=== PATIENT | male | born 1940 | race Caucasian/White ===

== ENCOUNTER 2016-10-31 07:15 | Inpatient (IN) | payer OTHER ==
[2016-10-29 17:36] VITALS: BMI 23.8
[~2016-10-31 07:15] MED LIST: GELATIN, ABSORBABLE 100 EACH SPONGE TP ONE; THROMBIN (BOVINE) 5,000 UNIT VIAL TP ONE
[2016-10-31] MEDS ORDERED: POVIDONE-IODINE OINTMENT 10% - 28.4 GM TUBE ONE ×2 (07:21→13:18)
[2016-10-31] MEDS ORDERED: HEPARIN NA (PORCINE) 5,000 UNITS/ML 1ML VIAL ONE (07:21)
--- NOTE | 2016-10-31 07:34 | HP ---
History & Physical Update - History History: No Change - Physical Physical: No Change - Assessment Assessment: No Change - Plan Plan: No Change (Initial H&P is in patient's paper chart. Completed by Dr. Jhon Higgisn on 10/16/16)
[2016-10-31] MEDS ORDERED: CEFAZOLIN 1 GM in DEXTROSE 5%-WATER - 100 ML IVPB ONE (07:35)
[2016-10-31] MEDS ORDERED: DESFLURANE GAS 240 ML BOTTLE IH ONE (07:50)
[2016-10-31] MEDS ORDERED: ceFAZolin SODIUM 1 GM VIAL ONE (08:29)
[2016-10-31] MEDS ORDERED: PROPOFOL 20 ML ONE ×2 (09:37)
[2016-10-31] MEDS ORDERED: LIDOCAINE HCL/PF 2% SDV 5ML VIAL ONE (09:37)
[2016-10-31] MEDS ORDERED: ROCURONIUM BROMIDE 50 MG/5 ML VIAL ONE (09:37)
[2016-10-31] MEDS ORDERED: ceFAZolin SODIUM 1 GM VIAL IVPB ONE (09:46)
[2016-10-31] MEDS ORDERED: HEPARIN NA (PORCINE) 5,000 UNITS/ML 1ML VIAL SQ ONE (10:10)
[2016-10-31] MEDS ORDERED: MIDAZOLAM HCL 2 MG/2 ML SINGLE DOSE VIAL ONE (10:40)
[2016-10-31] MEDS ORDERED: ePHEDrine SULFATE 50 MG/1 ML AMPULE ONE ×2 (10:51→12:16)
[2016-10-31] MEDS ORDERED: GELATIN, ABSORBABLE 100 EACH SPONGE TP ONE (11:46)
[2016-10-31] MEDS ORDERED: THROMBIN (BOVINE) 5,000 UNIT VIAL TP ONE (11:46)
[2016-10-31] MEDS ORDERED: ATROPINE SULFATE 1 MG/10 ML DISP.SYRIN ONE (12:16)
[2016-10-31] MEDS ORDERED: SUCCINYLCHOLINE CHLORIDE 200 MG/10 ML VIAL ONE (12:18)
[2016-10-31] MEDS ORDERED: NEOSTIGMINE METHYLSULFATE 0.5 MG/ML - 10 ML MDV ONE (13:13)
[2016-10-31] MEDS ORDERED: POVIDONE-IODINE OINTMENT 10% - 28.4 GM TUBE TP ONE (13:23)
--- NOTE | 2016-10-31 13:23 | OP ---
Operative Note - Note: Operative Date: 10/31/16 Pre-Operative Diagnosis: Ischemic right foot Operation: Right fmoropopliteal bypass with PTFE, endarterectomy popliteal, J2EE JAVA DEVELOPER and DFA Findings: Atherosclerotic plaque occluding distal SFA with patent popliteal. Calcified plaque of common, deep and superficial femoral arteries Implants: 8 mm ringed stretch PTFE Post-Operative Diagnosis: Same as Pre-op Surgeon: Christopher German Trainman: Libby Rodgers Anesthesiologist/DATA ENTRY ASSISTANT: Varun Malagon Anesthesia: General Specimens Removed: Plaque from arteries Estimated Blood Loss (mls): 200
--- NOTE | 2016-10-31 13:26 | HP ---
Admitting History and Physical - Admission History of Present Illness: 76 year old male with pain and rubor of right foot. Unable to walk more than 1/ 2 block. ANgiogram showed occlusion of SFA with popliteal runoff to 2 tibial vessels. History Source: Patient, Medical Record Limitations to Obtaining History: No Limitations - Past Medical History Cardiovascular: Yes: HTN, Hyperlipdemia Psych: Yes: Anxiety Musculoskeletal: Yes: Chronic low back pain, Other (Left shoulder pain) Rheumatology: Yes: Gout - Past Surgical History Past Surgical History: Yes: Bypass (Left Fem-Pop), Carotid Endarterectomy - Smoking History Smoking history: Former smoker Have you smoked in the past 12 months: No Aproximately how many cigarettes per day: 0 If you are a former smoker, when did you quit?: 21 YEARS AGO - Alcohol/Substance Use Hx Alcohol Use: No - Social History History of Recent Travel: No Home Medications - Allergies Allergies/Adverse Reactions: Allergies Allergy/AdvReac Type Severity Reaction Status Date / Time No Known Drug Allergies Allergy Verified 10/31/16 08:24 - Home Medications Home Medications: Ambulatory Orders RX: Aspirin Coated [Ecotrin -] 81 mg PO DAILY #0 tablet.ec 05/20/12 RX: Atorvastatin Calcium 40 mg PO HS 10/29/16 RX: Lisinopril 5 mg PO DAILY 10/29/16 RX: Metoprolol Succinate [Toprol XL -] 25 mg PO DAILY 10/29/16 Physical Examination Vital Signs: Vital Signs Temperature 98.2 F 10/31/16 08:23 Pulse Rate 61 10/31/16 08:23 Respiratory Rate 20 10/31/16 08:23 Blood Pressure 162/64 10/31/16 08:23 O2 Sat by Pulse Oximetry (%) 99 10/31/16 08:17 Constitutional: Yes: No Distress Eyes: Yes: WNL HENT: Yes: WNL Neck: Yes: Supple Cardiovascular: Yes: Regular Rate and Rhythm Respiratory: Yes: WNL Gastrointestinal: Yes: Normal Bowel Sounds, Soft Extremities: Yes: Other (Rubor of right forefoot, no open wounds.) Peripheral Pulses WNL: No (1+ right femoral pulse, no distal) Problem List - Problems (1) Ischemia of right lower extremity Code(s): I99.8 - OTHER DISORDER OF CIRCULATORY SYSTEM (2) Atherosclerosis of [place] artery of left leg with rest pain Assessment/Plan: Plan fem-pop bypass. Code(s): I70.222 - ATHSCL [place] ARTERIES OF EXTREMITIES W REST PAIN, LEFT LEG
[2016-10-31] MEDS ORDERED: PROMETHAZINE HCL 25 MG/1 ML VIAL IVPUSH PRN (13:44)
[2016-10-31] MEDS ORDERED: ONDANSETRON 4 MG/2 ML VIAL IVPUSH PRN (13:44)
[2016-10-31] MEDS ORDERED: oxyCODONE HCL 5 MG TABLET PO PRN ×3 (13:44→16:09)
[2016-10-31] MEDS: LABETALOL HCL 5 MG/1 ML (100MG/20 ML VIAL) IVPUSH ONE ×2 (14:10→17:58)
[2016-10-31] MEDS ORDERED: ZOLPIDEM TARTRATE 5 MG TABLET PO PRN (16:03)
[2016-10-31] MEDS ORDERED: ONDANSETRON 4 MG/2 ML VIAL IVPB PRN (16:03)
[2016-10-31] MEDS ORDERED: morphine CARPU-JECT 4 MG/1 ML DISP.SYRIN IVPUSH PRN (16:10)
--- NOTE | 2016-10-31 16:20 | SURG ---
Surgery Fire Safety Manager Note Fire Safety Manager: Libby Rodgers PA-C Date of Service: 10/31/16 Diagnosis: Ischemic right foot Procedure: Right fmoropopliteal bypass with PTFE, endarterectomy popliteal, DATA SCIENCE AND IOT MANAGER and DFA I was present for the entirety of the operative procedure. For further detail, please refer to operative report. Visit type - Case Type Case Type: Scheduled Admission - Emergency Emergency Visit: No - New patient This patient is new to me today: Yes Date on this admission: 10/31/16 - Critical Care Critical Care patient: No
[2016-10-31] MEDS: DEXTROSE 5%-0.45% SALINE 1,000 ML IV SCH (17:00)
--- NOTE | 2016-10-31 17:58 | CONSULT ---
Consultation: Specialty: Critical Care REQUESTING PROVIDER: Christopher German CONSULT REQUEST: We have been asked to medically evaluate this patient for Intensive Care HISTORY OF PRESENT ILLNESS: 76 yo M h/o HLD, HTN, b/l lower extremity PAD s/p bilateral fem-pop bypasses, CAD s/p quadruple CABG, b/l carotid artery stenosis s/p L endarterectomy admitted to the ICU after R fem-pop bypass surgery. Prior to the procedure, he c /o severe pain in R foot on ambulation in that he could not even walk more than 20 feet. As a result, he saw Dr. German and the bypass surgery was performed without any complication. He denies fever, chills, chest pain, shortness of breath, cough, n/v, pain at surgical site. Past Medical History Cardio/Vascular HTN,Hyperlipdemia,PAD Psych Anxiety Rheumatology Gout Past Surgical History Bypass (Left Fem-Pop),Carotid Endarterectomy 2011, Quadruple CABG in 2013 at [facility] Social History Smoking history Former smoker Have you smoked in the past 12 No months Hx Alcohol Use No Usual Living Arrangement With Spouse Allergies Allergy/AdvReac Type Severity Reaction Status Date / Time No Known Drug Allergies Allergy Verified 10/31/16 08:24 Home Medications Medication Instructions Recorded Aspirin Coated [Ecotrin -] 81 mg PO DAILY #0 tablet.ec 05/20/12 Atorvastatin Calcium 40 mg PO HS 10/29/16 Lisinopril 5 mg PO DAILY 10/29/16 Metoprolol Succinate [Toprol XL -] 25 mg PO DAILY 10/29/16 REVIEW OF SYSTEMS: CONSTITUTIONAL: Absent: fever, chills, diaphoresis, generalized weakness, malaise, loss of appetite, weight change HEENT: Absent: rhinorrhea, nasal congestion, throat pain, throat swelling, difficulty swallowing, mouth swelling, ear pain, eye pain, visual changes CARDIOVASCULAR: Absent: chest pain, syncope, palpitations, irregular heart rate, lightheadedness , peripheral edema RESPIRATORY: Absent: cough, shortness of breath, dyspnea with exertion, orthopnea, wheezing, stridor, hemoptysis GASTROINTESTINAL: Absent: abdominal pain, abdominal distension, nausea, vomiting, diarrhea, constipation, melena, hematochezia GENITOURINARY: Absent: dysuria, frequency, urgency, hesitancy, hematuria, flank pain, genital pain MUSCULOSKELETAL: Absent: myalgia, arthralgia, joint swelling, back pain, neck pain SKIN: Absent: rash, itching, pallor HEMATOLOGIC/IMMUNOLOGIC: Absent: easy bleeding, easy bruising, lymphadenopathy, frequent infections ENDOCRINE: Absent: unexplained weight gain, unexplained weight loss, heat intolerance, cold intolerance NEUROLOGIC: Absent: headache, focal weakness or paresthesias, dizziness, unsteady gait, seizure, mental status changes, bladder or bowel incontinence PSYCHIATRIC: anxiety Absent: depression, suicidal or homicidal ideation, hallucinations. PHYSICAL EXAMINATION Last Vital Signs Temp Pulse Resp BP Pulse Ox 97.6 F 62 16 162/37 99 10/31/16 17:28 10/31/16 17:28 10/31/16 17:28 10/31/16 17:28 10/31/16 17:00 GENERAL: AAO x 3, in no acute distress, speak in full sentences EARS, NOSE, THROAT: oropharynx clear without exudates. Moist mucous membranes. NECK: Bilateral bruits R > L LUNGS: CTAB HEART: RRR, normal S1 and S2 without murmur, rub or gallop. ABDOMEN: Soft, nontender, not distended, normoactive bowel sounds, no guarding, no rebound, no masses. Dressing in place in RLQ LOWER EXTREMITIES: 2+ peripheral pulses bilaterally using portable doppler device, No peripheral edema. Laboratory Results - last 24 hr 10/31/16 07:36 Blood Type O POSITIVE Antibody Screen Negative ASSESSMENT/PLAN: 76 yo M h/o HLD, HTN, b/l lower extremity PAD s/p bilateral fem-pop bypasses, CAD s/p quadruple CABG, b/l carotid artery stenosis s/p L endarterectomy admitted to the ICU s/p R fem-pop bypass surgery. PAD with ischemia of RLE , s/p R fem-pop bypass - Post-op day #0 - Post-op prophylatic abx: Cefazolin Q8H - Pain control: oxycodone 5mg PRN + morphine 2mg PRN + fentanyl 50mcg PRN - Post-op nausea control: zofran and prometazine PRN - Sleep aid: ambien 5mg PRN - Dispo: OOB and incentive spirometer - Cont. asa, lipitor, lisnopril, metoprolol - Pulse check Q1H with portable doppler FEN - D5+1/2NS @ 100ml/hr - Monitor lytes - Clears Prophylaxis - DVT: heparin 5000 unit SQ - GI: not indicated Koby Song, ICU Resident PGY-2 Pager: [phone] Visit type - Emergency Visit Emergency Visit: No - New Patient This patient is new to me today: Yes Date on this admission: 10/31/16 - Critical Care Critical Care patient: Yes Total Critical Care Time (in minutes): 30 Critical Care Statement: The care of this patient involved high complexity decision making to prevent further life threatening deterioration of the patient 's condition and/or to evalute & treat vital organ system(s) failure or risk of failure.
[2016-10-31] MEDS: CEFAZOLIN (PRE-DOCKED) 50 ML IVPB SCH (18:25)
[2016-10-31] MEDS: ACETAMINOPHEN 325 MG TABLET (FP) PO PRN (21:26)
[2016-10-31] MEDS: ATORVASTATIN CA 40 MG TABLET (FP) PO SCH (21:27)
[2016-10-31] MEDS ORDERED: HEPARIN NA (PORCINE) 5,000 UNITS/ML 1ML VIAL SQ SCH (22:00)
[2016-11-01] MEDS: CEFAZOLIN (PRE-DOCKED) 50 ML IVPB SCH (00:42)
--- NOTE | 2016-11-01 05:21 | CONSULT ---
Consult - text type - Consultation Consultation Note: PULM/CCM CC: claudication HPI: Briefly Mr Shirin is a 76 yo M h/o HLD, HTN, b/l lower extremity PAD s/ p bilateral fem-pop bypasses, CAD s/p quadruple CABG, b/l carotid artery stenosis s/p L endarterectomy who presented with claudication (R> L) , angiogram showed occlusion of SFA with popliteal runoff to 2 tibial vessels, on 10/31 underwent uneventful R fem-pop bypass surgery with Dr German, now in ICU for overnight monitoring of distal perfusion. He denies fever, chills, chest pain, shortness of breath, cough, n/v, pain at surgical site. Past Medical History Cardio/Vascular HTN,Hyperlipdemia Psych Anxiety Rheumatology Gout Past Surgical History Past Surgical History Bypass (Left Fem-Pop),Carotid Endarterectomy Social History Smoking history Former smoker Have you smoked in the past 12 No months Hx Alcohol Use No Usual Living Arrangement With Spouse Ambulatory Orders Aspirin Coated [Ecotrin -] 81 mg PO DAILY #0 tablet.ec 05/20/12 Atorvastatin Calcium 40 mg PO HS 10/29/16 Lisinopril 5 mg PO DAILY 10/29/16 Metoprolol Succinate [Toprol XL -] 25 mg PO DAILY 10/29/16 Current Medications Acetaminophen (Tylenol -) 650 mg PO Q4H PRN PRN Reason: FEVER Last Admin: 10/31/16 21:26 Dose: 650 mg Aspirin (Ecotrin -) 81 mg PO DAILY [facility] Atorvastatin Calcium (Lipitor -) 40 mg PO HS [facility] Last Admin: 10/31/16 21:27 Dose: 40 mg Dextrose/Sodium Chloride (D5-1/2ns -) 1,000 mls @ 100 mls/hr IV ASDIR [facility] Last Admin: 10/31/16 17:00 Dose: 100 mls/hr Lisinopril (Prinivil) 5 mg PO DAILY [facility] Metoprolol Succinate (Toprol Xl -) 25 mg PO DAILY [facility] Morphine Sulfate (Morphine Injection -) 2 mg IVPUSH Q3H PRN PRN Reason: PAIN LEVEL 6-10 Ondansetron HCl (Zofran Injection) 4 mg IVPB Q6H PRN PRN Reason: NAUSEA AND/OR VOMITING Oxycodone HCl (Roxicodone -) 5 mg PO Q4H PRN PRN Reason: MILD PAIN Stop: 11/01/16 13:43 Oxycodone HCl (Roxicodone -) 5 mg PO Q4H PRN PRN Reason: PAIN LEVEL 1-5 Oxycodone HCl (Roxicodone -) 10 mg PO Q4H PRN PRN Reason: PAIN LEVEL 6-10 Zolpidem Tartrate (Ambien -) 5 mg PO HS PRN PRN Reason: Insomnia Vital Signs Temp 99.0 F 11/01/16 02:00 Pulse 60 11/01/16 04:00 Resp 12 11/01/16 04:00 BP 155/52 11/01/16 04:00 Pulse Ox 99 10/31/16 20:40 Intake & Output 10/31/16 10/31/16 11/01/16 11:59 23:59 11:59 Intake Total 2200 450 Output Total 700 Balance 2200 -250 Intake: IV 2200 300 IVPB 100 Oral 50 Output: Urine 500 Wallace 300 Estimated Blood Loss 200 Other: Voiding Method Indwelling Catheter Bowel Movement No ROS: 9 pt review, unremarkable except as per HPI PE: GENERAL: AAO x 3, in no acute distress, speak in full sentences EARS, NOSE, THROAT: oropharynx clear without exudates. Moist mucous membranes. NECK: Bilateral carotid bruits R > L, no JVP LUNGS: clear anterior, no distress, no wheezes HEART: RRR, normal S1 and S2 without murmur, rub or gallop. ABDOMEN: Soft ND, NT LOWER EXTREMITIES: Dopplerable pulses bilaterally, chronic changes ASSESSMENT/PLAN: 76 yo M h/o HLD, HTN, b/l lower extremity PAD s/p bilateral fem-pop bypasses, CAD s/p quadruple CABG, b/l carotid artery stenosis s/p L endarterectomy admitted after re-op R fem-pop bypass with Dr German All Active Problems Atherosclerosis of [place] artery of left leg with rest pain (Acute) Ischemia of right lower extremity (Acute) Abnormal EKG (Acute) CAD (coronary artery disease) (Acute) Elevated troponin (Acute) History of coronary artery disease (Acute) -overnight q 1 Hr doppler of pulses in affected limb -pain control wtih Oxycodone , morphine prn -restart home meds, statin, aspirin, BB, lisinopril -DVT prophy SQH, no indication for GI -OOB to chair, Incentive spirometer -to floor in am, as per Dr Monserrat Negro ACNP [id number]
[2016-11-01 06:52] LABS: MCHC 32.9 g/dl (32.0-35.9); MEAN CELL VOLUME 88.3 fl (80-96); MEAN PLT VOLUME 8.5 fl (7.5-11.1); PLATELET COUNT 122 K/MM3 (134-434); RDW 13.4 % (11.9-15.9); WHITE BLOOD COUNT 6.1 K/mm3 (4.0-10.0)
--- NOTE | 2016-11-01 07:07 | PN ---
Progress Note (short form) - Note Progress Note: POD 1 C/o pain at knee incision VSS Bloody drainage from lower incision, slight swelling Foot warm, doppler DP and PT Stable course D/C Wallace ASA, SQ Heparin OOB tomorrow Problem List - Problems (1) Ischemia of right lower extremity Code(s): I99.8 - OTHER DISORDER OF CIRCULATORY SYSTEM (2) Atherosclerosis of [place] artery of left leg with rest pain Code(s): I70.222 - ATHSCL [place] ARTERIES OF EXTREMITIES W REST PAIN, LEFT LEG
[2016-11-01 07:16] LABS: ANION GAP 8 (8-16); CALCIUM 8.8 mg/dL (8.5-10.1); CO2 26 mmol/L (21-32); CREATININE 1.1 mg/dL (0.7-1.3); GLUCOSE,RANDOM 86 mg/dL (74-106)
--- NOTE | 2016-11-01 09:29 | PN ---
Progress Note (short form) - Note Progress Note: Anesthesia POD#1 S/P Right Fem-Pop Bypass under GA VSS,sitting in bed, oral food started. pain is well tolerated. No N/V Doing well. Priscilla Almazan MD.
--- NOTE | 2016-11-01 09:36 | PN ---
Physical Exam: SUBJECTIVE: Patient seen and examined at bedside in ICU. Pt feels much improved today and his leg feels much better. He states the color has returned to normal and is no longer painful. Tolerating diet, denies F/C/N/V, SOB. OBJECTIVE: Vital Signs Temperature 98.8 F 11/01/16 10:57 Pulse Rate 67 11/01/16 10:00 Respiratory Rate 15 11/01/16 10:00 Blood Pressure 153/53 11/01/16 10:00 O2 Sat by Pulse Oximetry (%) 99 11/01/16 08:00 GENERAL: The patient is awake, alert, and fully oriented, in no acute distress. HEAD: Normal with no signs of trauma. EYES: extraocular movements intact, sclera anicteric, conjunctiva clear. No ptosis. ENT: Ears normal, nares patent NECK: Trachea midline, full range of motion LUNGS: Breath sounds equal, clear to auscultation bilaterally, no wheezes, no crackles, no accessory muscle use. HEART: Regular rate and rhythm, S1, S2 ABDOMEN: Soft, nontender, nondistended, normoactive bowel sounds, no guarding, no rebound, no hepatosplenomegaly, no masses. EXTREMITIES: R leg medial knee with dressing with some blood in dressing. Pulses present on doppler in b/l LE. B/L LE warm to touch, non-tender, skin with normal coloration. NEUROLOGICAL: Normal speech, gait not observed. PSYCH: Normal mood, normal affect. SKIN: Warm, dry Laboratory Results - last 24 hr 11/01/16 11/01/16 05:15 05:15 WBC 6.1 RBC 2.79 L D Hgb 8.1 L D Hct 24.7 L D MCV 88.3 MCH 29.0 MCHC 32.9 RDW 13.4 Plt Count 122 L MPV 8.5 Sodium 139 Potassium 5.1 D Chloride 105 Carbon Dioxide 26 Anion Gap 8 BUN 31 H Creatinine 1.1 Random Glucose 86 Calcium 8.8 Active Medications Generic Name Dose Route Start Last Admin Trade Name Freq PRN Reason Stop Dose Admin Acetaminophen 650 mg 10/31/16 16:03 10/31/16 21:26 Tylenol - PO 650 mg Q4H PRN Administration FEVER Aspirin 81 mg 11/01/16 10:00 Ecotrin - PO DAILY TRI Atorvastatin Calcium 40 mg 10/31/16 22:00 10/31/16 21:27 Lipitor - PO 40 mg HS TRI Administration Dextrose/Sodium Chloride 1,000 mls @ 100 mls/hr 10/31/16 16:15 10/31/16 17:00 D5-1/2ns - IV 100 mls/hr ASDIR TRI Administration Lisinopril 5 mg 11/01/16 10:00 Prinivil PO DAILY TRI Metoprolol Succinate 25 mg 11/01/16 10:00 Toprol Xl - PO DAILY TRI Morphine Sulfate 2 mg 10/31/16 16:10 Morphine Injection - IVPUSH Q3H PRN PAIN LEVEL 6-10 Ondansetron HCl 4 mg 10/31/16 16:03 Zofran Injection IVPB Q6H PRN NAUSEA AND/OR VOMITING Oxycodone HCl 5 mg 10/31/16 13:44 Roxicodone - PO 11/01/16 13:43 Q4H PRN MILD PAIN Oxycodone HCl 5 mg 10/31/16 16:03 Roxicodone - PO Q4H PRN PAIN LEVEL 1-5 Oxycodone HCl 10 mg 10/31/16 16:09 Roxicodone - PO Q4H PRN PAIN LEVEL 6-10 Zolpidem Tartrate 5 mg 10/31/16 16:03 Ambien - PO HS PRN Insomnia ASSESSMENT/PLAN: 76 y/o M w/PMH of HTN, b/l LE PAD s/p b/l femoral-popliteal bypass, CAD s/p quadruple CABG, b/l carotid artery stenosis s/p L endarterectomy, admitted to ICU s/p R femoral-popliteal bypass surgery on 10/31/16. -Neuro -AAOx3 -Insomnia -Ambien 5 mg po qhs prn for insomnia -Cardiovascular: -R femoral-popliteal bypass -POD 1 -q1h Doppler checks of distal pulses and R LE -pain control with oxycodone 5mg po q4h prn for pain 1-5, morphine iv 2mg q3h prn for pain 6-10 -tylenol 650 mg po q4h prn for fevers -vascular surgery on case -CAD -c/w ASA 81 mg po qd, lipitor 40 mg po qhs -HTN -c/w toprol xl 25 mg po qd, lisinopril 5 mg po qd -DVT ppx -will hold heparin for now, SCD on left leg -restart heparin as indicated by vascular surgery -FEN -D5 1/2 NS @ 100ml/hr -monitor electrolytes -Regular diet beginning at lunch time today -Dispo: -will monitor in ICU Problem List - Problems (1) Atherosclerosis of [place] artery of left leg with rest pain Code(s): I70.222 - ATHSCL [place] ARTERIES OF EXTREMITIES W REST PAIN, LEFT LEG (2) Ischemia of right lower extremity Code(s): I99.8 - OTHER DISORDER OF CIRCULATORY SYSTEM (3) CAD (coronary artery disease) Code(s): I25.10 - ATHSCL HEART DISEASE OF [place] CORONARY ARTERY W/O ANG PCTRS (4) History of coronary artery disease Code(s): Z86.79 - PERSONAL HISTORY OF OTHER DISEASES OF THE CIRCULATORY SYSTEM (5) HTN (hypertension) Code(s): I10 - ESSENTIAL (PRIMARY) HYPERTENSION (6) S/P femoral-popliteal bypass surgery Code(s): Z95.828 - PRESENCE OF OTHER VASCULAR IMPLANTS AND GRAFTS Visit type - Emergency Visit Emergency Visit: Yes ED Registration Date: 10/31/16 Care time: The patient presented to the Emergency Department on the above date and was hospitalized for further evaluation of their emergent condition. - New Patient This patient is new to me today: Yes Date on this admission: 11/01/16 - Critical Care Critical Care patient: Yes Total Critical Care Time (in minutes): 35 Critical Care Statement: The care of this patient involved high complexity decision making to prevent further life threatening deterioration of the patient 's condition and/or to evalute & treat vital organ system(s) failure or risk of failure.
[2016-11-01] MEDS: ASPIRIN COATED 81 MG TABLET.EC PO SCH (09:52)
[2016-11-01] MEDS: LISINOPRIL 5 MG TABLET (FP) PO SCH (09:52)
[2016-11-01] MEDS: METOPROLOL SUCCINATE 25 MG TAB.SR.24H (FP) PO SCH (09:53)
[2016-11-01] MEDS ORDERED: CLOPIDOGREL BISULFATE 75 MG TABLET (FP) PO SCH (10:00)
--- NOTE | 2016-11-01 11:48 | OP ---
DATE OF OPERATION: 10/31/2016 SURGEON: Christopher German MD SHEET CUTTER: TYRONE Goff PROCEDURE: Right femoropopliteal bypass with polytetrafluoroethylene (PTFE) graft, endarterectomy of the common femoral, deep femoral, and popliteal arteries. PREOPERATIVE DIAGNOSIS: Ischemic right foot with rest pain. POSTOPERATIVE DIAGNOSIS: Ischemic right foot with rest pain. ANESTHESIA: General. ANESTHESIOLOGIST: Varun Malagon MD OPERATIVE FINDINGS: There was severe atherosclerotic plaque of the femoral and popliteal arteries. Plaque extending into the proximal superficial femoral and deep femoral arteries. OPERATIVE PROCEDURE: Following routine patient identification with site and side verification, general anesthesia was induced. A Wallace catheter was placed. The right leg and groin were prepped with ChloraPrep. Timeout was performed. Skin incision was made in the right groin over the femoral artery and carried down to subcutaneous tissues using cautery for hemostasis. Common femoral artery was mobilized at the inguinal ligament and secured with a vessel loop. There was dense scar tissue around the artery from previous angiogram procedures. The distal artery was dissected sharply. Deep and superficial femoral branches individually secured with vessel loops. Incision was then made in the medial aspect of the lower calf from the knee up. This was carried down to subcutaneous tissues and muscle fascia using cautery. The sartorius was reflected posteriorly, and the popliteal space was entered. The popliteal artery was mobilized and secured with vessel loop. It was dissected distally to just behind the knee. It was also secured with a vessel loop at this level. Small side branches were ligated and divided. The middle tunnel was passed deep to the sartorius between the 2 incisions, and an 8-mm ringed PTFE graft was passed through the tunnel with care not to twist it. The patient was systemically heparinized. The popliteal artery was occluded distally with vessel loops, and a longitudinal arteriotomy made measuring approximately 10 mm. There was thick plaque within the popliteal artery, and this was removed with endarterectomy. The distal intima was tacked down with sutures of 6-0 Prolene to prevent dissection. The end of the graft was then beveled and anastomosed to the side of the artery with running suture of 6-0 Prolene. Prior to completion of the suture line, the artery was allowed to back bleed and was flushed with heparin solution. The graft was occluded with a vascular clamp and the suture line was completed and the artery was released. Bleeding from the suture line was controlled with Gelfoam and thrombin. The knee was extended, and the graft pulled taut in its tunnel. The common femoral artery was occluded at the inguinal ligament, and the deep and superficial femoral branches were occluded with vessel loops. A longitudinal arteriotomy was made in the common femoral from the bifurcation proximally. Endarterectomy was performed to remove plaque from the common femoral artery. Plaque was also removed from the proximal deep femoral artery with return of some back bleeding. There was no back bleeding from the superficial femoral artery. The graft was then trimmed for length and beveled. It was anastomosed to the side of the artery with running suture of 6-0 Prolene. Prior to completion of the suture line, the arteries were allowed to flush, and the graft was allowed to back bleed. The wound was filled with heparin solution. Suture line was completed, and clamps were removed. Bleeding from the suture line was controlled with Gelfoam and thrombin. Evaluation with the hand-held Doppler revealed a good signal in the distal popliteal artery. No flow was heard in the deep femoral artery. Therefore, the artery was further dissected distally. Division of the overlying tissue. The distal deep femoral was occluded with a bulldog clamp and the proximal also with a bulldog clamp. A transverse arteriotomy was made in the deep femoral, and endarterectomy performed to restore inflow and return of back bleeding. The arteriotomy was closed with a running suture of 6-0 Prolene. Good Doppler signal was heard in the vessel after the clamps were removed. Hemostasis was achieved, and wounds were irrigated with saline and closed with interrupted sutures of 3-0 Vicryl in the subcutaneous tissues and skin [place]. Sterile dressings were applied. The patient was taken to the recovery room. Donya [id number]
[2016-11-01] MEDS: DEXTROSE 5%-0.45% SALINE 1,000 ML IV SCH (14:15)
[2016-11-01] MEDS: ACETAMINOPHEN 325 MG TABLET (FP) PO PRN (19:47)
[2016-11-01] MEDS: ATORVASTATIN CA 40 MG TABLET (FP) PO SCH (21:29)
[2016-11-01] MEDS: HEPARIN NA (PORCINE) 5,000 UNITS/ML 1ML VIAL SQ SCH (21:29)
[2016-11-02 06:22] LABS: MCH 29.3 pg (25.7-33.7); MEAN CELL VOLUME 88.8 fl (80-96); MEAN PLT VOLUME 8.5 fl (7.5-11.1); PLATELET COUNT 110 K/MM3 (134-434); RDW 13.8 % (11.9-15.9); WHITE BLOOD COUNT 6.5 K/mm3 (4.0-10.0)
[2016-11-02 07:11] LABS: ALBUMIN 3.2 g/dl (3.4-5.0); ANION GAP 6 (8-16); BILIRUBIN,TOTAL 0.3 mg/dL (0.2-1.0); CO2 28 mmol/L (21-32); CREATININE 1.1 mg/dL (0.7-1.3); GLUCOSE,RANDOM 99 mg/dL (74-106); SGOT/AST 24 U/L (15-37); SGPT/ALT 20 U/L (12-78)
[2016-11-02 07:12] LABS: ALK PHOS 54 U/L (45-117)
--- NOTE | 2016-11-02 08:25 | PN ---
Progress Note (short form) - Note Progress Note: POD 2 VSS Wounds dry Foot warm, pulses intact Hgb 8.2, no change Stable post-op course OOB, PT for ambulation. Transfer to floor. Dr. Souza covering. Problem List - Problems (1) Ischemia of right lower extremity Code(s): I99.8 - OTHER DISORDER OF CIRCULATORY SYSTEM (2) Atherosclerosis of [place] artery of left leg with rest pain Code(s): I70.222 - ATHSCL [place] ARTERIES OF EXTREMITIES W REST PAIN, LEFT LEG
--- NOTE | 2016-11-02 09:08 | PN ---
Progress Note, Physician Chief Complaint: The patient is known from the office. Seen in the ICU after right fem-po bypass on 10/31/16 History of Present Illness: PMH PAD GOUT RIGHT LE ENDARTEWRECTOMY. Left fem-pop bypass . Left cea. ASHD. PREVIOUS SD. RBBB. CABG X4 AT [facility] -VEIN TO PDA, OM, DIAGONAL, CORREA TO LAD HTN HLD LOW BACK PAIN-CHRONIC. - Current Medication List Current Medications: Active Medications Acetaminophen (Tylenol -) 650 mg PO Q4H PRN PRN Reason: FEVER Last Admin: 11/01/16 19:47 Dose: 650 mg Aspirin (Ecotrin -) 81 mg PO DAILY [facility] Last Admin: 11/01/16 09:52 Dose: 81 mg Atorvastatin Calcium (Lipitor -) 40 mg PO HS [facility] Last Admin: 11/01/16 21:29 Dose: 40 mg Heparin Sodium (Porcine) (Heparin -) 5,000 unit SQ BID [facility] Last Admin: 11/01/16 21:29 Dose: 5,000 unit Lisinopril (Prinivil) 5 mg PO DAILY [facility] Last Admin: 11/01/16 09:52 Dose: 5 mg Metoprolol Succinate (Toprol Xl -) 25 mg PO DAILY [facility] Last Admin: 11/01/16 09:53 Dose: 25 mg Ondansetron HCl (Zofran Injection) 4 mg IVPB Q6H PRN PRN Reason: NAUSEA AND/OR VOMITING Oxycodone HCl (Roxicodone -) 5 mg PO Q4H PRN PRN Reason: PAIN LEVEL 1-5 Oxycodone HCl (Roxicodone -) 10 mg PO Q4H PRN PRN Reason: PAIN LEVEL 6-10 Zolpidem Tartrate (Ambien -) 5 mg PO HS PRN PRN Reason: Insomnia - Objective Vital Signs: Vital Signs Temperature 99.0 F 11/02/16 06:00 Pulse Rate 64 11/02/16 06:00 Respiratory Rate 21 11/02/16 06:00 Blood Pressure 149/40 11/02/16 06:00 O2 Sat by Pulse Oximetry (%) 99 11/01/16 21:00 Constitutional: Yes: Anxious, Mild Distress Eyes: Yes: Conjunctiva Clear, EOM Intact, PERRL. No: Diplopia, Ptosis, Sclera Icterus, Tearing HENT: Yes: Atraumatic, Normocephalic. No: Drooling, Epistaxis, Hoarseness, Nasal Congestion Neck: Yes: Supple, Trachea Midline. No: Decreased ROM, Lymphadenopathy, Rigid Cardiovascular: Yes: Regular Rate and Rhythm, S1, S2. No: Bradycardia, Tachycardia, JVD, Rub Respiratory: Yes: Regular, CTA Bilaterally. No: Rales, Rhonchi Gastrointestinal: Yes: Normal Bowel Sounds, Soft. No: Abdomen, Obese, Ascites, Palpable Mass, Pulsatile Mass, Tenderness, Tenderness, Epigastrium ...Rectal Exam: Yes: Deferred Genitourinary: No: Anuria, Bladder Distention, CVA Tenderness - Left, CVA Tenderness - Right, Wallace Present Breast(s): Yes: WNL Musculoskeletal: No: Joint Stiffness, Joint Swelling Extremities: No: Cold, Cyanosis Edema: No Peripheral Pulses: Left Doralis Pedis: 3+, Right Dorsalis Pedis: 1+ Wound/Incision: Yes: Dressing Dry and Intact Neurological: Yes: Alert, Oriented. No: Aphasia, Ataxia, Confusion, Dysarthria , Lethargy, Unresponsive Psychiatric: Yes: Alert, Oriented. No: Agitated, Suicidal Ideation Labs: CBC, BMP 11/02/16 05:15 11/02/16 05:15 Problem List - Problems (1) HTN (hypertension) Assessment/Plan: FOLLOW bp,CONTINUE bp MEDS Code(s): I10 - ESSENTIAL (PRIMARY) HYPERTENSION Qualifiers: Hypertension type: essential hypertension Qualified Code(s): I10 - Essential (primary) hypertension (2) S/P femoral-popliteal bypass surgery Assessment/Plan: VASCULAR SURGERY F/U Code(s): Z95.828 - PRESENCE OF OTHER VASCULAR IMPLANTS AND GRAFTS (3) CAD (coronary artery disease) Assessment/Plan: CARDIOLOGY F/U. CONTINUE STATINS. Code(s): I25.10 - ATHSCL HEART DISEASE OF [place] CORONARY ARTERY W/O ANG PCTRS Qualifiers: Coronary Disease-Associated Artery/Lesion type: bypass graft [place] vs. transplanted heart: [place] heart Associated angina: without angina Qualified Code(s): I25.810 - Atherosclerosis of coronary artery bypass graft( s) without angina pectoris
[2016-11-02] MEDS ORDERED: PT OWN MED DRAWER 7, Y5N ONE (09:16)
[2016-11-02] MEDS: LISINOPRIL 5 MG TABLET (FP) PO SCH (09:17)
[2016-11-02] MEDS: METOPROLOL SUCCINATE 25 MG TAB.SR.24H (FP) PO SCH (09:17)
[2016-11-02] MEDS: ASPIRIN COATED 81 MG TABLET.EC PO SCH (09:17)
[2016-11-02] MEDS: HEPARIN NA (PORCINE) 5,000 UNITS/ML 1ML VIAL SQ SCH ×2 (09:18→21:17)
[2016-11-02] MEDS ORDERED: oxyCODONE HCL 5 MG TABLET PO PRN (11:24)
[2016-11-02] MEDS ORDERED: ONDANSETRON 4 MG/2 ML VIAL IVPB PRN (11:24)
[2016-11-02] MEDS ORDERED: ZOLPIDEM TARTRATE 5 MG TABLET PO PRN (11:24)
--- NOTE | 2016-11-02 11:51 | PN ---
Progress Note (short form) - Note Progress Note: Feels overall better. No CP or SOB. Seen by vascular surgery this AM. No acute events overnight. Intake & Output 10/30/16 10/31/16 11/01/16 11/02/16 23:59 23:59 23:59 23:59 Intake Total 2650 740 360 Output Total 700 3350 950 Balance 1950 -2610 -590 Last Vital Signs Temp Pulse Resp BP Pulse Ox 98.3 F 67 20 100/63 97 11/02/16 10:00 11/02/16 10:00 11/02/16 10:00 11/02/16 10:09 11/02/16 09:00 Active Medications Acetaminophen (Tylenol -) 650 mg PO Q4H PRN PRN Reason: FEVER Aspirin (Ecotrin -) 81 mg PO DAILY [facility] Atorvastatin Calcium (Lipitor -) 40 mg PO HS [facility] Heparin Sodium (Porcine) (Heparin -) 5,000 unit SQ BID [facility] Lisinopril (Prinivil) 5 mg PO DAILY [facility] Metoprolol Succinate (Toprol Xl -) 25 mg PO DAILY [facility] Ondansetron HCl (Zofran Injection) 4 mg IVPB Q6H PRN PRN Reason: NAUSEA AND/OR VOMITING Oxycodone HCl (Roxicodone -) 5 mg PO Q4H PRN PRN Reason: PAIN LEVEL 1-5 Oxycodone HCl (Roxicodone -) 10 mg PO Q4H PRN PRN Reason: PAIN LEVEL 6-10 Zolpidem Tartrate (Ambien -) 5 mg PO HS PRN PRN Reason: Insomnia GENERAL: The patient is awake, alert, and fully oriented, in no acute distress. HEAD: Normal with no signs of trauma. EYES: extraocular movements intact, sclera anicteric, conjunctiva clear. No ptosis. ENT: Ears normal, nares patent NECK: Trachea midline, full range of motion LUNGS: Breath sounds equal, clear to auscultation bilaterally, no wheezes, no crackles, no accessory muscle use. HEART: Regular rate and rhythm, S1, S2 ABDOMEN: Soft, nontender, nondistended, normoactive bowel sounds, no guarding, no rebound, no hepatosplenomegaly, no masses. EXTREMITIES: R leg medial knee with dressing. Pulses present on doppler in b/l LE. B/L LE warm to touch, non-tender, skin with normal coloration. NEUROLOGICAL: Non-focal PSYCH: Normal mood, normal affect. SKIN: Warm, dry Laboratory Results - last 24 hr 11/02/16 11/02/16 05:15 05:15 WBC 6.5 RBC 2.83 L Hgb 8.3 L Hct 25.1 L MCV 88.8 MCH 29.3 MCHC 33.0 RDW 13.8 Plt Count 110 L MPV 8.5 Sodium 139 Potassium 5.1 Chloride 105 Carbon Dioxide 28 Anion Gap 6 L BUN 34 H Creatinine 1.1 Creat Clearance w eGFR > 60 Random Glucose 99 Calcium 9.0 Total Bilirubin 0.3 D AST 24 D ALT 20 D Alkaline Phosphatase 54 Total Protein 6.0 L D Albumin 3.2 L D Problem List - Problems (1) Atherosclerosis of [place] artery of left leg with rest pain Code(s): I70.222 - ATHSCL [place] ARTERIES OF EXTREMITIES W REST PAIN, LEFT LEG (2) Ischemia of right lower extremity Code(s): I99.8 - OTHER DISORDER OF CIRCULATORY SYSTEM (3) CAD (coronary artery disease) Code(s): I25.10 - ATHSCL HEART DISEASE OF [place] CORONARY ARTERY W/O ANG PCTRS (4) History of coronary artery disease Code(s): Z86.79 - PERSONAL HISTORY OF OTHER DISEASES OF THE CIRCULATORY SYSTEM (5) HTN (hypertension) Code(s): I10 - ESSENTIAL (PRIMARY) HYPERTENSION (6) S/P femoral-popliteal bypass surgery Code(s): Z95.828 - PRESENCE OF OTHER VASCULAR IMPLANTS AND GRAFTS ASSESSMENT/PLAN: Wound care per surgery ASA Toprol XL O2 as needed Lipitor SQ Heparin OOB to chair Incentive Spirometry Floor Dr Oshea
[2016-11-02] MEDS: ATORVASTATIN CA 40 MG TABLET (FP) PO SCH (21:17)
[2016-11-03] MEDS: METOPROLOL SUCCINATE 25 MG TAB.SR.24H (FP) PO SCH (09:34)
[2016-11-03] MEDS: ASPIRIN COATED 81 MG TABLET.EC PO SCH (09:34)
[2016-11-03] MEDS: LISINOPRIL 5 MG TABLET (FP) PO SCH (09:34)
[2016-11-03] MEDS: HEPARIN NA (PORCINE) 5,000 UNITS/ML 1ML VIAL SQ SCH ×2 (09:34→21:14)
--- NOTE | 2016-11-03 10:19 | OP ---
DATE OF OPERATION: 10/31/2016 SURGEON: Christopher German MD FREIGHT CAR CLEANER: TYRONE Goff PROCEDURE: Right femoropopliteal bypass with PTFE (polytetrafluoroethylene) graft, endarterectomy of the common femoral, deep femoral, and popliteal arteries. PREOPERATIVE DIAGNOSIS: Ischemia of right foot. POSTOPERATIVE DIAGNOSIS: Ischemia of right foot. ANESTHESIA: General. ANESTHESIOLOGIST: Varun Malagon MD OPERATIVE FINDINGS: There was severe atherosclerotic plaque in the femoral and popliteal vessels with occlusion of the distal femoral artery above the knee and occlusion of the proximal deep femoral artery in the groin. OPERATIVE PROCEDURE: Following routine patient identification, side and site verification, general anesthesia was induced. Wallace catheter was placed. Right leg and groin were prepped with ChloraPrep. Timeout was performed. Skin incision was made over the right common femoral artery and deepened using cautery for hemostasis. The artery was mobilized at the inguinal ligament and secured with a vessel loop. It was dissected distally, and the deep and superficial femoral branches were individually secured. Small side branches were ligated and divided. Larger side branches were controlled with vessel loops. The artery was covered with moist gauze. A second incision was made on the lower medial thigh down to the level of the knee. The subcutaneous tissues and muscle fascia were incised with cautery. The sartorius was reflected posteriorly and the popliteal space entered. The popliteal artery was mobilized from the surrounding tissues. Crossing vessels were ligated and divided. The artery was encircled proximally and distally with vessel loops. It was dissected distally to a point which was soft and appeared acceptable for anastomosis. A metal tunneler was then passed deep to the sartorius between the 2 incisions, and an 8-mm PTFE ringed graft was passed through the tunnel with care not to twist it. The patient was systemically heparinized. The distal popliteal artery was occluded with a bulldog clamp, and an arteriotomy made measuring approximately 15 mm. Endarterectomy of the popliteal artery was performed to free the lumen and remove large plaque. The distal intima was tacked down with sutures of 6-0 Prolene to prevent dissection. The end of the graft was beveled and anastomosed to the side of the artery with running suture of 6-0 Prolene. Prior to completion of the suture line, the artery was allowed to back bleed and was flushed with heparin/saline solution. Suture line was completed and the graft was occluded with a vascular clamp and then the artery was released. Bleeding from the suture line was controlled with thrombin-soaked Gelfoam. The graft was pulled taut in the tunnel with the leg extended. The common femoral artery was occluded proximally with a vascular clamp. The deep and superficial femoral branches were occluded with vessel loops. An arteriotomy was made in the common femoral measuring approximately 2 cm. Endarterectomy of the common femoral was performed. Plaque was also removed from the proximal deep and superficial femoral arteries with back bleeding from the deep. The end of the graft was then trimmed for length and beveled and anastomosed to the side of the artery with running suture of 6-0 Prolene. Prior to completion of the suture line, the arteries were allowed to back bleed and flush, and the graft was allowed to back bleed and was filled with heparin solution. Suture line was completed, and all clamps were removed. Bleeding from the suture line was controlled with thrombin-soaked Gelfoam. Evaluation of the distal popliteal artery with the Doppler revealed a good Doppler signal. Evaluation of the femoral branches revealed no signal in the deep femoral. Accordingly, the deep femoral artery was exposed approximately 2 cm more distally from its origin and encircled with a vessel loop. The artery was then occluded proximally and distally with bulldog clamps, and a transverse arteriotomy made. Endarterectomy of the deep femoral artery was performed and allowed for good back bleeding and pulsatile inflow. The arteriotomy was then closed with running suture of 6-0 Prolene. Upon release of the clamps, there was a good Doppler signal within this vessel. The wounds were irrigated and then closed with interrupted suture of 3-0 Vicryl in subcutaneous tissues and skin marina. Sterile dressings were applied, and the patient was taken to the recovery room in stable condition. Donya [id number] cc: Heriberto Bland MD
[2016-11-03] MEDS: ACETAMINOPHEN 325 MG TABLET (FP) PO PRN ×2 (11:31→18:07)
[2016-11-03] MEDS: oxyCODONE HCL 5 MG TABLET PO PRN ×2 (11:32→18:06)
[2016-11-03] MEDS: ATORVASTATIN CA 40 MG TABLET (FP) PO SCH (21:14)
[2016-11-04] MEDS: LISINOPRIL 5 MG TABLET (FP) PO SCH (09:43)
[2016-11-04] MEDS: METOPROLOL SUCCINATE 25 MG TAB.SR.24H (FP) PO SCH (09:43)
[2016-11-04] MEDS: HEPARIN NA (PORCINE) 5,000 UNITS/ML 1ML VIAL SQ SCH ×2 (09:43→21:23)
[2016-11-04] MEDS: ASPIRIN COATED 81 MG TABLET.EC PO SCH (09:43)
--- NOTE | 2016-11-04 12:02 | PN ---
Progress Note (short form) - Note Progress Note: Vascular Surgery Pt seen and examined. Right fem pop bypass. dressing changed. Incisions clean , dry and intact. Foot is warm. Pt needs physical therapy. When he feels comfortable with ambulation we can DC him home. Will cont to follow Justyn Souza DO
[2016-11-04] MEDS: oxyCODONE HCL 5 MG TABLET PO PRN ×2 (15:02→21:24)
[2016-11-04] MEDS: ATORVASTATIN CA 40 MG TABLET (FP) PO SCH (21:25)
[2016-11-05] MEDS: ASPIRIN COATED 81 MG TABLET.EC PO SCH (09:44)
[2016-11-05] MEDS: METOPROLOL SUCCINATE 25 MG TAB.SR.24H (FP) PO SCH (09:44)
[2016-11-05] MEDS: LISINOPRIL 5 MG TABLET (FP) PO SCH (09:44)
[2016-11-05] MEDS: HEPARIN NA (PORCINE) 5,000 UNITS/ML 1ML VIAL SQ SCH ×2 (09:44→21:30)
--- NOTE | 2016-11-05 13:12 | PN ---
Progress Note (short form) - Note Progress Note: Vascular Surgery Pt seen and examined. Has been walking more with PT Wants to stay one more day. Will see again angelina. If pt feels comfortable, can be DC Justyn Souza DO
[2016-11-05] MEDS: POLYETHYLENE GLYCOL 3350 119 GM BTL PO SCH (13:33)
[2016-11-05] MEDS: ATORVASTATIN CA 40 MG TABLET (FP) PO SCH (21:30)
--- NOTE | 2016-11-06 09:50 | PN ---
Progress Note (short form) - Note Progress Note: Vascular Surgery Pt seen and examined. Doing well. Foot is warm. staple line is clean, dry and intact. Pt ambulating well. Will be DC home today Will follow up with Dr. German in a week for staple removal. Justyn Souza DO
[2016-11-06] MEDS: POLYETHYLENE GLYCOL 3350 119 GM BTL PO SCH (09:52)
[2016-11-06] MEDS: METOPROLOL SUCCINATE 25 MG TAB.SR.24H (FP) PO SCH (09:53)
[2016-11-06] MEDS: ASPIRIN COATED 81 MG TABLET.EC PO SCH (09:53)
[2016-11-06] MEDS: LISINOPRIL 5 MG TABLET (FP) PO SCH (09:53)
[2016-11-06] MEDS: HEPARIN NA (PORCINE) 5,000 UNITS/ML 1ML VIAL SQ SCH (09:55)
[2016-11-06 13:33] VITALS: BP 100/52; PULSE 70; TEMP 98.4
== END 2016-11-06 15:08 | disposition home or self-care (01) | DRG 254 ==
LOC: JSAMEDAYSX 07:15 → EDSTATUS 12:54 → JICU 17:37 → J6S 11-02 11:45
PROVIDERS: ADMIT Surgery; ATTEND Surgery
PROC: 04CK0ZZ Extirpation of Matter from Right Femoral Artery, Open Approach (ICD-10-PCS; 2016-10-31)
PROC: 04CM0ZZ Extirpation of Matter from Right Popliteal Artery, Open Approach (ICD-10-PCS; 2016-10-31)
PROC: 041K0JL Bypass Right Femoral Artery to Popliteal Artery with Synthetic Substitute, Open Approach (ICD-10-PCS; principal; 2016-10-31 09:00)
DX: I70.221 Atherosclerosis of native arteries of extremities with rest pain, right leg (principal); I10 Essential (primary) hypertension; E78.5 Hyperlipidemia, unspecified; M54.5 Low back pain; Z87.891 Personal history of nicotine dependence; I25.10 Atherosclerotic heart disease of native coronary artery without angina pectoris; Z95.1 Presence of aortocoronary bypass graft; F41.9 Anxiety disorder, unspecified; M10.9 Gout, unspecified; G47.00 Insomnia, unspecified; I45.10 Unspecified right bundle-branch block
CPT/HCPCS: 36415; 80048; 80053; 85027; 86850; 86900; 86901; 88304-TC; 88311-TC; 94010; 94760; 97116-GP; 97161-GP; J1644

== ENCOUNTER 2016-11-14 08:53 | Inpatient (IN) | payer OTHER ==
[2016-11-14 09:04] VITALS: BMI 23.8
[2016-11-14] MEDS ORDERED: HEPARIN NA (PORCINE) 5,000 UNITS/ML 1ML VIAL IVPUSH ONE (10:06)
--- NOTE | 2016-11-14 10:22 | PDOC ---
History of Present Illness - General Chief Complaint: Revisit,Radiology Variance Stated Complaint: PREUP SURGERY Time Seen by Provider: 11/14/16 09:22 History Source: Patient Exam Limitations: No Limitations - History of Present Illness Initial Comments: 11/14/16 10:24 76-year-old male sent in by Dr. German for admission of an occluded femoropopliteal bypass graft that was done 2 weeks ago. Patient was seen in his office yesterday and had an ultrasound that showed no arterial blood flow along with serous drainage noted from the inner aspect of right thigh incision with marina. Patient denies fever, chills but does states increased tenderness to the area along with edema to the right lower extremity. Timing/Duration: constant Severity: moderate Associated Symptoms: reports: denies symptoms Past History - Travel Traveled outside of the country in the last 30 days: No - Past Medical History Allergies/Adverse Reactions: Allergies Allergy/AdvReac Type Severity Reaction Status Date / Time No Known Drug Allergies Allergy Verified 11/14/16 08:57 Home Medications: Ambulatory Orders Aspirin Coated [Ecotrin -] 81 mg PO DAILY #0 tablet.ec 05/20/12 Atorvastatin Calcium 40 mg PO HS 10/29/16 Lisinopril 5 mg PO DAILY 10/29/16 Metoprolol Succinate [Toprol XL -] 25 mg PO DAILY 10/29/16 Acetaminophen [Tylenol .Regular Strength -] 650 mg PO Q4H PRN #0 tablet Oxycodone HCl [Roxicodone -] 5 mg PO Q6H PRN #60 tablet MDD 4 tabs 11/06/16 Anemia: No Asthma: No Cancer: No Cardiac Disorders: Yes (QUADRUPLE BYPOASS 2013) CVA: No COPD: No CHF: No Dementia: No Diabetes: No GI Disorders: No Disorders: No HTN: Yes Hypercholesterolemia: Yes Liver Disease: No Seizures: No Thyroid Disease: No - Surgical History Abdominal Surgery: No Appendectomy: No Cardiac Surgery: Yes (ENDARTERECTOMY, STENT) Cholecystectomy: No Lung Surgery: No Neurologic Surgery: No Orthopedic Surgery: No - Psycho/Social/Smoking Cessation Hx Anxiety: No Suicidal Ideation: No Smoking History: Former smoker Have you smoked in the past 12 months: No Number of Cigarettes Smoked Daily: 0 If you are a former smoker, when did you quit?: 21 YEARS AGO Cigars Per Day: 0 Information on smoking cessation initiated: No 'Breaking Loose' booklet given: 05/15/12 Hx Alcohol Use: No Drug/Substance Use Hx: No Substance Use Type: None Hx Substance Use Treatment: No Patient Lives Alone: No Lives with/in: spouse/SO Review of Systems - Review of Systems Able to Perform ROS?: Yes Constitutional: No: Symptoms Reported Respiratory: No: Symptoms reported ABD/GI: No: Symptoms Reported : No: Symptoms Reported Musculoskeletal: No: Muscle Pain Integumentary: Yes: Erythema, Other (swelling to right lower extremity) Neurological: No: Symptoms reported Endocrine: No: Symptoms Reported Hematologic/Lymphatic: No: Symptoms Reported *Physical Exam - Vital Signs Last Vital Signs Temp Pulse Resp BP Pulse Ox 97.5 F L 74 18 113/49 100 11/14/16 08:58 11/14/16 08:58 11/14/16 08:58 11/14/16 08:58 11/14/16 08:58 - Physical Exam General Appearance: Yes: Nourished, Appropriately Dressed. No: Apparent Distress HEENT: negative: Pale Conjunctivae Respiratory/Chest: positive: Lungs Clear, Normal Breath Sounds. negative: Respiratory Distress, Accessory Muscle Use Cardiovascular: positive: Regular Rhythm, Regular Rate. negative: Murmur Gastrointestinal/Abdominal: positive: Soft. negative: Tenderness Extremity: positive: Normal Capillary Refill, Pedal Edema (1+ pitting) Integumentary: positive: Erythema (to stapled incision to lower inner thigh with serousangious fluid draining onto DSD), Swelling (right lower extremity). negative: Ecchymosis Neurologic: positive: Normal Mood/Affect, Motor Strength 5/5 (ambulatory) ED Treatment Course - LABORATORY CBC & Chemistry Diagram: 11/14/16 10:03 11/14/16 10:03 Medical Decision Making - Medical Decision Making 11/14/16 10:34 Patient sent in by Dr. German for evaluation of an occluded femoropopliteal arterial graft. Patient is to be admitted to Dr. Bland along with a call placed to surgical PAs and to start patient on a heparin infusion. Ordered for labs included guaiac testing. Orders also placed for heparin infusion. Case discussed with Dr. Bland who accepted patient to [facility]. 11/14/16 11:22 Laboratory Tests 11/14/16 11/14/16 11/14/16 10:03 10:03 10:03 WBC 9.2 D RBC 2.99 L Hgb 8.7 L Hct 26.7 L Plt Count 221 D Neutrophils % 82.5 INR 1.12 PTT (Actin FS) 31.3 D Sodium 135 L Potassium 4.5 Chloride 99 BUN 34 H Creatinine 1.4 H D Random Glucose 104 Magnesium 2.5 H AST 22 ALT 41 D Stool Occult Blood 11/14/16 10:57 WBC RBC Hgb Hct Plt Count Neutrophils % INR PTT (Actin FS) Sodium Potassium Chloride BUN Creatinine Random Glucose Magnesium AST ALT Stool Occult Blood Negative *DC/Admit/Observation/Transfer Diagnosis at time of Disposition: S/P femoral-popliteal bypass surgery, Arterial insufficiency of lower extremity Femoral-popliteal bypass graft occlusion Qualifiers: Encounter type: initial encounter Qualified Code(s): T82.898A - Other specified complication of vascular prosthetic devices, implants and grafts, initial encounter - Discharge Dispostion Admit: Yes - Referrals Referrals: Heriberto Bland MD [Primary Care Provider] -
[2016-11-14 10:23] LABS: BASOPHIL 0.6 % (0-2.0); EOSINOPHIL 0.9 % (0-4.5); MCH 29.1 pg (25.7-33.7); MCHC 32.7 g/dl (32.0-35.9); MEAN CELL VOLUME 89.1 fl (80-96); MEAN PLT VOLUME 7.1 fl (7.5-11.1); NEUTROPHILS 82.5 % (42.8-82.8); PLATELET COUNT 221 K/MM3 (134-434); RDW 13.6 % (11.9-15.9); WHITE BLOOD COUNT 9.2 K/mm3 (4.0-10.0)
[2016-11-14 10:40] LABS: ALBUMIN 3.7 g/dl (3.4-5.0); ANION GAP 8 (8-16); BILIRUBIN,TOTAL 0.6 mg/dL (0.2-1.0); CALCIUM 9.3 mg/dL (8.5-10.1); CO2 28 mmol/L (21-32); CREATININE 1.4 mg/dL (0.7-1.3); GLUCOSE,RANDOM 104 mg/dL (74-106); MAGNESIUM 2.5 mg/dL (1.8-2.4); SGOT/AST 22 U/L (15-37); SGPT/ALT 41 U/L (12-78); TOT PROT 6.9 g/dl (6.4-8.2)
[2016-11-14 10:41] LABS: ALK PHOS 63 U/L (45-117)
[2016-11-14 10:48] LABS: INR 1.12 (0.82-1.09); PROTHROMBIN TIME (PATIENT) 12.3 SEC (9.98-11.88)
[2016-11-14 10:51] LABS: ACTIVATED PTT 31.3 SECONDS (26.9-34.4)
[2016-11-14] MEDS ORDERED: HEPARIN NA (PORCINE) 5,000 UNITS/ML 1ML VIAL ONE (11:24)
[2016-11-14] MEDS ORDERED: HEPARIN INFUSION - 500 ML IVPB ONE (11:25)
--- NOTE | 2016-11-14 11:30 | PDOC ---
*Physical Exam - Vital Signs Last Vital Signs Temp Pulse Resp BP Pulse Ox 97.5 F L 74 18 113/49 100 11/14/16 08:58 11/14/16 08:58 11/14/16 08:58 11/14/16 08:58 11/14/16 08:58 ED Treatment Course - LABORATORY CBC & Chemistry Diagram: 11/15/16 07:35 11/15/16 07:35 - ADDITIONAL ORDERS Additional order review: Laboratory Results 11/14/16 11/14/16 11/14/16 10:57 10:03 10:03 INR 1.12 PTT (Actin FS) 31.3 D Sodium 135 L Potassium 4.5 Chloride 99 Carbon Dioxide 28 Anion Gap 8 BUN 34 H Creatinine 1.4 H D Creat Clearance w eGFR 49.41 Random Glucose 104 Calcium 9.3 Magnesium 2.5 H Total Bilirubin 0.6 D AST 22 ALT 41 D Alkaline Phosphatase 63 Total Protein 6.9 Albumin 3.7 Stool Occult Blood Negative 11/14/16 10:03 RBC 2.99 L MCV 89.1 MCHC 32.7 RDW 13.6 MPV 7.1 L D Neutrophils % 82.5 Lymphocytes % 8.8 D Monocytes % 7.2 Eosinophils % 0.9 Basophils % 0.6 Medical Decision Making - Medical Decision Making 11/14/16 11:28 Patient seen and examined with an FOLEY ARTIST Yanira. Agree with history, assessment, and plan. Briefly patient with femoropopliteal graft [address] German presents with occlusion seen on ultrasound yesterday. Per Dr. German will start heparin and admit for further management. *DC/Admit/Observation/Transfer Diagnosis at time of Disposition: S/P femoral-popliteal bypass surgery, Arterial insufficiency of lower extremity Femoral-popliteal bypass graft occlusion Qualifiers: Encounter type: initial encounter Qualified Code(s): T82.898A - Other specified complication of vascular prosthetic devices, implants and grafts, initial encounter - Discharge Dispostion Condition at time of disposition: Stable Admit: Yes - Referrals - Patient Instructions - Post Discharge Activity - Attestations Physician Attestion: 11/15/16 19:55 I, Dr. Jackeline Rich MD, attest that this document has been prepared under my direction and personally reviewed by me in its entirety. I further attest, that it accurately reflects all work, treatment, procedures and medical decision -making performed by me.
[2016-11-14] MEDS: HEPARIN INFUSION - 500 ML IVPB SCH (11:35)
[2016-11-14] MEDS ORDERED: ACETAMINOPHEN 325 MG TABLET (FP) PO PRN (14:22)
--- NOTE | 2016-11-14 14:26 | HP ---
Admitting History and Physical - Admission Chief Complaint: 75 y.o M-s/p right fem-pop bypass on 10/31/16 was sent to the ER [facility] due to graft occlusion. The patient c/o tenderness, swelling, numbness right foot History of Present Illness: Left CEA. Left Fem-pop bypass. PVD. ASHD. S/P MD. S/P CABG HTN. CKD. Hyperlipidemia. Chronic back pain. Gout. Right fem-pop 10/31/16 History Source: Patient, Medical Record Limitations to Obtaining History: No Limitations - Past Medical History Cardiovascular: Yes: HTN, Hyperlipdemia Renal/: Yes: Renal Inusuff Heme/Onc: Yes: Anemia Psych: Yes: Anxiety Musculoskeletal: Yes: Chronic low back pain, Other (Left shoulder pain) Rheumatology: Yes: Gout - Past Surgical History Past Surgical History: Yes: Bypass (Left Fem-Pop), CABG, Carotid Endarterectomy - Smoking History Smoking history: Former smoker Have you smoked in the past 12 months: No Aproximately how many cigarettes per day: 0 If you are a former smoker, when did you quit?: 21 YEARS AGO - Alcohol/Substance Use Hx Alcohol Use: No - Social History History of Recent Travel: No Home Medications - Allergies Allergies/Adverse Reactions: Allergies Allergy/AdvReac Type Severity Reaction Status Date / Time No Known Drug Allergies Allergy Verified 11/14/16 08:57 - Home Medications Home Medications: Ambulatory Orders Aspirin Coated [Ecotrin -] 81 mg PO DAILY #0 tablet.ec 05/20/12 Atorvastatin Calcium 40 mg PO HS 10/29/16 Lisinopril 5 mg PO DAILY 10/29/16 Metoprolol Succinate [Toprol XL -] 25 mg PO DAILY 10/29/16 Acetaminophen [Tylenol .Regular Strength -] 650 mg PO Q4H PRN #0 tablet Oxycodone HCl [Roxicodone -] 5 mg PO Q6H PRN #60 tablet MDD 4 tabs 11/06/16 Family Disease History - Family Disease History Family History: Unremarkable Review of Systems - Review of Systems Constitutional: reports: No Symptoms Eyes: reports: No Symptoms HENT: reports: No Symptoms Neck: reports: No Symptoms Cardiovascular: reports: No Symptoms Respiratory: reports: No Symptoms Gastrointestinal: reports: No Symptoms Genitourinary: reports: No Symptoms Breasts: reports: No Symptoms Reported Musculoskeletal: reports: Extremity Pain (right foot) Neurological: reports: Other (right foot tingling) Endocrine: reports: Increased Thirst Hematology/Lymphatic: reports: No Symptoms Psychiatric: reports: Anxiety Physical Examination Vital Signs: Vital Signs Temperature 97.5 F L 11/14/16 08:58 Pulse Rate 74 11/14/16 08:58 Respiratory Rate 18 11/14/16 08:58 Blood Pressure 113/49 11/14/16 08:58 O2 Sat by Pulse Oximetry (%) 100 11/14/16 08:58 Constitutional: Yes: Anxious, Mild Distress Eyes: Yes: Conjunctiva Clear, EOM Intact HENT: Yes: Atraumatic, Normocephalic. No: Drooling Neck: Yes: Supple, Trachea Midline Cardiovascular: Yes: Regular Rate and Rhythm, S1, S2. No: Bradycardia, Tachycardia, JVD, Rub Respiratory: Yes: Regular, CTA Bilaterally. No: Accessory Muscle Use, Cough, Diminished, Dullness, Tachypnea Gastrointestinal: Yes: Normal Bowel Sounds, Soft. No: Abdomen, Obese, Ascites ...Rectal Exam: Yes: Deferred Renal/: No: Anuria, Bladder Distention, CVA Tenderness - Left, CVA Tenderness - Right Breast(s): Yes: WNL Extremities: Yes: Cyanosis (Redness right foot, swelling), Erythema. No: Cold Edema: Yes Edema: LLE: 1+ Peripheral Pulses WNL: No Peripheral Pulses: Right Dorsalis Pedis: 0 Integumentary: Yes: WNL Wound/Incision: Yes: Clean/Dry (marina in place-right groin) Neurological: Yes: Alert, Oriented. No: Aphasia ...Motor Strength: WNL Psychiatric: Yes: Alert, Oriented. No: Agitated, Suicidal Ideation Labs: Laboratory Results - last 24 hr 11/14/16 11/14/16 11/14/16 10:03 10:03 10:03 WBC 9.2 D RBC 2.99 L Hgb 8.7 L Hct 26.7 L MCV 89.1 MCH 29.1 MCHC 32.7 RDW 13.6 Plt Count 221 D MPV 7.1 L D Neutrophils % 82.5 Lymphocytes % 8.8 D Monocytes % 7.2 Eosinophils % 0.9 Basophils % 0.6 INR 1.12 PTT (Actin FS) 31.3 D Sodium 135 L Potassium 4.5 Chloride 99 Carbon Dioxide 28 Anion Gap 8 BUN 34 H Creatinine 1.4 H D Creat Clearance w eGFR 49.41 Random Glucose 104 Calcium 9.3 Magnesium 2.5 H Total Bilirubin 0.6 D AST 22 ALT 41 D Alkaline Phosphatase 63 Total Protein 6.9 Albumin 3.7 Stool Occult Blood Blood Type Antibody Screen 11/14/16 11/14/16 10:03 10:57 WBC RBC Hgb Hct MCV MCH MCHC RDW Plt Count MPV Neutrophils % Lymphocytes % Monocytes % Eosinophils % Basophils % INR PTT (Actin FS) Sodium Potassium Chloride Carbon Dioxide Anion Gap BUN Creatinine Creat Clearance w eGFR Random Glucose Calcium Magnesium Total Bilirubin AST ALT Alkaline Phosphatase Total Protein Albumin Stool Occult Blood Negative Blood Type O POSITIVE Antibody Screen Negative Problem List - Problems (1) Femoral-popliteal bypass graft occlusion Assessment/Plan: IV heparin started. Dr German f/u. If no improvement thrombectomy. Code(s): T82.898A - OTH COMPLICATION OF VASCULAR PROSTH DEV/GRFT, INIT Qualifiers: Encounter type: initial encounter Qualified Code(s): T82.898A - Other specified complication of vascular prosthetic devices, implants and grafts, initial encounter (2) CAD (coronary artery disease) Assessment/Plan: Continue potent statins, Metoprolol, CANDIDO Code(s): I25.10 - ATHSCL HEART DISEASE OF [place] CORONARY ARTERY W/O ANG PCTRS Qualifiers: Coronary Disease-Associated Artery/Lesion type: bypass graft [place] vs. transplanted heart: [place] heart Associated angina: without angina Qualified Code(s): I25.810 - Atherosclerosis of coronary artery bypass graft( s) without angina pectoris (3) HTN (hypertension) Assessment/Plan: Continue Lisinopril, follow vitals. Code(s): I10 - ESSENTIAL (PRIMARY) HYPERTENSION Qualifiers: Hypertension type: essential hypertension Qualified Code(s): I10 - Essential (primary) hypertension
--- NOTE | 2016-11-14 16:12 | SPA.PREOP ---
- PRE-OP NOTE Dx: right lower extremity ischemia Planned Procedure: right femoral open thrombectomy Surgeon: Dr. Milan The patient states that he was in Dr. Milan office yesterday for a routine follow up. His graft was noted to be clotted on duplex and he has no distal pulses in this foot. The patient hasn't noticed any increase in pain overall since his recent surgery and has no difficulty moving his foot. The redness in his foot increases when he lowers it. Last Vital Signs Temp Pulse Resp BP Pulse Ox 97.5 F L 74 18 113/49 100 11/14/16 08:58 11/14/16 08:58 11/14/16 08:58 11/14/16 08:58 11/14/16 08:58 Lab Results WBC 9.2 K/mm3 (4.0-10.0) D 11/14/16 10:03 RBC 2.99 M/mm3 (4.00-5.60) L 11/14/16 10:03 Hgb 8.7 GM/dL (11.7-16.9) L 11/14/16 10:03 Hct 26.7 % (35.4-49) L 11/14/16 10:03 MCV 89.1 fl (80-96) 11/14/16 10:03 MCHC 32.7 g/dl (32.0-35.9) 11/14/16 10:03 RDW 13.6 % (11.9-15.9) 11/14/16 10:03 Plt Count 221 K/MM3 (134-434) D 11/14/16 10:03 Sodium 135 mmol/L (136-145) L 11/14/16 10:03 Potassium 4.5 mmol/L (3.5-5.1) 11/14/16 10:03 Chloride 99 mmol/L (98-107) 11/14/16 10:03 Carbon Dioxide 28 mmol/L (21-32) 11/14/16 10:03 Anion Gap 8 (8-16) 11/14/16 10:03 BUN 34 mg/dL (7-18) H 11/14/16 10:03 Creatinine 1.4 mg/dL (0.7-1.3) H D 11/14/16 10:03 Random Glucose 104 mg/dL (74-106) 11/14/16 10:03 Calcium 9.3 mg/dL (8.5-10.1) 11/14/16 10:03 Blood Type O POSITIVE 11/14/16 10:03 Antibody Screen Negative 11/14/16 10:03 INR 1.12 (0.82-1.09) 11/14/16 10:03 Incision to groin/right knee c/d/i with marina. Dependent rubor to his forefoot. Toes cool to touch in RLE to mid foot. No distal pulses with doppler. +2 femroal pulse with doppler. 5/5 dorsi/pplantar flexion to RLE. Left foot with palpable DP - ASSESSMENT/PLAN 76 yo male s/p RLE femoral/popliteal bypass with graft, now with closure of graft for thrombectomy tomorrow 1. Make NPO after 7am on 11/15 except po meds 2. IV heparin as per protocol, Continue drip until time of surgery 3. Medical optimization / clearance Visit type - Case Type Case Type: ED Admission - Emergency Emergency Visit: Yes ED Registration Date: 11/14/16 Care time: The patient presented to the Emergency Department on the above date and was hospitalized for further evaluation of their emergent condition. - New patient This patient is new to me today: No - Critical Care Critical Care patient: No
[2016-11-14] MEDS ORDERED: ATORVASTATIN CA 40 MG TABLET (FP) PO SCH (22:00)
[2016-11-15] MEDS ORDERED: SODIUM CHLORIDE 1,000 ML IV SCH ×2 (07:00→20:08)
--- NOTE | 2016-11-15 08:04 | PN ---
Progress Note (short form) - Note Progress Note: C/o soreness right froot, remains on IV Heparion, NPO for right femoral thrombectomy today. No CP, no SOB, no palpitations. CMP Sodium 135 mmol/L (136-145) L 11/14/16 10:03 Potassium 4.5 mmol/L (3.5-5.1) 11/14/16 10:03 Chloride 99 mmol/L (98-107) 11/14/16 10:03 Carbon Dioxide 28 mmol/L (21-32) 11/14/16 10:03 Anion Gap 8 (8-16) 11/14/16 10:03 BUN 34 mg/dL (7-18) H 11/14/16 10:03 Creatinine 1.4 mg/dL (0.7-1.3) H D 11/14/16 10:03 Creat Clearance w eGFR 49.41 (>60) 11/14/16 10:03 Random Glucose 104 mg/dL (74-106) 11/14/16 10:03 Calcium 9.3 mg/dL (8.5-10.1) 11/14/16 10:03 Magnesium 2.5 mg/dL (1.8-2.4) H 11/14/16 10:03 Total Bilirubin 0.6 mg/dL (0.2-1.0) D 11/14/16 10:03 AST 22 U/L (15-37) 11/14/16 10:03 ALT 41 U/L (12-78) D 11/14/16 10:03 Alkaline Phosphatase 63 U/L (45-117) 11/14/16 10:03 Total Protein 6.9 g/dl (6.4-8.2) 11/14/16 10:03 Albumin 3.7 g/dl (3.4-5.0) 11/14/16 10:03 Vital Signs (72 hours) 11/14/16 11/14/16 11/14/16 08:58 14:25 20:00 Temperature 97.5 F L 98 F Pulse Rate 74 733 H 64 Respiratory 18 18 18 Rate Blood Pressure 113/49 115/55 170/60 O2 Sat by Pulse 100 98 Oximetry (%) 11/14/16 11/14/16 11/15/16 21:00 22:00 06:00 Temperature 98.5 F 62 F L Pulse Rate 63 62 Respiratory 18 18 Rate Blood Pressure 141/63 140/63 O2 Sat by Pulse 98 Oximetry (%) Awake, alert, anxious. Neck-no JVD, healed scar post CEA. Lungs clear Heart S1S2 regular. Healed scar post CABG Abdomen soft, NT, no HSM Ext-right foot cool to touch, dependent rubor, no DP or TP Left foot warm, no color change Imp Current Active Problems Problem Status Diagnosed Arterial insufficiency of lower extremity Acute Femoral-popliteal bypass graft occlusion Acute S/P femoral-popliteal bypass surgery Acute Plan No containdications for urgent thrombectomy today right LE. Continue PO meds with a sip of water. IV hydration start now since the patient is NPO. Follow CBC, CMP in AM Miralax PO Problem List - Problems (1) Femoral-popliteal bypass graft occlusion Code(s): T82.898A - OTH COMPLICATION OF VASCULAR PROSTH DEV/GRFT, INIT Qualifiers: Encounter type: initial encounter Qualified Code(s): T82.898A - Other specified complication of vascular prosthetic devices, implants and grafts, initial encounter (2) CAD (coronary artery disease) Code(s): I25.10 - ATHSCL HEART DISEASE OF [place] CORONARY ARTERY W/O ANG PCTRS Qualifiers: Coronary Disease-Associated Artery/Lesion type: bypass graft [place] vs. transplanted heart: [place] heart Associated angina: without angina Qualified Code(s): I25.810 - Atherosclerosis of coronary artery bypass graft( s) without angina pectoris (3) HTN (hypertension) Code(s): I10 - ESSENTIAL (PRIMARY) HYPERTENSION Qualifiers: Hypertension type: essential hypertension Qualified Code(s): I10 - Essential (primary) hypertension
[2016-11-15] MEDS ORDERED: DEXTROSE 5%-0.45% SALINE 1,000 ML IV SCH ×2 (08:15→20:08)
[2016-11-15 09:11] LABS: BASOPHIL 0.8 % (0-2.0); EOSINOPHIL 1.6 % (0-4.5); MCH 29.4 pg (25.7-33.7); MCHC 32.8 g/dl (32.0-35.9); MEAN CELL VOLUME 89.5 fl (80-96); MEAN PLT VOLUME 7.7 fl (7.5-11.1); NEUTROPHILS 69.6 % (42.8-82.8); PLATELET COUNT 177 K/MM3 (134-434); RDW 13.7 % (11.9-15.9); WHITE BLOOD COUNT 5.5 K/mm3 (4.0-10.0)
[2016-11-15 09:43] LABS: ALBUMIN 3.3 g/dl (3.4-5.0); ANION GAP 10 (8-16); BILIRUBIN,TOTAL 0.4 mg/dL (0.2-1.0); CALCIUM 8.8 mg/dL (8.5-10.1); CO2 26 mmol/L (21-32); CREATININE 1.1 mg/dL (0.7-1.3); GLUCOSE,RANDOM 95 mg/dL (74-106); SGOT/AST 20 U/L (15-37); SGPT/ALT 35 U/L (12-78); TOT PROT 6.1 g/dl (6.4-8.2)
[2016-11-15 09:44] LABS: ALK PHOS 56 U/L (45-117)
[2016-11-15] MEDS ORDERED: POLYETHYLENE GLYCOL 3350 119 GM BTL PO SCH (10:00)
[2016-11-15] MEDS ORDERED: LISINOPRIL 5 MG TABLET (FP) PO SCH (10:00)
[2016-11-15] MEDS ORDERED: METOPROLOL SUCCINATE 25 MG TAB.SR.24H (FP) PO SCH (10:00)
[2016-11-15] MEDS ORDERED: ASPIRIN COATED 81 MG TABLET.EC PO SCH (10:00)
[2016-11-15] MEDS: HEPARIN INFUSION - 500 ML IVPB SCH (11:49)
--- NOTE | 2016-11-15 15:34 | EKG ---
Test Reason : Blood Pressure : / mmHG Vent. Rate : 071 BPM Atrial Rate : 071 BPM P-R Int : 112 ms QRS Dur : 130 ms QT Int : 430 ms P-R-T Axes : 043 -09 032 degrees QTc Int : 467 ms NORMAL SINUS RHYTHM RIGHT BUNDLE BRANCH BLOCK MODERATE VOLTAGE CRITERIA FOR LVH, MAY BE NORMAL VARIANT ABNORMAL ECG WHEN COMPARED WITH ECG OF 10-MAR-2014 08:41, RIGHT BUNDLE BRANCH BLOCK IS NOW PRESENT MINIMAL CRITERIA FOR ANTEROSEPTAL INFARCT ARE NO LONGER PRESENT Confirmed by GILMA VENCES MD ([id number]) on 11/15/2016 3:33:58 PM Referred By: Confirmed By:GILMA VENCES MD
[2016-11-15] MEDS ORDERED: ONDANSETRON 4 MG/2 ML VIAL IVPUSH PRN ×2 (17:27→20:08)
[2016-11-15] MEDS ORDERED: MIDAZOLAM HCL 2 MG/2 ML SINGLE DOSE VIAL ONE ×2 (17:30→19:25)
[2016-11-15] MEDS ORDERED: ceFAZolin SODIUM 1 GM VIAL ONE (17:35)
[2016-11-15] MEDS ORDERED: ceFAZolin SODIUM 1 GM VIAL IVPB ONE (17:36)
[2016-11-15] MEDS ORDERED: BUPIVACAINE HCL/PF 0.5% (5MG/ML) 10 ML VIAL ONE (17:40)
[2016-11-15] MEDS ORDERED: LIDOCAINE HCL 1%, 10 MG/ML (50 mL VIAL) IJ ONE ×2 (17:54)
[2016-11-15] MEDS ORDERED: BUPIVACAINE HCL/PF 0.5% (5MG/ML) 10 ML VIAL IJ ONE ×2 (17:54)
[2016-11-15] MEDS ORDERED: HEPARIN NA (PORCINE) 5,000 UNITS/ML 1ML VIAL ONE ×2 (18:03→19:09)
--- NOTE | 2016-11-15 19:42 | OP ---
Operative Note - Note: Operative Date: 11/15/16 Pre-Operative Diagnosis: Thrombosed fem-pop bypass right leg Operation: Open thrombectomy fem-pop bypass. Revascularization right iliac artery with stent Findings: Thrombosed right fem-pop bypass Stenosis of right external iliac artery No evidence for stenosis of distal anastomosis or outflow vessels. Implants: 8 mm x 60 mm LifeStar stent in external iliac artery Post-Operative Diagnosis: Same as Pre-op Surgeon: Christopher German Anesthesiologist/ROLLING MILL OPERATOR: Pool Yan Anesthesia: Fractional Specimens Removed: Clot from graft Estimated Blood Loss (mls): 300 Blood Volume Replaced (mls): 250
[2016-11-15] MEDS ORDERED: HYDROmorphone HCL CARPU-JECT 1 MG/1 ML DISP.SYRIN IVPB PRN (19:47)
[2016-11-15] MEDS ORDERED: ACETAMINOPHEN 325 MG TABLET (FP) PO PRN ×3 (19:51→20:08)
[2016-11-15] MEDS ORDERED: oxyCODONE HCL 5 MG TABLET PO PRN ×2 (19:51→19:53)
[2016-11-15] MEDS ORDERED: HEPARIN NA (PORCINE) 5,000 UNITS/ML 1ML VIAL IVPUSH PRN ×2 (20:08)
[2016-11-15] MEDS ORDERED: HEPARIN INFUSION - 500 ML IVPB SCH (20:08)
[2016-11-15 20:32] LABS: MCH 29.8 pg (25.7-33.7); MCHC 33.2 g/dl (32.0-35.9); MEAN CELL VOLUME 89.7 fl (80-96); MEAN PLT VOLUME 7.3 fl (7.5-11.1); PLATELET COUNT 167 K/MM3 (134-434); RDW 13.7 % (11.9-15.9); WHITE BLOOD COUNT 6.5 K/mm3 (4.0-10.0)
[2016-11-15] MEDS ORDERED: HEPARIN INFUSION - 500 ML IVPB ONE (20:38)
[2016-11-15] MEDS ORDERED: ATORVASTATIN CA 40 MG TABLET (FP) PO SCH (22:00)
--- NOTE | 2016-11-15 22:03 | CONSULT ---
Consult Consult Specialty:: Critical Care Reason for Consultation:: s/p thrombectomy - History of Present Illness Chief Complaint: "I came in from the office to have the clot removed." History of Present Illness: This is a 76-year-old gentleman with a past medical history of HTN and CAD who was sent in from Dr. German's office for occlusion of fem-pop bypass graft now s/p open thrombectomy. Briefly, Mr. Carpio had a fem-pop bypass graft done two weeks ago. He was seen in Dr. German's office on 11/14 where ultrasound revealed absent arterial blood flow. He was also noted to have serous drainage from the R thigh incision site with marina. He denied fever or chills. He was admitted and started on a Heparin infusion. This evening he is s/ p open thrombectomy with revascularization of the right iliac artery with stent. The right external iliac artery was found to be stenosed. He is being admitted to ICU for frequent vascular checks. He arrived to the ICU, A/Ox3, denies any pain. R foot is warm with 1+ palpable pedal pulse, intact sensation, no discoloration. Plan for continuation of Heparin gtt and NPO after breakfast tomorrow AM pending further intervention. He is HD stable. - History Source History Provided By: Patient Limitations to Obtaining History: No Limitations - Past Medical History Cardio/Vascular: Yes: HTN, Hyperlipdemia Renal/: Yes: Renal Inusuff Psych: Yes: Anxiety Musculoskeletal: Yes: Chronic low back pain, Other (Left shoulder pain) Rheumatology: Yes: Gout - Past Surgical History Past Surgical History: Yes: Bypass (Left Fem-Pop), CABG, Carotid Endarterectomy - Alcohol/Substance Use Hx Alcohol Use: No - Smoking History Smoking history: Former smoker Have you smoked in the past 12 months: No Aproximately how many cigarettes per day: 0 If you are a former smoker, when did you quit?: 21 YEARS AGO - Social History History of Recent Travel: No Home Medications - Allergies Allergies/Adverse Reactions: Allergies Allergy/AdvReac Type Severity Reaction Status Date / Time No Known Drug Allergies Allergy Verified 11/14/16 08:57 - Home Medications Home Medications: Ambulatory Orders Aspirin Coated [Ecotrin -] 81 mg PO DAILY #0 tablet.ec 05/20/12 Atorvastatin Calcium 40 mg PO HS 10/29/16 Lisinopril 5 mg PO DAILY 10/29/16 Metoprolol Succinate [Toprol XL -] 25 mg PO DAILY 10/29/16 Oxycodone HCl [Roxicodone -] 5 mg PO Q6H PRN #60 tablet MDD 4 tabs 11/06/16 Review of Systems - Review of Systems Constitutional: reports: No Symptoms Eyes: reports: No Symptoms HENT: reports: No Symptoms Neck: reports: No Symptoms Cardiovascular: reports: No Symptoms Respiratory: reports: No Symptoms Gastrointestinal: reports: No Symptoms Genitourinary: reports: No Symptoms Integumentary: reports: No Symptoms Neurological: reports: No Symptoms Physical Exam Vital Signs: Vital Signs Temperature 97.9 F 11/15/16 14:18 Pulse Rate 58 L 11/15/16 14:18 Respiratory Rate 16 11/15/16 14:18 Blood Pressure 151/66 11/15/16 14:18 O2 Sat by Pulse Oximetry (%) 98 11/15/16 09:00 Constitutional: Yes: Well Nourished, No Distress, Calm Eyes: Yes: WNL HENT: Yes: WNL Neck: Yes: WNL Cardiovascular: Yes: Regular Rate and Rhythm, S1, S2 Respiratory: Yes: Regular, CTA Bilaterally Gastrointestinal: Yes: Normal Bowel Sounds, Soft Extremities: Yes: Other (R groin with marina, no drainage noted, mildly TTP. Right foot warm with 1+ pedal pulse. No discoloration.) Wound/Incision: Yes: Dressing Dry and Intact Neurological: Yes: Alert, Oriented ...Motor Strength: WNL Labs: Vital Signs Period Temp Pulse Resp BP Sys/Francisco Pulse Ox Last 24 Hr 62 F-98.2 F 57-64 11-18 139-168/50-93 98-100 CBC, BMP 11/15/16 20:15 11/15/16 07:35 Home Medication List Medication Instructions Recorded Confirmed Type Atorvastatin Calcium 40 mg PO HS 10/29/16 11/14/16 History Lisinopril 5 mg PO DAILY 10/29/16 11/14/16 History Metoprolol Succinate [Toprol XL -] 25 mg PO DAILY 10/29/16 11/14/16 History Active Medications Generic Name Dose Route Start Last Admin Trade Name Freq PRN Reason Stop Dose Admin Acetaminophen 325 mg 11/15/16 19:51 Tylenol - PO 11/18/16 19:50 Q4H PRN PAIN Acetaminophen 650 mg 11/15/16 19:53 Tylenol - PO 11/18/16 19:52 Q4H PRN PAIN Acetaminophen 650 mg 11/15/16 20:08 Tylenol - PO Q6H PRN FEVER Aspirin 81 mg 11/16/16 10:00 Ecotrin - PO DAILY [facility] Atorvastatin Calcium 40 mg 11/15/16 22:00 Lipitor - PO HS [facility] Fentanyl 50 mcg 11/15/16 20:08 Sublimaze Injection - IVPUSH 11/18/16 17:28 [id number] PRN PAIN Heparin Sodium (Porcine) 1,000 unit 11/15/16 20:08 Heparin - IVPUSH PRN PRN Heparin Heparin Sodium (Porcine) 5,000 unit 11/15/16 20:08 Heparin - IVPUSH PRN PRN Heparin Hydromorphone HCl 1 mg 11/15/16 19:47 Dilaudid Injection - IVPB Q3H PRN PAIN LEVEL 1-5 Dextrose/Sodium Chloride 1,000 mls @ 100 mls/hr 11/15/16 20:08 11/15/16 20:15 D5-1/2ns - IV 100 mls ASDIR TRI Administration Heparin Sodium/Dextrose 500 mls @ 20 mls/hr 11/15/16 20:08 11/15/16 20:40 Heparin Infusion - IVPB 10 mls TITR TRI Administration Protocol 1,000 UNITS/HR Lisinopril 5 mg 11/16/16 10:00 Prinivil PO DAILY [facility] Metoprolol Succinate 25 mg 11/16/16 10:00 Toprol Xl - PO DAILY [facility] Ondansetron HCl 4 mg 11/15/16 20:08 Zofran Injection IVPUSH 11/15/16 23:28 Q6H PRN NAUSEA AND/OR VOMITING Oxycodone HCl 5 mg 11/15/16 19:51 Roxicodone - PO Q4H PRN PAIN Oxycodone HCl 10 mg 11/15/16 19:53 Roxicodone - PO Q4H PRN PAIN Polyethylene Glycol 17 gm 11/16/16 10:00 Miralax (For Daily Use) - PO DAILY [facility] Imaging - Results Chest X-ray: Pending EKG: Pending Problem List - Problems (1) Arterial insufficiency of lower extremity Code(s): I73.9 - PERIPHERAL VASCULAR DISEASE, UNSPECIFIED (2) Femoral-popliteal bypass graft occlusion Code(s): T82.898A - OTH COMPLICATION OF VASCULAR PROSTH DEV/GRFT, INIT Qualifiers: Encounter type: initial encounter Qualified Code(s): T82.898A - Other specified complication of vascular prosthetic devices, implants and grafts, initial encounter (3) HTN (hypertension) Code(s): I10 - ESSENTIAL (PRIMARY) HYPERTENSION Qualifiers: Hypertension type: essential hypertension Qualified Code(s): I10 - Essential (primary) hypertension (4) CAD (coronary artery disease) Code(s): I25.10 - ATHSCL HEART DISEASE OF [place] CORONARY ARTERY W/O ANG PCTRS Qualifiers: Coronary Disease-Associated Artery/Lesion type: bypass graft [place] vs. transplanted heart: [place] heart Associated angina: without angina Qualified Code(s): I25.810 - Atherosclerosis of coronary artery bypass graft( s) without angina pectoris Assessment/Plan A/P: This is a 76-year-old gentleman with a past medical history of CAD and HTN with occlusion of fem-pop bypass graft now s/p open thrombectomy with revascularization of R iliac artery stent though stenosed right external iliac artery now on heparin gtt admitted to ICU for further monitoring. - Dr. German following, appreciate - Frequent neurovascular checks - Heparin per protocol - Maintain active T & S - Trend CBC while on AC - Continue home Lisinopril and Metoprolol for BP control - Continue Atorvastatin - Continue ASA - Can eat now but NPO after breakfast tomorrow AM pending further intervention - Continuous telemetry - Pain control PPX: Heparin gtt No indication for GI ppx Critical Care Time 35 minutes SADIQ Burns
[2016-11-16 06:01] LABS: BASOPHIL 0.5 % (0-2.0); EOSINOPHIL 1.7 % (0-4.5); MCH 30.3 pg (25.7-33.7); MCHC 34.2 g/dl (32.0-35.9); MEAN CELL VOLUME 88.7 fl (80-96); MEAN PLT VOLUME 7.5 fl (7.5-11.1); NEUTROPHILS 77.6 % (42.8-82.8); PLATELET COUNT 172 K/MM3 (134-434); RDW 13.9 % (11.9-15.9); WHITE BLOOD COUNT 7.6 K/mm3 (4.0-10.0)
[2016-11-16 06:21] LABS: ALK PHOS 51 U/L (45-117); ANION GAP 6 (8-16); BILIRUBIN,TOTAL 0.7 mg/dL (0.2-1.0); CALCIUM 8.4 mg/dL (8.5-10.1); CO2 28 mmol/L (21-32); CREATININE 0.9 mg/dL (0.7-1.3); GLUCOSE,RANDOM 107 mg/dL (74-106); SGOT/AST 17 U/L (15-37); SGPT/ALT 28 U/L (12-78); TOT PROT 5.6 g/dl (6.4-8.2)
--- NOTE | 2016-11-16 07:59 | OP ---
DATE OF OPERATION: 11/15/2016 SURGEON: Christopher Meng MD PROCEDURES: Open thrombectomy of right leg femoral-popliteal bypass. Angioplasty and stenting of the right external iliac artery. PREOPERATIVE DIAGNOSIS: Thrombosed femoral-popliteal bypass. POSTOPERATIVE DIAGNOSIS: Thrombosed femoral-popliteal bypass, with stenosis of the external iliac artery. ANESTHESIA: Fractional. ANESTHESIOLOGIST: Pool Yan MD OPERATIVE FINDINGS: The femoral-popliteal bypass was filled with thrombus. The right iliac artery was narrowed throughout its length. The external iliac appeared to be approximately 3 to 4 mm in diameter. The outflow anastomosis was patent after thrombectomy, with no evidence of technical defect. There was free flow into the popliteal artery and proximal tibial arteries. OPERATIVE PROCEDURE: Following routine patient identification, with site and side verification, intravenous sedation was established. The right leg was prepped with ChloraPrep. One percent Xylocaine was infiltrated in the skin over the femoral-popliteal bypass in the midportion of the thigh. A longitudinal incision was made and was carried down through subcutaneous tissues using cautery for hemostasis. The muscle fascia was incised, and the sartorius muscle was . The graft was mobilized from beneath the muscle and secured with vessel loops. A micropuncture needle was used to cannulate the graft in an retrograde fashion. The wire was passed proximally. The needle was exchanged for a 5-Turk[place] catheter, and then a J-tip Glidewire was advanced proximally. An 8-[place] sheath was then placed into the graft. An angle-tipped Glidewire and Berenstein catheter were then advanced proximally under fluoroscopic guidance and into the iliac artery. Angiography was then performed through the catheter, with the above noted findings. The patient was systemically heparinized. An Amplatz wire was then passed into the abdominal aorta and the catheter removed. The external iliac artery was dilated with a 7 and then an 8-mm balloon. This resulted in improved diameter of the vessel. The decision was made to place a stent due to the risk of restenosis. An 8 x 60-mm LifeStar stent was then passed over the wire and positioned from the origin of the external iliac artery and deployed. It was postdilated with an 8-mm balloon. Repeat imaging revealed good flow through the stent with improved diameter. The common femoral artery was patent, with good outflow via the deep femoral artery. The sheath and wire were then removed. Under fluoroscopic guidance, a number 4 [place] catheter was passed into the distal external iliac artery, inflated and withdrawn, with removal of clot from the graft. This was performed repeatedly until no further thrombus was retrieved. Arterial inflow was restored. Contrast was then injected retrograde through the graft to visualize the femoral anastomosis. This was patent, with some residual thrombus along the proximal aspect of the graft. Repeat thrombectomy allowed removal of additional amount of laminated thrombus from the graft wall. The graft was filled with heparin-saline solution and occluded with a vascular clamp. Thrombectomy of the distal portion of the graft was then performed with number 3 and number 4 Sarthak catheters, with return of arterial back-bleeding. Angiography through the graft revealed a patent distal anastomosis, with no evidence of technical defects. There was good flow into the distal popliteal and proximal tibial arteries. The graft was filled with heparin solution. The incision in the graft was then closed with a running suture of 6-0 Prolene. The clamps were removed. Bleeding from the suture line was controlled with Surgicel. Evaluation with a Doppler revealed a good pulsatile signal in the distal anterior tibial artery at the ankle. The wound was irrigated with saline and closed with interrupted sutures of 3-0 Vicryl and skin marina. Sterile dressings were applied, and the patient was taken to the recovery room in stable condition. CHRISTOPHER MENG M.D. [id number]
--- NOTE | 2016-11-16 08:09 | PN ---
Progress Note (short form) - Note Progress Note: POD 1 C/o thigh pain VSS Wounds clean and dry Right foot warm, toes pale Doppler DP and PT Imp: S/p thrombectomy fem-pop, improved distal flow. Plan: Continue therapeutic Heparin, transition to Coumadin and aspirin OOB transfer to floor
--- NOTE | 2016-11-16 08:53 | PN ---
Progress Note (short form) - Note Progress Note: Anesthesia Post op Pt seen and examined S:alert and awake O: Vital Signs Temperature 99.1 F 11/16/16 06:00 Pulse Rate 60 11/16/16 08:00 Respiratory Rate 11/16/16 08:00 Blood Pressure 170/58 11/16/16 08:00 O2 Sat by Pulse Oximetry (%) 100 11/15/16 21:00 CBC, BMP 11/16/16 05:10 11/16/16 05:10 A/P:Current Active Problems Arterial insufficiency of lower extremity (Acute) Femoral-popliteal bypass graft occlusion (Acute) S/P femoral-popliteal bypass surgery (Acute) Doing well post op Continue current care Varun Malagon MD
--- NOTE | 2016-11-16 09:55 | PN ---
Progress Note (short form) - Note Progress Note: Seen in the ICU. No complaints Day 1 POD. Right toes cool, no palpable DP/TP-positive Doppler. Awake, alert, NAD Lungs are clear Heart S1S2 regular Abdomen soft, NT Vital Signs (72 hours) 11/14/16 11/14/16 11/14/16 08:58 14:25 20:00 Temperature 97.5 F L 98 F Pulse Rate 74 733 H 64 Respiratory 18 18 18 Rate Blood Pressure 113/49 115/55 170/60 O2 Sat by Pulse 100 98 Oximetry (%) 11/14/16 11/14/16 11/15/16 21:00 22:00 06:00 Temperature 98.5 F 62 F L Pulse Rate 63 62 Respiratory 18 18 Rate Blood Pressure 141/63 140/63 O2 Sat by Pulse 98 Oximetry (%) 11/15/16 11/15/16 11/15/16 09:00 10:00 14:18 Temperature 97.2 F L 97.9 F Pulse Rate 64 58 L Respiratory 16 18 16 Rate Blood Pressure 145/68 151/66 O2 Sat by Pulse 98 Oximetry (%) 11/15/16 11/15/16 11/15/16 19:44 20:00 20:15 Temperature 98.1 F Pulse Rate 64 57 L 59 L Respiratory 18 18 12 Rate Blood Pressure 154/50 139/93 163/53 O2 Sat by Pulse 100 100 100 Oximetry (%) 11/15/16 11/15/16 11/15/16 20:30 20:45 21:00 Temperature 98.2 F 98.2 F Pulse Rate 57 L 59 L 60 Respiratory 16 11 L 12 Rate Blood Pressure 160/72 157/50 168/50 O2 Sat by Pulse 100 100 100 Oximetry (%) 11/15/16 11/16/16 11/16/16 22:00 00:00 02:00 Temperature 99.1 F Pulse Rate 67 66 62 Respiratory 16 22 15 Rate Blood Pressure 113/70 111/52 166/55 O2 Sat by Pulse Oximetry (%) 11/16/16 11/16/16 11/16/16 04:00 06:00 08:00 Temperature 99.1 F Pulse Rate 100 H 99 H 60 Respiratory 19 17 17 Rate Blood Pressure 176/75 169/58 170/58 O2 Sat by Pulse Oximetry (%) 11/16/16 09:25 Temperature Pulse Rate 72 Respiratory Rate Blood Pressure O2 Sat by Pulse 99 Oximetry (%) Laboratory Results - last 24 hr 11/14/16 11/14/16 11/14/16 10:03 10:03 10:03 WBC 9.2 D RBC 2.99 L Hgb 8.7 L Hct 26.7 L MCV 89.1 MCH 29.1 MCHC 32.7 RDW 13.6 Plt Count 221 D MPV 7.1 L D Neutrophils % 82.5 Lymphocytes % 8.8 D Monocytes % 7.2 Eosinophils % 0.9 Basophils % 0.6 INR 1.12 PTT (Actin FS) 31.3 D Sodium 135 L Potassium 4.5 Chloride 99 Carbon Dioxide 28 Anion Gap 8 BUN 34 H Creatinine 1.4 H D Creat Clearance w eGFR 49.41 Random Glucose 104 Calcium 9.3 Magnesium 2.5 H Total Bilirubin 0.6 D AST 22 ALT 41 D Alkaline Phosphatase 63 Total Protein 6.9 Albumin 3.7 Blood Type Antibody Screen Crossmatch IS Only 11/14/16 11/15/16 11/15/16 10:03 20:15 20:15 WBC 6.5 RBC 2.81 L Hgb 8.4 L Hct 25.2 L MCV 89.7 MCH 29.8 MCHC 33.2 RDW 13.7 Plt Count 167 MPV 7.3 L Neutrophils % Lymphocytes % Monocytes % Eosinophils % Basophils % INR PTT (Actin FS) 118.3 H D Sodium Potassium Chloride Carbon Dioxide Anion Gap BUN Creatinine Creat Clearance w eGFR Random Glucose Calcium Magnesium Total Bilirubin AST ALT Alkaline Phosphatase Total Protein Albumin Blood Type O POSITIVE Antibody Screen Negative Crossmatch IS Only See Detail 11/16/16 11/16/16 11/16/16 05:10 05:10 05:10 WBC 7.6 RBC 3.29 L Hgb 10.0 L D Hct 29.2 L D MCV 88.7 MCH 30.3 MCHC 34.2 RDW 13.9 Plt Count 172 MPV 7.5 Neutrophils % 77.6 Lymphocytes % 10.1 D Monocytes % 10.1 Eosinophils % 1.7 Basophils % 0.5 INR PTT (Actin FS) 44.5 H D Sodium 138 Potassium 4.0 Chloride 104 Carbon Dioxide 28 Anion Gap 6 L BUN 20 H D Creatinine 0.9 Creat Clearance w eGFR > 60 Random Glucose 107 H Calcium 8.4 L Magnesium Total Bilirubin 0.7 D AST 17 ALT 28 Alkaline Phosphatase 51 Total Protein 5.6 L Albumin 3.0 L Blood Type Antibody Screen Crossmatch IS Only Current Active Problems Problem Status Diagnosed Arterial insufficiency of lower extremity Acute Femoral-popliteal bypass graft occlusion Acute S/P femoral-popliteal bypass surgery Acute Plan Coumadin today Transfer to [facility] Follow PT/INR Continue Heparin Discussed with patient Problem List - Problems (1) Femoral-popliteal bypass graft occlusion Code(s): T82.898A - OTH COMPLICATION OF VASCULAR PROSTH DEV/GRFT, INIT Qualifiers: Encounter type: initial encounter Qualified Code(s): T82.898A - Other specified complication of vascular prosthetic devices, implants and grafts, initial encounter (2) CAD (coronary artery disease) Code(s): I25.10 - ATHSCL HEART DISEASE OF [place] CORONARY ARTERY W/O ANG PCTRS Qualifiers: Coronary Disease-Associated Artery/Lesion type: bypass graft [place] vs. transplanted heart: [place] heart Associated angina: without angina Qualified Code(s): I25.810 - Atherosclerosis of coronary artery bypass graft( s) without angina pectoris (3) HTN (hypertension) Code(s): I10 - ESSENTIAL (PRIMARY) HYPERTENSION Qualifiers: Hypertension type: essential hypertension Qualified Code(s): I10 - Essential (primary) hypertension
[2016-11-16] MEDS ORDERED: POLYETHYLENE GLYCOL 3350 119 GM BTL PO SCH (10:00)
[2016-11-16] MEDS ORDERED: LISINOPRIL 5 MG TABLET (FP) PO SCH (10:00)
[2016-11-16] MEDS ORDERED: METOPROLOL SUCCINATE 25 MG TAB.SR.24H (FP) PO SCH (10:00)
[2016-11-16] MEDS ORDERED: ASPIRIN COATED 81 MG TABLET.EC PO SCH (10:00)
[2016-11-16 10:21] LABS: INR 1.21 (0.82-1.09); PROTHROMBIN TIME (PATIENT) 13.4 SEC (9.98-11.88)
--- NOTE | 2016-11-16 11:40 | PN ---
Physical Exam: SUBJECTIVE: Patient seen and examined at bed side. Patient is relaxing in his bed with no acute distress. He denies any chest pain or SOB. No N/V/D/C. His lower Extremities are warm , no calf tenderness, or any discoloration was noted. OBJECTIVE: Vital Signs Period Temp Pulse Resp BP Sys/Francisco Pulse Ox Last 24 Hr 97.9 F-99.1 F 57-100 11-22 111-176/50-93 97-100 GENERAL: The patient is awake, alert, and fully oriented, in no acute distress. HEAD: Normal with no signs of trauma. EYES: PERRL, extraocular movements intact, sclera anicteric, conjunctiva clear. No ptosis. ENT: Ears normal, nares patent, oropharynx clear without exudates, moist mucous membranes. NECK: Trachea midline, full range of motion, supple. LUNGS: Breath sounds equal, clear to auscultation bilaterally, no wheezes, no crackles, no accessory muscle use. HEART: Regular rate and rhythm, S1, S2 without murmur, rub or gallop. ABDOMEN: Soft, nontender, nondistended, normoactive bowel sounds, no guarding, no rebound, no hepatosplenomegaly, no masses. EXTREMITIES: R groin with marina, no drainage noted. warm, well-perfused, no edema. wound dry moderate swelling in the thigh, foot warm, Doppler pulse present. No discoloration NEUROLOGICAL: Normal speech, gait not observed. PSYCH: Normal mood, normal affect. SKIN: Warm, dry, normal turgor, no rashes or lesions noted Laboratory Results - last 24 hr 11/15/16 11/15/16 11/16/16 20:15 20:15 05:10 WBC 6.5 RBC 2.81 L Hgb 8.4 L Hct 25.2 L MCV 89.7 MCH 29.8 MCHC 33.2 RDW 13.7 Plt Count 167 MPV 7.3 L Neutrophils % Lymphocytes % Monocytes % Eosinophils % Basophils % INR PTT (Actin FS) 118.3 H D 44.5 H D Sodium Potassium Chloride Carbon Dioxide Anion Gap BUN Creatinine Creat Clearance w eGFR Random Glucose Calcium Total Bilirubin AST ALT Alkaline Phosphatase Total Protein Albumin 11/16/16 11/16/16 11/16/16 05:10 05:10 05:10 WBC 7.6 RBC 3.29 L Hgb 10.0 L D Hct 29.2 L D MCV 88.7 MCH 30.3 MCHC 34.2 RDW 13.9 Plt Count 172 MPV 7.5 Neutrophils % 77.6 Lymphocytes % 10.1 D Monocytes % 10.1 Eosinophils % 1.7 Basophils % 0.5 INR 1.21 H PTT (Actin FS) Sodium 138 Potassium 4.0 Chloride 104 Carbon Dioxide 28 Anion Gap 6 L BUN 20 H D Creatinine 0.9 Creat Clearance w eGFR > 60 Random Glucose 107 H Calcium 8.4 L Total Bilirubin 0.7 D AST 17 ALT 28 Alkaline Phosphatase 51 Total Protein 5.6 L Albumin 3.0 L Active Medications Generic Name Dose Route Start Last Admin Trade Name Freq PRN Reason Stop Dose Admin Acetaminophen 325 mg 11/15/16 19:51 Tylenol - PO 11/18/16 19:50 Q4H PRN PAIN Acetaminophen 650 mg 11/15/16 19:53 Tylenol - PO 11/18/16 19:52 Q4H PRN PAIN Acetaminophen 650 mg 11/15/16 20:08 Tylenol - PO Q6H PRN FEVER Aspirin 81 mg 11/16/16 10:00 11/16/16 09:13 Ecotrin - PO 81 mg DAILY TRI Administration Atorvastatin Calcium 40 mg 11/15/16 22:00 11/15/16 22:59 Lipitor - PO 40 mg HS TRI Administration Fentanyl 50 mcg 11/15/16 20:08 Sublimaze Injection - IVPUSH 11/18/16 17:28 [id number] PRN PAIN Heparin Sodium (Porcine) 1,000 unit 11/15/16 20:08 11/16/16 08:00 Heparin - IVPUSH 1,000 unit PRN PRN Administration Heparin Heparin Sodium (Porcine) 5,000 unit 11/15/16 20:08 Heparin - IVPUSH PRN PRN Heparin Hydromorphone HCl 1 mg 11/15/16 19:47 Dilaudid Injection - IVPB Q3H PRN PAIN LEVEL 1-5 Heparin Sodium/Dextrose 500 mls @ 20 mls/hr 11/15/16 20:08 11/15/16 23:47 Heparin Infusion - IVPB 850 units/hr TITR TRI Titration Protocol 1,000 UNITS/HR Lisinopril 5 mg 11/16/16 10:00 11/16/16 09:13 Prinivil PO 5 mg DAILY [facility] Administration Metoprolol Succinate 25 mg 11/16/16 10:00 11/16/16 09:13 Toprol Xl - PO 25 mg DAILY [facility] Administration Oxycodone HCl 5 mg 11/15/16 19:51 Roxicodone - PO Q4H PRN PAIN Oxycodone HCl 10 mg 11/15/16 19:53 Roxicodone - PO Q4H PRN PAIN Polyethylene Glycol 17 gm 11/16/16 10:00 Miralax (For Daily Use) - PO DAILY [facility] Warfarin Sodium 10 mg 11/16/16 18:00 Coumadin - PO 11/16/16 18:01 ONCE@1800 ONE Warfarin Sodium 5 mg 11/17/16 18:00 Coumadin - PO DAILY@1800 [facility] ASSESSMENT/PLAN: This is a 76-year-old gentleman with a past medical history of CAD and HTN with occlusion of fem-pop bypass graft now s/p open thrombectomy with revascularization of R iliac artery stent though stenosed right external iliac artery now on heparin gtt. S/P femoral-popliteal bypass surgery day 1. GI: - denies any nausea and vomiting or abdominal discomfort -POD #1 s/p femoral-popliteal bypass surgery - NO NG tube -PO as tolerated - D/c IV fliuds - Miralax PO daily - Stool occult blood negative ID: - afebrile, Temp this morning 97.9 -WBC Stable 7.6 -Continue to monitor temps -F/U clinically Cardiovascular: -Hx HTN; - BP today 132/56 - F/U BP closely -Pt denies DHILLON, pain or discomfort - Continue home Lisinopril and Metoprolol for BP control - Continue Atorvastatin 40 mg po HS daily - Continue ASA aspirin 81 mg po daily - Start coumadin 10 mg po daily > heparin - F/U PT, aPTT, INR - pain control Tylenol 650 PO q 6h PRN, Dilauded 1 mg IVBP q 3h PRN. -doppler check LE - PT as tolerated Resp: -Stable -Denies respiratory complaints -On 2L NC as needed -Continue to monitor O2 sat -Insentive spirometry Renal: - BUN/Cr 20/0.9 -Pt denies urinary complaints; Neuro: -Pt alert, not altered; pleasant ready to transfer to the floor. FEN: -No fluid is needed -Monitor electrolytes -PO as tolerated Prophylaxis: -Heparin gtt -SCDs -No GI proph is needed Dispo: Stable for transfer to Med-Surg pending tolerance of liquid diet * case was discussed with ICU team and attending . * Malik Buchanan MD. PGY 1 Visit type - Emergency Visit Emergency Visit: Yes ED Registration Date: 11/14/16 Care time: The patient presented to the Emergency Department on the above date and was hospitalized for further evaluation of their emergent condition. - New Patient This patient is new to me today: Yes Date on this admission: 11/17/16 - Critical Care Critical Care patient: Yes Total Critical Care Time (in minutes): 35 Critical Care Statement: The care of this patient involved high complexity decision making to prevent further life threatening deterioration of the patient 's condition and/or to evaluate & treat vital organ system(s) failure or risk of failure.
--- NOTE | 2016-11-16 12:32 | PN ---
Teaching Attending Note Name of Resident: Malik Buchanan ATTENDING PHYSICIAN STATEMENT I saw and evaluated the patient. I reviewed the resident's note and discussed the case with the resident. I agree with the resident's findings and plan as documented. SUBJECTIVE: Feels ok today. No CP or SOB. Denies pain/discomfort in the LE or surgical site. Intake & Output 11/13/16 11/14/16 11/15/16 11/16/16 23:59 23:59 23:59 23:59 Intake Total 600 2980 1544 Output Total 400 900 900 Balance 200 2080 644 Weight 162 lb 6.4 oz 2.67 oz Last Vital Signs Temp Pulse Resp BP Pulse Ox 98.6 F 60 15 176/56 99 11/16/16 10:00 11/16/16 12:00 11/16/16 12:00 11/16/16 12:00 11/16/16 09:25 Active Medications Acetaminophen (Tylenol -) 325 mg PO Q4H PRN PRN Reason: PAIN Stop: 11/18/16 19:50 Acetaminophen (Tylenol -) 650 mg PO Q4H PRN PRN Reason: PAIN Stop: 11/18/16 19:52 Acetaminophen (Tylenol -) 650 mg PO Q6H PRN PRN Reason: FEVER Aspirin (Ecotrin -) 81 mg PO DAILY TRI Last Admin: 11/16/16 09:13 Dose: 81 mg Atorvastatin Calcium (Lipitor -) 40 mg PO HS TRI Last Admin: 11/15/16 22:59 Dose: 40 mg Fentanyl (Sublimaze Injection -) 50 mcg IVPUSH [id number] PRN PRN Reason: PAIN Stop: 11/18/16 17:28 Heparin Sodium (Porcine) (Heparin -) 1,000 unit IVPUSH PRN PRN PRN Reason: Heparin Last Admin: 11/16/16 08:00 Dose: 1,000 unit Heparin Sodium (Porcine) (Heparin -) 5,000 unit IVPUSH PRN PRN PRN Reason: Heparin Hydromorphone HCl (Dilaudid Injection -) 1 mg IVPB Q3H PRN PRN Reason: PAIN LEVEL 1-5 Heparin Sodium/Dextrose (Heparin Infusion -) 500 mls @ 20 mls/hr IVPB TITR TRI ; 1,000 UNITS/HR PRN Reason: Protocol Last Titration: 11/16/16 08:00 Dose: 950 units/hr Lisinopril (Prinivil) 5 mg PO DAILY [facility] Last Admin: 11/16/16 09:13 Dose: 5 mg Metoprolol Succinate (Toprol Xl -) 25 mg PO DAILY [facility] Last Admin: 11/16/16 09:13 Dose: 25 mg Oxycodone HCl (Roxicodone -) 5 mg PO Q4H PRN PRN Reason: PAIN Oxycodone HCl (Roxicodone -) 10 mg PO Q4H PRN PRN Reason: PAIN Polyethylene Glycol (Miralax (For Daily Use) -) 17 gm PO DAILY [facility] Warfarin Sodium (Coumadin -) 10 mg PO ONCE@1800 ONE Stop: 11/16/16 18:01 Warfarin Sodium (Coumadin -) 5 mg PO DAILY@1800 [facility] Constitutional: Yes: Well Nourished, No Distress, Calm Eyes: Yes: WNL HENT: Yes: WNL Neck: Yes: WNL Cardiovascular: Yes: Regular Rate and Rhythm, S1, S2 Respiratory: Yes: Regular, CTA Bilaterally Gastrointestinal: Yes: Normal Bowel Sounds, Soft Extremities: Yes: Other (R groin with marina, no drainage noted, mildly TTP. Right foot warm with 1+ pedal pulse. No discoloration.) Wound/Incision: Yes: Dressing Dry and Intact Neurological: Yes: Alert, Oriented ...Motor Strength: WNL Labs: Laboratory Results - last 24 hr 11/14/16 11/14/16 11/14/16 10:03 10:03 10:03 WBC 9.2 D RBC 2.99 L Hgb 8.7 L Hct 26.7 L MCV 89.1 MCH 29.1 MCHC 32.7 RDW 13.6 Plt Count 221 D MPV 7.1 L D Neutrophils % 82.5 Lymphocytes % 8.8 D Monocytes % 7.2 Eosinophils % 0.9 Basophils % 0.6 INR 1.12 PTT (Actin FS) 31.3 D Sodium 135 L Potassium 4.5 Chloride 99 Carbon Dioxide 28 Anion Gap 8 BUN 34 H Creatinine 1.4 H D Creat Clearance w eGFR 49.41 Random Glucose 104 Calcium 9.3 Magnesium 2.5 H Total Bilirubin 0.6 D AST 22 ALT 41 D Alkaline Phosphatase 63 Total Protein 6.9 Albumin 3.7 Blood Type Antibody Screen Crossmatch IS Only 08/12/2311/15/16 11/15/16 10:03 20:15 20:15 WBC 6.5 RBC 2.81 L Hgb 8.4 L Hct 25.2 L MCV 89.7 MCH 29.8 MCHC 33.2 RDW 13.7 Plt Count 167 MPV 7.3 L Neutrophils % Lymphocytes % Monocytes % Eosinophils % Basophils % INR PTT (Actin FS) 118.3 H D Sodium Potassium Chloride Carbon Dioxide Anion Gap BUN Creatinine Creat Clearance w eGFR Random Glucose Calcium Magnesium Total Bilirubin AST ALT Alkaline Phosphatase Total Protein Albumin Blood Type O POSITIVE Antibody Screen Negative Crossmatch IS Only See Detail 11/16/16 11/16/16 11/16/16 05:10 05:10 05:10 WBC 7.6 RBC 3.29 L Hgb 10.0 L D Hct 29.2 L D MCV 88.7 MCH 30.3 MCHC 34.2 RDW 13.9 Plt Count 172 MPV 7.5 Neutrophils % 77.6 Lymphocytes % 10.1 D Monocytes % 10.1 Eosinophils % 1.7 Basophils % 0.5 INR PTT (Actin FS) 44.5 H D Sodium 138 Potassium 4.0 Chloride 104 Carbon Dioxide 28 Anion Gap 6 L BUN 20 H D Creatinine 0.9 Creat Clearance w eGFR > 60 Random Glucose 107 H Calcium 8.4 L Magnesium Total Bilirubin 0.7 D AST 17 ALT 28 Alkaline Phosphatase 51 Total Protein 5.6 L Albumin 3.0 L Blood Type Antibody Screen Crossmatch IS Only 11/16/16 05:10 WBC RBC Hgb Hct MCV MCH MCHC RDW Plt Count MPV Neutrophils % Lymphocytes % Monocytes % Eosinophils % Basophils % INR 1.21 H PTT (Actin FS) Sodium Potassium Chloride Carbon Dioxide Anion Gap BUN Creatinine Creat Clearance w eGFR Random Glucose Calcium Magnesium Total Bilirubin AST ALT Alkaline Phosphatase Total Protein Albumin Blood Type Antibody Screen Crossmatch IS Only Problem List - Problems (1) Arterial insufficiency of lower extremity Code(s): I73.9 - PERIPHERAL VASCULAR DISEASE, UNSPECIFIED (2) Femoral-popliteal bypass graft occlusion Code(s): T82.898A - OTH COMPLICATION OF VASCULAR PROSTH DEV/GRFT, INIT Qualifiers: Encounter type: initial encounter Qualified Code(s): T82.898A - Other specified complication of vascular prosthetic devices, implants and grafts, initial encounter (3) HTN (hypertension) Code(s): I10 - ESSENTIAL (PRIMARY) HYPERTENSION Qualifiers: Hypertension type: essential hypertension Qualified Code(s): I10 - Essential (primary) hypertension (4) CAD (coronary artery disease) Code(s): I25.10 - ATHSCL HEART DISEASE OF [place] CORONARY ARTERY W/O ANG PCTRS Qualifiers: Coronary Disease-Associated Artery/Lesion type: bypass graft [place] vs. transplanted heart: [place] heart Associated angina: without angina Qualified Code(s): I25.810 - Atherosclerosis of coronary artery bypass graft( s) without angina pectoris Assessment/Plan Heparin -> coumadin O2 as needed Incentive Spirometry Doppler checks Atorvastatin ASA PO as tolerated Floor Dr Oshea
[2016-11-16] MEDS: HEPARIN INFUSION - 500 ML IVPB SCH ×3 (13:35→23:20)
[2016-11-16] MEDS ORDERED: HYDROmorphone HCL CARPU-JECT 1 MG/1 ML DISP.SYRIN IVPB PRN (13:38)
[2016-11-16] MEDS ORDERED: oxyCODONE HCL 5 MG TABLET PO PRN ×2 (13:38)
[2016-11-16] MEDS ORDERED: ACETAMINOPHEN 325 MG TABLET (FP) PO PRN ×3 (13:38)
[2016-11-16] MEDS ORDERED: HEPARIN NA (PORCINE) 5,000 UNITS/ML 1ML VIAL IVPUSH PRN ×4 (13:38)
[2016-11-16] MEDS: POLYETHYLENE GLYCOL 3350 119 GM BTL PO SCH (15:28)
[2016-11-16] MEDS ORDERED: WARFARIN NA 10 MG TABLET (FP) PO ONE ×2 (18:00)
[2016-11-16] MEDS ORDERED: WARFARIN NA 5 MG TABLET (UD) PO SCH (18:00)
[2016-11-16] MEDS ORDERED: amLODIPine BESYLATE 10 MG TABLET (FP) PO ONE (18:30)
[2016-11-16] MEDS: ATORVASTATIN CA 40 MG TABLET (FP) PO SCH (21:33)
[2016-11-17 08:07] LABS: MCH 29.4 pg (25.7-33.7); MCHC 33.4 g/dl (32.0-35.9); MEAN CELL VOLUME 88.2 fl (80-96); PLATELET COUNT 172 K/MM3 (134-434); RDW 13.7 % (11.9-15.9); WHITE BLOOD COUNT 6.6 K/mm3 (4.0-10.0)
--- NOTE | 2016-11-17 08:10 | PN ---
Progress Note (short form) - Note Progress Note: Awake, alert, anxious. Received Coumadin 10 mg HS Vital Signs - 24 hr 11/16/16 11/16/16 11/16/16 09:00 09:25 10:00 Temperature 98.6 F Pulse Rate 72 72 Respiratory 17 17 Rate Blood Pressure 174/53 O2 Sat by Pulse 97 99 Oximetry (%) 11/16/16 11/16/16 11/16/16 12:00 16:45 16:50 Temperature Pulse Rate 60 67 Respiratory 15 20 20 Rate Blood Pressure 176/56 196/73 O2 Sat by Pulse 96 Oximetry (%) 11/16/16 11/16/16 11/16/16 18:40 19:48 21:00 Temperature 97.7 F Pulse Rate 69 Respiratory 20 20 Rate Blood Pressure 154/65 O2 Sat by Pulse 98 Oximetry (%) 11/16/16 11/16/16 11/17/16 22:00 23:37 06:06 Temperature 98.7 F 98 F Pulse Rate 66 70 Respiratory 20 20 Rate Blood Pressure 132/56 151/66 O2 Sat by Pulse 98 Oximetry (%) Lungs are Clear. Heart S1S2 regular Abdomen soft, NR LE-no edema Right foot less rubor, warmer. toes -cool. Laboratory Results - last 24 hr 11/16/16 11/16/16 11/17/16 05:10 14:00 00:00 INR 1.21 H PTT (Actin FS) 45.0 H 54.7 H Current Active Problems Problem Status Diagnosed Arterial insufficiency of lower extremity Acute Femoral-popliteal bypass graft occlusion Acute S/P femoral-popliteal bypass surgery Acute Plan PO Coumadin IV Heparin Follow PT/INR Norvasc for BP. Problem List - Problems (1) Femoral-popliteal bypass graft occlusion Code(s): T82.898A - OTH COMPLICATION OF VASCULAR PROSTH DEV/GRFT, INIT Qualifiers: Encounter type: initial encounter Qualified Code(s): T82.898A - Other specified complication of vascular prosthetic devices, implants and grafts, initial encounter (2) CAD (coronary artery disease) Code(s): I25.10 - ATHSCL HEART DISEASE OF [place] CORONARY ARTERY W/O ANG PCTRS Qualifiers: Coronary Disease-Associated Artery/Lesion type: bypass graft [place] vs. transplanted heart: [place] heart Associated angina: without angina Qualified Code(s): I25.810 - Atherosclerosis of coronary artery bypass graft( s) without angina pectoris (3) HTN (hypertension) Code(s): I10 - ESSENTIAL (PRIMARY) HYPERTENSION Qualifiers: Hypertension type: essential hypertension Qualified Code(s): I10 - Essential (primary) hypertension
[2016-11-17 08:51] LABS: INR 1.45 (0.82-1.09); PROTHROMBIN TIME (PATIENT) 16.1 SEC (9.98-11.88)
[2016-11-17] MEDS: POLYETHYLENE GLYCOL 3350 119 GM BTL PO SCH (09:39)
[2016-11-17] MEDS: amLODIPine BESYLATE 10 MG TABLET (FP) PO SCH (09:39)
[2016-11-17] MEDS: METOPROLOL SUCCINATE 25 MG TAB.SR.24H (FP) PO SCH (09:39)
[2016-11-17] MEDS: LISINOPRIL 5 MG TABLET (FP) PO SCH (09:39)
[2016-11-17] MEDS: ASPIRIN COATED 81 MG TABLET.EC PO SCH (09:39)
[2016-11-17] MEDS ORDERED: amLODIPine BESYLATE 5 MG TABLET (FP) PO SCH (10:00)
--- NOTE | 2016-11-17 10:59 | PN ---
Progress Note (short form) - Note Progress Note: Feels fine today. No CP or SOB. Denies pain/discomfort in the LE or surgical site. Intake & Output 11/14/16 11/15/16 11/16/16 11/17/16 23:59 23:59 23:59 23:59 Intake Total 600 2980 1944 492 Output Total 234 597 6842 Balance 200 2080 444 492 Weight 162 lb 6.4 oz 2.67 oz Last Vital Signs Temp Pulse Resp BP Pulse Ox 98 F 70 20 151/66 98 11/17/16 06:06 11/17/16 06:06 11/16/16 23:37 11/17/16 06:06 11/16/16 23:37 Active Medications Acetaminophen (Tylenol -) 325 mg PO Q4H PRN PRN Reason: PAIN Stop: 11/18/16 19:50 Acetaminophen (Tylenol -) 650 mg PO Q4H PRN PRN Reason: PAIN Stop: 11/18/16 19:52 Acetaminophen (Tylenol -) 650 mg PO Q6H PRN PRN Reason: FEVER Amlodipine Besylate (Norvasc -) 10 mg PO DAILY [facility] Last Admin: 11/17/16 09:39 Dose: 10 mg Aspirin (Ecotrin -) 81 mg PO DAILY [facility] Last Admin: 11/17/16 09:39 Dose: 81 mg Atorvastatin Calcium (Lipitor -) 40 mg PO HS [facility] Last Admin: 11/16/16 21:33 Dose: 40 mg Heparin Sodium (Porcine) (Heparin -) 1,000 unit IVPUSH PRN PRN PRN Reason: Heparin Last Admin: 11/16/16 18:04 Dose: 1,000 unit Heparin Sodium (Porcine) (Heparin -) 5,000 unit IVPUSH PRN PRN PRN Reason: Heparin Hydromorphone HCl (Dilaudid Injection -) 1 mg IVPB Q3H PRN PRN Reason: PAIN LEVEL 1-5 Heparin Sodium/Dextrose (Heparin Infusion -) 500 mls @ 20 mls/hr IVPB TITR TRI ; 1,000 UNITS/HR PRN Reason: Protocol Last Titration: 11/17/16 08:48 Dose: 1,050 units/hr Lisinopril (Prinivil) 5 mg PO DAILY [facility] Last Admin: 11/17/16 09:39 Dose: 5 mg Metoprolol Succinate (Toprol Xl -) 25 mg PO DAILY [facility] Last Admin: 11/17/16 09:39 Dose: 25 mg Oxycodone HCl (Roxicodone -) 5 mg PO Q4H PRN PRN Reason: PAIN Oxycodone HCl (Roxicodone -) 10 mg PO Q4H PRN PRN Reason: PAIN Polyethylene Glycol (Miralax (For Daily Use) -) 17 gm PO DAILY [facility] Last Admin: 11/17/16 09:39 Dose: 17 grams Warfarin Sodium (Coumadin -) 5 mg PO DAILY@1800 [facility] Constitutional: Yes: Well Nourished, No Distress Eyes: Yes: WNL HENT: Yes: WNL Neck: Yes: WNL Cardiovascular: Yes: Regular Rate and Rhythm, S1, S2 Respiratory: Yes: Regular, CTA Bilaterally Gastrointestinal: Yes: Normal Bowel Sounds, Soft Extremities: Yes: Other (R groin with marina, no drainage noted, mildly TTP. Right foot warm with 1+ pedal pulse. No discoloration.) Wound/Incision: Yes: Dressing Dry and Intact Neurological: Yes: Alert, Oriented ...Motor Strength: WNL Labs: Laboratory Results - last 24 hr 11/16/16 11/17/16 11/17/16 14:00 00:00 06:00 WBC 6.6 RBC 3.33 L Hgb 9.8 L Hct 29.4 L MCV 88.2 MCH 29.4 MCHC 33.4 RDW 13.7 Plt Count 172 MPV 8.0 INR PTT (Actin FS) 45.0 H 54.7 H 11/17/16 11/17/16 06:00 06:00 WBC RBC Hgb Hct MCV MCH MCHC RDW Plt Count MPV INR 1.45 H PTT (Actin FS) 62.4 H Problem List - Problems (1) Arterial insufficiency of lower extremity Code(s): I73.9 - PERIPHERAL VASCULAR DISEASE, UNSPECIFIED (2) Femoral-popliteal bypass graft occlusion Code(s): T82.898A - OTH COMPLICATION OF VASCULAR PROSTH DEV/GRFT, INIT Qualifiers: Encounter type: initial encounter Qualified Code(s): T82.898A - Other specified complication of vascular prosthetic devices, implants and grafts, initial encounter (3) HTN (hypertension) Code(s): I10 - ESSENTIAL (PRIMARY) HYPERTENSION Qualifiers: Hypertension type: essential hypertension Qualified Code(s): I10 - Essential (primary) hypertension (4) CAD (coronary artery disease) Code(s): I25.10 - ATHSCL HEART DISEASE OF [place] CORONARY ARTERY W/O ANG PCTRS Qualifiers: Coronary Disease-Associated Artery/Lesion type: bypass graft [place] vs. transplanted heart: [place] heart Associated angina: without angina Qualified Code(s): I25.810 - Atherosclerosis of coronary artery bypass graft( s) without angina pectoris Assessment/Plan Heparin -> coumadin O2 as needed Incentive Spirometry Doppler checks Atorvastatin ASA PO as tolerated Dr Oshea
--- NOTE | 2016-11-17 11:03 | PN ---
Progress Note (short form) - Note Progress Note: POD 2 VSS No c/o - feels tingling in toes Wounds dry, moderate swelling in thigh. Foot warm, doppler pulses present INR 1.4 Continue IV Heparin, Coumadin OOB
[2016-11-17] MEDS ORDERED: WARFARIN NA 5 MG TABLET (UD) PO SCH (18:00)
[2016-11-17] MEDS ORDERED: WARFARIN NA 5 MG TABLET (UD) PO ONE (18:15)
[2016-11-17] MEDS: HEPARIN INFUSION - 500 ML IVPB SCH (18:22)
[2016-11-17] MEDS: ATORVASTATIN CA 40 MG TABLET (FP) PO SCH (21:30)
[2016-11-18 08:10] LABS: MEAN CELL VOLUME 88.1 fl (80-96); PLATELET COUNT 160 K/MM3 (134-434); RDW 13.6 % (11.9-15.9); WHITE BLOOD COUNT 6.3 K/mm3 (4.0-10.0)
[2016-11-18 08:52] LABS: INR 3.76 (0.82-1.09); PROTHROMBIN TIME (PATIENT) 42.5 SEC (9.98-11.88)
[2016-11-18] MEDS: amLODIPine BESYLATE 10 MG TABLET (FP) PO SCH (09:29)
[2016-11-18] MEDS: METOPROLOL SUCCINATE 25 MG TAB.SR.24H (FP) PO SCH (09:30)
[2016-11-18] MEDS: ASPIRIN COATED 81 MG TABLET.EC PO SCH (09:30)
[2016-11-18] MEDS: POLYETHYLENE GLYCOL 3350 119 GM BTL PO SCH (09:30)
[2016-11-18] MEDS: LISINOPRIL 5 MG TABLET (FP) PO SCH (09:30)
--- NOTE | 2016-11-18 11:47 | PN ---
Progress Note (short form) - Note Progress Note: Feels fine today. Some tingling in his toes with increased sensation. No CP or SOB. Intake & Output 11/15/16 11/16/16 11/17/16 11/18/16 23:59 23:59 23:59 23:59 Intake Total 2980 1944 1564 440 Output Total 900 1500 1900 1200 Balance 2080 444 336 -760 Weight 2.67 oz Last Vital Signs Temp Pulse Resp BP Pulse Ox 98.9 F 70 18 136/79 98 11/17/16 22:00 11/17/16 22:00 11/17/16 22:00 11/17/16 22:00 11/17/16 21:00 Active Medications Acetaminophen (Tylenol -) 325 mg PO Q4H PRN PRN Reason: PAIN Stop: 11/18/16 19:50 Acetaminophen (Tylenol -) 650 mg PO Q4H PRN PRN Reason: PAIN Stop: 11/18/16 19:52 Acetaminophen (Tylenol -) 650 mg PO Q6H PRN PRN Reason: FEVER Amlodipine Besylate (Norvasc -) 10 mg PO DAILY [facility] Last Admin: 11/18/16 09:29 Dose: 10 mg Aspirin (Ecotrin -) 81 mg PO DAILY [facility] Last Admin: 11/18/16 09:30 Dose: 81 mg Atorvastatin Calcium (Lipitor -) 40 mg PO HS [facility] Last Admin: 11/17/16 21:30 Dose: 40 mg Hydromorphone HCl (Dilaudid Injection -) 1 mg IVPB Q3H PRN PRN Reason: PAIN LEVEL 1-5 Lisinopril (Prinivil) 5 mg PO DAILY [facility] Last Admin: 11/18/16 09:30 Dose: 5 mg Metoprolol Succinate (Toprol Xl -) 25 mg PO DAILY [facility] Last Admin: 11/18/16 09:30 Dose: 25 mg Oxycodone HCl (Roxicodone -) 5 mg PO Q4H PRN PRN Reason: PAIN Oxycodone HCl (Roxicodone -) 10 mg PO Q4H PRN PRN Reason: PAIN Polyethylene Glycol (Miralax (For Daily Use) -) 17 gm PO DAILY [facility] Last Admin: 11/18/16 09:30 Dose: 17 grams Warfarin Sodium (Coumadin -) 5 mg PO DAILY@1800 [facility] Last Admin: 08/12/17 18:21 Dose: 5 mg Constitutional: Yes: Well Nourished, No Distress Eyes: Yes: WNL HENT: Yes: WNL Neck: Yes: WNL Cardiovascular: Yes: Regular Rate and Rhythm, S1, S2 Respiratory: Yes: Regular, CTA Bilaterally Gastrointestinal: Yes: Normal Bowel Sounds, Soft Extremities: Yes: Other (R groin with marina, no drainage noted, mildly TTP. Right foot warm with 1+ pedal pulse. No discoloration.) Wound/Incision: Yes: Dressing Dry and Intact Neurological: Yes: Alert, Oriented ...Motor Strength: WNL Labs: Laboratory Results - last 24 hr 11/18/16 11/18/16 11/18/16 06:00 06:00 06:30 WBC 6.3 RBC 3.22 L Hgb 9.7 L Hct 28.4 L MCV 88.1 MCH 30.0 MCHC 34.0 RDW 13.6 Plt Count 160 MPV 8.0 INR 3.76 H D PTT (Actin FS) 70.2 H Problem List - Problems (1) Arterial insufficiency of lower extremity Code(s): I73.9 - PERIPHERAL VASCULAR DISEASE, UNSPECIFIED (2) Femoral-popliteal bypass graft occlusion Code(s): T82.898A - OT COMPLICATION OF VASCULAR PROSTH DEV/GRFT, INIT Qualifiers: Encounter type: initial encounter Qualified Code(s): T82.898A - Other specified complication of vascular prosthetic devices, implants and grafts, initial encounter (3) HTN (hypertension) Code(s): I10 - ESSENTIAL (PRIMARY) HYPERTENSION Qualifiers: Hypertension type: essential hypertension Qualified Code(s): I10 - Essential (primary) hypertension (4) CAD (coronary artery disease) Code(s): I25.10 - ATHSCL HEART DISEASE OF [place] CORONARY ARTERY W/O ANG PCTRS Qualifiers: Coronary Disease-Associated Artery/Lesion type: bypass graft [place] vs. transplanted heart: [place] heart Associated angina: without angina Qualified Code(s): I25.810 - Atherosclerosis of coronary artery bypass graft( s) without angina pectoris Assessment/Plan D/C Heparin as INR therapeutic O2 as needed Incentive Spirometry Atorvastatin ASA PO as tolerated Dr Oshea
--- NOTE | 2016-11-18 12:09 | PN ---
Progress Note (short form) - Note Progress Note: INR 3.76. Heparin IV stopped. Coumadin PO held. Vital Signs - 24 hr 11/17/16 11/17/16 11/17/16 15:37 18:00 21:00 Temperature 99.2 F 98.8 F Pulse Rate 66 69 Respiratory 18 18 Rate Blood Pressure 114/54 142/64 O2 Sat by Pulse 98 Oximetry (%) 11/17/16 22:00 Temperature 98.9 F Pulse Rate 70 Respiratory 18 Rate Blood Pressure 136/79 O2 Sat by Pulse Oximetry (%) BP well controlled. C/o right big toe tingling. Laboratory Results - last 24 hr 11/18/16 11/18/16 11/18/16 06:00 06:00 06:30 WBC 6.3 RBC 3.22 L Hgb 9.7 L Hct 28.4 L MCV 88.1 MCH 30.0 MCHC 34.0 RDW 13.6 Plt Count 160 MPV 8.0 INR 3.76 H D PTT (Actin FS) 70.2 H Lungs clear. Heart S1S2 regular Abdomen soft, NT Left foot warm Right cool toes, pallor. Dressings clean Current Active Problems Problem Status Diagnosed Arterial insufficiency of lower extremity Acute Femoral-popliteal bypass graft occlusion Acute S/P femoral-popliteal bypass surgery Acute Plan INR in AM OOB Dr German f/u Problem List - Problems (1) Femoral-popliteal bypass graft occlusion Code(s): T82.898A - OTH COMPLICATION OF VASCULAR PROSTH DEV/GRFT, INIT Qualifiers: Encounter type: initial encounter Qualified Code(s): T82.898A - Other specified complication of vascular prosthetic devices, implants and grafts, initial encounter (2) CAD (coronary artery disease) Code(s): I25.10 - ATHSCL HEART DISEASE OF [place] CORONARY ARTERY W/O ANG PCTRS Qualifiers: Coronary Disease-Associated Artery/Lesion type: bypass graft [place] vs. transplanted heart: [place] heart Associated angina: without angina Qualified Code(s): I25.810 - Atherosclerosis of coronary artery bypass graft( s) without angina pectoris (3) HTN (hypertension) Code(s): I10 - ESSENTIAL (PRIMARY) HYPERTENSION Qualifiers: Hypertension type: essential hypertension Qualified Code(s): I10 - Essential (primary) hypertension
--- NOTE | 2016-11-18 13:55 | PN ---
Progress Note (short form) - Note Progress Note: POD 3 VSS No c/o Wounds dry, moderate swelling in thigh. Foot warm, doppler pulses present INR 13.7 Stop Heparin, Hold Coumadin today, recheck INR in AM OOB If able to walk without problem will be OK for discharge in AM.
[2016-11-18] MEDS ORDERED: PT OWN MED DRAWER 7, Y5N ONE (18:18)
[2016-11-18] MEDS: ATORVASTATIN CA 40 MG TABLET (FP) PO SCH (21:34)
[2016-11-19 08:08] LABS: MCH 29.8 pg (25.7-33.7); MCHC 33.9 g/dl (32.0-35.9); MEAN CELL VOLUME 87.9 fl (80-96); MEAN PLT VOLUME 8.1 fl (7.5-11.1); PLATELET COUNT 165 K/MM3 (134-434); RDW 13.5 % (11.9-15.9); WHITE BLOOD COUNT 8.2 K/mm3 (4.0-10.0)
[2016-11-19] MEDS ORDERED: methylPREDNISolone NA SUCC 40 MG/1 ML VIAL IVPB ONE (08:15)
--- NOTE | 2016-11-19 08:17 | PN ---
Progress Note (short form) - Note Progress Note: C/o severe pain left elbow, swelling, unable to move. Off Heparin, Coumadin on Hold Vital Signs Temp 99.7 F H 11/19/16 07:57 Pulse 77 11/19/16 07:57 Resp 20 11/19/16 07:57 BP 168/62 11/19/16 07:57 Pulse Ox 99 11/18/16 21:00 Intake & Output 11/18/16 11/18/16 11/19/16 11:59 23:59 11:59 Intake Total 440 480 100 Output Total 1200 700 Balance -760 -220 100 Intake: IV 140 Heparin Infusion - 500 ml 140 @ 1,000 UNITS/HR 20 mls/ hr IVPB TITR TRI Rx#: [id number] Oral 300 480 100 Output: Urine 1200 700 Void 1200 700 Other: Voiding Method Urinal Urinal Bowel Movement No No Awake, alert, left elboe swelling, pain. Lungs are Clear. Heart s1s2 regular. Abdomen soft, NT Right foot dressings clean, toes cool. Imp Acute gouty attack. Gouty arthritis left elbow-pt is on A/C. Laboratory Results - last 24 hr 11/14/16 11/18/16 11/18/16 10:03 06:00 06:00 WBC 6.3 RBC 3.22 L Hgb 9.7 L Hct 28.4 L MCV 88.1 MCH 30.0 MCHC 34.0 RDW 13.6 Plt Count 160 MPV 8.0 INR 3.76 H D PTT (Actin FS) Blood Type O POSITIVE Antibody Screen Negative Crossmatch IS Only See Detail 11/18/16 06:30 WBC RBC Hgb Hct MCV MCH MCHC RDW Plt Count MPV INR PTT (Actin FS) 70.2 H Blood Type Antibody Screen Crossmatch IS Only Current Active Problems Problem Status Diagnosed Arterial insufficiency of lower extremity Acute Femoral-popliteal bypass graft occlusion Acute S/P femoral-popliteal bypass surgery Acute Plan Rheum consult re-left elbow arthrocentesis, steroid injection. Avoid NSAIDS Colchicin 0.6 BID Solu-medrol IV Follow INR- and dose coumadin accordingly Ambulate Problem List - Problems (1) Femoral-popliteal bypass graft occlusion Code(s): T82.898A - OTH COMPLICATION OF VASCULAR PROSTH DEV/GRFT, INIT Qualifiers: Encounter type: initial encounter Qualified Code(s): T82.898A - Other specified complication of vascular prosthetic devices, implants and grafts, initial encounter (2) CAD (coronary artery disease) Code(s): I25.10 - ATHSCL HEART DISEASE OF [place] CORONARY ARTERY W/O ANG PCTRS Qualifiers: Coronary Disease-Associated Artery/Lesion type: bypass graft [place] vs. transplanted heart: [place] heart Associated angina: without angina Qualified Code(s): I25.810 - Atherosclerosis of coronary artery bypass graft( s) without angina pectoris (3) HTN (hypertension) Code(s): I10 - ESSENTIAL (PRIMARY) HYPERTENSION Qualifiers: Hypertension type: essential hypertension Qualified Code(s): I10 - Essential (primary) hypertension
[2016-11-19 08:29] LABS: PROTHROMBIN TIME (PATIENT) 56.9 SEC (9.98-11.88)
[2016-11-19 08:43] LABS: INR 5.01 (0.82-1.09)
--- NOTE | 2016-11-19 09:03 | PN ---
Progress Note (short form) - Note Progress Note: POD 4 VSS C/o left elbow pain and swelling Able to walk to elevator without pain. Wounds dry, moderate swelling in thigh. Foot warm, doppler pulses present Left elbow swelling and erythema, tender in joint area INR 5 Hold Coumadin today, recheck INR in AM OOB Rheumatology to evaluate for gout
[2016-11-19] MEDS: ASPIRIN COATED 81 MG TABLET.EC PO SCH (10:09)
[2016-11-19] MEDS: LISINOPRIL 5 MG TABLET (FP) PO SCH (10:09)
[2016-11-19] MEDS: POLYETHYLENE GLYCOL 3350 119 GM BTL PO SCH (10:10)
[2016-11-19] MEDS: METOPROLOL SUCCINATE 25 MG TAB.SR.24H (FP) PO SCH (10:10)
[2016-11-19] MEDS: amLODIPine BESYLATE 10 MG TABLET (FP) PO SCH (10:10)
[2016-11-19] MEDS: COLCHICINE 0.6 MG TABLET (FP) PO SCH ×2 (12:52→21:38)
--- NOTE | 2016-11-19 14:00 | CONSULT ---
Consult Consult Specialty:: Rheumatology - History of Present Illness History of Present Illness: 76-year-old male with a past medical history of HTN, CAD and gout admitted with occlusion of fem-pop bypass graft. the patient has a 2 day history of pain in the left elbow. HPI. Five years ago the patient had an episode of acute arthritis of the right 1st MTP apparently diagnosed as gout. Since then he has not have acute arthritis until 2 days ago when he developed severe pain in the left elbow and difficulty in moving the left arm. He denies other join involvement. Laboratory work-up revealed a uric acid of 5, creatinine on admission 1.4 and today 0.9 and PT INR 5.01 Today he was started on Solumedrol 40 mg IV resulting in partial improvement. On 11/15/16 the patient had an open thrombectomy of the right iliac artery and revascularization with a stent. - History Source History Provided By: Patient, Medical Record Limitations to Obtaining History: No Limitations - Past Medical History Cardio/Vascular: Yes: HTN, Hyperlipdemia Renal/: Yes: Renal Inusuff Psych: Yes: Anxiety Musculoskeletal: Yes: Chronic low back pain, Other (Left shoulder pain) Rheumatology: Yes: Gout - Past Surgical History Past Surgical History: Yes: Bypass (Left Fem-Pop), CABG, Carotid Endarterectomy - Alcohol/Substance Use Hx Alcohol Use: No - Smoking History Smoking history: Former smoker Have you smoked in the past 12 months: No Aproximately how many cigarettes per day: 0 If you are a former smoker, when did you quit?: 21 YEARS AGO - Social History History of Recent Travel: No Home Medications - Allergies Allergies/Adverse Reactions: Allergies Allergy/AdvReac Type Severity Reaction Status Date / Time No Known Drug Allergies Allergy Verified 11/14/16 08:57 - Home Medications Home Medications: Ambulatory Orders Aspirin Coated [Ecotrin -] 81 mg PO DAILY #0 tablet.ec 05/20/12 Atorvastatin Calcium 40 mg PO HS 10/29/16 Lisinopril 5 mg PO DAILY 10/29/16 Metoprolol Succinate [Toprol XL -] 25 mg PO DAILY 10/29/16 Oxycodone HCl [Roxicodone -] 5 mg PO Q6H PRN #60 tablet MDD 4 tabs 11/06/16 Review of Systems - Review of Systems Constitutional: reports: Malaise Eyes: reports: No Symptoms HENT: reports: No Symptoms Neck: reports: No Symptoms Cardiovascular: reports: No Symptoms Gastrointestinal: reports: No Symptoms Genitourinary: reports: No Symptoms Musculoskeletal: reports: Other (ee HPI) Integumentary: reports: No Symptoms Physical Exam Vital Signs: Vital Signs Temperature 98.8 F 11/19/16 10:00 Pulse Rate 81 11/19/16 10:00 Respiratory Rate 18 11/19/16 10:00 Blood Pressure 144/58 11/19/16 10:00 O2 Sat by Pulse Oximetry (%) 99 11/18/16 21:00 Eyes: Yes: WNL HENT: Yes: WNL Neck: Yes: WNL Cardiovascular: Yes: WNL Respiratory: Yes: WNL Gastrointestinal: Yes: WNL ...Rectal Exam: Yes: WNL Renal/: Yes: WNL Musculoskeletal: Yes: Other (Tenderness and swelling of the left elbow. No othetr active joints.) Labs: CBC, BMP 11/19/16 06:30 11/16/16 05:10 Laboratory Tests 11/19/16 11/19/16 06:30 06:30 INR 5.01 H* D Uric Acid 5.0 Problem List - Problems (1) Swelling of joint, elbow, left Assessment/Plan: Acute arthritis in the left elbow and history of gouty arthritis. Even though the uric acid was 5, it is possible that the patient has acute gouty arthritis. He was started on Solumedorl 40 mg IV resulting in aprtial improvement. As the PT INR was 5, I cannot aspirate and inject the joint, Plan Continue with Prednisone 40 mg/d for 2 more days with a slow taper and continue with Colchicine 0.6 mg/d for 2 months. Follow patient as outpatient. Code(s): M25.422 - EFFUSION, LEFT ELBOW
[2016-11-19] MEDS ORDERED: PHYTONADIONE 5 MG TABLET PO ONE (14:30)
[2016-11-19] MEDS: ATORVASTATIN CA 40 MG TABLET (FP) PO SCH (21:38)
[2016-11-20 07:58] LABS: MCH 29.6 pg (25.7-33.7); MCHC 33.5 g/dl (32.0-35.9); MEAN CELL VOLUME 88.4 fl (80-96); PLATELET COUNT 188 K/MM3 (134-434); RDW 13.4 % (11.9-15.9); WHITE BLOOD COUNT 9.5 K/mm3 (4.0-10.0)
[2016-11-20 07:59] LABS: INR 2.71 (0.82-1.09); PROTHROMBIN TIME (PATIENT) 30.4 SEC (9.98-11.88)
[2016-11-20] MEDS ORDERED: predniSONE 20 MG TABLET (UD) PO SCH (08:00)
[2016-11-20] MEDS ORDERED: PT OWN MED DRAWER 7, Y5N ONE (09:20)
[2016-11-20] MEDS: COLCHICINE 0.6 MG TABLET (FP) PO SCH (09:24)
[2016-11-20] MEDS: amLODIPine BESYLATE 10 MG TABLET (FP) PO SCH (09:25)
[2016-11-20] MEDS: POLYETHYLENE GLYCOL 3350 119 GM BTL PO SCH (09:25)
[2016-11-20] MEDS: LISINOPRIL 5 MG TABLET (FP) PO SCH (09:25)
[2016-11-20] MEDS: ASPIRIN COATED 81 MG TABLET.EC PO SCH (09:25)
[2016-11-20] MEDS: METOPROLOL SUCCINATE 25 MG TAB.SR.24H (FP) PO SCH (09:26)
--- NOTE | 2016-11-20 12:13 | PN ---
Progress Note (short form) - Note Progress Note: Left elbow pain and swelling improved. Right foot toes warm. Vital Signs Temp 98 F 11/20/16 06:15 Pulse 68 11/20/16 06:15 Resp 18 11/20/16 06:15 BP 137/61 11/20/16 06:15 Pulse Ox 96 11/19/16 21:00 Intake & Output 11/19/16 11/20/16 11/20/16 23:59 11:59 23:59 Intake Total 740 100 Output Total 1100 Balance 740 -1000 Weight 164 lb 4 oz 166 lb 4.8 oz Intake: Oral 740 100 Output: Urine 1100 Void 1100 Other: Voiding Method Urinal # Unmeasured Voids Void 2 Bowel Movement Yes Weight Measurement Method Built in Bedscale Built in Bedscale Lungs Clear Heart s1S2 regular Abdomen soft, NT Left elbow -arthritis. Laboratory Results - last 24 hr 11/20/16 11/20/16 11/20/16 06:30 06:30 06:30 WBC 9.5 RBC 3.43 L Hgb 10.2 L Hct 30.3 L MCV 88.4 MCH 29.6 MCHC 33.5 RDW 13.4 Plt Count 188 MPV 8.0 INR 2.71 H D PTT (Actin FS) 35.5 H Plan D/C home Will arrange INR at home. Taper Prednisone Continue Colchicine 0.6/day x2 mo Re-start Coumadin PO Current Active Problems Problem Status Diagnosed Arterial insufficiency of lower extremity Acute Femoral-popliteal bypass graft occlusion Acute S/P femoral-popliteal bypass surgery Acute Swelling of joint, elbow, left Acute Problem List - Problems (1) Femoral-popliteal bypass graft occlusion Code(s): T82.898A - OTH COMPLICATION OF VASCULAR PROSTH DEV/GRFT, INIT Qualifiers: Encounter type: initial encounter Qualified Code(s): T82.898A - Other specified complication of vascular prosthetic devices, implants and grafts, initial encounter (2) CAD (coronary artery disease) Code(s): I25.10 - ATHSCL HEART DISEASE OF [place] CORONARY ARTERY W/O ANG PCTRS Qualifiers: Coronary Disease-Associated Artery/Lesion type: bypass graft [place] vs. transplanted heart: [place] heart Associated angina: without angina Qualified Code(s): I25.810 - Atherosclerosis of coronary artery bypass graft( s) without angina pectoris (3) HTN (hypertension) Code(s): I10 - ESSENTIAL (PRIMARY) HYPERTENSION Qualifiers: Hypertension type: essential hypertension Qualified Code(s): I10 - Essential (primary) hypertension
--- NOTE | 2016-11-20 12:15 | DS ---
Physical Examination Vital Signs: Vital Signs Temperature 98 F 11/20/16 06:15 Pulse Rate 68 11/20/16 06:15 Respiratory Rate 18 11/20/16 06:15 Blood Pressure 137/61 11/20/16 06:15 O2 Sat by Pulse Oximetry (%) 96 11/19/16 21:00 Findings/Remarks: Left elbow improved. Right foot toes improved. Constitutional: Yes: No Distress, Anxious Eyes: Yes: Conjunctiva Clear, EOM Intact HENT: Yes: Atraumatic, Normocephalic. No: Drooling, Epistaxis Neck: Yes: Supple, Trachea Midline Cardiovascular: Yes: Regular Rate and Rhythm. No: Tachycardia, Pulse Irregular Respiratory: Yes: Regular, CTA Bilaterally Gastrointestinal: Yes: Normal Bowel Sounds, Soft. No: Abdomen, Obese ...Rectal Exam: Yes: Deferred Renal/: No: Anuria, Bladder Distention Breast(s): Yes: WNL Musculoskeletal: Yes: Joint Swelling (Left elbow) Peripheral Pulses WNL: No Neurological: Yes: Alert, Oriented. No: Aphasia, Asterixis, Ataxia, Seizure ...Motor Strength: WNL Psychiatric: Yes: Alert, Oriented. No: Suicidal Ideation Labs: CBC, BMP 11/20/16 06:30 11/16/16 05:10 Discharge Summary Reason For Visit: OCCLUSION FOR DEMOROPOPLITEAL BYPASS Current Active Problems Arterial insufficiency of lower extremity (Acute) Femoral-popliteal bypass graft occlusion (Acute) S/P femoral-popliteal bypass surgery (Acute) Swelling of joint, elbow, left (Acute) Condition: Improved - Instructions Referrals: Heriberto Bland MD [Primary Care Provider] - Disposition: HOME - Home Medications Comprehensive Discharge Medication List: Ambulatory Orders Aspirin Coated [Ecotrin -] 81 mg PO DAILY #0 tablet.ec 05/20/12 Atorvastatin Calcium 40 mg PO HS 10/29/16 Lisinopril 5 mg PO DAILY 10/29/16 Metoprolol Succinate [Toprol XL -] 25 mg PO DAILY 10/29/16 Oxycodone HCl [Roxicodone -] 5 mg PO Q6H PRN #60 tablet MDD 4 tabs 11/06/16
[2016-11-20 13:55] VITALS: BP 125/55; PULSE 71; TEMP 98.9
== END 2016-11-20 15:46 | disposition home or self-care (01) | DRG 253 ==
LOC: JER 08:53 → JERBED 10:22 → J5S 19:13 → JICU 11-15 22:55 → J8W 11-16 13:31
PROVIDERS: ADMIT Internal Medicine; ATTEND Internal Medicine
PROC: 04CM0ZZ Extirpation of Matter from Right Popliteal Artery, Open Approach (ICD-10-PCS; 2016-11-15)
PROC: 047H0DZ Dilation of Right External Iliac Artery with Intraluminal Device, Open Approach (ICD-10-PCS; 2016-11-15)
PROC: 3E05017 Introduction of Other Thrombolytic into Peripheral Artery, Open Approach (ICD-10-PCS; 2016-11-15)
PROC: 30233N1 Transfusion of Nonautologous Red Blood Cells into Peripheral Vein, Percutaneous Approach (ICD-10-PCS; 2016-11-15)
PROC: 04CK0ZZ Extirpation of Matter from Right Femoral Artery, Open Approach (ICD-10-PCS; principal; 2016-11-15 17:00)
DX: T82.898A Other specified complication of vascular prosthetic devices, implants and grafts, initial encounter (principal); I74.3 Embolism and thrombosis of arteries of the lower extremities; Y83.2 Surgical operation with anastomosis, bypass or graft as the cause of abnormal reaction of the patient, or of later complication, without mention of misadventure at the time of the procedure; I70.291 Other atherosclerosis of native arteries of extremities, right leg; Z95.1 Presence of aortocoronary bypass graft; E78.00 Pure hypercholesterolemia, unspecified; Z87.891 Personal history of nicotine dependence; I25.10 Atherosclerotic heart disease of native coronary artery without angina pectoris; I25.2 Old myocardial infarction; I12.9 Hypertensive chronic kidney disease with stage 1 through stage 4 chronic kidney disease, or unspecified chronic kidney disease; N18.9 Chronic kidney disease, unspecified; G89.29 Other chronic pain; M54.5 Low back pain; M10.42 Other secondary gout, elbow
CPT/HCPCS: 36415; 36430; 76000-TC; 80053; 82272; 83735; 84550; 85025; 85027; 85610; 85730; 86850; 86900; 86901; 86922; 93005; 93010; 94760; 97116-GP; 97162-GP; 99282-25; J1644; P9038; P9058

== ENCOUNTER 2017-08-07 07:13 | Inpatient (IN) | payer OTHER ==
[2017-08-07 07:45] VITALS: BMI 22.9
--- NOTE | 2017-08-07 08:36 | PDOC ---
History of Present Illness - General Chief Complaint: Wound Stated Complaint: SENT BY [facility] Time Seen by Provider: 08/07/17 07:52 History Source: Patient Exam Limitations: No Limitations - History of Present Illness Initial Comments: 08/07/17 08:35 Pt. is a 77 y/o M with PMH of PAD, HTN, HLD, CAD s/p quadruple bypass, PAD with multiple surgeries on the R leg, presents to the ED c/o R foot numbness. Pt states that he woke from from sleep around 3am this morning with leg pain and numbness. Pt. states he was supposed to have a procedure a procedure done on that leg by Dr. Arroyo in the next few days. However, d/t the numbness, he called Dr. German this morning who told him to come into the ED for evaluation. Pt. states that at this time he does not have any pain, just numbness to the R toes. Pt. denies trauma, LOC, headache, shortness of breath, chest pain, changes in gait, fevers, chills, n/v/d. Pt. took his plavix this morning. Past History - Travel Traveled outside of the country in the last 30 days: No Close contact w/someone who was outside of country & ill: No - Past Medical History Allergies/Adverse Reactions: Allergies Allergy/AdvReac Type Severity Reaction Status Date / Time No Known Drug Allergies Allergy Verified 08/07/17 07:33 Home Medications: Ambulatory Orders Aspirin Coated [Ecotrin -] 81 mg PO DAILY #0 tablet.ec 05/20/12 Atorvastatin Calcium 40 mg PO HS 10/29/16 Metoprolol Succinate [Toprol XL -] 25 mg PO DAILY 10/29/16 Amlodipine Besylate [Norvasc -] 10 mg PO DAILY #30 tablet 11/20/16 Clopidogrel Bisulfate [Plavix] 75 mg PO DAILY 08/07/17 Anemia: No Asthma: No Cancer: No Cardiac Disorders: Yes (QUADRUPLE BYPASS 2013) CVA: No COPD: No CHF: No Dementia: No Diabetes: No GI Disorders: No Disorders: No HTN: Yes Hypercholesterolemia: Yes Liver Disease: No Seizures: No Thyroid Disease: No - Surgical History Abdominal Surgery: No Appendectomy: No Cardiac Surgery: Yes (ENDARTERECTOMY, STENT) Cholecystectomy: No Lung Surgery: No Neurologic Surgery: No Orthopedic Surgery: No - Suicide/Smoking/Psychosocial Hx Smoking History: Former smoker Have you smoked in the past 12 months: No Number of Cigarettes Smoked Daily: 0 If you are a former smoker, when did you quit?: 22yrs Cigars Per Day: 0 Information on smoking cessation initiated: No 'Breaking Loose' booklet given: 05/15/12 Hx Alcohol Use: No (socially) Drug/Substance Use Hx: No Substance Use Type: None Hx Substance Use Treatment: No Review of Systems - Review of Systems Able to Perform ROS?: Yes Comments:: 08/07/17 10:37 CONSTITUTIONAL: Absent: fever, chills, diaphoresis, generalized weakness, malaise, loss of appetite HEENT: Absent: rhinorrhea, nasal congestion, throat pain, throat swelling, difficulty swallowing, mouth swelling, ear pain, eye pain, visual Changes CARDIOVASCULAR: Absent: chest pain, loss of consciousness, palpitations, irregular heart rate, peripheral edema RESPIRATORY: Absent: cough, shortness of breath, dyspnea with exertion, orthopnea, wheezing, stridor, hemoptysis GASTROINTESTINAL: Absent: abdominal pain, abdominal distension, nausea, vomiting, diarrhea, constipation, melena, hematochezia GENITOURINARY: Absent: dysuria, frequency, urgency, hesitancy, hematuria, flank pain, genital pain MUSCULOSKELETAL: Absent: myalgia, arthralgia, joint swelling SKIN: Absent: rash, itching, pallor HEMATOLOGIC/IMMUNOLOGIC: Absent: easy bleeding, easy bruising, lymphadenopathy, frequent infections ENDOCRINE: Absent: unexplained weight gain, unexplained weight loss, heat intolerance, cold intolerance NEUROLOGIC: Present: R foot numbness Absent: headache, focal weakness or paresthesias, dizziness, unsteady gait, seizure, mental status changes, bladder or bowel incontinence PSYCHIATRIC: Absent: anxiety, depression, suicidal or homicidal ideation, hallucinations. Is the patient limited [place]ian proficient: No *Physical Exam - Vital Signs Last Vital Signs Temp Pulse Resp BP Pulse Ox 98.5 F 63 14 136/59 100 08/07/17 07:34 08/07/17 07:34 08/07/17 07:34 08/07/17 07:34 08/07/17 07:34 - Physical Exam Comments: 08/07/17 10:37 GENERAL: Well developed, well nourished. Awake and alert. No acute distress. HEENT: Normocephalic, atraumatic. PERRLA, EOMI. No conjunctival pallor. Sclera are non- icteric. Moist mucous membranes. Oropharynx is clear. NECK: Supple. Full ROM. No JVD. Carotid pulses 2+ and symmetric, without bruits. No thyromegaly. No lymphadenopathy. CARDIOVASCULAR: Regular rate and rhythm. No murmurs, rubs, or gallops. Distal pulses are 2+ and symmetric. PULMONARY: No evidence of respiratory distress. Lungs clear to auscultation bilaterally. No wheezing, rales or rhonchi. ABDOMINAL: Soft. Non-tender. Non-distended. No rebound or guarding. No organomegaly. Normoactive bowel sounds. MUSCULOSKELETAL Normal range of motion at all joints. No bony deformities or tenderness. No CVA tenderness. EXTREMITIES: R foot warm to the touch, good cap refill. Wound to the R lateral foot healing stage one ulcer. Reports decreased sensation to light and deep touch of the R toes and distal foot. No palpable pulse in the R foot. No cyanosis. No clubbing. No edema. No calf tenderness. SKIN: Warm and dry. Normal capillary refill. No rashes. No jaundice. NEUROLOGICAL: Alert, awake, appropriate. Cranial nerves 2-12 intact. No deficits to light touch and temperature in face, upper extremities and lower extremities. No motor deficits in the in face, upper extremities and lower extremities. Normoreflexic in the upper and lower extremities. Normal speech. Toes are down- going bilaterally. Gait is normal without ataxia. PSYCHIATRIC: Cooperative. Good eye contact. Appropriate mood and affect. ED Treatment Course - LABORATORY CBC & Chemistry Diagram: 08/09/17 06:40 08/08/17 07:45 Medical Decision Making - Medical Decision Making 08/07/17 08:49 Pt. is a 77 y/o M with PMH of PAD, HTN, HLD, CAD s/p quadruple bypass, R femoral to popliteal bypass, presents to the ED with one morning of R foot numbness. On exam foot is well perfused and warm to the touch despite poor distal pulses in the R foot. Pt. with decreased sensation to the R toes and dorsal foot on exam. Pt. is hemodynamically stable. Will order basic labs and arterial US to evaluate the R foot. Call placed to Dr. German. 08/07/17 09:20 Dr. German to see pt in the ED per phone conversation. 08/07/17 10:42 Dr. German and TYRONE Morillo in ED. Evaluated bedside. Would like to admit the patient for angiogram to the R leg for his PAD and a heparin drip is started at this time to prevent further graft/stent occlusion. Lab work is unremarkable at this time. No leukocytosis. Urine without infection. Electrolytes grossly within normal limits. Requesting Dr. Bland for admission. 08/07/17 10:[address] Mcginnis, agrees to admission on Med/Surg. *DC/Admit/Observation/Transfer Diagnosis at time of Disposition: Arterial insufficiency of lower extremity - Discharge Dispostion Condition at time of disposition: Stable Admit: Yes - Referrals - Patient Instructions - Post Discharge Activity
[2017-08-07 09:20] LABS: EOS % 1.8 % (0-4.5); HEMATOCRIT 32.4 % (35.4-49); HEMOGLOBIN 10.8 GM/dL (11.7-16.9); MCHC 33.3 g/dl (32.0-35.9); MEAN PLT VOLUME 7.9 fl (7.5-11.1); NEUT % 67.2 % (42.8-82.8); PLATELET COUNT 140 K/MM3 (134-434); RDW 15.4 % (11.9-15.9); WHITE BLOOD COUNT 5.3 K/mm3 (4.0-10.0)
[2017-08-07 09:35] LABS: INR 1.06 (0.82-1.09)
[2017-08-07 09:46] LABS: ALBUMIN 4.5 g/dl (3.4-5.0); ANION GAP 5 (8-16); BILIRUBIN,TOTAL 0.4 mg/dL (0.2-1.0); BLOOD UREA NITROGEN 40 mg/dL (7-18); CALCIUM 9.3 mg/dL (8.5-10.1); CHLORIDE 107 mmol/L (98-107); CO2 27 mmol/L (21-32); GLUCOSE,RANDOM 101 mg/dL (74-106); POTASSIUM 4.3 mmol/L (3.5-5.1); SGOT/AST 21 U/L (15-37); SGPT/ALT 31 U/L (12-78); SODIUM 139 mmol/L (136-145)
[2017-08-07 09:47] LABS: ALK PHOS 76 U/L (45-117); TOT PROT 7.9 g/dl (6.4-8.2)
[2017-08-07] MEDS ORDERED: HEPARIN NA (PORCINE) 5,000 UNITS/ML 1ML VIAL IVPUSH PRN ×2 (10:58)
[2017-08-07] MEDS ORDERED: HEPARIN INFUSION - 25,000 UNITS/500 ML INFUS.BAG IVPB ONE (11:46)
[2017-08-07] MEDS: HEPARIN - 25,000 UNIT in SODIUM CHLORIDE 495 ML IV SCH (11:48)
--- NOTE | 2017-08-07 15:49 | HP ---
Admitting History and Physical - Admission Chief Complaint: 77 y.o M presented to ER today after he developed cold and tingling RLE from the thigh to toes. The foot was numb. After consult with Dr German arterial Dupplex and CTA was performed, the pt was place on IV Heparin and admitted for further management. History of Present Illness: Left CEA. Left Fem-pop bypass. PVD. ASHD. S/P LA. S/P CABG Left subclavian stenosis HTN. CKD. Hyperlipidemia. Chronic back pain. Gout. Right fem-pop 10/31/16-admission to [facility] 11/22 for graft occlusion. Recurrent episodes of saevere hyperkalemia and bradicardia. Lisinopril 10 mg was d/c recently. 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: No: Alzheimer's, CVA, Dementia, Migraine, Multiple Sclerosis, Parkinson's Cardiovascular: Yes: CAD, HTN, Hyperlipdemia Pulmonary: No: Asthma, Cancer, O2 Dependent, Pulmonary Embolus, Sleep Apnea Gastrointestinal: No: Ascites, Cancer Renal/: Yes: Renal Inusuff Heme/Onc: Yes: Anemia Psych: Yes: Anxiety Musculoskeletal: Yes: Chronic low back pain, Other (Left shoulder pain) Rheumatology: Yes: Gout - Past Surgical History Past Surgical History: Yes: Bypass (Left Fem-Pop), CABG, Carotid Endarterectomy - Smoking History Smoking history: Former smoker Have you smoked in the past 12 months: No Aproximately how many cigarettes per day: 0 If you are a former smoker, when did you quit?: 22yrs - Alcohol/Substance Use Hx Alcohol Use: No (socially) - Social History Usual Living Arrangement: Yes: With Spouse History of Recent Travel: No Home Medications - Allergies Allergies/Adverse Reactions: Allergies Allergy/AdvReac Type Severity Reaction Status Date / Time No Known Drug Allergies Allergy Verified 08/07/17 07:33 - Home Medications Home Medications: Ambulatory Orders Aspirin Coated [Ecotrin -] 81 mg PO DAILY #0 tablet.ec 05/20/12 Atorvastatin Calcium 40 mg PO HS 10/29/16 Metoprolol Succinate [Toprol XL -] 25 mg PO DAILY 10/29/16 Amlodipine Besylate [Norvasc -] 10 mg PO DAILY #30 tablet 11/20/16 Clopidogrel Bisulfate [Plavix] 75 mg PO DAILY 08/07/17 Family Disease History - Family Disease History Family History: Unremarkable Review of Systems - Review of Systems Constitutional: denies: Chills, Diaphoresis, Fever, Lethargy, Loss of Appetite Eyes: denies: Blind Spots, Blurred Vision, Double Vision, Eye Pain, Photophobia HENT: denies: Difficult Swallowing, Ear Discharge, Ear Pain, Epistaxis, Throat Pain, Toothache, Ringing in Ears Neck: denies: Decreased ROM, Lumps, Pain on Movement, Stiffness, Swollen Glands , Tenderness Cardiovascular: denies: Chest Pain, Edema, Palpitations, Shortness of Breath Respiratory: denies: Cough, Exercise Intolerance, Hemoptysis, Snoring, SOB Gastrointestinal: denies: Abdominal Pain, Bloating, Constipation, Indigestion, Melena, Nausea, Vomiting Genitourinary: denies: Burning, Discharge, Dysuria Breasts: reports: No Symptoms Reported Musculoskeletal: denies: Back Pain Integumentary: reports: Wound (1 cm dry ulcer on medial surface foot-big toe), Other Neurological: denies: Change in Speech, Confusion, Dizziness Endocrine: reports: No Symptoms Hematology/Lymphatic: denies: Excessive Bleeding, Swollen Glands Psychiatric: reports: Anxiety Physical Examination Vital Signs: Vital Signs Temperature 98.1 F 08/07/17 14:47 Pulse Rate 74 08/07/17 14:47 Respiratory Rate 18 08/07/17 14:47 Blood Pressure 165/75 08/07/17 14:47 O2 Sat by Pulse Oximetry (%) 97 08/07/17 13:30 Constitutional: Yes: Anxious, Mild Distress Eyes: Yes: Conjunctiva Clear, EOM Intact, PERRL. No: Ptosis HENT: Yes: Atraumatic, Normocephalic. No: Drooling, Epistaxis Neck: Yes: Supple, Trachea Midline. No: Decreased ROM, Lymphadenopathy Cardiovascular: Yes: Regular Rate and Rhythm (Occasional VPC), S1, S2, Other ( healed midline scar) Respiratory: Yes: CTA Bilaterally. No: Accessory Muscle Use, Orthopnea Gastrointestinal: Yes: Normal Bowel Sounds, Soft. No: Abdomen, Obese, Ascites, Tenderness ...Rectal Exam: Yes: Deferred Renal/: No: Anuria, Bladder Distention, CVA Tenderness - Left Breast(s): Yes: WNL. No: Nipple Inversion Musculoskeletal: No: Joint Stiffness, Joint Swelling Extremities: Yes: Cool (right dorsal foot cooler than left). No: Amputation Edema: LLE: Trace, RLE: Trace Peripheral Pulses WNL: No Neurological: Yes: WNL ...Motor Strength: WNL Psychiatric: Yes: WNL Labs: CBC, BMP 08/07/17 08:48 08/07/17 08:48 Imaging - Results Cat Scan: Pending Ultrasound: Report Reviewed EKG: Image Reviewed Problem List - Problems (1) Arterial insufficiency of lower extremity Assessment/Plan: Follow CTA, Dr German f/u , possible procedure tomorrow IV heparin Code(s): I73.9 - PERIPHERAL VASCULAR DISEASE, UNSPECIFIED (2) HTN (hypertension) Assessment/Plan: Resume meds Avoid meds that can elevate potassium Code(s): I10 - ESSENTIAL (PRIMARY) HYPERTENSION Qualifiers: Hypertension type: essential hypertension Qualified Code(s): I10 - Essential (primary) hypertension (3) History of coronary artery disease Assessment/Plan: Continue Toprol, Lipitor, Plavix, ASA Cardiology consult Code(s): Z86.79 - PERSONAL HISTORY OF OTHER DISEASES OF THE CIRCULATORY SYSTEM
--- NOTE | 2017-08-07 16:35 | CON.CARD ---
Cardiology Consult (text) - Consultation Consultation Note: CC: LE numbness 77 yo with pmhx of CAD s/p CABG 2013 with ischemic cardiopathy (EF now normalized), hl, pad s/p left CEA, s/p left fem-pop bypass, Right fem-pop , thrombosis of fem-pop bypass graft and stenosis of rt iliac artery s/p Open thrombectomy of fem-pop bypass and rt iliac artery stent 11/2016, Lt subclavian art stenosis, CKD, Recurrent hyperkalemia with bradycardia now off ACEI, Chronic back pain, anemia, anxiety, Gout who p/w cold and numb RLE. Today developed cold and tingling RLE from the thigh to toes. The foot was numb. Was referred for arterial u/s and peripheral CTA. Placed on IV Heparin and admitted. Patient with poor functional status, unable to walk any distance or ambulate up a flight of stairs 2/2 pad. Slowly healing chronic wound at rt foot and left upper back. no orthpnea, pnd, le edema, cp, sob, palps, dizziness, bleeding no f/c/s, cough, congestion, n/v/d, h/a, rashes, visual disturbances. pmhx/pshx: per hpi social hx: former smoker fam hx: no cardiac disease ros: per hpi Ambulatory Orders Aspirin Coated [Ecotrin -] 81 mg PO DAILY #0 tablet.ec 05/20/12 Atorvastatin Calcium 40 mg PO HS 10/29/16 Metoprolol Succinate [Toprol XL -] 25 mg PO DAILY 10/29/16 Amlodipine Besylate [Norvasc -] 10 mg PO DAILY #30 tablet 11/20/16 Clopidogrel Bisulfate [Plavix] 75 mg PO DAILY 08/07/17 Current Medications Amlodipine Besylate (Norvasc -) 10 mg PO DAILY TRI Aspirin (Ecotrin -) 81 mg PO DAILY TRI Atorvastatin Calcium (Lipitor -) 40 mg PO HS TRI Clopidogrel Bisulfate (Plavix -) 75 mg PO DAILY TRI Heparin Sodium (Porcine) (Heparin -) 1,000 unit IVPUSH PRN PRN PRN Reason: Heparin Heparin Sodium (Porcine) (Heparin -) 5,000 unit IVPUSH PRN PRN PRN Reason: Heparin Heparin Sodium (Porcine) 25, (000 unit/ Sodium Chloride) 500 mls @ 20 mls/hr IV TITR TRI; 1,000 UNIT/HR PRN Reason: Protocol Last Admin: 08/07/17 11:48 Dose: 1,000 unit/hr, 20 mls/hr Metoprolol Succinate (Toprol Xl -) 25 mg PO DAILY TRI Vital Signs - 24 hr 08/07/17 08/07/17 08/07/17 07:34 13:30 14:47 Temperature 98.5 F 98.1 F Pulse Rate 63 72 74 Respiratory 14 18 18 Rate Blood Pressure 136/59 155/61 165/75 O2 Sat by Pulse 100 97 Oximetry (%) Intake & Output 08/05/17 08/06/17 08/07/17 08/08/17 07:59 07:59 07:59 07:59 Weight 160 lb 158 lb 8 oz nad, calm jvd flat, neck supple ctab, nl effort rrr nl s1, s2 no mrg + bs soft nt nd, no hsm right LE cool, no cyanosis, clubbing diminished dp/pt [id number] no jaundice diaphoresis CBC, BMP 08/07/17 08:48 08/07/17 08:48 Laboratory Tests 08/07/17 08/07/17 08:48 08:48 INR 1.06 D Total Bilirubin 0.4 D AST 21 D ALT 31 Alkaline Phosphatase 76 D Albumin 4.5 D ekg: sr with pvc's. rbbb. lvh. Echo 01/2017: 1. This was a technically difficult study with suboptimal views. 2. Nl LV/rv size/fn. 3. No regional wall motion abnormalities were noted within visualized territories. [place] not well seen. 4. The rv cavity not well seen. 7. Left atrium is normal size by volume. 8. 1+ aortic regurgitation. 9. laminar aortic atherosclerotic plaque present. [facility] 03/21: 70-80% LMCA; 95% pLAD; 80% mLAD; NAPRAPATH of RCA fills via bridge and LCX collat.s); pLCX 50-60% ASSESSMENT/PLAN 77 yo with pmhx of CAD s/p CABG 2013 with ischemic cardiopathy (EF now normalized), hl, pad s/p left CEA, s/p left fem-pop bypass, Right fem-pop , thrombosis of fem-pop bypass graft and stenosis of rt iliac artery s/p Open thrombectomy of fem-pop bypass and rt iliac artery stent 11/2016, Lt subclavian art stenosis, CKD, Recurrent hyperkalemia with bradycardia now off ACEI, Chronic back pain, anemia, anxiety, gout who p/w cold and numb RLE. pad - extensive disease. cta pending. Dr. Pulido following. On heparin drip and dapt. plan for angiogram tomorrow. cad - free of anginal sx's. con't antiplatelets, statin, bb (monitor for bradycardia), ccb htn - controlled on current regimen, con't. - off vielka b/c of recurrent hyperkalemia with bradycardia
--- NOTE | 2017-08-07 18:33 | CONSULT ---
Consult - History of Present Illness History of Present Illness: 77 year old man with chronic PAD who has had multiple procedures for vascular occlusion of the right leg. He recently underwent a right deep femoral to popliteal bypass. Ultrasound yesterday showed decreased flow velocity in the graft. He developed toe numbness overnight and came to ER today. 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: No: Alzheimer's, CVA, Dementia, Migraine, Multiple Sclerosis, Parkinson's Cardio/Vascular: Yes: CAD, HTN, Hyperlipdemia Pulmonary: No: Asthma, Cancer, O2 Dependent, Pulmonary Embolus, Sleep Apnea Gastrointestinal: No: Ascites, Cancer Renal/: Yes: Renal Inusuff Psych: Yes: Anxiety Musculoskeletal: Yes: Chronic low back pain, Other (Left shoulder pain) Rheumatology: Yes: Gout - Past Surgical History Past Surgical History: Yes: Bypass (Left Fem-Pop), CABG, Carotid Endarterectomy - Alcohol/Substance Use Hx Alcohol Use: No (socially) - Smoking History Smoking history: Former smoker Have you smoked in the past 12 months: No Aproximately how many cigarettes per day: 0 If you are a former smoker, when did you quit?: 22yrs - Social History History of Recent Travel: No Home Medications - Allergies Allergies/Adverse Reactions: Allergies Allergy/AdvReac Type Severity Reaction Status Date / Time No Known Drug Allergies Allergy Verified 08/07/17 07:33 - Home Medications Home Medications: Ambulatory Orders Aspirin Coated [Ecotrin -] 81 mg PO DAILY #0 tablet.ec 05/20/12 Atorvastatin Calcium 40 mg PO HS 10/29/16 Metoprolol Succinate [Toprol XL -] 25 mg PO DAILY 10/29/16 Amlodipine Besylate [Norvasc -] 10 mg PO DAILY #30 tablet 11/20/16 Clopidogrel Bisulfate [Plavix] 75 mg PO DAILY 08/07/17 Physical Exam Vital Signs: Vital Signs Temperature 98.0 F 08/07/17 18:00 Pulse Rate 60 08/07/17 18:00 Respiratory Rate 20 08/07/17 18:00 Blood Pressure 155/67 08/07/17 18:00 O2 Sat by Pulse Oximetry (%) 100 08/07/17 17:18 Constitutional: Yes: Anxious Edema: No Peripheral Pulses WNL: No (doppler DP right ) Labs: CBC, BMP 08/07/17 08:48 08/07/17 08:48 Problem List - Problems (1) Failing vascular bypass graft Assessment/Plan: The bypass is patent but has inflow and outflow stenosis. IV Heparin started to prevent graft thrombosis. Will proceed with angiogram tomorrow. Code(s): T82.599A - [facility] COMPL OF UNSP CARDIAC AND VASC DEVICES AND IMPLNT, INIT Qualifiers: Encounter type: subsequent encounter Qualified Code(s): T82.599D - Other mechanical complication of unspecified cardiac and vascular devices and implants , subsequent encounter (2) Arterial insufficiency of lower extremity Code(s): I73.9 - PERIPHERAL VASCULAR DISEASE, UNSPECIFIED
--- NOTE | 2017-08-07 19:49 | EKG ---
Test Reason : Blood Pressure : / mmHG Vent. Rate : 066 BPM Atrial Rate : 066 BPM P-R Int : 134 ms QRS Dur : 122 ms QT Int : 448 ms P-R-T Axes : 054 -22 023 degrees QTc Int : 469 ms SINUS RHYTHM WITH OCCASIONAL PREMATURE VENTRICULAR COMPLEXES POSSIBLE LEFT ATRIAL ENLARGEMENT RIGHT BUNDLE BRANCH BLOCK LEFT VENTRICULAR HYPERTROPHY ABNORMAL ECG WHEN COMPARED WITH ECG OF 14-NOV-2016 14:41, PREMATURE VENTRICULAR COMPLEXES ARE NOW PRESENT T WAVE INVERSION NO LONGER EVIDENT IN ANTERIOR LEADS Confirmed by SHIV NORTON, CHRISTOPHER ([id number]) on 08/07/2017 7:48:58 PM Referred By: ASHLEY BETANCUR Confirmed By:CHRISTOPHER CHANEY MD
[2017-08-07] MEDS ORDERED: ATORVASTATIN CA 40 MG TABLET (FP) PO SCH (22:00)
--- NOTE | 2017-08-07 22:23 | HOSP ---
Physical Examination Vital Signs: Vital Signs Temperature 98.0 F 08/07/17 18:00 Pulse Rate 60 08/07/17 18:00 Respiratory Rate 20 08/07/17 18:00 Blood Pressure 155/67 08/07/17 18:00 O2 Sat by Pulse Oximetry (%) 100 08/07/17 17:18 Labs: CBC, BMP 08/07/17 08:48 08/07/17 08:48 Hospitalist Encounter Assessment: CTA with runoff results [id number]: received call from imaging ux interaction designer reporting complete occlusion from the right groin to the right knee, the two stents appear to be completed occluded as per radiologist Patient is currently on ASA 81mg, Plavix 75mg and heparin gtt Dr. German aware, patient for a scheduled angiogram tomorrow.
[2017-08-08] MEDS: HEPARIN - 25,000 UNIT in SODIUM CHLORIDE 495 ML IV SCH ×2 (02:12→13:30)
[2017-08-08 08:30] LABS: BASO % 0.9 % (0-2.0); EOS % 2.4 % (0-4.5); HEMATOCRIT 30.1 % (35.4-49); LYMPH % 22.4 % (8-40); MCH 29.8 pg (25.7-33.7); MCHC 33.2 g/dl (32.0-35.9); MEAN PLT VOLUME 8.5 fl (7.5-11.1); MONO % 12.8 % (3.8-10.2); NEUT % 61.5 % (42.8-82.8); PLATELET COUNT 125 K/MM3 (134-434); RBC 3.34 M/mm3 (4.00-5.60); RDW 15.7 % (11.9-15.9); WHITE BLOOD COUNT 5.1 K/mm3 (4.0-10.0)
--- NOTE | 2017-08-08 08:35 | PN ---
Progress Note, Physician Chief Complaint: C/o right foot cool, discomfort. History of Present Illness: Left CEA. Left Fem-pop bypass. PVD. ASHD. S/P IN. S/P CABG HTN. CKD. Hyperlipidemia. Chronic back pain. Gout. Right fem-pop 10/31/16-admission to [facility] 11/22 for graft occlusion. Recurrent episodes of saevere hyperkalemia and bradicardia. Lisinopril 10 mg was d/c recently. - Current Medication List Current Medications: Active Medications Amlodipine Besylate (Norvasc -) 10 mg PO DAILY [facility] Aspirin (Ecotrin -) 81 mg PO DAILY [facility] Atorvastatin Calcium (Lipitor -) 40 mg PO HS [facility] Last Admin: 08/07/17 21:11 Dose: 40 mg Clopidogrel Bisulfate (Plavix -) 75 mg PO DAILY [facility] Heparin Sodium (Porcine) (Heparin -) 1,000 unit IVPUSH PRN PRN PRN Reason: Heparin Last Admin: 08/07/17 19:03 Dose: 1,000 unit Heparin Sodium (Porcine) (Heparin -) 5,000 unit IVPUSH PRN PRN PRN Reason: Heparin Heparin Sodium (Porcine) 25, (000 unit/ Sodium Chloride) 500 mls @ 20 mls/hr IV TITR TRI; 1,000 UNIT/HR PRN Reason: Protocol Last Admin: 08/08/17 02:12 Dose: 1,100 unit/hr, 22 mls/hr Metoprolol Succinate (Toprol Xl -) 25 mg PO DAILY [facility] - Objective Vital Signs: Vital Signs Temperature 98.8 F 08/08/17 06:00 Pulse Rate 58 L 08/08/17 06:00 Respiratory Rate 20 08/08/17 06:00 Blood Pressure 146/63 08/08/17 06:00 O2 Sat by Pulse Oximetry (%) 98 08/07/17 21:00 Constitutional: Yes: Anxious, Mild Distress Eyes: Yes: Conjunctiva Clear, EOM Intact HENT: Yes: Atraumatic, Normocephalic. No: Drooling, Epistaxis Neck: Yes: Supple, Trachea Midline, Other (scar post CEA). No: Decreased ROM, Lymphadenopathy Cardiovascular: Yes: Regular Rate and Rhythm, Other (Scar post CABG). No: Tachycardia, Pulse Irregular Respiratory: Yes: Regular, CTA Bilaterally. No: Accessory Muscle Use, Bradypnea Gastrointestinal: Yes: Normal Bowel Sounds, Soft, Abdomen, Obese. No: Ascites, Distention ...Rectal Exam: Yes: Deferred Genitourinary: No: Anuria, Bladder Distention, CVA Tenderness - Left, CVA Tenderness - Right Breast(s): Yes: WNL Musculoskeletal: Yes: Back Pain. No: Joint Stiffness, Joint Swelling Extremities: Yes: Cool (Rfoot >L). No: Amputation Edema: No Peripheral Pulses WNL: No Integumentary: Yes: Other (Smal dry ulcer right foot) ...Motor Strength: WNL Psychiatric: Yes: Alert, Oriented. No: Agitated, Suicidal Ideation Labs: INR, PTT INR 1.06 (0.82-1.09) D 08/07/17 08:48 Problem List - Problems (1) Arterial insufficiency of lower extremity Assessment/Plan: Stenosis of deep femoral artery to popleteal graft. Angiography is scheduled for today. Code(s): I73.9 - PERIPHERAL VASCULAR DISEASE, UNSPECIFIED (2) HTN (hypertension) Assessment/Plan: Resume meds Avoid meds that can elevate potassium Code(s): I10 - ESSENTIAL (PRIMARY) HYPERTENSION Qualifiers: Hypertension type: essential hypertension Qualified Code(s): I10 - Essential (primary) hypertension (3) History of coronary artery disease Assessment/Plan: Continue Toprol, Lipitor, Plavix, ASA Cardiology consult appreciated Code(s): Z86.79 - PERSONAL HISTORY OF OTHER DISEASES OF THE CIRCULATORY SYSTEM
[2017-08-08 08:54] LABS: ALBUMIN 3.6 g/dl (3.4-5.0); ANION GAP 6 (8-16); BLOOD UREA NITROGEN 31 mg/dL (7-18); CALCIUM 8.8 mg/dL (8.5-10.1); CHLORIDE 110 mmol/L (98-107); CO2 25 mmol/L (21-32); GLUCOSE,RANDOM 92 mg/dL (74-106); POTASSIUM 4.2 mmol/L (3.5-5.1); SODIUM 141 mmol/L (136-145)
[2017-08-08 08:58] LABS: ALK PHOS 65 U/L (45-117); BILIRUBIN,TOTAL 0.3 mg/dL (0.2-1.0); CHOLESTEROL 105 mg/dL (50-200); HDL CHOLESTEROL 39 mg/dL (40-60); SGOT/AST 20 U/L (15-37); SGPT/ALT 26 U/L (12-78); TOT PROT 6.5 g/dl (6.4-8.2); TRIGLYCERIDES 88 mg/dL (35-160)
[2017-08-08] MEDS ORDERED: metoPROLOL SUCCINATE 25 MG TAB.SR.24H (FP) PO SCH (10:00)
[2017-08-08] MEDS ORDERED: ASPIRIN COATED 81 MG TABLET.EC PO SCH (10:00)
[2017-08-08] MEDS ORDERED: CLOPIDOGREL BISULFATE 75 MG TABLET (FP) PO SCH (10:00)
[2017-08-08] MEDS ORDERED: amLODIPine BESYLATE 10 MG TABLET (FP) PO SCH (10:00)
[2017-08-08] MEDS ORDERED: LIDOCAINE HCL 1%, 10 MG/ML (20ML VIAL) ONE (15:35)
[2017-08-08] MEDS ORDERED: HEPARIN NA (PORCINE) 5,000 UNITS/ML 1ML VIAL ONE ×3 (15:35→17:32)
[2017-08-08] MEDS ORDERED: MIDAZOLAM HCL 2 MG/2 ML SINGLE DOSE VIAL ONE ×3 (16:20→17:32)
[2017-08-08] MEDS ORDERED: ceFAZolin SODIUM 1 GM VIAL ONE (16:26)
[2017-08-08] MEDS ORDERED: ceFAZolin SODIUM 1 GM VIAL IVPB ONE (16:28)
[2017-08-08] MEDS ORDERED: LIDOCAINE HCL 1%, 10 MG/ML (20ML VIAL) NR ONE ×2 (16:34)
[2017-08-08] MEDS ORDERED: hydrALAZINE HCL 20 MG/ML VIAL ONE (17:35)
[2017-08-08] MEDS ORDERED: PROTAMINE SULFATE 50 MG/5 ML VIAL ONE (17:42)
[2017-08-08] MEDS ORDERED: PROMETHAZINE HCL 25 MG/1 ML VIAL IVPB PRN (17:58)
[2017-08-08] MEDS ORDERED: oxyCODONE HCL 5 MG TABLET PO PRN ×2 (17:58→18:24)
[2017-08-08] MEDS ORDERED: ONDANSETRON 4 MG/2 ML VIAL IVPUSH PRN ×2 (17:58→18:24)
[2017-08-08] MEDS ORDERED: LACTATED RINGERS SOLUTION 1,000 ML IV SCH (18:00)
--- NOTE | 2017-08-08 18:05 | OP ---
Operative Note - Note: Operative Date: 08/08/17 Pre-Operative Diagnosis: Failing bypass right leg Operation: Angiogram aorta, iliacs and right leg. Revascularization right femoral artery with stent and angioplasty. Drug coated balloon angioplasty right femoral-popliteal vein graft. Drug coated balloon angioplasty right tibioperoneal trunk Findings: Patent, calcified distal aorta. patent stents of right common and external iliac arteries without visible stenosis. Severe stenosis > 90% distal common femoral proximal deep femoral artery Stenosis of proximal vein graft in thigh 80% Stenosis of tibioperoneal trunk 70% Implants: 6 mm x 40 mm LifeStent Post-Operative Diagnosis: Same as Pre-op Surgeon: Christopher German Anesthesiologist/GROUP CAPTAIN: Varun Malagon Estimated Blood Loss (mls): 10
[2017-08-08] MEDS ORDERED: PROMETHAZINE HCL 25 MG/1 ML VIAL IVPUSH PRN (18:24)
[2017-08-08] MEDS: LACTATED RINGERS SOLUTION 1,000 ML IV SCH (19:00)
--- NOTE | 2017-08-08 19:29 | OP ---
DATE OF OPERATION: 08/08/2017 PROCEDURE: 1. Aortogram of aorta, bilateral iliac arteries, and right lower extremity. 2. Revascularization of the right femoral artery with stent and angioplasty. 3. Drug coated balloon angioplasty of the right femoral popliteal bypass graft. 4. Drug coated balloon angioplasty of the right tibial peroneal trunk. PREOPERATIVE DIAGNOSIS: Ischemic right leg with failing bypass graft. POSTOPERATIVE DIAGNOSIS: Ischemic right leg with failing bypass graft, with stenosis of common and deep femoral artery. ANESTHESIA: Fractional. ANESTHESIOLOGIST: Varun Malagon M.D. ANGIOGRAPHIC FINDINGS: There was diffuse arterial calcification throughout. The distal aorta and both iliac arteries were patent. There were multiple stents in the right common and external iliac artery, all of which appear patent without visible stenosis. Common femoral artery was patent. There was a large eccentric plaque at the origin of the deep femoral artery with approximately 80% to 90% stenosis. The deep femoral artery was patent with the origin of a femoral popliteal bypass graft. There was stenosis in the proximal third of the bypass graft to approximately 80 %. The distal bypass graft appeared patent. There was stenosis of the tibial peroneal trunk runoff from the bypass of approximately 70%. The posterior tibial and anterior tibial arteries were patent, although of small caliber. OPERATIVE PROCEDURE: Following routine patient identification, with side and site verification, intravenous sedation was established. Both groins were prepped with Chloraprep. Using real time duplex imaging, the left femoral artery was identified. There was the origin of a femoral popliteal Wiota-Koby graft which was used as access site. 1% lidocaine was infiltrated in the skin and subcutaneous tissues over the graft, and the proximal graft was cannulated under ultrasound guidance with a Micropuncture needle. A wire was advanced proximally under fluoroscopic guidance, and the needle was exchanged for a 5 [place]an catheter. An Amplatz wire was then advanced through the catheter into the iliac artery. A 5 [place]an sheath was exchanged over the wire. An Omniflush catheter was then advanced over the wire into the distal abdominal aorta, and angiography was performed with dilute contrast and digital technique. An angle-tipped glidewire was then advanced through the catheter into the right iliac artery distally to the level of the femoral artery. Catheter was advanced over the wire, the table was repositioned to obtain imaging of the lower extremity. The stiff wire was passed through the catheter, and the catheter was removed. The sheath was removed, and a long 6 [place]an sheath was advanced over the aortic bifurcation into the right common femoral artery . The patient was systemically heparinized. Under road mapping technique, an angled wire was advanced through the stenosis at the proximal deep femoral artery and into the vein bypass graft. The stenosis was serially dilated with 4, 5, and 6 mm balloons with improvement but continued greater than 50% stenosis. Therefore a 6 mm x 40 mm LifeStent was deployed across the area of stenosis, bridging it to the distal common femoral artery . This was post dilated with a 6-mm balloon. Completion imaging showed full expansion of the stent with resolution of the stenosis and good flow into the artery. Attention was then turned to bypass graft. Repeat imaging documented the area of severe stenosis in the proximal portion of the bypass graft. A 5 mm x 80 mm Lutonix drug-coated balloon was used to dilate from the arterial anastomosis to cover the area of stenosis. The balloon was left inflated for 2 minutes, and upon removal repeat imaging revealed resolution of the stenosis with brisk flow into the bypass graft. Evaluation of the distal vein graft showed no visible stenoses. There was narrowing of the outflow from the bypass into tibial peroneal trunk, which appeared to be severe. A 4 mm x 40 cm Lutonix balloon was used to treat the proximal tibial peroneal trunk up to the takeoff of the anterior tibial artery. Completion imaging revealed improved diameter of the vessel and improved runoff down the leg with 2 vessels seen in the the foot. The sheath was then pulled back over wire into the left iliac artery, and the wire advanced up into the aorta. The sheath was then removed, and a Starclose device used to seal the hole in the graft. There was some persistent bleeding, and protamine was administered intravenously and pressure held for 15 minutes. The bleeding stopped. A sterile dressing was applied. The patient was taken to the recovery room in stable condition. Donya [id number] [place]
[2017-08-08] MEDS: ATORVASTATIN CA 40 MG TABLET (FP) PO SCH (21:37)
[2017-08-09 07:58] LABS: HEMATOCRIT 31.8 % (35.4-49); HEMOGLOBIN 10.6 GM/dL (11.7-16.9); MCHC 33.3 g/dl (32.0-35.9); MEAN CELL VOLUME 90.1 fl (80-96); MEAN PLT VOLUME 7.9 fl (7.5-11.1); PLATELET COUNT 126 K/MM3 (134-434); RBC 3.52 M/mm3 (4.00-5.60); RDW 15.7 % (11.9-15.9)
--- NOTE | 2017-08-09 08:47 | PN ---
Progress Note, Physician Chief Complaint: RLE itching, but not cold, no pain. Yesterday underwent Operation: Angiogram aorta, iliacs and right leg. Revascularization right femoral artery with stent and angioplasty. Drug coated balloon angioplasty right femoral-popliteal vein graft. Drug coated balloon angioplasty right tibioperoneal trunk Findings: Patent, calcified distal aorta. patent stents of right common and external iliac arteries without visible stenosis. Severe stenosis > 90% distal common femoral proximal deep femoral artery Stenosis of proximal vein graft in thigh 80% Stenosis of tibioperoneal trunk 70% History of Present Illness: Left CEA. Left Fem-pop bypass. PVD. ASHD. S/P ME. S/P CABG HTN. CKD. Hyperlipidemia. Chronic back pain. Gout. Right fem-pop 10/31/16-admission to [facility] 11/22 for graft occlusion. Recurrent episodes of saevere hyperkalemia and bradicardia. Lisinopril 10 mg was d/c recently. - Current Medication List Current Medications: Active Medications Amlodipine Besylate (Norvasc -) 10 mg PO DAILY [facility] Aspirin (Ecotrin -) 81 mg PO DAILY [facility] Atorvastatin Calcium (Lipitor -) 40 mg PO HS [facility] Last Admin: 08/08/17 21:37 Dose: 40 mg Clopidogrel Bisulfate (Plavix -) 75 mg PO DAILY [facility] Fentanyl (Sublimaze Injection -) 25 mcg IVPUSH [id number] PRN PRN Reason: PAIN-PACU ORDER X 4 DOSES ONLY Lactated Ringer's (Lactated Ringers Solution) 1,000 mls @ 75 mls/hr IV ASDIR [facility] Last Admin: 08/08/17 19:00 Dose: 100 mls Metoprolol Succinate (Toprol Xl -) 25 mg PO DAILY [facility] Ondansetron HCl (Zofran Injection) 4 mg IVPUSH Q6H PRN PRN Reason: NAUSEA AND/OR VOMITING Oxycodone HCl (Roxicodone -) 5 mg PO Q4H PRN PRN Reason: PAIN LEVEL 1-5 Stop: 08/09/17 17:57 Promethazine HCl (Phenergan Injection -) 12.5 mg IVPUSH Q6H PRN PRN Reason: NAUSEA-FOR RESCUE AFTER 15 MIN - Objective Vital Signs: Vital Signs Temperature 97.3 F L 08/09/17 05:50 Pulse Rate 57 L 08/09/17 05:50 Respiratory Rate 18 08/09/17 05:50 Blood Pressure 180/70 08/09/17 05:50 O2 Sat by Pulse Oximetry (%) 100 08/08/17 21:00 Constitutional: Yes: No Distress, Anxious Eyes: Yes: Conjunctiva Clear, EOM Intact HENT: Yes: Atraumatic, Normocephalic Neck: Yes: Supple, Trachea Midline, Other (S/P CEA) Respiratory: Yes: CTA Bilaterally Gastrointestinal: Yes: Normal Bowel Sounds, Soft. No: Abdomen, Obese ...Rectal Exam: Yes: Deferred Genitourinary: No: Anuria Breast(s): Yes: WNL Extremities: Yes: Other (Right LE warm, pink.). No: Cold Edema: No Peripheral Pulses WNL: No Labs: CBC, BMP 08/09/17 06:40 08/08/17 07:45 INR, PTT INR 1.06 (0.82-1.09) D 08/07/17 08:48 Problem List - Problems (1) Arterial insufficiency of lower extremity Assessment/Plan: S/p Angio, stent, baloon angioplasty. F/u by Dr German D/C as per Dr German Code(s): I73.9 - PERIPHERAL VASCULAR DISEASE, UNSPECIFIED (2) HTN (hypertension) Assessment/Plan: Resume meds Avoid meds that can elevate potassium Code(s): I10 - ESSENTIAL (PRIMARY) HYPERTENSION Qualifiers: Hypertension type: essential hypertension Qualified Code(s): I10 - Essential (primary) hypertension (3) History of coronary artery disease Assessment/Plan: Continue Toprol, Lipitor, Plavix, ASA Cardiology consult Code(s): Z86.79 - PERSONAL HISTORY OF OTHER DISEASES OF THE CIRCULATORY SYSTEM
--- NOTE | 2017-08-09 08:49 | DS ---
Physical Examination Vital Signs: Vital Signs Temperature 97.3 F L 08/09/17 05:50 Pulse Rate 57 L 08/09/17 05:50 Respiratory Rate 18 08/09/17 05:50 Blood Pressure 180/70 08/09/17 05:50 O2 Sat by Pulse Oximetry (%) 100 08/08/17 21:00 Findings/Remarks: Operation: Angiogram aorta, iliacs and right leg. Revascularization right femoral artery with stent and angioplasty. Drug coated balloon angioplasty right femoral-popliteal vein graft. Drug coated balloon angioplasty right tibioperoneal trunk Findings: Patent, calcified distal aorta. patent stents of right common and external iliac arteries without visible stenosis. Severe stenosis > 90% distal common femoral proximal deep femoral artery Stenosis of proximal vein graft in thigh 80% Stenosis of tibioperoneal trunk 70% Constitutional: Yes: No Distress Eyes: Yes: Conjunctiva Clear, EOM Intact HENT: Yes: Atraumatic, Normocephalic Neck: Yes: Supple, Trachea Midline Cardiovascular: Yes: Regular Rate and Rhythm. No: Bradycardia, Tachycardia Respiratory: Yes: CTA Bilaterally. No: Accessory Muscle Use Gastrointestinal: Yes: Normal Bowel Sounds. No: Abdomen, Obese ...Rectal Exam: Yes: Deferred Renal/: No: Anuria Breast(s): Yes: WNL Extremities: No: Amputation, Cold Edema: No Neurological: Yes: Alert, Oriented. No: Aphasia ...Motor Strength: WNL Psychiatric: Yes: WNL Labs: CBC, BMP 08/09/17 06:40 08/08/17 07:45 Laboratory Results - last 24 hr 08/08/17 08/09/17 07:45 06:40 WBC 5.0 RBC 3.52 L Hgb 10.6 L Hct 31.8 L MCV 90.1 MCH 30.0 MCHC 33.3 RDW 15.7 Plt Count 126 L MPV 7.9 Sodium 141 Potassium 4.2 Chloride 110 H Carbon Dioxide 25 Anion Gap 6 L BUN 31 H D Creatinine 1.0 Creat Clearance w eGFR > 60 Random Glucose 92 Calcium 8.8 Total Bilirubin 0.3 D AST 20 ALT 26 Alkaline Phosphatase 65 Total Protein 6.5 Albumin 3.6 Triglycerides 88 Cholesterol 105 Total LDL Cholesterol 60 HDL Cholesterol 39 L Discharge Summary Reason For Visit: ARTERIAL INSUFFICIENCY OF LOWER EXTREMITY Current Active Problems Arterial insufficiency of lower extremity (Acute) Failing vascular bypass graft (Acute) Condition: Stable - Instructions Diet, Activity, Other Instructions: Dr. German's Post Operative Instructions Discharge Instructions Physical activity Resume your normal everyday activity as tolerated no heavy lifting or exercise until seen by your surgeon. You may walk unlimited amounts of and climb stairs. You may resume driving the car when you feel safe and comfortable behind the wheel. Wound care If you have a bandage, leave it on, and keep dry for 48 - 72 hours. After that time discard the outer bandage. You may shower. Diet There are no dietary restrictions. Eat healthy, high-fiber foods. Drink 6 to 8 glasses of liquid each day. This will assist in keeping your bowels are regular. Pain management You may take Tylenol or acetaminophen or Ibuprofen (for example, Motrin, Advil etc.) Any pain prescription medication ordered should be taken as prescribed for moderate to severe pain. Call Dr. German for any of the following: Severe pain not relieved by medication Fever of 101 or higher Excessive bleeding or drainage on dressing Inability to urinate Call the office for a post operative appointment in 7 - 10 days. Referrals: Christopher German MD [Primary Care Provider] - Disposition: HOME - Home Medications Comprehensive Discharge Medication List: Ambulatory Orders Aspirin Coated [Ecotrin -] 81 mg PO DAILY #0 tablet.ec 05/20/12 Atorvastatin Calcium 40 mg PO HS 10/29/16 Metoprolol Succinate [Toprol XL -] 25 mg PO DAILY 10/29/16 Amlodipine Besylate [Norvasc -] 10 mg PO DAILY #30 tablet 11/20/16 Clopidogrel Bisulfate [Plavix] 75 mg PO DAILY 08/07/17
[2017-08-09] MEDS: amLODIPine BESYLATE 10 MG TABLET (FP) PO SCH (09:37)
[2017-08-09] MEDS: CLOPIDOGREL BISULFATE 75 MG TABLET (FP) PO SCH (09:37)
[2017-08-09] MEDS: ASPIRIN COATED 81 MG TABLET.EC PO SCH (09:37)
[2017-08-09] MEDS: metoPROLOL SUCCINATE 25 MG TAB.SR.24H (FP) PO SCH (09:38)
[2017-08-09] MEDS: LACTATED RINGERS SOLUTION 1,000 ML IV SCH ×2 (11:54→17:53)
--- NOTE | 2017-08-09 11:55 | PN ---
Progress Note (short form) - Note Progress Note: s: no cp sob palps dizzy o: Vital Signs Period Temp Pulse Resp BP Sys/Francisco Pulse Ox Last 24 Hr 97.3 F-98.2 F 51-66 11-20 126-183/45-95 98-100 nad, calm jvd flat, neck supple ctab, nl effort rrr nl s1, s2 no mrg + bs soft nt nd, no hsm no le edema aa0x3 no jaundice diaphoresis CBC, BMP 08/09/17 06:40 08/08/17 07:45 Current Medications Generic Name Dose Route Start Last Admin Trade Name Freq PRN Reason Stop Dose Admin Amlodipine Besylate 10 mg 08/09/17 10:00 08/09/17 09:37 Norvasc - PO 10 mg DAILY TRI Administration Aspirin 81 mg 08/09/17 10:00 08/09/17 09:37 Ecotrin - PO 81 mg DAILY TRI Administration Atorvastatin Calcium 40 mg 08/08/17 22:00 08/08/17 21:37 Lipitor - PO 40 mg HS TRI Administration Clopidogrel Bisulfate 75 mg 08/09/17 10:00 08/09/17 09:37 Plavix - PO 75 mg DAILY TRI Administration Fentanyl 25 mcg 08/08/17 18:24 Sublimaze Injection - IVPUSH [id number] PRN PAIN-PACU ORDER X 4 DOSES ONLY Lactated Ringer's 1,000 mls @ 75 mls/hr 08/08/17 18:24 08/08/17 19:00 Lactated Ringers Solution IV 100 mls ASDIR TRI Administration Metoprolol Succinate 25 mg 08/09/17 10:00 08/09/17 09:38 Toprol Xl - PO 25 mg DAILY TRI Administration Ondansetron HCl 4 mg 08/08/17 18:24 Zofran Injection IVPUSH Q6H PRN NAUSEA AND/OR VOMITING Oxycodone HCl 5 mg 08/08/17 18:24 08/09/17 08:53 Roxicodone - PO 08/09/17 17:57 5 mg Q4H PRN Administration PAIN LEVEL 1-5 Promethazine HCl 12.5 mg 08/08/17 18:24 Phenergan Injection - IVPUSH Q6H PRN NAUSEA-FOR RESCUE AFTER 15 MIN ekg: sr with pvc's. rbbb. lvh. Echo 01/2017: 1. This was a technically difficult study with suboptimal views. 2. Nl LV/rv size/fn. 3. No regional wall motion abnormalities were noted within visualized territories. [place] not well seen. 4. The rv cavity not well seen. 7. Left atrium is normal size by volume. 8. 1+ aortic regurgitation. 9. laminar aortic atherosclerotic plaque present. 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 pad - s/p le angioplasty here. plans per vascular. cad - free of anginal sx's. con't antiplatelets, statin, bb, ccb htn - controlled on current regimen, con't. - off vielka b/c of recurrent hyperkalemia with bradycardia
--- NOTE | 2017-08-09 14:19 | PN ---
Progress Note (short form) - Note Progress Note: S/p Aortogram,right femoral artery angiogram,angioplasty and stent placement under MAC uneventful.Patient stable.No any anesthesia related problem.Patient DC from the anesthesia care.
[2017-08-09] MEDS: ATORVASTATIN CA 40 MG TABLET (FP) PO SCH (21:29)
[2017-08-10] MEDS: LACTATED RINGERS SOLUTION 1,000 ML IV SCH (01:08)
[2017-08-10 08:08] LABS: HEMATOCRIT 29.6 % (35.4-49); MCH 30.1 pg (25.7-33.7); MCHC 33.6 g/dl (32.0-35.9); MEAN CELL VOLUME 89.6 fl (80-96); MEAN PLT VOLUME 8.3 fl (7.5-11.1); PLATELET COUNT 125 K/MM3 (134-434); RBC 3.31 M/mm3 (4.00-5.60); RDW 15.6 % (11.9-15.9); WHITE BLOOD COUNT 4.9 K/mm3 (4.0-10.0)
[2017-08-10] MEDS: ASPIRIN COATED 81 MG TABLET.EC PO SCH (09:31)
[2017-08-10] MEDS: metoPROLOL SUCCINATE 25 MG TAB.SR.24H (FP) PO SCH (09:31)
[2017-08-10] MEDS: amLODIPine BESYLATE 10 MG TABLET (FP) PO SCH (09:31)
[2017-08-10] MEDS: CLOPIDOGREL BISULFATE 75 MG TABLET (FP) PO SCH (09:31)
--- NOTE | 2017-08-10 11:48 | PN ---
Progress Note (short form) - Note Progress Note: VSS Right foot warm. Left groin dry Stable OK for discharge on aspirin and Plavix. Problem List - Problems (1) Failing vascular bypass graft Code(s): T82.599A - [facility] COMPL OF UNSP CARDIAC AND VASC DEVICES AND IMPLNT, INIT Qualifiers: Encounter type: subsequent encounter Qualified Code(s): T82.599D - Other mechanical complication of unspecified cardiac and vascular devices and implants , subsequent encounter (2) Arterial insufficiency of lower extremity Code(s): I73.9 - PERIPHERAL VASCULAR DISEASE, UNSPECIFIED
--- NOTE | 2017-08-10 14:13 | PN ---
Physical Exam: SUBJECTIVE: Patient seen and examined at the bedside. OBJECTIVE: Discharge home today to be followed by VNS Vital Signs Period Temp Pulse Resp BP Sys/Francisco Pulse Ox Last 24 Hr 97.5 F-98.0 F 58-69 17-20 142-168/59-88 98 GENERAL: The patient is awake, alert, and fully oriented, in no acute distress. HEAD: Normal with no signs of trauma. EYES: PERRL, extraocular movements intact, sclera anicteric, conjunctiva clear. No ptosis. ENT: Ears normal, nares patent, oropharynx clear without exudates, moist mucous membranes. NECK: Trachea midline, full range of motion, supple. LUNGS: Breath sounds equal, clear to auscultation bilaterally HEART: Regular rate and rhythm, S1, S2 without murmur, rub or gallop. ABDOMEN: Soft, nontender, nondistended, normoactive bowel sounds, no guarding, no rebound, no hepatosplenomegaly, no masses. EXTREMITIES: right lower ext s/p angiogram NEUROLOGICAL: Normal speech Laboratory Results - last 24 hr 08/10/17 08/10/17 07:25 07:25 WBC 4.9 RBC 3.31 L Hgb 10.0 L Hct 29.6 L MCV 89.6 MCH 30.1 MCHC 33.6 RDW 15.6 Plt Count 125 L MPV 8.3 PTT (Actin FS) 29.2 Active Medications Generic Name Dose Route Start Last Admin Trade Name Freq PRN Reason Stop Dose Admin Amlodipine Besylate 10 mg 08/09/17 10:00 08/10/17 09:31 Norvasc - PO 10 mg DAILY TRI Administration Aspirin 81 mg 08/09/17 10:00 08/10/17 09:31 Ecotrin - PO 81 mg DAILY TRI Administration Atorvastatin Calcium 40 mg 08/08/17 22:00 08/09/17 21:29 Lipitor - PO 40 mg HS TRI Administration Clopidogrel Bisulfate 75 mg 08/09/17 10:00 08/10/17 09:31 Plavix - PO 75 mg DAILY TRI Administration Fentanyl 25 mcg 08/08/17 18:24 Sublimaze Injection - IVPUSH [id number] PRN PAIN-PACU ORDER X 4 DOSES ONLY Lactated Ringer's 1,000 mls @ 75 mls/hr 08/08/17 18:24 08/10/17 01:08 Lactated Ringers Solution IV 75 mls/hr ASDIR TRI Administration Metoprolol Succinate 25 mg 08/09/17 10:00 08/10/17 09:31 Toprol Xl - PO 25 mg DAILY TRI Administration Ondansetron HCl 4 mg 08/08/17 18:24 Zofran Injection IVPUSH Q6H PRN NAUSEA AND/OR VOMITING Promethazine HCl 12.5 mg 08/08/17 18:24 Phenergan Injection - IVPUSH Q6H PRN NAUSEA-FOR RESCUE AFTER 15 MIN ASSESSMENT/PLAN: Patient is a 77 year old male with a significant past medical history of arterial insufficient of lower ext, hypertension and CAD. He is s/p revascularization right femoral artery with stent and angioplasty. Drug coated balloon angioplasty right femoral-popliteal vein graft, drug coated balloon angioplasty right tibioperoneal trunk. He is to follow up with Vascular and his PCP as an outpatient. Arterial insufficiency of lower ext. s/p revascularization of right femoral artery with stent and angioplasty Outpt follow up with Vascular, post op discharge instructions noted Continue ASA 81mg daily, Plavix 75mg daily Cleared by vascular for discharge Hypertension, chronic Continue home medications Amlodopine 10mg, Metoprolol VNS follow up and monitor BP outpatient Discharge home today. Visit type - Emergency Visit Emergency Visit: Yes ED Registration Date: 08/07/17 Care time: The patient presented to the Emergency Department on the above date and was hospitalized for further evaluation of their emergent condition. - New Patient This patient is new to me today: Yes Date on this admission: 08/10/17 - Critical Care Critical Care patient: No - Discharge Referral Referred to [facility] Med P.C.: No
[2017-08-10 15:02] VITALS: BP 136/56; PULSE 62; TEMP 98.1
== END 2017-08-10 15:02 | disposition home or self-care (01) | DRG 254 ==
LOC: JER 07:13 → JERBED 10:55 → J5S 14:05
PROVIDERS: ADMIT Internal Medicine; ATTEND Nurse Practitioner Family
PROC: 047P3Z1 Dilation of Right Anterior Tibial Artery using Drug-Coated Balloon, Percutaneous Approach (ICD-10-PCS; 2017-08-08)
PROC: 047T3Z1 Dilation of Right Peroneal Artery using Drug-Coated Balloon, Percutaneous Approach (ICD-10-PCS; 2017-08-08)
PROC: B40DYZZ Plain Radiography of Aorta and Bilateral Lower Extremity Arteries using Other Contrast (ICD-10-PCS; 2017-08-08)
PROC: 047K341 Dilation of Right Femoral Artery with Drug-eluting Intraluminal Device, using Drug-Coated Balloon, Percutaneous Approach (ICD-10-PCS; principal; 2017-08-08 16:00)
DX: T82.858A Stenosis of other vascular prosthetic devices, implants and grafts, initial encounter (principal); I73.89 Other specified peripheral vascular diseases; I25.10 Atherosclerotic heart disease of native coronary artery without angina pectoris; E78.5 Hyperlipidemia, unspecified; I25.2 Old myocardial infarction; M54.5 Low back pain; D64.9 Anemia, unspecified; M10.9 Gout, unspecified; F41.8 Other specified anxiety disorders; M25.512 Pain in left shoulder; I25.5 Ischemic cardiomyopathy; R00.1 Bradycardia, unspecified; I70.201 Unspecified atherosclerosis of native arteries of extremities, right leg; I70.202 Unspecified atherosclerosis of native arteries of extremities, left leg; I12.9 Hypertensive chronic kidney disease with stage 1 through stage 4 chronic kidney disease, or unspecified chronic kidney disease; N18.9 Chronic kidney disease, unspecified; Z87.891 Personal history of nicotine dependence; Y83.8 Other surgical procedures as the cause of abnormal reaction of the patient, or of later complication, without mention of misadventure at the time of the procedure; Z95.1 Presence of aortocoronary bypass graft
CPT/HCPCS: 36415; 75635-TC; 76000-TC-FY; 80053; 80061; 83721; 85025; 85027; 85610; 85730; 86850; 86900; 86901; 93005; 93010; 93925-TC; 94760; 99283-25; J1644

== ENCOUNTER 2018-08-18 12:23 | Inpatient (IN) | payer OTHER | END 2018-08-20 15:08 | disposition home or self-care (01) | LOC: JSAMEDAYSX 12:23 → JICU 22:15 → J6S 08-19 13:42 ==

== ENCOUNTER 2018-09-03 16:15 | Inpatient (IN) | payer OTHER ==
--- NOTE | 2018-09-03 16:22 | PDOC ---
Rapid Medical Evaluation Time Seen by Provider: 09/03/18 16:19 Medical Evaluation: Allergies Allergy/AdvReac Type Severity Reaction Status Date / Time No Known Drug Allergies Allergy Verified 08/18/18 13:32 09/03/18 16:19 I have performed a brief in-person evaluation of this patient. The patient presents with a chief complaint of: anorexia and weakness s/p CEA Pertinent physical exam findings: No carotid bruit. No hematoma at site. Neuro exam grossly normal. I have ordered the following: labs, urine The patient will proceed to the ED for further evaluation. Discharge Disposition - Diagnosis Anorexia - Referrals - Patient Instructions - Post Discharge Activity
[2018-09-03] MEDS ORDERED: SODIUM CHLORIDE 1,000 ML IV STA (16:23)
[2018-09-03 16:53] LABS: BASO % 0.7 % (0-2.0); EOS % 0.8 % (0-4.5); LYMPH % 5.5 % (8-40); MCH 27.8 pg (25.7-33.7); MEAN CELL VOLUME 89.7 fl (80-96); MEAN PLT VOLUME 8.5 fl (7.5-11.1); MONO % 8.7 % (3.8-10.2); NEUT % 84.3 % (42.8-82.8); PLATELET COUNT 326 K/MM3 (134-434); RBC 3.24 M/mm3 (4.00-5.60); RDW 15.6 % (11.9-15.9); WHITE BLOOD COUNT 9.3 K/mm3 (4.0-10.0)
--- NOTE | 2018-09-03 17:08 | PDOC ---
History of Present Illness - General Stated Complaint: SENT BY PCP Time Seen by Provider: 09/03/18 16:19 History Source: Patient Exam Limitations: No Limitations - History of Present Illness Initial Comments: 09/03/18 17:03 78M with a PMH of PAD, HTN, HLD, CAD s/p quadruple bypass, PAD with multiple surgeries on the R leg who presents to the ED complaining of weakness and fatigue. The patient states that he had a carotid endarterectomy 2 weeks ago ( w/ Dr. Coughlin) and has been feeling "blah" since then. He states that he has an appetite but when food is presented to him, he does not want to eat it. He denies any acute complaints besides fatigue and weakness. Past History - Past Medical History Allergies/Adverse Reactions: Allergies Allergy/AdvReac Type Severity Reaction Status Date / Time No Known Drug Allergies Allergy Verified 08/18/18 13:32 Home Medications: Ambulatory Orders Aspirin Coated [Ecotrin -] 81 mg PO DAILY #0 tablet.ec 05/20/12 Atorvastatin Calcium 40 mg PO HS 10/29/16 Metoprolol Succinate [Toprol XL -] 25 mg PO DAILY 10/29/16 Clopidogrel Bisulfate [Plavix] 75 mg PO DAILY 08/07/17 Amlodipine Besylate [Norvasc -] 5 mg PO DAILY 08/15/18 Multivit-Min/FA/Lycopen/Lutein [Centrum Silver Tablet] 1 each PO DAILY 09/03/18 Anemia: No Asthma: No Cancer: No Cardiac Disorders: Yes (QUADRUPLE BYPASS 2013) CVA: No COPD: No CHF: No Dementia: No Diabetes: No GI Disorders: No Disorders: No HTN: Yes Hypercholesterolemia: Yes Liver Disease: No Seizures: No Thyroid Disease: No - Surgical History Abdominal Surgery: No Appendectomy: No Cardiac Surgery: Yes (ENDARTERECTOMY, STENT) Cholecystectomy: No Lung Surgery: No Neurologic Surgery: No Orthopedic Surgery: No - Immunization History Immunization Up to Date: No - Suicide/Smoking/Psychosocial Hx Smoking History: Former smoker Have you smoked in the past 12 months: No Number of Cigarettes Smoked Daily: 0 If you are a former smoker, when did you quit?: 22yrs Cigars Per Day: 0 Information on smoking cessation initiated: No 'Breaking Loose' booklet given: 05/15/12 Hx Alcohol Use: No Drug/Substance Use Hx: No Substance Use Type: None Hx Substance Use Treatment: No Review of Systems - Review of Systems Able to Perform ROS?: Yes Comments:: 09/03/18 17:29 GENERAL/CONSTITUTIONAL: + for fatigue and weakness. No fever or chills. HEAD, EYES, EARS, NOSE AND THROAT: No change in vision. No ear pain or discharge. No sore throat. CARDIOVASCULAR: No chest pain, palpitations, or lightheadedness. RESPIRATORY: No cough, wheezing, shortness of breath, or hemoptysis. GASTROINTESTINAL: No abdominal pain, nausea, vomiting, diarrhea, or constipation. GENITOURINARY: No dysuria, frequency, hematuria, or change in urination. MUSCULOSKELETAL: No joint or muscle swelling or pain. No neck or back pain. SKIN: No rash or lesions. NEUROLOGIC: No headache, numbness, tingling, focal weakness, loss of consciousness, or change in strength/sensation. Is the patient limited Kiswahili proficient: No *Physical Exam - Vital Signs Last Vital Signs Temp Pulse Resp BP Pulse Ox 97.8 F 72 16 139/50 L 96 09/03/18 16:22 09/03/18 16:22 09/03/18 16:22 09/03/18 16:22 09/03/18 16:22 - Physical Exam Comments: 09/03/18 17:29 GENERAL: Well developed, well nourished. Awake and alert. No acute distress. HEENT: Normocephalic, atraumatic. Hearing grossly normal. Moist mucous membranes. PERRLA, EOMI. No conjunctival pallor. Sclera are non-icteric. NECK: Supple. Full ROM. CARDIOVASCULAR: Regular rate and rhythm. No murmurs, rubs, or gallops. PULMONARY: No evidence of respiratory distress. Decreased lung sounds in bilateral bases with mild rales in upper lung kendall b/l. ABDOMINAL: Soft. Non-tender. Non-distended. No rebound or guarding. GENITOURINARY: No CVA tenderness bilaterally. MUSCULOSKELETAL: Normal range of motion at all joints. No bony deformities or tenderness. EXTREMITIES: No cyanosis. No clubbing. 2-3+ pitting edema in R LE, 1+ in L LE. Mild calf swelling, R >>> L. SKIN: Warm and dry. Normal capillary refill. No rashes. No jaundice. NEUROLOGICAL: Alert, awake, appropriate. Cranial nerves 2-12 grossly intact. Normal speech. Gait is normal without ataxia. PSYCHIATRIC: Cooperative. Good eye contact. Appropriate mood and affect. Heart Score/ECG Review #1 General ECG Interpretation: Sinus Rhythm, Normal Rate Compared to previous ECG there are: Changes noted 09/03/18 17:05 Sub 1mm elevations in aVR and V1 with STD in V4-V6 concerning for ischemia, changed from August 07, 2017. NSR vent rate 69 NC 108 (shortened from prior EG - 134) QRS [address] changes as noted above, concerning for ischemia ED Treatment Course - LABORATORY CBC & Chemistry Diagram: 09/03/18 15:29 09/03/18 15:29 - ADDITIONAL ORDERS Additional order review: 09/03/18 15:29 RBC 3.24 L MCV 89.7 MCHC 31.0 L RDW 15.6 MPV 8.5 Neutrophils % 84.3 H Lymphocytes % 5.5 L D Monocytes % 8.7 Eosinophils % 0.8 Basophils % 0.7 Medical Decision Making - Medical Decision Making 09/03/18 17:30 78M with MMP including severe cardiac problems who presents to the ED with 2 weeks of worsening weakness but denies any other symptoms. Pt has notable EKG changes and CXR significant for b/l CPA blunting and cephalization concerning for fluid overload on my preliminary read. Will order labs and duplex imaging of legs to r/o DVT. Pending labs and imaging. Concern for new onset CHF vs ACS vs DVT/PE. 09/03/18 17:55 Trop [place] 3.97 [place]/ [place] [id number] Dr[address] Higgins's group paged. Pt takes asa and plavix and took both of his medications today. Will give 162 of asa. 09/03/18 18:27 Dr. Higgins called and states he will reach the vision teacher physician. Pending call back. 09/03/18 18:47 Case d/w Dr. Barriga who would like to trend the trop at the 3 hour mary and if elevated, heparanize. Will give lasix d/t clinical picture of CHF. Pt aware. Will microblog for admission. 09/03/18 19:22 Pt endorsed to [facility] for admission. *DC/Admit/Observation/Transfer Diagnosis at time of Disposition: Anorexia Heart failure Qualifiers: Heart failure type: unspecified Heart failure chronicity: acute Qualified Code( s): I50.9 - Heart failure, unspecified - Discharge Dispostion Condition at time of disposition: Guarded Decision to Admit order: Yes - Referrals Referrals: Mary Bland MD [Primary Care Provider] - - Patient Instructions - Post Discharge Activity
[2018-09-03 17:13] LABS: INR 1.36 (0.83-1.09); PROTHROMBIN TIME (PATIENT) 16.1 SEC (9.7-13.0)
[2018-09-03 17:48] LABS: ALBUMIN 3.4 g/dl (3.4-5.0); BILIRUBIN,TOTAL 0.6 mg/dL (0.2-1); CALCIUM 8.9 mg/dL (8.5-10.1); CREATININE 1.4 mg/dL (0.55-1.3); N-TERMINAL BNP 15484.5 pg/ml (5-450); POTASSIUM 4.8 mmol/L (3.5-5.1); TOT PROT 6.6 g/dl (6.4-8.2)
[2018-09-03] MEDS ORDERED: ASPIRIN COATED 81 MG TABLET.EC PO ONE (18:18)
--- NOTE | 2018-09-03 18:18 | PDOC ---
Documentation entered by Gaye Park SCRIBE, acting as scribe for Hattie Griffin MD. Hattie Griffin MD: This documentation has been prepared by the abigailibe, Gaye Park SCRIBE, under my direction and personally reviewed by me in its entirety. I confirm that the documentation accurately reflects all work, treatment, procedures, and medical decision making performed by me. Attending Attestation - Resident Resident Name: LexyNikhil - ED Attending Attestation I have performed the following: I have examined & evaluated the patient, The case was reviewed & discussed with the resident, I agree w/resident's findings & plan, Exceptions are as noted - HPI HPI: 09/03/18 18:20 Mr. Carpio is a 78 yo M presenting to the ER with a complaint of weakness He has a h/o HTN, HLD, CAD s/p quadruple bypass, PAD with multiple surgeries on the R leg who presents to the ED complaining of weakness and fatigue. S/p carotid endarterectomy 2 weeks ago and has been feeling "blah" since then. Pt has reported increased tensions at home with his (pt states that was upset with him because she did not know he was going to have surgery) Decreased po intake Pt denies chest pain or palpitations Pt was seen by Ashleigh Higgins and Monserrat today in the office - Physicial Exam PE: 09/03/18 18:12 GENERAL: The patient is in no acute distress. ENT: Ears normal, nares patent, oropharynx clear without exudates. Moist mucous membranes. NECK: Normal range of motion, supple LUNGS: Breath sounds equal, clear to auscultation bilaterally. No wheezes, and no crackles. HEART: Regular rate and rhythm, normal S1 and S2 without murmur, rub or gallop. ABDOMEN: Soft, nontender, normoactive bowel sounds. EXTREMITIES: Normal range of motion, no edema. NEUROLOGICAL: Cranial nerves II through XII grossly intact. Normal speech. No focal neurological deficits. SKIN: Warm, Dry, normal turgor, no rashes or lesions noted. 09/03/18 18:17 - Critical Care Time Total Critical Care Time: 60 Critical Care Statement: The care of this patient involved high complexity decision making to prevent further life threatening deterioration of the patient 's condition and/or to evaluate & treat vital organ system(s) failure or risk of failure. - Medical Decision Making DD: ACS, CHF, Electrolyte abnormality, infection Will do: Labs EKG CXR Duplex Plan to Admit 09/03/18 17:40 Laboratory Tests 08/20/18 09/03/18 09/03/18 06:00 15:29 15:29 WBC 6.8 9.3 Hgb 9.6 L 9.0 L Hct 29.1 L 29.0 L Plt Count 128 L 326 D PT with INR 16.10 H INR 1.36 H EKG - 09/03/18 18:11 Laboratory Tests 08/20/18 09/03/18 06:00 15:29 BUN 24 H 57 H Creatinine 1.0 1.4 H Creatine Kinase 121 Troponin I 3.94 H* B-Natriuretic Peptide 04907.5 H CXR -bilateral pleural effusions, no infiltrates 09/03/18 18:12 09/03/18 18:20 Cardiology consulted EKG does appear different than prior Per cardiology - Heparin, Aspirin, Admit, Trend troponin Clinical Impression: NSTEMI, initial presentation
[2018-09-03] MEDS ORDERED: ASPIRIN 81 MG CHEWABLE TABLETS ONE (18:29)
[2018-09-03] MEDS ORDERED: FUROSEMIDE 40 MG/4 ML INJECTABLE VIAL IVPUSH ONE (18:47)
[2018-09-03] MEDS ORDERED: FUROSEMIDE 40 MG/4 ML INJECTABLE VIAL ONE (18:53)
[2018-09-03] MEDS ORDERED: ACETAMINOPHEN 325 MG TABLET (FP) PO PRN (20:21)
[2018-09-03] MEDS ORDERED: HEPARIN NA (PORCINE) 5,000 UNITS/ML 1ML VIAL IVPUSH PRN ×2 (20:27)
[2018-09-03] MEDS: HEPARIN INFUSION - 25,000 UNITS/500 ML INFUS.BAG IVPB SCH (21:00)
[2018-09-03] MEDS ORDERED: HEPARIN INFUSION - 25,000 UNITS/500 ML INFUS.BAG IVPB ONE (21:28)
--- NOTE | 2018-09-03 21:47 | HP ---
Admitting History and Physical - Primary Care Physician PCP: Heriberto Bland - Admission Chief Complaint: lethargy History of Present Illness: 78 /o M with PMH of PAD, HTN, HLD, CAD s/p quadruple bypass, PAD with multiple surgeries on the R leg, presents to the ED for evaluation of lethargy. Pt is s/p carotid endarectomy on August [address] Coughlin. Mr. Carpio reports increased stress from "arguing with his " due to not telling her that he needed surgical intervention for carotid stenosis. Additionally, he has also experienced decreased appetite since his intervention. He denies CP/SOB/ palpitations, dizziness, LOC, or any neuro deficits. Patient reportedly called his manager oracle to report symptoms and was told to seek medical care in the emergency department. In ED: Vitals were: BP 139/50, HR 72, T 97.8, RR 16, O2sat 96 Labs significant for: trop 3.94>>3.49, BNP 15,484.5, Cr 1.4, H/H 9.0/29.0 CXR with coarse lung changes with congestive findings and bibasilar atelectatic findings with fluid. EKG: STD V1-6. Pt was treated with lasix 40mg IVP in ED and cardiology consulted. Pt admitted for further management of NSTEMI and new onset CHF. History Source: Patient Limitations to Obtaining History: No Limitations - Past Medical History Cardiovascular: Yes: CAD, HTN, Hyperlipdemia Renal/: Yes: Renal Inusuff, BPH Heme/Onc: Yes: Anemia Psych: Yes: Anxiety Musculoskeletal: Yes: Chronic low back pain, Other (Left shoulder pain) Rheumatology: Yes: Gout - Past Surgical History Past Surgical History: Yes: Bypass (Left Fem-Pop Right fem-pop 10/31/16), CABG, Carotid Endarterectomy - Smoking History Smoking history: Former smoker Have you smoked in the past 12 months: No Aproximately how many cigarettes per day: 60 (4PPD x 10yrs) If you are a former smoker, when did you quit?: 1995 - Alcohol/Substance Use Hx Alcohol Use: No History of Substance Use: reports: None - Social History Usual Living Arrangement: Yes: With Spouse ADL: Independent Occupation: Retired History of Recent Travel: No Home Medications - Allergies Allergies/Adverse Reactions: Allergies Allergy/AdvReac Type Severity Reaction Status Date / Time No Known Drug Allergies Allergy Verified 08/18/18 13:32 - Home Medications Home Medications: Ambulatory Orders Aspirin Coated [Ecotrin -] 81 mg PO DAILY #0 tablet.ec 05/20/12 Atorvastatin Calcium 40 mg PO HS 10/29/16 Metoprolol Succinate [Toprol XL -] 25 mg PO DAILY 10/29/16 Clopidogrel Bisulfate [Plavix] 75 mg PO DAILY 08/07/17 Amlodipine Besylate [Norvasc -] 5 mg PO DAILY 08/15/18 Multivit-Min/FA/Lycopen/Lutein [Centrum Silver Tablet] 1 each PO DAILY 09/03/18 Family Disease History - Family Disease History Family Disease History: Other: Father ( (73) lung cancer), Mother ( (63) lung cancer), Sister ( (39) lung cancer), Daughter (alive (46) well) Review of Systems - Review of Systems Constitutional: reports: Lethargy, Loss of Appetite, Weakness Eyes: reports: No Symptoms HENT: reports: No Symptoms Neck: reports: No Symptoms Cardiovascular: reports: No Symptoms Respiratory: reports: No Symptoms Gastrointestinal: reports: No Symptoms Genitourinary: reports: No Symptoms Breasts: reports: No Symptoms Reported Musculoskeletal: reports: No Symptoms Integumentary: reports: No Symptoms Neurological: reports: No Symptoms Endocrine: reports: No Symptoms Hematology/Lymphatic: reports: No Symptoms Psychiatric: reports: No Symptoms Physical Examination Vital Signs: Vital Signs Temperature 97.8 F 09/03/18 16:22 Pulse Rate 72 09/03/18 16:22 Respiratory Rate 16 09/03/18 16:22 Blood Pressure 139/50 L 09/03/18 16:22 O2 Sat by Pulse Oximetry (%) 96 09/03/18 16:22 Constitutional: Yes: No Distress, Calm, Thin Eyes: Yes: Conjunctiva Clear, PERRL HENT: Yes: Atraumatic, Normocephalic, Other (right neck: well healed incision, mild tenderness noted.) Neck: Yes: Supple, Trachea Midline Cardiovascular: Yes: Regular Rate and Rhythm Respiratory: Yes: Regular, Other (crackles at the bases) Gastrointestinal: Yes: Soft, Hyperactive Bowel Sounds ...Rectal Exam: Yes: Deferred Musculoskeletal: Yes: WNL Extremities: Yes: WNL Edema: Yes Edema: RLE: 2+ (chronic after vessels were excised for CABG) Peripheral Pulses WNL: Yes Peripheral Pulses: Left Radial: 2+, Right Radial: 2+, Left Doralis Pedis: 1+, Right Dorsalis Pedis: 1+ Wound/Incision: Yes: Clean/Dry Neurological: Yes: Alert, Oriented ...Motor Strength: WNL Psychiatric: Yes: Alert, Oriented Labs: CBC, BMP 09/03/18 15:29 09/03/18 15:29 Imaging - Results Chest X-ray: Report Reviewed (CXR 09/02/2018: Coarse lung changes with congestive findings and bibasilar atelectatic findings with fluid. There is an azygous lobe and fissure. There are degenerative changes with wedging.) EKG: Image Reviewed (EKG (my read): SR 69bpm, JOHN 108ms, QRS 120ms, QT/QTc 454/ 486ms. TWI V1-2, STD V3-6) Problem List - Problems (1) Prophylactic measure Assessment/Plan: Bowel regimen with senna/colace pt started on heparin drip RLE negative for DVT OOB to chair as tolerated Code(s): Z29.9 - ENCOUNTER FOR PROPHYLACTIC MEASURES, UNSPECIFIED (2) CAD (coronary artery disease) of bypass graft Assessment/Plan: continue aspirin, plavix and toprol cardiac diet trend cardiac enzymes Code(s): I25.810 - ATHEROSCLEROSIS OF CABG W/O ANGINA PECTORIS (3) NSTEMI (non-ST elevated myocardial infarction) Assessment/Plan: start heparin drip increase lipitor from 40mg to 80mg echo ordered cards consulted consider transfer for [facility] Code(s): I21.4 - NON-ST ELEVATION (NSTEMI) MYOCARDIAL INFARCTION (4) Congestive heart failure (CHF) Assessment/Plan: start lasix 60mg BID Wallace for strict intake and outpt monitor Scr and electrolytes Code(s): I50.9 - HEART FAILURE, UNSPECIFIED (5) HTN (hypertension) Assessment/Plan: continue norvasc 10mg daily Code(s): I10 - ESSENTIAL (PRIMARY) HYPERTENSION Qualifiers: Hypertension type: essential hypertension Qualified Code(s): I10 - Essential (primary) hypertension Assessment/Plan Code status: Full Visit type - Emergency Visit Emergency Visit: Yes ED Registration Date: 09/03/18 Care time: The patient presented to the Emergency Department on the above date and was hospitalized for further evaluation of their emergent condition. - New Patient This patient is new to me today: Yes Date on this admission: 09/03/18 - Critical Care Critical Care patient: No
[2018-09-03] MEDS ORDERED: ATORVASTATIN CA 40 MG TABLET (FP) PO SCH (22:00)
[2018-09-04] MEDS ORDERED: ATORVASTATIN CA 40 MG TABLET (FP) ONE (00:21)
[2018-09-04] MEDS: SENNOSIDES 8.6MG TABLET (FP) PO SCH ×2 (01:18→21:45)
[2018-09-04] MEDS: DOCUSATE SODIUM 100 MG CAPSULE (FP) PO SCH ×3 (01:18→21:45)
[2018-09-04 03:56] LABS: INR 1.45 (0.83-1.09); PROTHROMBIN TIME (PATIENT) 17.2 SEC (9.7-13.0)
[2018-09-04 03:58] LABS: ACTIVATED PTT 43.3 SECONDS (25.2-36.5)
[2018-09-04 05:44] LABS: BASO % 0.4 % (0-2.0); EOS % 1.3 % (0-4.5); HEMATOCRIT 26.3 % (35.4-49); HEMOGLOBIN 8.6 GM/dL (11.7-16.9); LYMPH % 8.9 % (8-40); MCH 28.7 pg (25.7-33.7); MCHC 32.6 g/dl (32.0-35.9); MEAN PLT VOLUME 8.5 fl (7.5-11.1); MONO % 9.1 % (3.8-10.2); NEUT % 80.3 % (42.8-82.8); PLATELET COUNT 270 K/MM3 (134-434); RBC 2.98 M/mm3 (4.00-5.60); RDW 15.6 % (11.9-15.9); WHITE BLOOD COUNT 6.7 K/mm3 (4.0-10.0)
[2018-09-04 06:24] LABS: BILIRUBIN,TOTAL 0.5 mg/dL (0.2-1); CALCIUM 8.4 mg/dL (8.5-10.1); CREATININE 1.3 mg/dL (0.55-1.3); MAGNESIUM 2.3 mg/dL (1.8-2.4); PHOSPHOROUS 3.9 mg/dL (2.5-4.9); POTASSIUM 4.4 mmol/L (3.5-5.1); TOT PROT 5.9 g/dl (6.4-8.2)
[2018-09-04] MEDS ORDERED: FUROSEMIDE 40 MG/4 ML INJECTABLE VIAL ONE (06:38)
[2018-09-04] MEDS: FUROSEMIDE 40 MG/4 ML INJECTABLE VIAL IVPUSH SCH ×2 (06:48→14:25)
[2018-09-04] MEDS ORDERED: DOCUSATE SODIUM 100 MG CAPSULE (FP) PO ONE (10:33)
[2018-09-04] MEDS ORDERED: PT OWN MED DRAWER 7, Y5N ONE (10:35)
[2018-09-04] MEDS: ASPIRIN COATED 81 MG TABLET.EC PO SCH (10:52)
[2018-09-04] MEDS: CLOPIDOGREL BISULFATE 75 MG TABLET (FP) PO SCH (10:53)
[2018-09-04] MEDS: amLODIPine BESYLATE 5 MG TABLET (FP) PO SCH (10:53)
[2018-09-04] MEDS: metoPROLOL SUCCINATE 25 MG TAB.SR.24H (FP) PO SCH (11:31)
--- NOTE | 2018-09-04 11:50 | PN ---
Progress Note, Physician Chief Complaint: lethargy, weakness. denies chest pain. History of Present Illness: [facility] coverage for Dr. Bland Patient is a 78 year old male with a significant past medical history of PAD, HTN, HLD, CAD s/p quadruple bypass, PAD with multiple surgeries on the R leg, presents to the ED for evaluation of lethargy and weakness. Patient is also s/ p carotid endarectomy on August 18. Patient reports decreased appetite since his the carotid enderectomy but denies any chest pain, dizziness, neuro deficits. Patient called his exploration manager to report that he weaker and was told to seek medical attention which prompted an ED visit. In the ED he was noted to have elevated troponins 3.94>3.49, elevated BNP @15,484.5, elevated Cr 1.4 and low hmg/hct (9.0/29.0). He denies shortness of breath, but chest xray shows coarse lung changes with congestive findings and bibasilar atelectatic findings with fluid. His EKG shows ST depressions v1-v6 and patient admitted for further management of Nstemi. He is on a heparin drip pending further cardiology workup. - Current Medication List Current Medications: Active Medications Acetaminophen (Tylenol -) 650 mg PO Q6H PRN PRN Reason: PAIN LEVEL 4 - 6 Amlodipine Besylate (Norvasc -) 5 mg PO DAILY [facility] Last Admin: 09/04/18 10:53 Dose: 5 mg Aspirin (Ecotrin -) 81 mg PO DAILY [facility] Last Admin: 09/04/18 10:52 Dose: 81 mg Atorvastatin Calcium (Lipitor -) 80 mg PO HS [facility] Clopidogrel Bisulfate (Plavix -) 75 mg PO DAILY [facility] Last Admin: 09/04/18 10:53 Dose: 75 mg Docusate Sodium (Colace -) 100 mg PO BID [facility] Last Admin: 09/04/18 10:52 Dose: 100 mg Furosemide (Lasix Injection -) 60 mg IVPUSH BIDLASIX [facility] Last Admin: 09/04/18 06:48 Dose: 60 mg Heparin Sodium (Porcine) (Heparin -) 1,000 unit IVPUSH PRN PRN PRN Reason: Heparin Heparin Sodium (Porcine) (Heparin -) 5,000 unit IVPUSH PRN PRN PRN Reason: Heparin Heparin Sodium/Dextrose (Heparin Infusion -) 25,000 units in 500 mls @ 16 mls/ hr IVPB TITR TRI; Protocol Last Titration: 09/04/18 04:00 Dose: 900 units/hr, 18 mls/hr Metoprolol Succinate (Toprol Xl -) 25 mg PO DAILY@1200 TRI Last Admin: 09/04/18 11:31 Dose: 25 mg Senna (Senna -) 2 tab PO HS TRI Last Admin: 09/04/18 01:18 Dose: Not Given - Objective Vital Signs: Vital Signs Temperature 98.6 F 09/04/18 05:46 Pulse Rate 68 09/04/18 05:46 Respiratory Rate 16 09/03/18 16:22 Blood Pressure 135/57 L 09/04/18 05:46 O2 Sat by Pulse Oximetry (%) 92 L 09/04/18 05:46 Constitutional: Yes: Well Nourished, No Distress, Calm Eyes: Yes: WNL HENT: Yes: WNL Neck: Yes: Other Cardiovascular: Yes: Regular Rate and Rhythm Respiratory: Yes: Regular, Rales Gastrointestinal: Yes: WNL, Normal Bowel Sounds ...Rectal Exam: Yes: Deferred Genitourinary: Yes: WNL Edema: No Integumentary: Yes: WNL Wound/Incision: Yes: Clean/Dry Neurological: Yes: WNL, Alert, Oriented ...Motor Strength: WNL Psychiatric: Yes: WNL, Alert, Oriented Labs: CBC, BMP 09/04/18 05:30 09/04/18 05:30 INR, PTT INR 1.45 (0.83-1.09) H 09/04/18 03:17 - ....Imaging Chest X-ray: Image Reviewed EKG: Image Reviewed Problem List - Problems (1) NSTEMI (non-ST elevated myocardial infarction) Assessment/Plan: Therapeutic Aptt on a heparin drip. on Lipitor 80mg. Cardiology consulted, notes reviewed. Possible cardiac cath continue heparin drip. Code(s): I21.4 - NON-ST ELEVATION (NSTEMI) MYOCARDIAL INFARCTION (2) Abnormal EKG Assessment/Plan: Nstemi, STD on inferior leads. No chest pain on heparin drip, lipitor, asa, plavix Code(s): R94.31 - ABNORMAL ELECTROCARDIOGRAM [ECG] [EKG] (3) Elevated troponin Assessment/Plan: continue to trend to document peak Code(s): R79.89 - OTHER SPECIFIED ABNORMAL FINDINGS OF BLOOD CHEMISTRY (4) Congestive heart failure (CHF) Assessment/Plan: start lasix 60mg BID. monitor weights, intake and output and kidney function. Code(s): I50.9 - HEART FAILURE, UNSPECIFIED (5) CAD (coronary artery disease) of bypass graft Assessment/Plan: continue aspirin, plavix and toprol cardiac diet trend cardiac enzymes Code(s): I25.810 - ATHEROSCLEROSIS OF CABG W/O ANGINA PECTORIS (6) Hypertension Assessment/Plan: continue norvasc 10mg daily Code(s): I10 - ESSENTIAL (PRIMARY) HYPERTENSION (7) Prophylactic measure Assessment/Plan: fen toleraring po Bowel regimen with senna/colace monitor electrolytes on heparin drip Code(s): Z29.9 - ENCOUNTER FOR PROPHYLACTIC MEASURES, UNSPECIFIED Visit type - Emergency Visit Emergency Visit: Yes ED Registration Date: 09/03/18 Care time: The patient presented to the Emergency Department on the above date and was hospitalized for further evaluation of their emergent condition. - New Patient This patient is new to me today: Yes Date on this admission: 09/04/18 - Critical Care Critical Care patient: No - Discharge Referral Referred to [facility] Med [facility].C.: No
--- NOTE | 2018-09-04 12:25 | CON.CARD ---
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 Had been arguing with a lot. No particular complaints. No cp sob palps dizzy loc pnd orthopnea, le edema. In ER found with trop 3s and chf. Sees dr flores for cardio. pmhx/pshx: per hpi social hx: former smoker fam hx: no premature cad, scd ros: per hpi; all others normal Home Medications Medication Instructions Recorded Aspirin Coated [Ecotrin -] 81 mg PO DAILY #0 tablet.ec 05/20/12 Atorvastatin Calcium 40 mg PO HS 10/29/16 Metoprolol Succinate [Toprol XL -] 25 mg PO DAILY 10/29/16 Clopidogrel Bisulfate [Plavix] 75 mg PO DAILY 08/07/17 Amlodipine Besylate [Norvasc -] 5 mg PO DAILY 08/15/18 Multivit-Min/FA/Lycopen/Lutein 1 each PO DAILY 09/03/18 [Centrum Silver Tablet] Vital Signs Period Temp Pulse Resp BP Sys/Francisco Pulse Ox Last 24 Hr 97.8 F-98.6 F 68-72 16 135-139/50-57 92-96 nad, +jvd bl crackles and dec bs bases, nl eff rrr nl s1, s2 no mrg + bs soft nt nd, no hsm mild le edema bl, no c/c diminished dp/pt, no carotid bruits aa0x3 no jaundice diaphoresis Laboratory Last Values WBC 6.7 K/mm3 (4.0-10.0) 09/04/18 05:30 RBC 2.98 M/mm3 (4.00-5.60) L 09/04/18 05:30 Hgb 8.6 GM/dL (11.7-16.9) L 09/04/18 05:30 Hct 26.3 % (35.4-49) L 09/04/18 05:30 MCV 88.0 fl (80-96) 09/04/18 05:30 MCH 28.7 pg (25.7-33.7) 09/04/18 05:30 MCHC 32.6 g/dl (32.0-35.9) 09/04/18 05:30 RDW 15.6 % (11.9-15.9) 09/04/18 05:30 Plt Count 270 K/MM3 (134-434) 09/04/18 05:30 MPV 8.5 fl (7.5-11.1) 09/04/18 05:30 Absolute Neuts (auto) 5.4 K/mm3 (1.5-8.0) 09/04/18 05:30 Neutrophils % 80.3 % (42.8-82.8) 09/04/18 05:30 Lymphocytes % 8.9 % (8-40) D 09/04/18 05:30 Monocytes % 9.1 % (3.8-10.2) 09/04/18 05:30 Eosinophils % 1.3 % (0-4.5) 09/04/18 05:30 Basophils % 0.4 % (0-2.0) 09/04/18 05:30 Nucleated RBC % 0 % (0-0) 09/04/18 05:30 PT with INR 17.20 SEC (9.7-13.0) H 09/04/18 03:17 INR 1.45 (0.83-1.09) H 09/04/18 03:17 PTT (Actin FS) 51.7 SECONDS (25.2-36.5) H 09/04/18 11:18 Sodium 141 mmol/L (136-145) 09/04/18 05:30 Potassium 4.4 mmol/L (3.5-5.1) 09/04/18 05:30 Chloride 108 mmol/L (98-107) H 09/04/18 05:30 Carbon Dioxide 27 mmol/L (21-32) 09/04/18 05:30 Anion Gap 6 MMOL/L (8-16) L 09/04/18 05:30 BUN 55 mg/dL (7-18) H 09/04/18 05:30 Creatinine 1.3 mg/dL (0.55-1.3) 09/04/18 05:30 Est GFR (CKD-EPI)AfAm 61.00 09/04/18 05:30 Est GFR (CKD-EPI)NonAf 52.63 09/04/18 05:30 Random Glucose 106 mg/dL (74-106) 09/04/18 05:30 Hemoglobin A1c % 5.8 % (4.2-6.3) 09/04/18 05:30 Calcium 8.4 mg/dL (8.5-10.1) L 09/04/18 05:30 Phosphorus 3.9 mg/dL (2.5-4.9) 09/04/18 05:30 Magnesium 2.3 mg/dL (1.8-2.4) 09/04/18 05:30 Total Bilirubin 0.5 mg/dL (0.2-1) 09/04/18 05:30 AST 27 U/L (15-37) 09/04/18 05:30 ALT 65 U/L (13-61) H 09/04/18 05:30 Alkaline Phosphatase 87 U/L (45-117) 09/04/18 05:30 Creatine Kinase 103 U/L (26-308) 09/04/18 05:30 Troponin I 3.67 ng/ml (0.00-0.05) H* 09/04/18 05:30 B-Natriuretic Peptide 73704.5 pg/ml (5-450) H 09/03/18 15:29 Total Protein 5.9 g/dl (6.4-8.2) L 09/04/18 05:30 Albumin 3.0 g/dl (3.4-5.0) L 09/04/18 05:30 TSH 0.26 uIU/ml (0.358-3.74) L 09/04/18 05:30 Blood Type O POSITIVE 09/03/18 17:41 Antibody Screen Negative 09/03/18 17:41 ecg: sr nl intervals, old rbbb, new 0-[address] dep, no mauricio cxr: chf Echo 01/2017: 1. This was a technically difficult study with suboptimal views. 2. Nl LV/rv size/fn. 3. No regional wall motion abnormalities were noted within visualized territories. [place] not well seen. 4. The rv cavity not well seen. 7. Left atrium is normal size by volume. 8. 1+ aortic regurgitation. 9. laminar aortic atherosclerotic plaque present. 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 acute chf: -here with vol overload -check updated echo -cont iv lasix, daily wts, chem7 cad, nstemi: -pt has no cardiac sxs but has trop in 3's here, stable trend on repeat with nl ck. Also ecg with some mild lateral st depressions. Possibly demand ischemia 2 /2 chf but could represent nstemi as well given his cad hx. Will continue dapt and hep gtt for 72 hrs. After chf resolved would consider cardiac cath. -cont statin, bb -cont tele pad, cea's: -cont cardiac meds -s/p recent cea htn: -cont current meds hld: -cont statin
--- NOTE | 2018-09-04 13:35 | ECHO ---
Name: GLADIS HELMS Exam:Adult Echocardiogram Study Date: 09/04/2018 09:04 AM Age: 78 yrs Reason For Study: CHF Height: 70 in Weight: 168 lb BSA: 1.9 m2 MMode/2D Measurements & Calculations IVSd: 0.87 cm Ao root diam: 2.8 cm LVIDd: 6.2 cm LA dimension: 4.3 cm LVIDs: 5.2 cm LVPWd: 0.92 cm EDV(Teich): 190.8 ml LVOT diam: 1.9 cm ESV(Teich): 131.6 ml TAPSE: 1.3 cm RV S Atif: 9.2 cm/sec Doppler Measurements & Calculations MV E max atif: 114.0 cm/sec Ao V2 max: 184.6 cm/sec MV A max atif: 27.2 cm/sec Ao max P.6 mmHg MV E/A: 4.2 Ao V2 mean: 122.9 cm/sec Ao mean P.9 mmHg Ao V2 VTI: 42.4 cm CHASITY(I,D): 1.2 cm2 CHASITY(V,D): 1.2 cm2 LV V1 max P.3 mmHg MR max atif: 451.7 cm/sec LV V1 mean P.2 mmHg MR max P.6 mmHg LV V1 max: 75.7 cm/sec LV V1 mean: 50.9 cm/sec LV V1 VTI: 18.1 cm SV(LVOT): 53.0 ml Med Peak E' Atif: 4.8 cm/sec Med E/e': 23.8 Lat Peak E' Atif: 4.2 cm/sec Lat E/e': 26.9 Procedure A complete two-dimensional transthoracic echocardiogram was performed (2D, M-mode, Doppler and color flow Doppler). Left Ventricle The left ventricle is mildly dilated. Left ventricular systolic function is mildly reduced. Ejection Fraction = 40-45%. Anteroseptal hypokinesis. Right Ventricle The right ventricle is normal in size and function. Atria The left atrium is mildly dilated. Right atrial size is normal. Mitral Valve There is mild mitral regurgitation. Tricuspid Valve No tricuspid regurgitation. There was insufficient TR detected to calculate RV systolic pressure. Aortic Valve No hemodynamically significant valvular aortic stenosis. No aortic regurgitation is present. Pulmonic Valve There is no pulmonic valvular regurgitation. Great Vessels The aortic root is normal size. Pericardium/Pleura There is no pericardial effusion. Interpretation Summary The left ventricle is mildly dilated. Left ventricular systolic function is mildly reduced. Anteroseptal hypokinesis. The right ventricle is normal in size and function. The left atrium is mildly dilated. There is mild mitral regurgitation. MD David Barriga 09/04/2018 01:35 PM
--- NOTE | 2018-09-04 16:49 | EKG ---
Test Reason : Blood Pressure : / mmHG Vent. Rate : 069 BPM Atrial Rate : 069 BPM P-R Int : 108 ms QRS Dur : 120 ms QT Int : 454 ms P-R-T Axes : 066 -42 075 degrees QTc Int : 486 ms POOR DATA QUALITY, INTERPRETATION MAY BE ADVERSELY AFFECTED SINUS RHYTHM WITH SHORT RI POSSIBLE LEFT ATRIAL ENLARGEMENT LEFT AXIS DEVIATION RIGHT BUNDLE BRANCH BLOCK SEPTAL INFARCT , AGE UNDETERMINED ABNORMAL ECG WHEN COMPARED WITH ECG OF 07-AUG-2017 15:49, SIGNIFICANT CHANGES HAVE OCCURRED Confirmed by GILMA VENCES MD ([id number]) on 09/04/2018 4:49:15 PM Referred By: Confirmed By:GILMA VENCES MD
[2018-09-04] MEDS: HEPARIN INFUSION - 25,000 UNITS/500 ML INFUS.BAG IVPB SCH (21:44)
[2018-09-04] MEDS: ATORVASTATIN CA 40 MG TABLET (FP) PO SCH (21:45)
[2018-09-05] MEDS: FUROSEMIDE 40 MG/4 ML INJECTABLE VIAL IVPUSH SCH ×2 (06:43→15:48)
[2018-09-05 08:04] LABS: HEMATOCRIT 23.9 % (35.4-49); HEMOGLOBIN 7.8 GM/dL (11.7-16.9); MCH 28.3 pg (25.7-33.7); MCHC 32.5 g/dl (32.0-35.9); MEAN CELL VOLUME 87.2 fl (80-96); MEAN PLT VOLUME 8.7 fl (7.5-11.1); PLATELET COUNT 253 K/MM3 (134-434); RBC 2.74 M/mm3 (4.00-5.60); RDW 15.5 % (11.9-15.9); WHITE BLOOD COUNT 6.1 K/mm3 (4.0-10.0)
[2018-09-05 08:46] LABS: CREATININE 1.2 mg/dL (0.55-1.3)
[2018-09-05 08:47] LABS: ALBUMIN 2.8 g/dl (3.4-5.0); BILIRUBIN,TOTAL 0.6 mg/dL (0.2-1); CALCIUM 8.7 mg/dL (8.5-10.1); MAGNESIUM 2.3 mg/dL (1.8-2.4); POTASSIUM 4.2 mmol/L (3.5-5.1); TOT PROT 5.4 g/dl (6.4-8.2)
--- NOTE | 2018-09-05 10:35 | PN ---
Progress Note, Physician Chief Complaint: sitting in chair Denies CP TELE: NSR, NSVT - Current Medication List Current Medications: Active Medications Acetaminophen (Tylenol -) 650 mg PO Q6H PRN PRN Reason: PAIN LEVEL 4 - 6 Amlodipine Besylate (Norvasc -) 5 mg PO DAILY [facility] Last Admin: 09/04/18 10:53 Dose: 5 mg Aspirin (Ecotrin -) 81 mg PO DAILY [facility] Last Admin: 09/04/18 10:52 Dose: 81 mg Atorvastatin Calcium (Lipitor -) 80 mg PO HS [facility] Last Admin: 09/04/18 21:45 Dose: 80 mg Clopidogrel Bisulfate (Plavix -) 75 mg PO DAILY [facility] Last Admin: 09/04/18 10:53 Dose: 75 mg Docusate Sodium (Colace -) 100 mg PO BID [facility] Last Admin: 09/04/18 21:45 Dose: 100 mg Furosemide (Lasix Injection -) 60 mg IVPUSH BIDLASIX [facility] Last Admin: 09/05/18 06:43 Dose: 60 mg Heparin Sodium (Porcine) (Heparin -) 1,000 unit IVPUSH PRN PRN PRN Reason: Heparin Heparin Sodium (Porcine) (Heparin -) 5,000 unit IVPUSH PRN PRN PRN Reason: Heparin Heparin Sodium/Dextrose (Heparin Infusion -) 25,000 units in 500 mls @ 16 mls/ hr IVPB TITR [facility]; Protocol Last Admin: 09/04/18 21:44 Dose: 900 units/hr, 18 mls/hr Metoprolol Succinate (Toprol Xl -) 25 mg PO DAILY@1200 [facility] Last Admin: 09/04/18 11:31 Dose: 25 mg Senna (Senna -) 2 tab PO HS [facility] Last Admin: 09/04/18 21:45 Dose: 2 tab - Objective Vital Signs: Vital Signs Temperature 98.0 F 09/05/18 06:00 Pulse Rate 70 09/05/18 06:00 Respiratory Rate 20 09/05/18 06:00 Blood Pressure 132/66 09/05/18 06:00 O2 Sat by Pulse Oximetry (%) 92 L 09/04/18 21:00 Constitutional: Yes: Calm Cardiovascular: Yes: Regular Rate and Rhythm Respiratory: Yes: Other (rales at bases) Gastrointestinal: Yes: Soft Edema: No Neurological: Yes: Alert, Oriented Labs: CBC, BMP 09/05/18 06:26 09/05/18 06:26 INR, PTT INR 1.45 (0.83-1.09) H 09/04/18 03:17 Laboratory Tests 09/03/18 09/03/18 09/04/18 15:29 18:55 03:17 WBC Hgb Plt Count PTT (Actin FS) Sodium Potassium BUN Creatinine Creatine Kinase 121 116 Troponin I 3.94 H* 3.49 H* 3.73 H* 09/04/18 09/05/18 09/05/18 05:30 06:26 06:26 WBC 6.1 Hgb 7.8 L Plt Count 253 PTT (Actin FS) 52.3 H Sodium Potassium BUN Creatinine Creatine Kinase 103 Troponin I 3.67 H* 09/05/18 06:26 WBC Hgb Plt Count PTT (Actin FS) Sodium 142 Potassium 4.2 BUN 52 H Creatinine 1.2 Creatine Kinase Troponin I 3.17 H* - ....Imaging EKG: Image Reviewed Other: Other (ECHO: Mild EF, mild hypokinesis) Assessment/Plan [facility] 03/21: 70-80% LMCA; 95% pLAD; 80% mLAD; WEATHERIZATION SPECIALIST of RCA fills via bridge and LCX collat.s); pLCX 50-60% ASSESSMENT/PLAN 78 yo m with pmhx of CAD s/p CABG 2013 with ischemic cardiopathy (EF now normalized), hl, pad s/p left CEA and right cea (08/18/18), s/p left fem-pop bypass, Right fem-pop 10/31/16, 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 Also ecg with some mild lateral st depressions. Possibly demand ischemia 2 /2 chf but could represent nstemi as well given his cad hx. Will continue dapt and hep gtt for 72 hrs. After chf resolved would consider cardiac cath. -cont statin, bb -cont tele pad, cea's: -cont cardiac meds -s/p recent cea htn: -cont current meds hld: -cont statin
[2018-09-05] MEDS: CLOPIDOGREL BISULFATE 75 MG TABLET (FP) PO SCH (11:21)
[2018-09-05] MEDS: metoPROLOL SUCCINATE 25 MG TAB.SR.24H (FP) PO SCH (11:21)
[2018-09-05] MEDS: amLODIPine BESYLATE 5 MG TABLET (FP) PO SCH (11:21)
[2018-09-05] MEDS: DOCUSATE SODIUM 100 MG CAPSULE (FP) PO SCH ×2 (11:21→21:49)
[2018-09-05] MEDS: ASPIRIN COATED 81 MG TABLET.EC PO SCH (11:21)
[2018-09-05] MEDS: HEPARIN INFUSION - 25,000 UNITS/500 ML INFUS.BAG IVPB SCH (21:49)
[2018-09-05] MEDS: ATORVASTATIN CA 40 MG TABLET (FP) PO SCH (21:49)
[2018-09-05] MEDS: SENNOSIDES 8.6MG TABLET (FP) PO SCH (21:50)
--- NOTE | 2018-09-05 22:26 | PN ---
Progress Note, Physician Chief Complaint: lethargy, weakness. denies chest pain. History of Present Illness: [facility] coverage for Dr. Bland Patient is a 78 year old male with a significant past medical history of PAD, HTN, HLD, CAD s/p quadruple bypass, PAD with multiple surgeries on the R leg, presents to the ED for evaluation of lethargy and weakness. Patient is also s/ p carotid endarectomy on August 18. Patient reports decreased appetite since his the carotid enderectomy but denies any chest pain, dizziness, neuro deficits. Patient called his engineer automated equipment to report that he weaker and was told to seek medical attention which prompted an ED visit. In the ED he was noted to have elevated troponins 3.94>3.49, elevated BNP @15,484.5, elevated Cr 1.4 and low hmg/hct (9.0/29.0). He denies shortness of breath, but chest xray shows coarse lung changes with congestive findings and bibasilar atelectatic findings with fluid. His EKG shows ST depressions v1-v6 and patient admitted for further management of Nstemi. He is on a heparin drip pending further cardiology workup. - Current Medication List Current Medications: Active Medications Acetaminophen (Tylenol -) 650 mg PO Q6H PRN PRN Reason: PAIN LEVEL 4 - 6 Amlodipine Besylate (Norvasc -) 5 mg PO DAILY [facility] Last Admin: 09/05/18 11:21 Dose: 5 mg Aspirin (Ecotrin -) 81 mg PO DAILY [facility] Last Admin: 09/05/18 11:21 Dose: 81 mg Atorvastatin Calcium (Lipitor -) 80 mg PO HS [facility] Last Admin: 09/05/18 21:49 Dose: 80 mg Clopidogrel Bisulfate (Plavix -) 75 mg PO DAILY [facility] Last Admin: 09/05/18 11:21 Dose: 75 mg Docusate Sodium (Colace -) 100 mg PO BID [facility] Last Admin: 09/05/18 21:49 Dose: Not Given Furosemide (Lasix Injection -) 60 mg IVPUSH BIDLASIX [facility] Last Admin: 09/05/18 15:48 Dose: 60 mg Heparin Sodium (Porcine) (Heparin -) 1,000 unit IVPUSH PRN PRN PRN Reason: Heparin Heparin Sodium (Porcine) (Heparin -) 5,000 unit IVPUSH PRN PRN PRN Reason: Heparin Heparin Sodium/Dextrose (Heparin Infusion -) 25,000 units in 500 mls @ 16 mls/ hr IVPB TITR [facility]; Protocol Last Admin: 09/05/18 21:49 Dose: 900 units/hr, 18 mls/hr Metoprolol Succinate (Toprol Xl -) 25 mg PO DAILY@1200 [facility] Last Admin: 09/05/18 11:21 Dose: 25 mg Senna (Senna -) 2 tab PO HS [facility] Last Admin: 09/05/18 21:50 Dose: 2 tab - Objective Vital Signs: Vital Signs Temperature 98.3 F 09/05/18 17:00 Pulse Rate 71 09/05/18 17:00 Respiratory Rate 20 09/05/18 17:00 Blood Pressure 113/56 L 09/05/18 17:00 O2 Sat by Pulse Oximetry (%) 96 09/05/18 09:00 Constitutional: Yes: Well Nourished Eyes: Yes: Conjunctiva Clear HENT: Yes: Atraumatic Neck: Yes: Supple Cardiovascular: Yes: WNL, Regular Rate and Rhythm Respiratory: Yes: Regular, CTA Bilaterally Gastrointestinal: Yes: Normal Bowel Sounds Edema: Yes Edema: LLE: Trace, RLE: Trace Labs: CBC, BMP 09/05/18 06:26 09/05/18 06:26 INR, PTT INR 1.45 (0.83-1.09) H 09/04/18 03:17 Problem List - Problems (1) NSTEMI (non-ST elevated myocardial infarction) Assessment/Plan: Therapeutic Aptt on a heparin drip. on Lipitor 80mg. Cardiology consulted, notes reviewed. Possible cardiac cath after chf resolved per cardiology. continue heparin drip. Code(s): I21.4 - NON-ST ELEVATION (NSTEMI) MYOCARDIAL INFARCTION (2) Abnormal EKG Assessment/Plan: Nstemi, STD on inferior leads. No chest pain on heparin drip, lipitor, asa, plavix Code(s): R94.31 - ABNORMAL ELECTROCARDIOGRAM [ECG] [EKG] (3) Elevated troponin Assessment/Plan: continue to trend to document peak Code(s): R79.89 - OTHER SPECIFIED ABNORMAL FINDINGS OF BLOOD CHEMISTRY (4) Congestive heart failure (CHF) Assessment/Plan: start lasix 60mg BID. monitor weights, intake and output and kidney function. Code(s): I50.9 - HEART FAILURE, UNSPECIFIED (5) CAD (coronary artery disease) of bypass graft Assessment/Plan: continue aspirin, plavix and toprol cardiac diet trend cardiac enzymes Code(s): I25.810 - ATHEROSCLEROSIS OF CABG W/O ANGINA PECTORIS (6) Hypertension Assessment/Plan: continue norvasc 10mg daily Code(s): I10 - ESSENTIAL (PRIMARY) HYPERTENSION (7) Anemia Assessment/Plan: hmg/hct lower today. Repeat labs in a.m., if continues to downtrend, will transfuse to maintain hmg > 8 Code(s): D64.9 - ANEMIA, UNSPECIFIED (8) Prophylactic measure Assessment/Plan: fen toleraring po Bowel regimen with senna/colace monitor electrolytes on heparin drip Code(s): Z29.9 - ENCOUNTER FOR PROPHYLACTIC MEASURES, UNSPECIFIED Visit type - Emergency Visit Emergency Visit: Yes ED Registration Date: 09/03/18 Care time: The patient presented to the Emergency Department on the above date and was hospitalized for further evaluation of their emergent condition. - New Patient This patient is new to me today: No - Critical Care Critical Care patient: No - Discharge Referral Referred to [facility] Med P.C.: No
[2018-09-06] MEDS: FUROSEMIDE 40 MG/4 ML INJECTABLE VIAL IVPUSH SCH ×2 (05:40→15:00)
[2018-09-06 07:59] LABS: ALBUMIN 2.6 g/dl (3.4-5.0); BILIRUBIN,TOTAL 0.4 mg/dL (0.2-1); CALCIUM 8.3 mg/dL (8.5-10.1); CREATININE 1.2 mg/dL (0.55-1.3); POTASSIUM 4.1 mmol/L (3.5-5.1); TOT PROT 5.3 g/dl (6.4-8.2)
[2018-09-06 08:29] LABS: BASO % 0.3 % (0-2.0); HEMATOCRIT 22.1 % (35.4-49); LYMPH % 8.1 % (8-40); MCH 27.7 pg (25.7-33.7); MCHC 31.4 g/dl (32.0-35.9); MEAN CELL VOLUME 88.4 fl (80-96); MEAN PLT VOLUME 8.9 fl (7.5-11.1); MONO % 8.1 % (3.8-10.2); NEUT % 82.5 % (42.8-82.8); PLATELET COUNT 235 K/MM3 (134-434); RDW 15.5 % (11.9-15.9); WHITE BLOOD COUNT 7.2 K/mm3 (4.0-10.0)
[2018-09-06 08:39] LABS: HEMOGLOBIN 6.9 GM/dL (11.7-16.9)
[2018-09-06] MEDS: DOCUSATE SODIUM 100 MG CAPSULE (FP) PO SCH ×2 (10:00→21:33)
[2018-09-06] MEDS: amLODIPine BESYLATE 5 MG TABLET (FP) PO SCH (10:00)
[2018-09-06] MEDS: CLOPIDOGREL BISULFATE 75 MG TABLET (FP) PO SCH (10:00)
[2018-09-06] MEDS: ASPIRIN COATED 81 MG TABLET.EC PO SCH (10:00)
--- NOTE | 2018-09-06 10:36 | PN ---
Progress Note, Physician History of Present Illness: No CV complaints today Tele: None - Current Medication List Current Medications: Active Medications Acetaminophen (Tylenol -) 650 mg PO Q6H PRN PRN Reason: PAIN LEVEL 4 - 6 Amlodipine Besylate (Norvasc -) 5 mg PO DAILY [facility] Last Admin: 09/06/18 10:00 Dose: 5 mg Aspirin (Ecotrin -) 81 mg PO DAILY [facility] Last Admin: 09/06/18 10:00 Dose: 81 mg Atorvastatin Calcium (Lipitor -) 80 mg PO HS [facility] Last Admin: 09/05/18 21:49 Dose: 80 mg Clopidogrel Bisulfate (Plavix -) 75 mg PO DAILY [facility] Last Admin: 09/06/18 10:00 Dose: 75 mg Docusate Sodium (Colace -) 100 mg PO BID [facility] Last Admin: 09/06/18 10:00 Dose: 100 mg Furosemide (Lasix Injection -) 60 mg IVPUSH BIDLASIX [facility] Last Admin: 09/06/18 05:40 Dose: 60 mg Heparin Sodium (Porcine) (Heparin -) 1,000 unit IVPUSH PRN PRN PRN Reason: Heparin Heparin Sodium (Porcine) (Heparin -) 5,000 unit IVPUSH PRN PRN PRN Reason: Heparin Heparin Sodium/Dextrose (Heparin Infusion -) 25,000 units in 500 mls @ 16 mls/ hr IVPB TITR [facility]; Protocol Last Admin: 09/05/18 21:49 Dose: 900 units/hr, 18 mls/hr Metoprolol Succinate (Toprol Xl -) 25 mg PO DAILY@1200 [facility] Last Admin: 09/05/18 11:21 Dose: 25 mg Senna (Senna -) 2 tab PO HS [facility] Last Admin: 09/05/18 21:50 Dose: 2 tab - Objective Vital Signs: Vital Signs Temperature 99.3 F 09/06/18 08:41 Pulse Rate 74 09/06/18 08:41 Respiratory Rate 18 09/06/18 08:41 Blood Pressure 122/54 L 09/06/18 08:41 O2 Sat by Pulse Oximetry (%) 97 09/05/18 21:00 Constitutional: Yes: Other (Pale) Cardiovascular: Yes: Regular Rate and Rhythm Respiratory: Yes: CTA Bilaterally Extremities: Yes: WNL Edema: No Labs: CBC, BMP 09/06/18 05:55 09/06/18 05:55 INR, PTT INR 1.45 (0.83-1.09) H 09/04/18 03:17 Assessment/Plan 78 yo m with pmhx of CAD s/p CABG 2013 with ischemic cardiopathy (EF now normalized), hl, pad s/p left CEA and right cea (08/18/18), s/p left fem-pop bypass, Right fem-pop 10/31/16, 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 Also ecg with some mild lateral st depressions. Possibly demand ischemia 2 /2 chf but could represent nstemi as well given his cad hx. Will continue dapt and hep gtt for 72 hrs. -cont statin, bb -cont tele -HGb down to 6.9 and will receive transfusion. Would manage (+) troponin conservatively and avoid IV Heparin and cath in this setting pad, cea's: -cont cardiac meds -s/p recent cea htn: -cont current meds hld: -cont statin
[2018-09-06] MEDS: metoPROLOL SUCCINATE 25 MG TAB.SR.24H (FP) PO SCH (13:25)
--- NOTE | 2018-09-06 15:33 | PN ---
Progress Note, Physician Chief Complaint: lethargy, weakness. denies chest pain. History of Present Illness: [facility] coverage for Dr. Bland Patient is a 78 year old male with a significant past medical history of PAD, HTN, HLD, CAD s/p quadruple bypass, PAD with multiple surgeries on the R leg, presents to the ED for evaluation of lethargy and weakness. Patient is also s/ p carotid endarectomy on August 18. Patient reports decreased appetite since his the carotid enderectomy but denies any chest pain, dizziness, neuro deficits. Patient called his vessel traffic officer to report that he weaker and was told to seek medical attention which prompted an ED visit. In the ED he was noted to have elevated troponins 3.94>3.49, elevated BNP @15,484.5, elevated Cr 1.4 and low hmg/hct (9.0/29.0). He denies shortness of breath, but chest xray shows coarse lung changes with congestive findings and bibasilar atelectatic findings with fluid. His EKG shows ST depressions v1-v6 and patient admitted for further management of Nstemi. He is on a heparin drip pending further cardiology workup. He is for 2 units of prbc for low hmg/hct. - Current Medication List Current Medications: Active Medications Acetaminophen (Tylenol -) 650 mg PO Q6H PRN PRN Reason: PAIN LEVEL 4 - 6 Amlodipine Besylate (Norvasc -) 5 mg PO DAILY [facility] Last Admin: 09/06/18 10:00 Dose: 5 mg Aspirin (Ecotrin -) 81 mg PO DAILY [facility] Last Admin: 09/06/18 10:00 Dose: 81 mg Atorvastatin Calcium (Lipitor -) 80 mg PO HS [facility] Last Admin: 09/05/18 21:49 Dose: 80 mg Clopidogrel Bisulfate (Plavix -) 75 mg PO DAILY [facility] Last Admin: 09/06/18 10:00 Dose: 75 mg Docusate Sodium (Colace -) 100 mg PO BID [facility] Last Admin: 09/06/18 10:00 Dose: 100 mg Furosemide (Lasix Injection -) 60 mg IVPUSH BIDLASIX [facility] Last Admin: 09/06/18 15:00 Dose: 60 mg Heparin Sodium (Porcine) (Heparin -) 1,000 unit IVPUSH PRN PRN PRN Reason: Heparin Last Admin: 09/06/18 15:22 Dose: 1,000 unit Heparin Sodium (Porcine) (Heparin -) 5,000 unit IVPUSH PRN PRN PRN Reason: Heparin Heparin Sodium/Dextrose (Heparin Infusion -) 25,000 units in 500 mls @ 16 mls/ hr IVPB TITR [facility]; Protocol Last Titration: 09/06/18 15:21 Dose: 1,000 units/hr, 20 mls/hr Metoprolol Succinate (Toprol Xl -) 25 mg PO DAILY@1200 [facility] Last Admin: 09/06/18 13:25 Dose: 25 mg Senna (Senna -) 2 tab PO HS [facility] Last Admin: 09/05/18 21:50 Dose: 2 tab - Objective Vital Signs: Vital Signs Temperature 99.3 F 09/06/18 08:41 Pulse Rate 74 09/06/18 08:41 Respiratory Rate 18 09/06/18 08:41 Blood Pressure 122/54 L 09/06/18 08:41 O2 Sat by Pulse Oximetry (%) 97 09/05/18 21:00 Constitutional: Yes: No Distress, Calm, Pallor Eyes: Yes: WNL HENT: Yes: WNL Neck: Yes: WNL Cardiovascular: Yes: Regular Rate and Rhythm Respiratory: Yes: Regular Gastrointestinal: Yes: Normal Bowel Sounds, Soft ...Rectal Exam: Yes: Deferred Genitourinary: Yes: WNL Musculoskeletal: Yes: WNL Extremities: Yes: WNL Edema: No Peripheral Pulses WNL: No Integumentary: Yes: WNL Neurological: Yes: WNL Psychiatric: Yes: WNL Labs: CBC, BMP 09/06/18 05:55 09/06/18 05:55 INR, PTT INR 1.45 (0.83-1.09) H 09/04/18 03:17 Problem List - Problems (1) NSTEMI (non-ST elevated myocardial infarction) Assessment/Plan: subtherapeutic Aptt on a heparin drip. aptt to be drawn now with goal aptt between 50-75. On Lipitor 80mg. Cardiology following, notes reviewed. Possible cardiac cath after chf resolved per cardiology. continue heparin drip. Code(s): I21.4 - NON-ST ELEVATION (NSTEMI) MYOCARDIAL INFARCTION (2) Abnormal EKG Assessment/Plan: Nstemi, STD on inferior leads. No chest pain on heparin drip, lipitor, asa, plavix Code(s): R94.31 - ABNORMAL ELECTROCARDIOGRAM [ECG] [EKG] (3) Elevated troponin Assessment/Plan: continue to trend to document peak Code(s): R79.89 - OTHER SPECIFIED ABNORMAL FINDINGS OF BLOOD CHEMISTRY (4) Congestive heart failure (CHF) Assessment/Plan: start lasix 60mg BID. weights show decrease from 76kg >71kg. monitor weights daily, intake and output and kidney function. Code(s): I50.9 - HEART FAILURE, UNSPECIFIED (5) CAD (coronary artery disease) of bypass graft Assessment/Plan: continue aspirin, plavix and toprol cardiac diet trend cardiac enzymes Code(s): I25.810 - ATHEROSCLEROSIS OF CABG W/O ANGINA PECTORIS (6) Hypertension Assessment/Plan: continue norvasc 10mg daily Code(s): I10 - ESSENTIAL (PRIMARY) HYPERTENSION (7) Anemia Assessment/Plan: hmg/hct lower today. will requires prbc transfusion x 2. Repeat labs in a.m., if continues to downtrend, will transfuse to maintain hmg > 8 Code(s): D64.9 - ANEMIA, UNSPECIFIED (8) Prophylactic measure Assessment/Plan: fen toleraring po Bowel regimen with senna/colace monitor electrolytes on heparin drip Code(s): Z29.9 - ENCOUNTER FOR PROPHYLACTIC MEASURES, UNSPECIFIED Visit type - Emergency Visit Emergency Visit: Yes ED Registration Date: 09/03/18 Care time: The patient presented to the Emergency Department on the above date and was hospitalized for further evaluation of their emergent condition. - New Patient This patient is new to me today: No - Critical Care Critical Care patient: No - Discharge Referral Referred to [facility] Med P.C.: No
[2018-09-06] MEDS: SENNOSIDES 8.6MG TABLET (FP) PO SCH (21:33)
[2018-09-06] MEDS: ATORVASTATIN CA 40 MG TABLET (FP) PO SCH (21:33)
[2018-09-07] MEDS: FUROSEMIDE 40 MG/4 ML INJECTABLE VIAL IVPUSH SCH ×2 (05:56→14:01)
[2018-09-07 06:14] LABS: HEMATOCRIT 24.6 % (35.4-49); HEMOGLOBIN 8.3 GM/dL (11.7-16.9); MCH 29.2 pg (25.7-33.7); MCHC 33.8 g/dl (32.0-35.9); MEAN CELL VOLUME 86.3 fl (80-96); MEAN PLT VOLUME 8.5 fl (7.5-11.1); PLATELET COUNT 208 K/MM3 (134-434); RBC 2.85 M/mm3 (4.00-5.60); RDW 15.1 % (11.9-15.9); WHITE BLOOD COUNT 6.2 K/mm3 (4.0-10.0)
[2018-09-07 09:18] LABS: BASO % 0.8 % (0-2.0); EOS % 1.2 % (0-4.5); LYMPH % 11.5 % (8-40); MONO % 8.5 % (3.8-10.2)
[2018-09-07] MEDS ORDERED: PT OWN MED DRAWER 7, Y5N ONE (09:22)
--- NOTE | 2018-09-07 09:27 | PN ---
Progress Note, Physician Chief Complaint: lethargy, weakness. denies chest pain. History of Present Illness: [facility] coverage for Dr. Bland Patient is a 78 year old male with a significant past medical history of PAD, HTN, HLD, CAD s/p quadruple bypass, PAD with multiple surgeries on the R leg, presents to the ED for evaluation of lethargy and weakness. Patient is also s/ p carotid endarectomy on August 18. Patient reports decreased appetite since his the carotid enderectomy but denies any chest pain, dizziness, neuro deficits. Patient called his animal keeper to report that he weaker and was told to seek medical attention which prompted an ED visit. In the ED he was noted to have elevated troponins 3.94>3.49, elevated BNP @15,484.5, elevated Cr 1.4 and low hmg/hct (9.0/29.0). He denies shortness of breath, but chest xray shows coarse lung changes with congestive findings and bibasilar atelectatic findings with fluid. His EKG shows ST depressions v1-v6 and patient admitted for further management of Nstemi. Heparin drip discontinued on 09/06/18 by cardiology. Tele: NSR 67 - Current Medication List Current Medications: Active Medications Acetaminophen (Tylenol -) 650 mg PO Q6H PRN PRN Reason: PAIN LEVEL 4 - 6 Amlodipine Besylate (Norvasc -) 5 mg PO DAILY [facility] Last Admin: 09/06/18 10:00 Dose: 5 mg Aspirin (Ecotrin -) 81 mg PO DAILY [facility] Last Admin: 09/06/18 10:00 Dose: 81 mg Atorvastatin Calcium (Lipitor -) 80 mg PO HS [facility] Last Admin: 09/06/18 21:33 Dose: 80 mg Clopidogrel Bisulfate (Plavix -) 75 mg PO DAILY [facility] Last Admin: 09/06/18 10:00 Dose: 75 mg Docusate Sodium (Colace -) 100 mg PO BID [facility] Last Admin: 09/06/18 21:33 Dose: 100 mg Furosemide (Lasix Injection -) 60 mg IVPUSH BIDLASIX [facility] Last Admin: 09/07/18 05:56 Dose: 60 mg Metoprolol Succinate (Toprol Xl -) 25 mg PO DAILY@1200 [facility] Last Admin: 09/06/18 13:25 Dose: 25 mg Senna (Senna -) 2 tab PO HS [facility] Last Admin: 09/06/18 21:33 Dose: 2 tab - Objective Vital Signs: Vital Signs Temperature 98.2 F 09/07/18 05:51 Pulse Rate 63 09/07/18 05:51 Respiratory Rate 18 09/07/18 05:51 Blood Pressure 110/46 L 09/07/18 05:51 O2 Sat by Pulse Oximetry (%) 98 09/06/18 20:49 Constitutional: Yes: Well Nourished, No Distress, Calm Eyes: Yes: WNL HENT: Yes: WNL Neck: Yes: WNL Cardiovascular: Yes: Regular Rate and Rhythm Respiratory: Yes: Regular Gastrointestinal: Yes: WNL, Normal Bowel Sounds Genitourinary: Yes: WNL Breast(s): Yes: WNL Musculoskeletal: Yes: WNL Extremities: Yes: WNL Edema: No Peripheral Pulses WNL: No Integumentary: Yes: WNL Neurological: Yes: WNL, Alert, Oriented Labs: CBC, BMP 09/07/18 05:30 09/06/18 05:55 INR, PTT INR 1.45 (0.83-1.09) H 09/04/18 03:17 Problem List - Problems (1) NSTEMI (non-ST elevated myocardial infarction) Assessment/Plan: heparin drip discontinued On Lipitor 80mg. Cardiology following, notes reviewed. Possible cardiac cath after chf resolved per cardiology, further workup per cardiology Patient is without chest pain, denies shortness of breath. comfortable at rest. Code(s): I21.4 - NON-ST ELEVATION (NSTEMI) MYOCARDIAL INFARCTION (2) Abnormal EKG Assessment/Plan: Nstemi, STD on inferior leads. No chest pain on heparin drip, lipitor, asa, plavix Code(s): R94.31 - ABNORMAL ELECTROCARDIOGRAM [ECG] [EKG] (3) Elevated troponin Assessment/Plan: continue to trend to document peak Code(s): R79.89 - OTHER SPECIFIED ABNORMAL FINDINGS OF BLOOD CHEMISTRY (4) Congestive heart failure (CHF) Assessment/Plan: start lasix 60mg BID. weights show decrease from 76kg >69kg. monitor weights daily, intake and output and kidney function. Code(s): I50.9 - HEART FAILURE, UNSPECIFIED (5) CAD (coronary artery disease) of bypass graft Assessment/Plan: continue aspirin, plavix and toprol cardiac diet trend cardiac enzymes Code(s): I25.810 - ATHEROSCLEROSIS OF CABG W/O ANGINA PECTORIS (6) Hypertension Assessment/Plan: continue norvasc 10mg daily. BP stable. Code(s): I10 - ESSENTIAL (PRIMARY) HYPERTENSION (7) Anemia Assessment/Plan: s/p two units of PRBC. hmg/hct now stable. goal is to maintain hmg >8 Code(s): D64.9 - ANEMIA, UNSPECIFIED (8) Prophylactic measure Assessment/Plan: fen toleraring po Bowel regimen with senna/colace monitor electrolytes SCDs prophy: heparin drip discontinued, dvt prophy with heparin bid Code(s): Z29.9 - ENCOUNTER FOR PROPHYLACTIC MEASURES, UNSPECIFIED Visit type - Emergency Visit Emergency Visit: Yes ED Registration Date: 09/03/18 Care time: The patient presented to the Emergency Department on the above date and was hospitalized for further evaluation of their emergent condition. - New Patient This patient is new to me today: No - Critical Care Critical Care patient: No - Discharge Referral Referred to [facility] Med P.C.: No
[2018-09-07] MEDS: ASPIRIN COATED 81 MG TABLET.EC PO SCH (09:31)
[2018-09-07] MEDS: CLOPIDOGREL BISULFATE 75 MG TABLET (FP) PO SCH (09:31)
[2018-09-07] MEDS: DOCUSATE SODIUM 100 MG CAPSULE (FP) PO SCH ×2 (09:31→22:03)
[2018-09-07] MEDS: amLODIPine BESYLATE 5 MG TABLET (FP) PO SCH (09:32)
[2018-09-07 10:11] LABS: BILIRUBIN,TOTAL 0.8 mg/dL (0.2-1); CALCIUM 8.8 mg/dL (8.5-10.1); CREATININE 1.4 mg/dL (0.55-1.3); MAGNESIUM 2.1 mg/dL (1.8-2.4); POTASSIUM 3.8 mmol/L (3.5-5.1)
--- NOTE | 2018-09-07 10:37 | PN ---
Progress Note, Physician History of Present Illness: No CV complaints No chest paisn or dyspnea Received PRBC with appropriate increase - Current Medication List Current Medications: Active Medications Acetaminophen (Tylenol -) 650 mg PO Q6H PRN PRN Reason: PAIN LEVEL 4 - 6 Amlodipine Besylate (Norvasc -) 5 mg PO DAILY [facility] Last Admin: 09/07/18 09:32 Dose: 5 mg Aspirin (Ecotrin -) 81 mg PO DAILY [facility] Last Admin: 09/07/18 09:31 Dose: 81 mg Atorvastatin Calcium (Lipitor -) 80 mg PO HS [facility] Last Admin: 09/06/18 21:33 Dose: 80 mg Clopidogrel Bisulfate (Plavix -) 75 mg PO DAILY [facility] Last Admin: 09/07/18 09:31 Dose: 75 mg Docusate Sodium (Colace -) 100 mg PO BID [facility] Last Admin: 09/07/18 09:31 Dose: 100 mg Furosemide (Lasix Injection -) 60 mg IVPUSH BIDLASIX [facility] Last Admin: 09/07/18 05:56 Dose: 60 mg Heparin Sodium (Porcine) (Heparin -) 5,000 unit SQ BID [facility] Metoprolol Succinate (Toprol Xl -) 25 mg PO DAILY@1200 [facility] Last Admin: 09/06/18 13:25 Dose: 25 mg Senna (Senna -) [address] [facility] Last Admin: 09/06/18 21:33 Dose: 2 tab - Objective Vital Signs: Vital Signs Temperature 98.1 F 09/07/18 09:00 Pulse Rate 69 09/07/18 09:00 Respiratory Rate 18 09/07/18 09:00 Blood Pressure 117/56 L 09/07/18 09:00 O2 Sat by Pulse Oximetry (%) 98 09/07/18 09:00 Constitutional: Yes: Well Nourished, No Distress Eyes: Yes: WNL HENT: Yes: WNL Neck: Yes: Trachea Midline Cardiovascular: Yes: Regular Rate and Rhythm Respiratory: Yes: CTA Bilaterally Musculoskeletal: Yes: WNL Edema: No Labs: CBC, BMP 09/07/18 05:30 09/07/18 09:05 INR, PTT INR 1.45 (0.83-1.09) H 09/04/18 03:17 Assessment/Plan 78 yo m with pmhx of CAD s/p CABG 2013 with ischemic cardiopathy (EF now normalized), hl, pad s/p left CEA and right cea (08/18/18), s/p left fem-pop bypass, Right fem-pop 10/31/16, thrombosis of fem-pop bypass graft and stenosis of rt iliac artery s/p Open thrombectomy of fem-pop bypass and rt iliac artery stent 11/2016, Lt subclavian art stenosis, CKD, Chronic back pain, anemia, anxiety, Gout with acute on chronic systolic CHF acute chf: -here with vol overload -updated echo with mild LV systolic dysfx and mild HK -cont iv lasix, daily wts, chem7 -09/06 continue lasix 60mg IV daily, Creat stable -09/07: Euvolemic today, lying flat. (after PRVC), continue lasix regimen, creat 1.4. cad, nstemi: -pt has no cardiac sxs but has trop in 3's here, stable trend on repeat with nl ck. Also ecg with some mild lateral st depressions. Possibly demand ischemia 2 /2 chf but could represent nstemi as well given his cad hx. Will continue dapt and hep gtt for 72 hrs. -cont statin, bb -cont tele -HGb down to 6.9 and will receive transfusion. Would manage (+) troponin conservatively and avoid IV Heparin and cath in this setting -09/07: Hgb improved to 8.3. Off IV UFH. OK to continue aspirin pad, cea's: -cont cardiac meds -s/p recent cea htn: -cont current meds hld: -cont statin
[2018-09-07] MEDS: HEPARIN NA (PORCINE) 5,000 UNITS/ML 1ML VIAL SQ SCH ×2 (10:45→22:03)
[2018-09-07] MEDS: metoPROLOL SUCCINATE 25 MG TAB.SR.24H (FP) PO SCH (11:46)
[2018-09-07] MEDS: SENNOSIDES 8.6MG TABLET (FP) PO SCH (22:02)
[2018-09-07] MEDS: ATORVASTATIN CA 40 MG TABLET (FP) PO SCH (22:02)
[2018-09-08] MEDS: FUROSEMIDE 40 MG/4 ML INJECTABLE VIAL IVPUSH SCH ×2 (06:35→13:35)
[2018-09-08 07:15] LABS: BASO % 0.8 % (0-2.0); EOS % 2.4 % (0-4.5); HEMATOCRIT 25.8 % (35.4-49); HEMOGLOBIN 8.5 GM/dL (11.7-16.9); MCH 28.6 pg (25.7-33.7); MCHC 32.9 g/dl (32.0-35.9); MEAN PLT VOLUME 8.4 fl (7.5-11.1); MONO % 10.7 % (3.8-10.2); NEUT % 72.1 % (42.8-82.8); PLATELET COUNT 206 K/MM3 (134-434); RBC 2.97 M/mm3 (4.00-5.60); RDW 15.5 % (11.9-15.9); WHITE BLOOD COUNT 4.6 K/mm3 (4.0-10.0)
--- NOTE | 2018-09-08 07:39 | PN ---
Progress Note, Physician Chief Complaint: Hospitalist service coverage appreciated. 78 y.o M was admitted to [facility] due to worsening SOB. Hewas found to have worsened CXR with pleural effusions and infiltrates. Seen by cardiology Dr Barriga, ECHO noted. Started on Lasix IV BID. History of Present Illness: Recent right CEA 08/18/[address] German. Previous Left CEA. Left Fem-pop bypass. PVD. Left subclavian stenosis. ASHD. S/P [place]. S/P CABG HTN. CKD. Hyperlipidemia. Chronic back pain. Gout. Right fem-pop 10/31/16-admission to [facility] 11/22 for graft occlusion / thrombosis of fem-pop bypass graft and stenosis of rt iliac artery s/p Open thrombectomy of fem-pop bypass and rt iliac artery stent 11/2016 Episodes of saevere hyperkalemia and bradicardia. Intolerant of CANDIDO/ARB. Anxiety. Cognitive impairment. - Current Medication List Current Medications: Active Medications Acetaminophen (Tylenol -) 650 mg PO Q6H PRN PRN Reason: PAIN LEVEL 4 - 6 Amlodipine Besylate (Norvasc -) 5 mg PO DAILY [facility] Last Admin: 09/07/18 09:32 Dose: 5 mg Aspirin (Ecotrin -) 81 mg PO DAILY [facility] Last Admin: 09/07/18 09:31 Dose: 81 mg Atorvastatin Calcium (Lipitor -) 80 mg PO HS [facility] Last Admin: 09/07/18 22:02 Dose: 80 mg Clopidogrel Bisulfate (Plavix -) 75 mg PO DAILY [facility] Last Admin: 09/07/18 09:31 Dose: 75 mg Docusate Sodium (Colace -) 100 mg PO BID [facility] Last Admin: 09/07/18 22:03 Dose: 100 mg Furosemide (Lasix Injection -) 60 mg IVPUSH BIDLASIX [facility] Last Admin: 09/08/18 06:35 Dose: 60 mg Heparin Sodium (Porcine) (Heparin -) 5,000 unit SQ BID [facility] Last Admin: 09/07/18 22:03 Dose: 5,000 unit Metoprolol Succinate (Toprol Xl -) 25 mg PO DAILY@1200 [facility] Last Admin: 09/07/18 11:46 Dose: 25 mg Senna (Senna -) 2 tab PO HS [facility] Last Admin: 09/07/18 22:02 Dose: 2 tab - Objective Vital Signs: Vital Signs Temperature 98.8 F 09/08/18 05:00 Pulse Rate 60 09/08/18 05:00 Respiratory Rate 20 09/08/18 05:00 Blood Pressure 127/56 L 09/08/18 05:00 O2 Sat by Pulse Oximetry (%) 97 09/07/18 20:19 Constitutional: Yes: Anxious, Pallor Eyes: Yes: Conjunctiva Clear, EOM Intact HENT: Yes: Atraumatic, Normocephalic. No: Drooling, Epistaxis, Hoarseness Neck: Yes: Supple, Trachea Midline Cardiovascular: Yes: Regular Rate and Rhythm. No: Bradycardia, Tachycardia, Bruit, JVD Respiratory: Yes: Diminished (RLL), Dullness (LLL), On Nasal O2, Rales (RLL.LLL) Gastrointestinal: Yes: Normal Bowel Sounds, Soft. No: Ascites, Palpable Mass, Pulsatile Mass, Tenderness ...Rectal Exam: Yes: Deferred Genitourinary: Yes: Wallace Present Breast(s): Yes: WNL Extremities: Yes: WNL. No: Amputation, Calf Tenderness, Cold, Cyanosis Edema: No Peripheral Pulses WNL: No Integumentary: Yes: WNL Neurological: Yes: Alert, Oriented, Cran Nerves II-XII Intact. No: Aphasia, Dysarthria, Facial Droop, Lethargy, Seizure ...Motor Strength: WNL Psychiatric: Yes: Alert, Oriented. No: Agitated, Suicidal Ideation Labs: INR, PTT INR 1.45 (0.83-1.09) H 09/04/18 03:17 Laboratory Results - last 24 hr 09/07/18 09/07/18 09/07/18 05:30 05:30 09:05 WBC 6.2 Cancelled Corrected WBC (auto) Cancelled RBC 2.85 L Cancelled Hgb 8.3 L Cancelled Hct 24.6 L Cancelled MCV 86.3 Cancelled MCH 29.2 Cancelled MCHC 33.8 Cancelled RDW 15.1 Cancelled Plt Count 208 Cancelled MPV 8.5 Cancelled Absolute Neuts (auto) 4.7 Cancelled Neutrophils % 78.0 Cancelled Lymphocytes % 11.5 D Cancelled Monocytes % 8.5 Cancelled Eosinophils % 1.2 Cancelled Basophils % 0.8 Cancelled Nucleated RBC % 0 Cancelled Platelet Estimate Cancelled Platelet Comment Cancelled Sodium 141 Potassium 3.8 Chloride 101 Carbon Dioxide 33 H Anion Gap 8 BUN 46 H Creatinine 1.4 H Est GFR (CKD-EPI)AfAm 55.77 Est GFR (CKD-EPI)NonAf 48.12 Random Glucose 150 H Calcium 8.8 Magnesium 2.1 Total Bilirubin 0.8 AST 43 H ALT 50 Alkaline Phosphatase 84 Total Protein 6.0 L Albumin 3.0 L - ....Imaging X-ray: Report Reviewed Other: Report Reviewed (ECHO) Problem List - Problems (1) Anemia Assessment/Plan: Chronic anemia Anemia of chronic disease? Iron studies IV Iron supplement as per guidelines B12, folate Code(s): D64.9 - ANEMIA, UNSPECIFIED Qualifiers: Anemia type: unspecified type Qualified Code(s): D64.9 - Anemia, unspecified (2) CAD (coronary artery disease) of bypass graft Assessment/Plan: Continue statins cardiology Noted elevated troponin I Will follow Code(s): I25.810 - ATHEROSCLEROSIS OF CABG W/O ANGINA PECTORIS Qualifiers: [place] vs. transplanted heart: [place] heart Associated angina: without angina Qualified Code(s): I25.810 - Atherosclerosis of coronary artery bypass graft(s) without angina pectoris (3) Heart failure Assessment/Plan: Continue IV Lasix CT chest to better evaluate pleural effusions, infiltrates. Avoid CANDIDO/ARB/Spironolactone due to episodes of severe symptomatic hyperkalemia Code(s): I50.9 - HEART FAILURE, UNSPECIFIED Qualifiers: Heart failure type: unspecified Heart failure chronicity: acute Qualified Code(s): I50.9 - Heart failure, unspecified
[2018-09-08 07:47] LABS: ALBUMIN 2.7 g/dl (3.4-5.0); BILIRUBIN,TOTAL 0.7 mg/dL (0.2-1); CALCIUM 8.6 mg/dL (8.5-10.1); CREATININE 1.2 mg/dL (0.55-1.3); MAGNESIUM 2.5 mg/dL (1.8-2.4); POTASSIUM 3.6 mmol/L (3.5-5.1); TOT PROT 5.2 g/dl (6.4-8.2)
[2018-09-08] MEDS: amLODIPine BESYLATE 5 MG TABLET (FP) PO SCH (09:20)
[2018-09-08] MEDS: ASPIRIN COATED 81 MG TABLET.EC PO SCH (09:20)
[2018-09-08] MEDS: DOCUSATE SODIUM 100 MG CAPSULE (FP) PO SCH ×2 (09:20→22:10)
[2018-09-08] MEDS: CLOPIDOGREL BISULFATE 75 MG TABLET (FP) PO SCH (09:20)
[2018-09-08] MEDS: HEPARIN NA (PORCINE) 5,000 UNITS/ML 1ML VIAL SQ SCH ×2 (09:21→22:10)
[2018-09-08] MEDS: metoPROLOL SUCCINATE 25 MG TAB.SR.24H (FP) PO SCH (12:23)
--- NOTE | 2018-09-08 15:47 | PN ---
Progress Note (short form) - Note Progress Note: s: sob improving, no chest pain, palps, dizziness Current Medications Acetaminophen (Tylenol -) 650 mg PO Q6H PRN PRN Reason: PAIN LEVEL 4 - 6 Amlodipine Besylate (Norvasc -) 5 mg PO DAILY [facility] Last Admin: 09/08/18 09:20 Dose: 5 mg Aspirin (Ecotrin -) 81 mg PO DAILY [facility] Last Admin: 09/08/18 09:20 Dose: 81 mg Atorvastatin Calcium (Lipitor -) 80 mg PO HS [facility] Last Admin: 09/07/18 22:02 Dose: 80 mg Clopidogrel Bisulfate (Plavix -) 75 mg PO DAILY [facility] Last Admin: 09/08/18 09:20 Dose: 75 mg Docusate Sodium (Colace -) 100 mg PO BID [facility] Last Admin: 09/08/18 09:20 Dose: 100 mg Furosemide (Lasix Injection -) 60 mg IVPUSH BIDLASIX [facility] Last Admin: 09/08/18 13:35 Dose: 60 mg Heparin Sodium (Porcine) (Heparin -) 5,000 unit SQ BID [facility] Last Admin: 09/08/18 09:21 Dose: 5,000 unit Metoprolol Succinate (Toprol Xl -) 25 mg PO DAILY@1200 [facility] Last Admin: 09/08/18 12:23 Dose: 25 mg Senna (Senna -) 2 tab PO [facility] Last Admin: 09/07/18 22:02 Dose: 2 tab Vital Signs Period Temp Pulse Resp BP Sys/Francisco Pulse Ox Last 24 Hr 98.7 F-99.5 F 58-66 20-20 113-127/52-58 97 Constitutional: Yes: Well Nourished, No Distress Eyes: Yes: WNL HENT: Yes: WNL Neck: Yes: Trachea Midline Cardiovascular: Yes: Regular Rate and Rhythm Respiratory: Yes: CTA Bilaterally Musculoskeletal: Yes: WNL Edema: No no jaundice, diaphoresis not agitated tele: sinus Assessment/Plan 78 yo m with pmhx of CAD s/p CABG 2013 with ischemic cardiopathy (EF now normalized), hl, pad s/p left CEA and right cea (08/18/18), s/p left fem-pop bypass, Right fem-pop 10/31/16, thrombosis of fem-pop bypass graft and stenosis of rt iliac artery s/p Open thrombectomy of fem-pop bypass and rt iliac artery stent 11/2016, Lt subclavian art stenosis, CKD, Chronic back pain, anemia, anxiety, Gout with acute on chronic systolic CHF acute chf: -here with vol overload -updated echo with mild LV systolic dysfx and mild HK -cont iv lasix, daily wts, chem7 -09/06 continue lasix 60mg IV daily, Creat stable -09/07: Euvolemic today, lying flat. (after PRVC), continue lasix regimen, creat 1.4 -09/08 stable Cr, symptoms improving. cont IV lasix, likely transition to PO tomorrow cad, nstemi: -pt has no cardiac sxs but had trop in 3's here, now downtrending Also ecg with some mild lateral st depressions. Possibly demand ischemia 2/2 chf but could represent nstemi as well given his cad hx -cont statin, bb -cont tele -HGb down to 6.9, s/p PRBC. manage (+) troponin conservatively and avoid IV Heparin and cath in this setting -09/07: Hgb improved to 8.3. Off IV UFH -09/08 stable H/H, cont aspirin, plavix pad, cea's: -cont cardiac meds -s/p recent cea htn: -cont current meds hld: -cont statin
[2018-09-08] MEDS: SENNOSIDES 8.6MG TABLET (FP) PO SCH (22:10)
[2018-09-08] MEDS: ATORVASTATIN CA 40 MG TABLET (FP) PO SCH (22:10)
[2018-09-09] MEDS: FUROSEMIDE 40 MG/4 ML INJECTABLE VIAL IVPUSH SCH (06:29)
[2018-09-09 06:59] LABS: HEMATOCRIT 26.9 % (35.4-49); HEMOGLOBIN 8.8 GM/dL (11.7-16.9); MCH 28.5 pg (25.7-33.7); MCHC 32.6 g/dl (32.0-35.9); MEAN CELL VOLUME 87.4 fl (80-96); MEAN PLT VOLUME 8.3 fl (7.5-11.1); PLATELET COUNT 212 K/MM3 (134-434); RBC 3.07 M/mm3 (4.00-5.60); RDW 15.8 % (11.9-15.9); WHITE BLOOD COUNT 4.2 K/mm3 (4.0-10.0)
[2018-09-09] MEDS: amLODIPine BESYLATE 5 MG TABLET (FP) PO SCH (10:48)
[2018-09-09] MEDS: HEPARIN NA (PORCINE) 5,000 UNITS/ML 1ML VIAL SQ SCH ×2 (10:48→22:03)
[2018-09-09] MEDS: CLOPIDOGREL BISULFATE 75 MG TABLET (FP) PO SCH (10:48)
[2018-09-09] MEDS: ASPIRIN COATED 81 MG TABLET.EC PO SCH (10:48)
[2018-09-09] MEDS: DOCUSATE SODIUM 100 MG CAPSULE (FP) PO SCH ×2 (10:54→22:03)
--- NOTE | 2018-09-09 11:55 | PN ---
Progress Note (short form) - Note Progress Note: s: sob resolved, no edema. no chest pain, palps, dizziness Current Medications Acetaminophen (Tylenol -) 650 mg PO Q6H PRN PRN Reason: PAIN LEVEL 4 - 6 Amlodipine Besylate (Norvasc -) 5 mg PO DAILY [facility] Last Admin: 09/09/18 10:48 Dose: 5 mg Aspirin (Ecotrin -) 81 mg PO DAILY [facility] Last Admin: 09/09/18 10:48 Dose: 81 mg Atorvastatin Calcium (Lipitor -) 80 mg PO HS [facility] Last Admin: 09/08/18 22:10 Dose: 80 mg Clopidogrel Bisulfate (Plavix -) 75 mg PO DAILY [facility] Last Admin: 09/09/18 10:48 Dose: 75 mg Docusate Sodium (Colace -) 100 mg PO BID [facility] Last Admin: 09/09/18 10:54 Dose: 100 mg Furosemide (Lasix -) 80 mg PO DAILY [facility] Heparin Sodium (Porcine) (Heparin -) 5,000 unit SQ BID [facility] Last Admin: 09/09/18 10:48 Dose: 5,000 unit Metoprolol Succinate (Toprol Xl -) 25 mg PO DAILY@1200 [facility] Last Admin: 09/08/18 12:23 Dose: 25 mg Senna (Senna -) 2 tab PO HS [facility] Last Admin: 09/08/18 22:10 Dose: 2 tab Vital Signs Period Temp Pulse Resp BP Sys/Francisco Pulse Ox Last 24 Hr 98.1 F-98.6 F 57-64 18-20 102-122/44-53 92-98 Constitutional: Yes: Well Nourished, No Distress Eyes: Yes: WNL HENT: Yes: WNL Neck: Yes: Trachea Midline Cardiovascular: Yes: Regular Rate and Rhythm Respiratory: Yes: CTA Bilaterally Musculoskeletal: Yes: WNL Edema: No no jaundice, diaphoresis not agitated tele: sinus Assessment/Plan 78 yo m with pmhx of CAD s/p CABG 2013 with ischemic cardiopathy (EF now normalized), hl, pad s/p left CEA and right cea (08/18/18), s/p left fem-pop bypass, Right fem-pop 10/31/16, thrombosis of fem-pop bypass graft and stenosis of rt iliac artery s/p Open thrombectomy of fem-pop bypass and rt iliac artery stent 11/2016, Lt subclavian art stenosis, CKD, Chronic back pain, anemia, anxiety, Gout with acute on chronic systolic CHF acute chf: -here with vol overload -updated echo with mild LV systolic dysfx and mild HK -cont iv lasix, daily wts, chem7 -09/06 continue lasix 60mg IV daily, Creat stable -09/07: Euvolemic today, lying flat. (after PRVC), continue lasix regimen, creat 1.4 -09/08 stable Cr, symptoms improving. cont IV lasix, likely transition to PO tomorrow -09/09: change to lasix 80 mg PO daily, sob resolved, edema improved as well cad, nstemi: -pt has no cardiac sxs but had trop in 3's here, now downtrending Also ecg with some mild lateral st depressions. Possibly demand ischemia 2/2 chf but could represent nstemi as well given his cad hx -cont statin, bb -cont tele -HGb down to 6.9, s/p PRBC. manage (+) troponin conservatively and avoid IV Heparin and cath in this setting -09/07: Hgb improved to 8.3. Off IV UFH -09/08-4 stable H/H, cont aspirin, plavix pad, cea's: -cont cardiac meds -s/p recent cea htn: -cont current meds hld: -cont statin
--- NOTE | 2018-09-09 12:30 | PN ---
Progress Note, Physician Chief Complaint: SOB improved. CT chest noted. Remains very anxious. History of Present Illness: Recent right CEA 08/18/[address] German. Previous Left CEA. Left Fem-pop bypass. PVD. Left subclavian stenosis. ASHD. S/P [place]. S/P CABG HTN. CKD. Hyperlipidemia. Chronic back pain. Gout. Right fem-pop 10/31/16-admission to [facility] 11/22 for graft occlusion / thrombosis of fem-pop bypass graft and stenosis of rt iliac artery s/p Open thrombectomy of fem-pop bypass and rt iliac artery stent 11/2016 Episodes of saevere hyperkalemia and bradicardia. Intolerant of CANDIDO/ARB. Anxiety. Cognitive impairment. - Current Medication List Current Medications: Active Medications Acetaminophen (Tylenol -) 650 mg PO Q6H PRN PRN Reason: PAIN LEVEL 4 - 6 Amlodipine Besylate (Norvasc -) 5 mg PO DAILY [facility] Last Admin: 09/09/18 10:48 Dose: 5 mg Aspirin (Ecotrin -) 81 mg PO DAILY [facility] Last Admin: 09/09/18 10:48 Dose: 81 mg Atorvastatin Calcium (Lipitor -) 80 mg PO [facility] Last Admin: 09/08/18 22:10 Dose: 80 mg Clopidogrel Bisulfate (Plavix -) 75 mg PO DAILY [facility] Last Admin: 09/09/18 10:48 Dose: 75 mg Docusate Sodium (Colace -) 100 mg PO BID [facility] Last Admin: 09/09/18 10:54 Dose: 100 mg Furosemide (Lasix -) 80 mg PO DAILY [facility] Heparin Sodium (Porcine) (Heparin -) 5,000 unit SQ BID [facility] Last Admin: 09/09/18 10:48 Dose: 5,000 unit Metoprolol Succinate (Toprol Xl -) 25 mg PO DAILY@1200 [facility] Last Admin: 09/08/18 12:23 Dose: 25 mg Senna (Senna -) 2 tab PO [facility] Last Admin: 09/08/18 22:10 Dose: 2 tab - Objective Vital Signs: Vital Signs Temperature 98.2 F 09/09/18 09:00 Pulse Rate 60 09/09/18 09:00 Respiratory Rate 18 09/09/18 09:00 Blood Pressure 102/50 L 09/09/18 09:00 O2 Sat by Pulse Oximetry (%) 92 L 09/09/18 07:51 Constitutional: Yes: Anxious Eyes: Yes: Conjunctiva Clear, EOM Intact, PERRL. No: Diplopia, Sclera Icterus, Tearing HENT: Yes: Atraumatic, Normocephalic. No: Drooling, Nasal Congestion Neck: Yes: Supple, Trachea Midline, Other (B/L CEA healed). No: Decreased ROM, Lymphadenopathy, Tenderness, Thyromegaly Cardiovascular: Yes: Regular Rate and Rhythm, S1, S2 Respiratory: Yes: Regular, Diminished (B/B), Dullness (B/B), On Nasal O2 Gastrointestinal: Yes: Normal Bowel Sounds, Soft. No: Abdomen, Obese ...Rectal Exam: Yes: Deferred, Other (Wallace removed) Breast(s): Yes: WNL Musculoskeletal: Yes: WNL Extremities: No: Amputation, Calf Tenderness Edema: No Peripheral Pulses WNL: No Neurological: Yes: Alert, Oriented. No: Aphasia, Dysarthria, Unresponsive ...Motor Strength: WNL Psychiatric: Yes: WNL Labs: CBC, BMP 09/09/18 05:40 09/08/18 06:00 INR, PTT INR 1.45 (0.83-1.09) H 09/04/18 03:17 - ....Imaging Cat Scan: Report Reviewed, Image Reviewed Problem List - Problems (1) Anemia Assessment/Plan: Chronic anemia Anemia of chronic disease? Iron studies-Ferritin 488 Code(s): D64.9 - ANEMIA, UNSPECIFIED Qualifiers: Anemia type: unspecified type Qualified Code(s): D64.9 - Anemia, unspecified (2) CAD (coronary artery disease) of bypass graft Assessment/Plan: Continue statins cardiology Improved elevated troponin I Code(s): I25.810 - ATHEROSCLEROSIS OF CABG W/O ANGINA PECTORIS Qualifiers: [place] vs. transplanted heart: [place] heart Associated angina: without angina Qualified Code(s): I25.810 - Atherosclerosis of coronary artery bypass graft(s) without angina pectoris (3) Heart failure Assessment/Plan: Mild decreased LV systolic function. Continue IV Lasix CT chest noted. Avoid CANDIDO/ARB/Spironolactone due to episodes of severe symptomatic hyperkalemia Code(s): I50.9 - HEART FAILURE, UNSPECIFIED Qualifiers: Heart failure type: unspecified Heart failure chronicity: acute Qualified Code(s): I50.9 - Heart failure, unspecified
[2018-09-09] MEDS: metoPROLOL SUCCINATE 25 MG TAB.SR.24H (FP) PO SCH (15:08)
[2018-09-09] MEDS: ATORVASTATIN CA 40 MG TABLET (FP) PO SCH (22:03)
[2018-09-09] MEDS: SENNOSIDES 8.6MG TABLET (FP) PO SCH (22:03)
[2018-09-09 23:11] LABS: SERUM IRON SATURATION 11 % (15-55); TOTAL IRON BINDING CAPACITY 250 ug/dL (250-450); UIBC 222 ug/dL (111-343)
--- NOTE | 2018-09-10 07:53 | PN ---
Progress Note, Physician Chief Complaint: Confused but comfortable in bed on NC O2. Very forgetful, anxious. Complaints of not being able to ambulate History of Present Illness: Recent right CEA 08/18/[address] German. Previous Left CEA. Left Fem-pop bypass. PVD. Left subclavian stenosis. ASHD. S/P CT. S/P CABG HTN. CKD. Hyperlipidemia. Chronic back pain. Gout. Right fem-pop 10/31/16-admission to [facility] 11/22 for graft occlusion / thrombosis of fem-pop bypass graft and stenosis of rt iliac artery s/p Open thrombectomy of fem-pop bypass and rt iliac artery stent 11/2016 Episodes of saevere hyperkalemia and bradicardia. Intolerant of CANDIDO/ARB. Anxiety. Cognitive impairment. - Current Medication List Current Medications: Active Medications Acetaminophen (Tylenol -) 650 mg PO Q6H PRN PRN Reason: PAIN LEVEL 4 - 6 Amlodipine Besylate (Norvasc -) 5 mg PO DAILY [facility] Last Admin: 09/09/18 10:48 Dose: 5 mg Aspirin (Ecotrin -) 81 mg PO DAILY [facility] Last Admin: 09/09/18 10:48 Dose: 81 mg Atorvastatin Calcium (Lipitor -) 80 mg PO HS [facility] Last Admin: 09/09/18 22:03 Dose: 80 mg Clopidogrel Bisulfate (Plavix -) 75 mg PO DAILY [facility] Last Admin: 09/09/18 10:48 Dose: 75 mg Docusate Sodium (Colace -) 100 mg PO BID [facility] Last Admin: 09/09/18 22:03 Dose: 100 mg Furosemide (Lasix -) 80 mg PO DAILY [facility] Heparin Sodium (Porcine) (Heparin -) 5,000 unit SQ BID [facility] Last Admin: 09/09/18 22:03 Dose: 5,000 unit Metoprolol Succinate (Toprol Xl -) 25 mg PO DAILY@1200 [facility] Last Admin: 09/09/18 15:08 Dose: 25 mg Senna (Senna -) 2 tab PO [facility] Last Admin: 09/09/18 22:03 Dose: 2 tab - Objective Vital Signs: Vital Signs Temperature 98.6 F 09/10/18 06:00 Pulse Rate 59 L 09/10/18 06:00 Respiratory Rate 18 09/10/18 06:00 Blood Pressure 116/59 L 09/10/18 06:00 O2 Sat by Pulse Oximetry (%) 97 09/09/18 21:00 Constitutional: Yes: No Distress, Anxious, Pallor, Thin Eyes: Yes: Conjunctiva Clear, EOM Intact HENT: Yes: Atraumatic, Normocephalic Neck: Yes: Supple, Trachea Midline. No: Decreased ROM, Lymphadenopathy Cardiovascular: Yes: Regular Rate and Rhythm, S1. No: Bradycardia, Tachycardia Respiratory: Yes: Regular, Diminished (B/B, left>right), On Nasal O2. No: Accessory Muscle Use, Bradypnea, Rales, Rhonchi, SOB Gastrointestinal: Yes: Normal Bowel Sounds, Soft. No: Abdomen, Obese, Ascites, Palpable Mass, Tenderness ...Rectal Exam: Yes: Deferred Genitourinary: No: Anuria, Bladder Distention, CVA Tenderness - Left, CVA Tenderness - Right Breast(s): Yes: WNL Musculoskeletal: Yes: WNL Extremities: No: Amputation, Calf Tenderness, Cold, Cool, Cyanosis Edema: No Peripheral Pulses WNL: No Integumentary: Yes: WNL Neurological: Yes: Alert, Oriented. No: Aphasia, Confusion, Dysarthria, Lethargy ...Motor Strength: WNL Psychiatric: Yes: Alert, Oriented Labs: CBC, BMP 09/09/18 05:40 09/08/18 06:00 INR, PTT INR 1.45 (0.83-1.09) H 09/04/18 03:17 Problem List - Problems (1) Anemia Assessment/Plan: Chronic anemia Anemia of chronic disease? Iron studies-Ferritin 488 Code(s): D64.9 - ANEMIA, UNSPECIFIED Qualifiers: Anemia type: unspecified type Qualified Code(s): D64.9 - Anemia, unspecified (2) CAD (coronary artery disease) of bypass graft Assessment/Plan: Continue statins cardiology Improved elevated troponin I Code(s): I25.810 - ATHEROSCLEROSIS OF CABG W/O ANGINA PECTORIS Qualifiers: [place] vs. transplanted heart: [place] heart Associated angina: without angina Qualified Code(s): I25.810 - Atherosclerosis of coronary artery bypass graft(s) without angina pectoris (3) Heart failure Assessment/Plan: Mild decreased LV systolic function. Continue IV Lasix CT chest noted. Avoid CANDIDO/ARB/Spironolactone due to episodes of severe symptomatic hyperkalemia Code(s): I50.9 - HEART FAILURE, UNSPECIFIED Qualifiers: Heart failure type: unspecified Heart failure chronicity: acute Qualified Code(s): I50.9 - Heart failure, unspecified (4) NSTEMI (non-ST elevated myocardial infarction) Code(s): I21.4 - NON-ST ELEVATION (NSTEMI) MYOCARDIAL INFARCTION (5) Malnutrition of moderate degree Assessment/Plan: Food supplements Code(s): E44.0 - MODERATE PROTEIN-CALORIE MALNUTRITION (6) Weakness generalized Assessment/Plan: Physical therapy discussed and needs to be continued. Code(s): R53.1 - WEAKNESS (7) Pleural effusion due to CHF (congestive heart failure) Assessment/Plan: Continue PO Lasix Follow labs Code(s): I50.9 - HEART FAILURE, UNSPECIFIED (8) Hypoxemia Assessment/Plan: ABG RA O2 Sat pre and post exercise Code(s): R09.02 - HYPOXEMIA
[2018-09-10] MEDS: CLOPIDOGREL BISULFATE 75 MG TABLET (FP) PO SCH (09:23)
[2018-09-10] MEDS: FUROSEMIDE 40 MG TABLET (FP) PO SCH (09:24)
[2018-09-10] MEDS: amLODIPine BESYLATE 5 MG TABLET (FP) PO SCH (09:25)
[2018-09-10] MEDS: HEPARIN NA (PORCINE) 5,000 UNITS/ML 1ML VIAL SQ SCH ×2 (09:25→21:42)
[2018-09-10] MEDS: ASPIRIN COATED 81 MG TABLET.EC PO SCH (09:25)
[2018-09-10] MEDS: DOCUSATE SODIUM 100 MG CAPSULE (FP) PO SCH ×2 (09:25→21:42)
--- NOTE | 2018-09-10 10:35 | PN ---
Progress Note (short form) - Note Progress Note: s:,no edema. no chest pain, palps, dizziness, dyspnea Current Medications Acetaminophen (Tylenol -) 650 mg PO Q6H PRN PRN Reason: PAIN LEVEL 4 - 6 Amlodipine Besylate (Norvasc -) 5 mg PO DAILY [facility] Last Admin: 09/10/18 09:25 Dose: 5 mg Aspirin (Ecotrin -) 81 mg PO DAILY [facility] Last Admin: 09/10/18 09:25 Dose: 81 mg Atorvastatin Calcium (Lipitor -) 80 mg PO HS [facility] Last Admin: 09/09/18 22:03 Dose: 80 mg Clopidogrel Bisulfate (Plavix -) 75 mg PO DAILY [facility] Last Admin: 09/10/18 09:23 Dose: 75 mg Docusate Sodium (Colace -) 100 mg PO BID [facility] Last Admin: 09/10/18 09:25 Dose: 100 mg Furosemide (Lasix -) 80 mg PO DAILY [facility] Last Admin: 09/10/18 09:24 Dose: 80 mg Heparin Sodium (Porcine) (Heparin -) 5,000 unit SQ BID [facility] Last Admin: 09/10/18 09:25 Dose: 5,000 unit Metoprolol Succinate (Toprol Xl -) 25 mg PO DAILY@1200 [facility] Last Admin: 09/09/18 15:08 Dose: 25 mg Senna (Senna -) 2 tab PO [facility] Last Admin: 09/09/18 22:03 Dose: 2 tab Vital Signs Period Temp Pulse Resp BP Sys/Francisco Pulse Ox Last 24 Hr 98.2 F-98.8 F 57-74 18-20 114-130/46-66 97-98 Constitutional: Yes: Well Nourished, No Distress Eyes: Yes: WNL HENT: Yes: WNL Neck: Yes: Trachea Midline Cardiovascular: Yes: Regular Rate and Rhythm Respiratory: Yes: CTA Bilaterally Musculoskeletal: Yes: WNL Edema: No no jaundice, diaphoresis not agitated tele: sinus Assessment/Plan 78 yo m with pmhx of CAD s/p CABG 2013 with ischemic cardiopathy (EF now normalized), hl, pad s/p left CEA and right cea (08/18/18), s/p left fem-pop bypass, Right fem-pop 10/31/16, thrombosis of fem-pop bypass graft and stenosis of rt iliac artery s/p Open thrombectomy of fem-pop bypass and rt iliac artery stent 11/2016, Lt subclavian art stenosis, CKD, Chronic back pain, anemia, anxiety, Gout with acute on chronic systolic CHF acute chf: -here with vol overload -updated echo with mild LV systolic dysfx and mild HK -cont iv lasix, daily wts, chem7 - diuresed with IV lasix, now appears euvolemic - continue lasix 80 mg PO daily cad, nstemi: -pt has no cardiac sxs but had trop in 3's here, now downtrending Also ecg with some mild lateral st depressions. Possibly demand ischemia 2/2 chf but could represent nstemi as well given his cad hx -cont statin, bb -cont tele -HGb down to 6.9, s/p PRBC. manage (+) troponin conservatively and avoid IV Heparin and cath in this setting - stable H/H, cont aspirin, plavix pad, cea's: -cont cardiac meds -s/p recent cea htn: -cont current meds hld: -cont statin
[2018-09-10] MEDS: metoPROLOL SUCCINATE 25 MG TAB.SR.24H (FP) PO SCH (14:08)
[2018-09-10] MEDS: ATORVASTATIN CA 40 MG TABLET (FP) PO SCH (21:42)
[2018-09-10] MEDS: SENNOSIDES 8.6MG TABLET (FP) PO SCH (21:43)
[2018-09-11 07:13] LABS: BASO % 1.3 % (0-2.0); HEMATOCRIT 26.8 % (35.4-49); HEMOGLOBIN 8.7 GM/dL (11.7-16.9); LYMPH % 17.4 % (8-40); MCH 28.3 pg (25.7-33.7); MCHC 32.2 g/dl (32.0-35.9); MEAN CELL VOLUME 87.7 fl (80-96); MEAN PLT VOLUME 8.3 fl (7.5-11.1); MONO % 10.6 % (3.8-10.2); NEUT % 68.7 % (42.8-82.8); PLATELET COUNT 190 K/MM3 (134-434); RBC 3.06 M/mm3 (4.00-5.60); RDW 15.6 % (11.9-15.9)
[2018-09-11 07:40] LABS: ALBUMIN 2.8 g/dl (3.4-5.0); BILIRUBIN,TOTAL 0.4 mg/dL (0.2-1); CALCIUM 8.8 mg/dL (8.5-10.1); MAGNESIUM 2.6 mg/dL (1.8-2.4); POTASSIUM 3.8 mmol/L (3.5-5.1); TOT PROT 5.6 g/dl (6.4-8.2)
--- NOTE | 2018-09-11 07:50 | PN ---
Progress Note, Physician Chief Complaint: Patient is being treated with PO Furosemide now, able to lie flat in bed. Noted decrease in BNP from 15K to 5K O2 SAT today AM on RA by MD 94-95% Able to walk with a walker during PT yesterday 65 ft. Left IV discussed with the nurse re mild infiltration. Warm soaks suggested. Discussed the patient with Dr Barriga on the phone, cardiology at this point do not think that re-cath due to recent event is advisable but would follow the patient. Spoke to Renetta yesterday and updated on patient's condition History of Present Illness: Recent right CEA 08/18/[address] German. Previous Left CEA. Left Fem-pop bypass. PVD. Left subclavian stenosis. ASHD. S/P DE. S/P CABG HTN. CKD. Hyperlipidemia. Chronic back pain. Gout. Right fem-pop 10/31/16-admission to [facility] 11/22 for graft occlusion / thrombosis of fem-pop bypass graft and stenosis of rt iliac artery s/p Open thrombectomy of fem-pop bypass and rt iliac artery stent 11/2016 Episodes of saevere hyperkalemia and bradicardia. Intolerant of CANDIDO/ARB. Anxiety. Cognitive impairment. - Current Medication List Current Medications: Active Medications Acetaminophen (Tylenol -) 650 mg PO Q6H PRN PRN Reason: PAIN LEVEL 4 - 6 Amlodipine Besylate (Norvasc -) 5 mg PO DAILY [facility] Last Admin: 09/10/18 09:25 Dose: 5 mg Aspirin (Ecotrin -) 81 mg PO DAILY [facility] Last Admin: 09/10/18 09:25 Dose: 81 mg Atorvastatin Calcium (Lipitor -) 80 mg PO HS [facility] Last Admin: 09/10/18 21:42 Dose: 80 mg Clopidogrel Bisulfate (Plavix -) 75 mg PO DAILY [facility] Last Admin: 09/10/18 09:23 Dose: 75 mg Docusate Sodium (Colace -) 100 mg PO BID [facility] Last Admin: 09/10/18 21:42 Dose: 100 mg Furosemide (Lasix -) 80 mg PO DAILY [facility] Last Admin: 09/10/18 09:24 Dose: 80 mg Heparin Sodium (Porcine) (Heparin -) 5,000 unit SQ BID [facility] Last Admin: 09/10/18 21:42 Dose: 5,000 unit Metoprolol Succinate (Toprol Xl -) 25 mg PO DAILY@1200 [facility] Last Admin: 09/10/18 14:08 Dose: 25 mg Senna (Senna -) 2 tab PO HS [facility] Last Admin: 09/10/18 21:43 Dose: 2 tab - Objective Vital Signs: Vital Signs Temperature 97.9 F 09/11/18 06:00 Pulse Rate 57 L 09/11/18 06:00 Respiratory Rate 18 09/11/18 06:00 Blood Pressure 134/55 L 09/11/18 06:00 O2 Sat by Pulse Oximetry (%) 98 09/10/18 21:00 Constitutional: Yes: Anxious, Pallor Eyes: Yes: Conjunctiva Clear, EOM Intact HENT: Yes: Atraumatic, Normocephalic. No: Drooling Neck: Yes: Supple, Trachea Midline. No: Decreased ROM, Lymphadenopathy, Rigid, Tenderness Cardiovascular: Yes: Regular Rate and Rhythm, Bradycardia Respiratory: Yes: Diminished (B/B), Dullness (B/b) Gastrointestinal: Yes: Normal Bowel Sounds, Soft. No: Abdomen, Obese, Ascites ...Rectal Exam: Yes: Deferred Genitourinary: No: Anuria, Bladder Distention Breast(s): Yes: WNL Musculoskeletal: Yes: Muscle Weakness. No: Joint Stiffness, Joint Swelling Extremities: No: Amputation, Calf Tenderness, Cold, Cyanosis Edema: No Peripheral Pulses WNL: No Integumentary: Yes: WNL Neurological: Yes: Alert, Oriented. No: Aphasia, Dysarthria ...Motor Strength: WNL Psychiatric: Yes: WNL Labs: CBC, BMP 09/11/18 06:00 09/11/18 06:00 INR, PTT INR 1.45 (0.83-1.09) H 09/04/18 03:17 Problem List - Problems (1) Anemia Assessment/Plan: Chronic anemia Anemia of chronic disease? Iron studies-Ferritin 488 Code(s): D64.9 - ANEMIA, UNSPECIFIED Qualifiers: Anemia type: unspecified type Qualified Code(s): D64.9 - Anemia, unspecified (2) CAD (coronary artery disease) of bypass graft Assessment/Plan: Continue statins cardiology Improved elevated troponin I Code(s): I25.810 - ATHEROSCLEROSIS OF CABG W/O ANGINA PECTORIS Qualifiers: [place] vs. transplanted heart: [place] heart Associated angina: without angina Qualified Code(s): I25.810 - Atherosclerosis of coronary artery bypass graft(s) without angina pectoris (3) Heart failure Assessment/Plan: Mild decreased LV systolic function. Continue IV Lasix CT chest noted. Avoid CANDIDO/ARB/Spironolactone due to episodes of severe symptomatic hyperkalemia Code(s): I50.9 - HEART FAILURE, UNSPECIFIED Qualifiers: Heart failure type: combined systolic and diastolic Heart failure chronicity: acute on chronic Qualified Code(s): I50.43 - Acute on chronic combined systolic (congestive) and diastolic (congestive) heart failure (4) NSTEMI (non-ST elevated myocardial infarction) Code(s): I21.4 - NON-ST ELEVATION (NSTEMI) MYOCARDIAL INFARCTION (5) Malnutrition of moderate degree Assessment/Plan: Food supplements Code(s): E44.0 - MODERATE PROTEIN-CALORIE MALNUTRITION (6) Weakness generalized Assessment/Plan: Physical therapy discussed and needs to be continued. Code(s): R53.1 - WEAKNESS (7) Pleural effusion due to CHF (congestive heart failure) Assessment/Plan: Continue PO Lasix Follow labs Code(s): I50.9 - HEART FAILURE, UNSPECIFIED (8) Hypoxemia Assessment/Plan: Follow Pulse Ox Code(s): R09.02 - HYPOXEMIA
[2018-09-11] MEDS ORDERED: PNEUMOC 13-VAL CONJ-DIP CRM/PF 0.5 ML DISP.SYRIN IM ONE (10:00)
[2018-09-11] MEDS: ASPIRIN COATED 81 MG TABLET.EC PO SCH (10:11)
[2018-09-11] MEDS: DOCUSATE SODIUM 100 MG CAPSULE (FP) PO SCH ×2 (10:11→21:21)
[2018-09-11] MEDS: CLOPIDOGREL BISULFATE 75 MG TABLET (FP) PO SCH (10:11)
[2018-09-11] MEDS: FUROSEMIDE 40 MG TABLET (FP) PO SCH (10:11)
[2018-09-11] MEDS: amLODIPine BESYLATE 5 MG TABLET (FP) PO SCH (10:12)
[2018-09-11] MEDS: HEPARIN NA (PORCINE) 5,000 UNITS/ML 1ML VIAL SQ SCH ×2 (10:12→21:21)
--- NOTE | 2018-09-11 12:35 | PN ---
Progress Note (short form) - Note Progress Note: s:,no edema. no chest pain, palps, dizziness, dyspnea Current Medications Generic Name Dose Route Start Last Admin Trade Name Freoliver PRN Reason Stop Dose Admin Acetaminophen 650 mg 09/03/18 20:21 Tylenol - PO Q6H PRN PAIN LEVEL 4 - 6 Amlodipine Besylate 5 mg 09/04/18 10:00 09/11/18 10:12 Norvasc - PO 5 mg DAILY [facility] Administration Aspirin 81 mg 09/04/18 10:00 09/11/18 10:11 Ecotrin - PO 81 mg DAILY [facility] Administration Atorvastatin Calcium 80 mg 09/03/18 22:03 09/10/18 21:42 Lipitor - PO 80 mg HS [facility] Administration Clopidogrel Bisulfate 75 mg 09/04/18 10:00 09/11/18 10:11 Plavix - PO 75 mg DAILY [facility] Administration Docusate Sodium 100 mg 09/03/18 22:00 09/11/18 10:11 Colace - PO 100 mg BID [facility] Administration Furosemide 80 mg 09/10/18 10:00 09/11/18 10:11 Lasix - PO 80 mg DAILY [facility] Administration Heparin Sodium (Porcine) 5,000 unit 09/07/18 10:00 09/11/18 10:12 Heparin - SQ 5,000 unit BID [facility] Administration Metoprolol Succinate 25 mg 09/04/18 12:00 09/10/18 14:08 Toprol Xl - PO 25 mg DAILY@1200 [facility] Administration Senna 2 tab 09/03/18 22:00 09/10/18 21:43 Senna - PO 2 tab HS [facility] Administration Vital Signs Period Temp Pulse Resp BP Sys/Francisco Pulse Ox Last 24 Hr 97.9 F-98.6 F 54-61 18-18 116-134/45-55 98 Constitutional: Yes: Well Nourished, No Distress Cardiovascular: Yes: Regular Rate and Rhythm Respiratory: Yes: CTA Bilaterally Edema: No no jaundice, diaphoresis not agitated aa03 abd nt nd pos bs Laboratory Last Values WBC 4.0 K/mm3 (4.0-10.0) 09/11/18 06:00 Corrected WBC (auto) Cancelled 09/07/18 05:30 RBC 3.06 M/mm3 (4.00-5.60) L 09/11/18 06:00 Hgb 8.7 GM/dL (11.7-16.9) L 09/11/18 06:00 Hct 26.8 % (35.4-49) L 09/11/18 06:00 MCV 87.7 fl (80-96) 09/11/18 06:00 MCH 28.3 pg (25.7-33.7) 09/11/18 06:00 MCHC 32.2 g/dl (32.0-35.9) 09/11/18 06:00 RDW 15.6 % (11.9-15.9) 09/11/18 06:00 Plt Count 190 K/MM3 (134-434) 09/11/18 06:00 MPV 8.3 fl (7.5-11.1) 09/11/18 06:00 Absolute Neuts (auto) 2.7 K/mm3 (1.5-8.0) 09/11/18 06:00 Neutrophils % 68.7 % (42.8-82.8) 09/11/18 06:00 Lymphocytes % 17.4 % (8-40) D 09/11/18 06:00 Monocytes % 10.6 % (3.8-10.2) H 09/11/18 06:00 Eosinophils % 2.0 % (0-4.5) 09/11/18 06:00 Basophils % 1.3 % (0-2.0) 09/11/18 06:00 Nucleated RBC % 0 % (0-0) 09/11/18 06:00 Platelet Estimate Cancelled 09/07/18 05:30 Platelet Comment Cancelled 09/07/18 05:30 PT with INR 17.20 SEC (9.7-13.0) H 09/04/18 03:17 INR 1.45 (0.83-1.09) H 09/04/18 03:17 PTT (Actin FS) 32.6 SECONDS (25.2-36.5) 09/09/18 05:40 Sodium 139 mmol/L (136-145) 09/11/18 06:00 Potassium 3.8 mmol/L (3.5-5.1) 09/11/18 06:00 Chloride 100 mmol/L (98-107) 09/11/18 06:00 Carbon Dioxide 33 mmol/L (21-32) H 09/11/18 06:00 Anion Gap 6 MMOL/L (8-16) L 09/11/18 06:00 BUN 26 mg/dL (7-18) H 09/11/18 06:00 Creatinine 1.0 mg/dL (0.55-1.3) 09/11/18 06:00 Est GFR (CKD-EPI)AfAm 83.77 09/11/18 06:00 Est GFR (CKD-EPI)NonAf 72.28 09/11/18 06:00 Random Glucose 87 mg/dL (74-106) 09/11/18 06:00 Hemoglobin A1c % 5.8 % (4.2-6.3) 09/04/18 05:30 Calcium 8.8 mg/dL (8.5-10.1) 09/11/18 06:00 Phosphorus 3.9 mg/dL (2.5-4.9) 09/04/18 05:30 Magnesium 2.6 mg/dL (1.8-2.4) H 09/11/18 06:00 Iron 28 ug/dL (38-169) L 09/08/18 08:18 TIBC 250 ug/dL (250-450) 09/08/18 08:18 Iron Saturation 11 % (15-55) L 09/08/18 08:18 Ferritin 488.1 ng/ml (8-388) H 09/08/18 08:18 Total Bilirubin 0.4 mg/dL (0.2-1) 09/11/18 06:00 AST 48 U/L (15-37) H 09/11/18 06:00 ALT 53 U/L (13-61) 09/11/18 06:00 Alkaline Phosphatase 72 U/L (45-117) 09/11/18 06:00 Creatine Kinase 103 U/L (26-308) 09/04/18 05:30 Troponin I 1.48 ng/ml (0.00-0.05) H* 09/08/18 08:18 B-Natriuretic Peptide 5773.9 pg/ml (5-450) H 09/10/18 09:55 Total Protein 5.6 g/dl (6.4-8.2) L 09/11/18 06:00 Albumin 2.8 g/dl (3.4-5.0) L 09/11/18 06:00 Prealbumin 9.7 mg/dl (20-40) L 09/09/18 05:40 Vitamin B12 937 pg/ml (193-986) 09/08/18 08:18 Serum Folate 43 ng/mL (3.1-17.5) H 09/08/18 08:18 TSH 0.26 uIU/ml (0.358-3.74) L 09/04/18 05:30 Blood Type O POSITIVE 09/03/18 17:41 Antibody Screen Negative 09/03/18 17:41 Crossmatch See Detail 09/03/18 17:41 tele: sinus Assessment/Plan 78 yo m with pmhx of CAD s/p CABG 2013 with ischemic cardiopathy (EF now normalized), hl, pad s/p left CEA and right cea (08/18/18), s/p left fem-pop bypass, Right fem-pop 10/31/16, thrombosis of fem-pop bypass graft and stenosis of rt iliac artery s/p Open thrombectomy of fem-pop bypass and rt iliac artery stent 11/2016, Lt subclavian art stenosis, CKD, Chronic back pain, anemia, anxiety, Gout with acute on chronic systolic CHF acute syst chf: -here with vol overload -updated echo with mild LV systolic dysfx and mild HK -diuresed with IV lasix, now appears euvolemic -continue lasix 80 mg PO daily cad, nstemi: -pt has no cardiac sxs but had trop in 3's here, now downtrending. Also ecg with some mild lateral st depressions. Possibly demand ischemia 2/2 chf but could represent nstemi as well given his cad hx -cont statin, bb -HGb down to 6.9, s/p PRBC. -stable H/H, cont aspirin, plavix -case discussed with interventionalist and pts primary electrician second as well. Plan is for medical management of cad for now due to increased risk of cath/pci/ uninterrupted dapt. pad, cea's: -cont cardiac meds -s/p recent cea htn: -cont current meds hld: -cont statin cardiac reyes stable
[2018-09-11] MEDS: metoPROLOL SUCCINATE 25 MG TAB.SR.24H (FP) PO SCH (14:50)
[2018-09-11] MEDS: SENNOSIDES 8.6MG TABLET (FP) PO SCH (21:21)
[2018-09-11] MEDS: ATORVASTATIN CA 40 MG TABLET (FP) PO SCH (21:21)
[2018-09-12 06:45] LABS: ARTERIAL BLD GAS O2 SATURATION 93.1 % (95-98); ARTERIAL BLOOD GAS BASE EXCESS 7.2 meq/l (-2-2); ARTERIAL BLOOD GAS PCO2 43.5 mmHg (35-45); ARTERIAL BLOOD GAS pH 7.47 (7.35-7.45)
[2018-09-12 06:46] LABS: ALLENS TEST POSITIVE
--- NOTE | 2018-09-12 08:45 | PN ---
Progress Note (short form) - Note Progress Note: No Chest pain, generalized weakness, HARRISON. Cardiology follow up greatly appreciated, it is recommended conservative management at this point. Intake & Output 09/09/18 09/10/18 09/11/18 09/12/18 11:59 11:59 11:59 11:59 Intake Total 20 375 300 400 Output Total 1200 730 800 700 Balance -1180 -355 -500 -300 Weight 151 lb 6.4 oz 152 lb 9.6 oz 153 lb 9.6 oz Vital Signs - 24 hr 09/11/18 09/11/18 09/11/18 09:00 14:00 17:00 Temperature 98 F 98.4 F 98.1 F Pulse Rate 66 69 66 Respiratory 18 20 20 Rate Blood Pressure 108/60 103/57 L 126/75 O2 Sat by Pulse 96 Oximetry (%) 09/11/18 09/11/18 09/12/18 20:53 20:59 02:00 Temperature 97.9 F 97.6 F Pulse Rate 62 58 L Respiratory 20 20 18 Rate Blood Pressure 119/45 L 131/70 O2 Sat by Pulse 98 Oximetry (%) 09/12/18 05:53 Temperature 97.8 F Pulse Rate 58 L Respiratory 18 Rate Blood Pressure 131/54 L O2 Sat by Pulse Oximetry (%) On exam anxious, pale, NAD Lungs are clear Heart S1S2 regular Abdomen soft, NT, no HSM Ext warm, poor DP, no edema Laboratory Results - last 24 hr 09/12/18 06:42 Anticoagulation Therapy No Result Required. Puncture Site No Result Required. ABG pH 7.47 H ABG pCO2 at Pt Temp 43.5 ABG pO2 at Pt Temp 65.0 L ABG HCO3 31.2 H ABG O2 Sat (Measured) 93.1 L ABG O2 Content 10.8 L ABG Base Excess 7.2 H Mau Test Positive O2 Delivery Device No Result Required. Oxygen Flow Rate No Result Required. Vent Mode No Result Required. Vent Rate No Result Required. Mechanical Rate No Result Required. Pressure Support Vent No Result Required. Current Medications Generic Name Dose Route Start Last Admin Trade Name Freq PRN Reason Stop Dose Admin Acetaminophen 650 mg 09/03/18 20:21 Tylenol - PO Q6H PRN PAIN LEVEL 4 - 6 Amlodipine Besylate 5 mg 09/04/18 10:00 09/11/18 10:12 Norvasc - PO 5 mg DAILY [facility] Administration Aspirin 81 mg 09/04/18 10:00 09/11/18 10:11 Ecotrin - PO 81 mg DAILY [facility] Administration Atorvastatin Calcium 80 mg 09/03/18 22:03 09/11/18 21:21 Lipitor - PO 80 mg HS [facility] Administration Clopidogrel Bisulfate 75 mg 09/04/18 10:00 09/11/18 10:11 Plavix - PO 75 mg DAILY [facility] Administration Docusate Sodium 100 mg 09/03/18 22:00 09/11/18 21:21 Colace - PO 100 mg BID [facility] Administration Furosemide 80 mg 09/10/18 10:00 09/11/18 10:11 Lasix - PO 80 mg DAILY [facility] Administration Heparin Sodium (Porcine) 5,000 unit 09/07/18 10:00 09/11/18 21:21 Heparin - SQ 5,000 unit BID [facility] Administration Metoprolol Succinate 25 mg 09/04/18 12:00 09/11/18 14:50 Toprol Xl - PO 25 mg DAILY@1200 [facility] Administration Senna 2 tab 09/03/18 22:00 09/11/18 21:21 Senna - PO 2 tab HS [facility] Administration Current Active Problems Problem Status Onset Anemia Acute Anorexia Acute CAD (coronary artery disease) of bypass graft Acute Congestive heart failure (CHF) Acute Heart failure Acute Hypertension Acute Hypoxemia Acute Malnutrition of moderate degree Acute NSTEMI (non-ST elevated myocardial infarction) Acute Pleural effusion due to CHF (congestive heart failure) Acute Prophylactic measure Acute Weakness generalized Acute Plan D/C Home on PO Furosemide F/U in the office and cardiology f/u VNS arrenged. Risk of readmition is increased due to advanced cororary and vascular disease. Problem List - Problems (1) Anemia Code(s): D64.9 - ANEMIA, UNSPECIFIED Qualifiers: Anemia type: unspecified type Qualified Code(s): D64.9 - Anemia, unspecified (2) CAD (coronary artery disease) of bypass graft Code(s): I25.810 - ATHEROSCLEROSIS OF CABG W/O ANGINA PECTORIS Qualifiers: [place] vs. transplanted heart: [place] heart Associated angina: without angina Qualified Code(s): I25.810 - Atherosclerosis of coronary artery bypass graft(s) without angina pectoris (3) Heart failure Code(s): I50.9 - HEART FAILURE, UNSPECIFIED Qualifiers: Heart failure type: combined systolic and diastolic Heart failure chronicity: acute on chronic Qualified Code(s): I50.43 - Acute on chronic combined systolic (congestive) and diastolic (congestive) heart failure (4) NSTEMI (non-ST elevated myocardial infarction) Code(s): I21.4 - NON-ST ELEVATION (NSTEMI) MYOCARDIAL INFARCTION (5) Malnutrition of moderate degree Code(s): E44.0 - MODERATE PROTEIN-CALORIE MALNUTRITION (6) Weakness generalized Code(s): R53.1 - WEAKNESS (7) Pleural effusion due to CHF (congestive heart failure) Code(s): I50.9 - HEART FAILURE, UNSPECIFIED (8) Hypoxemia Code(s): R09.02 - HYPOXEMIA
--- NOTE | 2018-09-12 08:46 | DS ---
Physical Examination Vital Signs: Vital Signs Temperature 97.8 F 09/12/18 05:53 Pulse Rate 58 L 09/12/18 05:53 Respiratory Rate 18 09/12/18 05:53 Blood Pressure 131/54 L 09/12/18 05:53 O2 Sat by Pulse Oximetry (%) 98 09/11/18 20:53 Constitutional: Yes: No Distress, Anxious Eyes: Yes: Conjunctiva Clear, EOM Intact HENT: Yes: Atraumatic, Normocephalic Neck: Yes: Supple, Trachea Midline Cardiovascular: Yes: Regular Rate and Rhythm, S1, S2. No: Bradycardia, Tachycardia Respiratory: Yes: Regular, CTA Bilaterally Gastrointestinal: Yes: Normal Bowel Sounds, Soft. No: Abdomen, Obese ...Rectal Exam: Yes: Deferred Renal/: No: Anuria Musculoskeletal: No: Joint Stiffness, Joint Swelling Extremities: No: Amputation, Calf Tenderness, Cold, Cyanosis Edema: No Peripheral Pulses WNL: No Integumentary: Yes: WNL Neurological: Yes: WNL ...Motor Strength: WNL Labs: CBC, BMP 09/11/18 06:00 09/11/18 06:00 Discharge Summary Reason For Visit: HEART FAILURE,CORONARY AETERY DISEASE Current Active Problems Anemia (Acute) Anorexia (Acute) CAD (coronary artery disease) of bypass graft (Acute) Congestive heart failure (CHF) (Acute) Heart failure (Acute) Hypertension (Acute) Hypoxemia (Acute) Malnutrition of moderate degree (Acute) NSTEMI (non-ST elevated myocardial infarction) (Acute) Pleural effusion due to CHF (congestive heart failure) (Acute) Prophylactic measure (Acute) Weakness generalized (Acute) Condition: Improved - Instructions Disposition: VNS/HOME HEALTH CARE - Home Medications Comprehensive Discharge Medication List: Ambulatory Orders Aspirin Coated [Ecotrin -] 81 mg PO DAILY #0 tablet.ec 05/20/12 Atorvastatin Calcium 40 mg PO HS 10/29/16 Metoprolol Succinate [Toprol XL -] 25 mg PO DAILY 10/29/16 Clopidogrel Bisulfate [Plavix] 75 mg PO DAILY 08/07/17 Amlodipine Besylate [Norvasc -] 5 mg PO DAILY 08/15/18 Multivit-Min/FA/Lycopen/Lutein [Centrum Silver Tablet] 1 each PO DAILY 09/03/18
[2018-09-12] MEDS: DOCUSATE SODIUM 100 MG CAPSULE (FP) PO SCH (10:04)
[2018-09-12] MEDS: amLODIPine BESYLATE 5 MG TABLET (FP) PO SCH (10:04)
[2018-09-12] MEDS: CLOPIDOGREL BISULFATE 75 MG TABLET (FP) PO SCH (10:04)
[2018-09-12] MEDS: FUROSEMIDE 40 MG TABLET (FP) PO SCH (10:04)
[2018-09-12] MEDS: ASPIRIN COATED 81 MG TABLET.EC PO SCH (10:05)
[2018-09-12] MEDS: HEPARIN NA (PORCINE) 5,000 UNITS/ML 1ML VIAL SQ SCH (10:05)
--- NOTE | 2018-09-12 10:11 | PN ---
Progress Note, Physician Chief Complaint: no CP or SOB - Current Medication List Current Medications: Active Medications Acetaminophen (Tylenol -) 650 mg PO Q6H PRN PRN Reason: PAIN LEVEL 4 - 6 Amlodipine Besylate (Norvasc -) 5 mg PO DAILY [facility] Last Admin: 09/12/18 10:04 Dose: 5 mg Aspirin (Ecotrin -) 81 mg PO DAILY [facility] Last Admin: 09/12/18 10:05 Dose: 81 mg Atorvastatin Calcium (Lipitor -) 80 mg PO HS [facility] Last Admin: 09/11/18 21:21 Dose: 80 mg Clopidogrel Bisulfate (Plavix -) 75 mg PO DAILY [facility] Last Admin: 09/12/18 10:04 Dose: 75 mg Docusate Sodium (Colace -) 100 mg PO BID [facility] Last Admin: 09/12/18 10:04 Dose: 100 mg Furosemide (Lasix -) 80 mg PO DAILY [facility] Last Admin: 09/12/18 10:04 Dose: 80 mg Heparin Sodium (Porcine) (Heparin -) 5,000 unit SQ BID [facility] Last Admin: 09/12/18 10:05 Dose: 5,000 unit Metoprolol Succinate (Toprol Xl -) 25 mg PO DAILY@1200 [facility] Last Admin: 09/11/18 14:50 Dose: 25 mg Senna (Senna -) 2 tab PO [facility] Last Admin: 09/11/18 21:21 Dose: 2 tab - Objective Vital Signs: Vital Signs Temperature 97.8 F 09/12/18 05:53 Pulse Rate 58 L 09/12/18 05:53 Respiratory Rate 18 09/12/18 05:53 Blood Pressure 131/54 L 09/12/18 05:53 O2 Sat by Pulse Oximetry (%) 98 09/11/18 20:53 Constitutional: Yes: No Distress Cardiovascular: Yes: Regular Rate and Rhythm Respiratory: Yes: CTA Bilaterally (no rales or wheezing) Gastrointestinal: Yes: Soft Edema: No Neurological: Yes: Alert, Oriented Labs: CBC, BMP 09/11/18 06:00 09/11/18 06:00 INR, PTT INR 1.45 (0.83-1.09) H 09/04/18 03:17 Assessment/Plan Assessment/Plan 78 yo m with pmhx of CAD s/p CABG 2013 with ischemic cardiopathy (EF now normalized), hl, pad s/p left CEA and right cea (5/13/19), s/p left fem-pop bypass, Right fem-pop 10/31/16, thrombosis of fem-pop bypass graft and stenosis of rt iliac artery s/p Open thrombectomy of fem-pop bypass and rt iliac artery stent 11/2016, Lt subclavian art stenosis, CKD, Chronic back pain, anemia, anxiety, Gout with acute on chronic systolic CHF Acute syst chf: -here with vol overload -updated echo with mild LV systolic dysfx and mild HK -diuresed with IV lasix, now appears euvolemic -continue lasix 80 mg PO daily Cad, nstemi: -pt has no cardiac sxs but had trop in 3's here, now downtrending. Also ecg with some mild lateral st depressions. Possibly demand ischemia 2/2 chf but could represent nstemi as well given his cad hx -cont statin, bb -HGb down to 6.9, s/p PRBC. -stable H/H, cont aspirin, plavix -case discussed with interventionalist and pts primary executive director of nursing as well. Plan is for medical management of cad for now due to increased risk of cath/pci/ uninterrupted dapt. Pad, cea's: -cont cardiac meds -s/p recent cea Htn: -cont current meds hld: -cont statin cardiac reyes stable, will need close outpatient f/u w/ Dr. Higgins- d/w patient
[2018-09-12] MEDS: metoPROLOL SUCCINATE 25 MG TAB.SR.24H (FP) PO SCH (11:18)
[2018-09-12 15:02] VITALS: BP 121/68; PULSE 62; TEMP 98
[2018-09-13 01:41] VITALS: BMI 21.7
== END 2018-09-12 13:10 | disposition home health service (06) | DRG 280 ==
LOC: JER 16:15 → JERBED 19:22 → J4W 09-04 14:49
PROVIDERS: ADMIT Internal Medicine; ATTEND Internal Medicine
PROC: 30233N1 Transfusion of Nonautologous Red Blood Cells into Peripheral Vein, Percutaneous Approach (ICD-10-PCS; principal; 2018-09-06)
DX: I13.0 Hypertensive heart and chronic kidney disease with heart failure and stage 1 through stage 4 chronic kidney disease, or unspecified chronic kidney disease (principal); I21.4 Non-ST elevation (NSTEMI) myocardial infarction; I50.23 Acute on chronic systolic (congestive) heart failure; E44.0 Moderate protein-calorie malnutrition; N18.9 Chronic kidney disease, unspecified; R09.02 Hypoxemia; I25.10 Atherosclerotic heart disease of native coronary artery without angina pectoris; D64.9 Anemia, unspecified; E78.5 Hyperlipidemia, unspecified; I73.9 Peripheral vascular disease, unspecified; Z95.1 Presence of aortocoronary bypass graft; Z87.891 Personal history of nicotine dependence; N40.0 Benign prostatic hyperplasia without lower urinary tract symptoms; G89.29 Other chronic pain; M54.5 Low back pain; M25.512 Pain in left shoulder; I25.9 Chronic ischemic heart disease, unspecified; F41.9 Anxiety disorder, unspecified; M10.9 Gout, unspecified
CPT/HCPCS: 36415; 36430; 36511; 36600; 71045-TC-FY; 71046-TC-FY; 71250-TC; 80053; 82550; 82607; 82728; 82746; 82803; 83036; 83540; 83550; 83735; 83880; 84100; 84134; 84443; 84484; 85025; 85027; 85610; 85730; 86850; 86900; 86901; 86922; 93005; 93010; 93306-TC; 93970-TC; 94761; 97116-GP; 97162-GP; 99284-25; J1644; P9038; P9054; P9058

== ENCOUNTER 2022-02-14 15:00 | Inpatient (IN) | payer OTHER ==
[2022-02-14] MEDS ORDERED: ACETAMINOPHEN 325 MG TABLET (FP) PO ONE (16:07)
[2022-02-14] MEDS ORDERED: ACETAMINOPHEN 325 MG TABLET (FP) ONE (16:43)
[2022-02-14] MEDS ORDERED: SODIUM CHLORIDE 0.9% 500 ML INFUS.BAG IV ONE (18:28)
[2022-02-14] MEDS ORDERED: DEXTROSE 5%-NORMAL SALINE 1,000 ML IV SCH (18:30)
[2022-02-14] MEDS ORDERED: ACETAMINOPHEN 325 MG TABLET (FP) PO PRN (18:52)
[2022-02-14] MEDS ORDERED: oxyCODONE HCL 5 MG TABLET PO PRN (19:08)
[2022-02-14 20:26] LABS: BASO % 0.3 % (0-2.0); EOS % 0.6 % (0-4.5); HEMATOCRIT 30.8 % (35.4-49); HEMOGLOBIN 10.2 GM/dL (11.7-16.9); LYMPH % 6.4 % (8-40); MCH 28.9 pg (25.7-33.7); MCHC 33.1 g/dl (32.0-35.9); MEAN CELL VOLUME 87.3 fl (80-96); MEAN PLT VOLUME 8.4 fl (7.5-11.1); MONO % 8.2 % (3.8-10.2); NEUT % 84.5 % (42.8-82.8); PLATELET COUNT 103 10^3/uL (134-434); RBC 3.52 M/mm3 (4.00-5.60); RDW 15.2 % (11.9-15.9)
[2022-02-14 20:33] LABS: INR 1.12 (0.83-1.09); PROTHROMBIN TIME (PATIENT) 12.9 SEC (9.7-13.0)
[2022-02-14 20:36] LABS: ACTIVATED PTT 31.6 SECONDS (25.2-36.5)
[2022-02-14 20:47] LABS: CALCIUM 9.4 mg/dL (8.5-10.1)
[2022-02-14 20:52] LABS: BILIRUBIN,TOTAL 0.6 mg/dL (0.2-1); TOT PROT 6.9 g/dl (6.4-8.2)
[2022-02-14] MEDS ORDERED: oxyCODONE HCL 5 MG TABLET ONE (23:32)
[2022-02-14] MEDS ORDERED: CARBIDOPA/LEVODOPA 25/100 TABLET (FP) ONE (23:32)
[2022-02-14] MEDS: CARBIDOPA/LEVODOPA 25/100 TABLET (FP) PO SCH (23:36)
[2022-02-15] MEDS: CARBIDOPA/LEVODOPA 25/100 TABLET (FP) PO SCH ×3 (05:38→21:49)
[2022-02-15] MEDS ORDERED: metoPROLOL SUCCINATE 25 MG TAB.SR.24H (FP) PO SCH (10:00)
[2022-02-15] MEDS ORDERED: FUROSEMIDE 40 MG TABLET (FP) PO SCH (10:00)
[2022-02-15] MEDS ORDERED: EZETIMIBE 10 MG TABLET (FP) PO SCH (10:00)
[2022-02-15] MEDS ORDERED: ASPIRIN COATED 81 MG TABLET.EC PO SCH (10:00)
[2022-02-15 10:55] LABS: BASO % 0.5 % (0-2.0); HEMATOCRIT 29.1 % (35.4-49); HEMOGLOBIN 9.7 GM/dL (11.7-16.9); LYMPH % 7.6 % (8-40); MCH 28.9 pg (25.7-33.7); MCHC 33.2 g/dl (32.0-35.9); MEAN CELL VOLUME 86.8 fl (80-96); MEAN PLT VOLUME 8.7 fl (7.5-11.1); MONO % 6.8 % (3.8-10.2); NEUT % 83.1 % (42.8-82.8); PLATELET COUNT 104 10^3/uL (134-434); RBC 3.36 M/mm3 (4.00-5.60); RDW 15.3 % (11.9-15.9); WHITE BLOOD COUNT 5.6 K/mm3 (4.0-10.0)
[2022-02-15 11:18] LABS: CALCIUM 9.1 mg/dL (8.5-10.1)
[2022-02-15 11:19] LABS: BLOOD UREA NITROGEN 36.6 mg/dL (7-18); MAGNESIUM 2.4 mg/dL (1.8-2.4)
[2022-02-15 11:21] LABS: CREATININE 1.6 mg/dL (0.55-1.3); PHOSPHOROUS 3.1 mg/dL (2.5-4.9)
[2022-02-15 12:08] LABS: PH,URINE 6.5 (5.0-8.0); URINE APPEARANCE CLEAR; URINE BILIRUBIN NEGATIVE (NEGATIVE); URINE COLOR YELLOW; URINE GLUCOSE (UA) NEGATIVE (NEGATIVE); URINE KETONE NEGATIVE (NEGATIVE); URINE LEUK ESTERASE NEGATIVE (NEGATIVE); URINE NITRITE NEGATIVE (NEGATIVE); URINE PROTEIN TRACE (NEGATIVE); URINE UROBILINOGEN 0.2 mg/dL (0.2-1.0)
[2022-02-15] MEDS ORDERED: ceFAZolin SODIUM 1 GM VIAL IVPB ONE (13:10)
[2022-02-15] MEDS ORDERED: PROPOFOL 20 ML ONE ×2 (14:27→16:25)
[2022-02-15] MEDS ORDERED: ONDANSETRON 4 MG/2 ML VIAL ONE (14:27)
[2022-02-15] MEDS ORDERED: ETOMIDATE 20 MG/10 ML VIAL IVPUSH ONE (14:27)
[2022-02-15] MEDS ORDERED: DEXAMETHASONE SOD PHOSPHATE 4 MG/1 ML VIAL ONE (14:27)
[2022-02-15] MEDS ORDERED: SUCCINYLCHOLINE CHLORIDE 200 MG/10 ML SYRINGE ONE (14:28)
[2022-02-15] MEDS ORDERED: ceFAZolin SODIUM 1 GM VIAL ONE (14:29)
[2022-02-15] MEDS ORDERED: LIDOCAINE HCL/PF 2% SDV 5ML VIAL ONE (14:29)
[2022-02-15] MEDS ORDERED: ONDANSETRON 4 MG/2 ML VIAL IVPUSH PRN (16:07)
[2022-02-15] MEDS ORDERED: amLODIPine BESYLATE 5 MG TABLET (FP) PO ONE (17:35)
[2022-02-15] MEDS ORDERED: ASPIRIN 81 MG CHEWABLE TABLETS PO ONE (17:36)
[2022-02-15] MEDS: DEXTROSE 5%-NORMAL SALINE 1,000 ML IV SCH (17:50)
[2022-02-15] MEDS: oxyCODONE HCL 5 MG TABLET PO PRN (18:23)
[2022-02-15] MEDS: ROSUVASTATIN CA 20 MG TABLET PO SCH (21:49)
[2022-02-15] MEDS ORDERED: ROSUVASTATIN CA 20 MG TABLET PO SCH (22:00)
[2022-02-16] MEDS: CEFAZOLIN 1 GM in DEXTROSE 5%-WATER - 50 ML IVPB SCH ×4 (00:40→17:57)
[2022-02-16] MEDS: CARBIDOPA/LEVODOPA 25/100 TABLET (FP) PO SCH ×3 (06:02→21:30)
[2022-02-16] MEDS ORDERED: CLOPIDOGREL BISULFATE 75 MG TABLET (FP) PO SCH (10:00)
[2022-02-16] MEDS ORDERED: amLODIPine BESYLATE 5 MG TABLET (FP) PO SCH (10:00)
[2022-02-16] MEDS ORDERED: DONEPEZIL HCL 10 MG TABLET (FP) PO SCH (10:00)
[2022-02-16] MEDS: DEXTROSE 5%-NORMAL SALINE 1,000 ML IV SCH (10:29)
[2022-02-16] MEDS: CLOPIDOGREL BISULFATE 75 MG TABLET (FP) PO SCH (10:30)
[2022-02-16] MEDS: EZETIMIBE 10 MG TABLET (FP) PO SCH (10:30)
[2022-02-16] MEDS: metoPROLOL SUCCINATE 25 MG TAB.SR.24H (FP) PO SCH (10:30)
[2022-02-16] MEDS: ASPIRIN COATED 81 MG TABLET.EC PO SCH (10:30)
[2022-02-16] MEDS: FUROSEMIDE 40 MG TABLET (FP) PO SCH (10:30)
[2022-02-16 13:20] LABS: BASO % 0.5 % (0-2.0); EOS % 1.9 % (0-4.5); HEMATOCRIT 26.1 % (35.4-49); HEMOGLOBIN 8.7 GM/dL (11.7-16.9); LYMPH % 7.9 % (8-40); MCH 29.1 pg (25.7-33.7); MCHC 33.4 g/dl (32.0-35.9); MEAN CELL VOLUME 87.2 fl (80-96); MEAN PLT VOLUME 8.8 fl (7.5-11.1); MONO % 6.7 % (3.8-10.2); PLATELET COUNT 93 10^3/uL (134-434); RBC 2.99 M/mm3 (4.00-5.60); RDW 15.1 % (11.9-15.9)
[2022-02-16 13:32] VITALS: BMI 21.9
[2022-02-16 13:32] LABS: CALCIUM 8.9 mg/dL (8.5-10.1)
[2022-02-16 13:33] LABS: ALBUMIN 3.2 g/dl (3.4-5.0); BLOOD UREA NITROGEN 34.8 mg/dL (7-18); MAGNESIUM 2.4 mg/dL (1.8-2.4)
[2022-02-16 13:37] LABS: CREATININE 1.8 mg/dL (0.55-1.3)
[2022-02-16 13:38] LABS: BILIRUBIN,TOTAL 0.3 mg/dL (0.2-1)
[2022-02-16 14:50] VITALS: RESP 18
[2022-02-16] MEDS ORDERED: ENOXAPARIN NA (PORCINE) 40 MG/0.4 ML DISP.SYRIN SQ ONE (15:47)
[2022-02-16] MEDS: DONEPEZIL HCL 10 MG TABLET (FP) PO SCH (21:30)
[2022-02-16] MEDS: ROSUVASTATIN CA 20 MG TABLET PO SCH (21:30)
[2022-02-16] MEDS: DOCUSATE SODIUM 100 MG CAPSULE (FP) PO SCH (21:30)
[2022-02-16] MEDS: POLYETHYLENE GLYCOL (HEALTHYLAX) 3350 17 GM PACKET PO SCH (21:30)
[2022-02-17] MEDS: CARBIDOPA/LEVODOPA 25/100 TABLET (FP) PO SCH ×3 (06:17→21:26)
[2022-02-17] MEDS: DOCUSATE SODIUM 100 MG CAPSULE (FP) PO SCH ×3 (06:17→21:25)
[2022-02-17] MEDS: AMINO ACIDS/PROTEIN HYDROLYS 30 ML LIQUID.PKT PO SCH (08:22)
[2022-02-17 08:54] LABS: BASO % 0.8 % (0-2.0); EOS % 4.3 % (0-4.5); HEMATOCRIT 26.2 % (35.4-49); HEMOGLOBIN 8.6 GM/dL (11.7-16.9); LYMPH % 9.7 % (8-40); MCH 28.7 pg (25.7-33.7); MCHC 32.8 g/dl (32.0-35.9); MEAN CELL VOLUME 87.5 fl (80-96); MEAN PLT VOLUME 8.4 fl (7.5-11.1); MONO % 9.1 % (3.8-10.2); NEUT % 76.1 % (42.8-82.8); PLATELET COUNT 92 10^3/uL (134-434); RBC 2.99 M/mm3 (4.00-5.60); RDW 15.3 % (11.9-15.9); WHITE BLOOD COUNT 5.2 K/mm3 (4.0-10.0)
[2022-02-17] MEDS: metoPROLOL SUCCINATE 25 MG TAB.SR.24H (FP) PO SCH (09:22)
[2022-02-17] MEDS: amLODIPine BESYLATE 10 MG TABLET (FP) PO SCH (09:22)
[2022-02-17] MEDS: CLOPIDOGREL BISULFATE 75 MG TABLET (FP) PO SCH (09:22)
[2022-02-17] MEDS: ASPIRIN COATED 81 MG TABLET.EC PO SCH (09:22)
[2022-02-17] MEDS: ENOXAPARIN NA (PORCINE) 40 MG/0.4 ML DISP.SYRIN SQ SCH (09:22)
[2022-02-17] MEDS: ACETAMINOPHEN 325 MG TABLET (FP) PO PRN (09:22)
[2022-02-17] MEDS: EZETIMIBE 10 MG TABLET (FP) PO SCH (09:22)
[2022-02-17] MEDS: POLYETHYLENE GLYCOL (HEALTHYLAX) 3350 17 GM PACKET PO SCH ×2 (09:22→21:26)
[2022-02-17] MEDS: FUROSEMIDE 40 MG TABLET (FP) PO SCH (09:22)
[2022-02-17 10:11] LABS: ALBUMIN 3.2 g/dl (3.4-5.0); CREATININE 1.5 mg/dL (0.55-1.3)
[2022-02-17 10:12] LABS: BLOOD UREA NITROGEN 38.2 mg/dL (7-18); CALCIUM 9.2 mg/dL (8.5-10.1); MAGNESIUM 2.2 mg/dL (1.8-2.4)
[2022-02-17 10:13] LABS: BILIRUBIN,TOTAL 0.5 mg/dL (0.2-1); TOT PROT 6.1 g/dl (6.4-8.2)
[2022-02-17] MEDS ORDERED: METOPROLOL TARTRATE 25 MG TABLET (FP) PO ONE (12:31)
[2022-02-17] MEDS: ROSUVASTATIN CA 20 MG TABLET PO SCH (21:26)
[2022-02-17] MEDS: DONEPEZIL HCL 10 MG TABLET (FP) PO SCH (21:26)
[2022-02-18] MEDS: CARBIDOPA/LEVODOPA 25/100 TABLET (FP) PO SCH ×3 (06:05→21:42)
[2022-02-18] MEDS: DOCUSATE SODIUM 100 MG CAPSULE (FP) PO SCH ×3 (06:05→21:42)
[2022-02-18] MEDS ORDERED: METOPROLOL TARTRATE 25 MG TABLET (FP) PO SCH ×2 (06:50→10:00)
[2022-02-18] MEDS: ACETAMINOPHEN 325 MG TABLET (FP) PO PRN (09:44)
[2022-02-18] MEDS: ASPIRIN COATED 81 MG TABLET.EC PO SCH (09:44)
[2022-02-18] MEDS: CLOPIDOGREL BISULFATE 75 MG TABLET (FP) PO SCH (09:46)
[2022-02-18 09:47] LABS: BASO % 0.4 % (0-2.0); EOS % 2.6 % (0-4.5); HEMATOCRIT 26.4 % (35.4-49); LYMPH % 7.4 % (8-40); MCH 29.6 pg (25.7-33.7); MCHC 34.2 g/dl (32.0-35.9); MEAN CELL VOLUME 86.5 fl (80-96); MEAN PLT VOLUME 8.2 fl (7.5-11.1); MONO % 8.6 % (3.8-10.2); PLATELET COUNT 105 10^3/uL (134-434); RBC 3.05 M/mm3 (4.00-5.60); RDW 14.7 % (11.9-15.9); WHITE BLOOD COUNT 4.9 K/mm3 (4.0-10.0)
[2022-02-18] MEDS: EZETIMIBE 10 MG TABLET (FP) PO SCH (09:47)
[2022-02-18] MEDS: METOPROLOL TARTRATE 25 MG TABLET (FP) PO SCH ×2 (09:47→21:42)
[2022-02-18] MEDS: FUROSEMIDE 40 MG TABLET (FP) PO SCH (09:47)
[2022-02-18] MEDS: amLODIPine BESYLATE 10 MG TABLET (FP) PO SCH (09:48)
[2022-02-18] MEDS: ENOXAPARIN NA (PORCINE) 40 MG/0.4 ML DISP.SYRIN SQ SCH (09:48)
[2022-02-18] MEDS: AMINO ACIDS/PROTEIN HYDROLYS 30 ML LIQUID.PKT PO SCH (09:48)
[2022-02-18] MEDS: POLYETHYLENE GLYCOL (HEALTHYLAX) 3350 17 GM PACKET PO SCH ×2 (09:48→21:42)
[2022-02-18 09:57] LABS: ALBUMIN 3.1 g/dl (3.4-5.0); BLOOD UREA NITROGEN 38.4 mg/dL (7-18); CALCIUM 8.8 mg/dL (8.5-10.1); MAGNESIUM 2.4 mg/dL (1.8-2.4)
[2022-02-18 10:00] LABS: CREATININE 1.5 mg/dL (0.55-1.3)
[2022-02-18] MEDS ORDERED: hydrALAZINE HCL 10 MG TABLET PO SCH (10:00)
[2022-02-18 10:02] LABS: BILIRUBIN,TOTAL 0.6 mg/dL (0.2-1); TOT PROT 6.2 g/dl (6.4-8.2)
[2022-02-18] MEDS: DONEPEZIL HCL 10 MG TABLET (FP) PO SCH (21:42)
[2022-02-18] MEDS: ROSUVASTATIN CA 20 MG TABLET PO SCH (21:42)
[2022-02-19] MEDS: DOCUSATE SODIUM 100 MG CAPSULE (FP) PO SCH ×2 (05:54→14:34)
[2022-02-19] MEDS: CARBIDOPA/LEVODOPA 25/100 TABLET (FP) PO SCH ×2 (05:54→14:34)
[2022-02-19] MEDS: oxyCODONE HCL 5 MG TABLET PO PRN (05:59)
[2022-02-19] MEDS: AMINO ACIDS/PROTEIN HYDROLYS 30 ML LIQUID.PKT PO SCH (09:15)
[2022-02-19] MEDS: POLYETHYLENE GLYCOL (HEALTHYLAX) 3350 17 GM PACKET PO SCH (09:16)
[2022-02-19] MEDS: ENOXAPARIN NA (PORCINE) 40 MG/0.4 ML DISP.SYRIN SQ SCH (09:17)
[2022-02-19] MEDS: EZETIMIBE 10 MG TABLET (FP) PO SCH (09:18)
[2022-02-19] MEDS: ASPIRIN COATED 81 MG TABLET.EC PO SCH (09:18)
[2022-02-19] MEDS: FUROSEMIDE 40 MG TABLET (FP) PO SCH (09:18)
[2022-02-19] MEDS: METOPROLOL TARTRATE 25 MG TABLET (FP) PO SCH (09:19)
[2022-02-19] MEDS: CLOPIDOGREL BISULFATE 75 MG TABLET (FP) PO SCH (09:19)
[2022-02-19] MEDS: amLODIPine BESYLATE 10 MG TABLET (FP) PO SCH (09:31)
[2022-02-19] MEDS ORDERED: hydrALAZINE HCL 10 MG TABLET PO SCH (10:00)
[2022-02-19 10:33] LABS: BASO % 0.8 % (0-2.0); EOS % 2.7 % (0-4.5); HEMATOCRIT 25.6 % (35.4-49); HEMOGLOBIN 8.6 GM/dL (11.7-16.9); LYMPH % 11.7 % (8-40); MCH 28.9 pg (25.7-33.7); MCHC 33.7 g/dl (32.0-35.9); MEAN CELL VOLUME 85.8 fl (80-96); MEAN PLT VOLUME 8.5 fl (7.5-11.1); MONO % 10.2 % (3.8-10.2); NEUT % 74.6 % (42.8-82.8); PLATELET COUNT 108 10^3/uL (134-434); RBC 2.99 M/mm3 (4.00-5.60); RDW 14.7 % (11.9-15.9); WHITE BLOOD COUNT 4.4 K/mm3 (4.0-10.0)
[2022-02-19 10:50] LABS: BLOOD UREA NITROGEN 43.7 mg/dL (7-18); MAGNESIUM 2.5 mg/dL (1.8-2.4)
[2022-02-19 10:52] LABS: CALCIUM 8.8 mg/dL (8.5-10.1)
[2022-02-19 10:53] LABS: CREATININE 1.6 mg/dL (0.55-1.3)
[2022-02-19 10:54] LABS: TOT PROT 6.2 g/dl (6.4-8.2)
[2022-02-19 10:55] LABS: BILIRUBIN,TOTAL 0.6 mg/dL (0.2-1)
[2022-02-19 14:16] VITALS: BP 145/58; PULSE 55; TEMP 100
== END 2022-02-19 17:42 | DRG 481 ==
LOC: JER 15:00 → JERBED 17:23 → J6S 02-15 00:27
PROVIDERS: ADMIT Internal Medicine; ATTEND Nurse Practitioner Family
PROC: 0SS904Z Reposition Right Hip Joint with Internal Fixation Device, Open Approach (ICD-10-PCS; principal; 2022-02-15 13:00)
DX: S72.091A Other fracture of head and neck of right femur, initial encounter for closed fracture (principal); I13.0 Hypertensive heart and chronic kidney disease with heart failure and stage 1 through stage 4 chronic kidney disease, or unspecified chronic kidney disease; I50.22 Chronic systolic (congestive) heart failure; G20 Parkinson's disease; N18.9 Chronic kidney disease, unspecified; E78.5 Hyperlipidemia, unspecified; I25.10 Atherosclerotic heart disease of native coronary artery without angina pectoris; Z79.82 Long term (current) use of aspirin; N40.0 Benign prostatic hyperplasia without lower urinary tract symptoms; W19.XXXA Unspecified fall, initial encounter; Y93.9 Activity, unspecified; Y92.89 Other specified places as the place of occurrence of the external cause; Y99.9 Unspecified external cause status; Z79.01 Long term (current) use of anticoagulants
CPT/HCPCS: 36415; 70450-TC; 71046-TC-FY; 72170-TC-FY; 72192-TC; 73030-TC-RT-FY; 73502-TC-RT-FY; 73552-TC-RT-FY; 73700-TC-RT; 76000-TC-FY; 76775-TC; 80048; 80053; 81003; 83036; 83735; 84100; 84443; 85025; 85610; 85730; 86850; 86900; 86901; 86922; 93005; 93010; 94760; 97116-GP; 97161-GP; 99285-25; C9803-CS; U0003; U0005

== ENCOUNTER 2022-05-01 20:56 | Inpatient (IN) | payer OTHER ==
[2022-05-01 22:14] LABS: BASO % 0.7 % (0-2.0); EOS % 0.9 % (0-4.5); HEMATOCRIT 19.3 % (35.4-49); LYMPH % 9.6 % (8-40); MCH 29.1 pg (25.7-33.7); MCHC 32.7 g/dl (32.0-35.9); MONO % 9.2 % (3.8-10.2); NEUT % 79.6 % (42.8-82.8); PLATELET COUNT 164 10^3/uL (134-434); RBC 2.17 M/mm3 (4.00-5.60); RDW 18.4 % (11.9-15.9); WHITE BLOOD COUNT 5.1 K/mm3 (4.0-10.0)
[2022-05-01 22:32] LABS: HEMOGLOBIN 6.3 GM/dL (11.7-16.9)
[2022-05-01 22:35] LABS: CALCIUM 9.5 mg/dL (8.5-10.1)
[2022-05-01 22:36] LABS: ALBUMIN 3.8 g/dl (3.4-5.0); BLOOD UREA NITROGEN 68.1 mg/dL (7-18)
[2022-05-01 22:39] LABS: CREATININE 1.7 mg/dL (0.55-1.3)
[2022-05-01 22:50] LABS: BILIRUBIN,TOTAL 0.4 mg/dL (0.2-1)
[2022-05-02] MEDS ORDERED: FUROSEMIDE 40 MG/4 ML INJECTABLE VIAL IVPUSH ONE ×2 (02:00)
[2022-05-02] MEDS ORDERED: ACETAMINOPHEN 1000 MG/100 ML BAG IVPB ONE (04:06)
[2022-05-02 04:07] LABS: INR 1.09 (0.83-1.09); PROTHROMBIN TIME (PATIENT) 12.6 SEC (9.7-13.0)
[2022-05-02] MEDS ORDERED: ACETAMINOPHEN INJECTION 100 ML IVPB ONE (04:07)
[2022-05-02 04:10] LABS: ACTIVATED PTT 28.1 SECONDS (25.2-36.5)
[2022-05-02] MEDS ORDERED: metoPROLOL SUCCINATE 25 MG TAB.SR.24H (FP) PO ONE (07:18)
[2022-05-02] MEDS ORDERED: FUROSEMIDE 40 MG/4 ML INJECTABLE VIAL ONE (07:22)
[2022-05-02] MEDS ORDERED: amLODIPine BESYLATE 10 MG TABLET (FP) PO SCH (10:00)
[2022-05-02] MEDS ORDERED: REMDESIVIR 200 MG in SODIUM CHLORIDE 250 ML IVPB ONE (10:30)
[2022-05-02] MEDS: POLYETHYLENE GLYCOL (HEALTHYLAX) 3350 17 GM PACKET PO SCH ×2 (11:01→21:25)
[2022-05-02 13:45] VITALS: BMI 18.9
[2022-05-02 17:10] LABS: BASO % 0.6 % (0-2.0); EOS % 0.3 % (0-4.5); HEMATOCRIT 24.4 % (35.4-49); LYMPH % 7.6 % (8-40); MCH 28.6 pg (25.7-33.7); MCHC 32.9 g/dl (32.0-35.9); MEAN CELL VOLUME 86.9 fl (80-96); MONO % 12.7 % (3.8-10.2); NEUT % 78.8 % (42.8-82.8); PLATELET COUNT 154 10^3/uL (134-434); RBC 2.81 M/mm3 (4.00-5.60); RDW 17.3 % (11.9-15.9); WHITE BLOOD COUNT 5.2 K/mm3 (4.0-10.0)
[2022-05-02 17:27] LABS: CALCIUM 8.6 mg/dL (8.5-10.1)
[2022-05-02 17:28] LABS: ALBUMIN 3.4 g/dl (3.4-5.0); BLOOD UREA NITROGEN 57.2 mg/dL (7-18)
[2022-05-02 17:31] LABS: CREATININE 1.7 mg/dL (0.55-1.3)
[2022-05-02 17:32] LABS: BILIRUBIN,TOTAL 0.4 mg/dL (0.2-1)
[2022-05-02 17:33] LABS: TOT PROT 6.4 g/dl (6.4-8.2)
[2022-05-02] MEDS: MELATONIN 5 MG TABLETS PO SCH (21:26)
[2022-05-02] MEDS ORDERED: metoPROLOL SUCCINATE 25 MG TAB.SR.24H (FP) PO SCH (22:00)
[2022-05-03] MEDS ORDERED: ACETAMINOPHEN 325 MG TABLET (FP) PO ONE (06:53)
[2022-05-03] MEDS ORDERED: AMINO ACIDS/PROTEIN HYDROLYS 30 ML LIQUID.PKT PO SCH (08:00)
[2022-05-03] MEDS: CEFTRIAXONE 1 GM in DEXTROSE 5%-WATER - 50 ML IVPB SCH (09:21)
[2022-05-03] MEDS: REMDESIVIR 100 MG in SODIUM CHLORIDE 250 ML IVPB SCH (09:21)
[2022-05-03] MEDS: amLODIPine BESYLATE 10 MG TABLET (FP) PO SCH (09:24)
[2022-05-03] MEDS: POLYETHYLENE GLYCOL (HEALTHYLAX) 3350 17 GM PACKET PO SCH (09:24)
[2022-05-03] MEDS: CLOPIDOGREL BISULFATE 75 MG TABLET (FP) PO SCH (09:24)
[2022-05-03] MEDS: DEXAMETHASONE SOD PHOSPHATE 10 MG/1 ML VIAL IVPUSH SCH (09:24)
[2022-05-03] MEDS: AZITHROMYCIN IVPB 500 MG/250 ML BAG IVPB SCH (09:25)
[2022-05-03 09:57] LABS: BASO % 1.1 % (0-2.0); EOS % 0.1 % (0-4.5); HEMATOCRIT 24.4 % (35.4-49); HEMOGLOBIN 8.1 GM/dL (11.7-16.9); LYMPH % 9.1 % (8-40); MCHC 33.1 g/dl (32.0-35.9); MEAN CELL VOLUME 87.8 fl (80-96); MEAN PLT VOLUME 9.7 fl (7.5-11.1); MONO % 10.2 % (3.8-10.2); NEUT % 79.5 % (42.8-82.8); PLATELET COUNT 149 10^3/uL (134-434); RBC 2.78 M/mm3 (4.00-5.60); RDW 17.9 % (11.9-15.9); WHITE BLOOD COUNT 4.7 K/mm3 (4.0-10.0)
[2022-05-03] MEDS ORDERED: metoPROLOL SUCCINATE 25 MG TAB.SR.24H (FP) PO SCH (10:00)
[2022-05-03] MEDS ORDERED: DONEPEZIL HCL 10 MG TABLET (FP) PO SCH (10:00)
[2022-05-03 10:39] LABS: ALBUMIN 3.2 g/dl (3.4-5.0); BLOOD UREA NITROGEN 53.6 mg/dL (7-18); CALCIUM 8.6 mg/dL (8.5-10.1); MAGNESIUM 2.5 mg/dL (1.8-2.4)
[2022-05-03 10:41] LABS: CREATININE 1.5 mg/dL (0.55-1.3); PHOSPHOROUS 3.6 mg/dL (2.5-4.9)
[2022-05-03 10:43] LABS: TOT PROT 6.3 g/dl (6.4-8.2)
[2022-05-03 10:45] LABS: BILIRUBIN,TOTAL 0.4 mg/dL (0.2-1)
[2022-05-03 18:45] LABS: EPI CELLS 6 /uL (0-25.1); HYALINE CASTS 2 /uL (0-3.1); URINE APPEARANCE CLOUDY; URINE BACTERIA 2 /uL (0-1359); URINE BILIRUBIN NEGATIVE (NEGATIVE); URINE COLOR YELLOW; URINE GLUCOSE (UA) NEGATIVE (NEGATIVE); URINE KETONE NEGATIVE (NEGATIVE); URINE LEUK ESTERASE NEGATIVE (NEGATIVE); URINE NITRITE NEGATIVE (NEGATIVE); URINE PROTEIN 2+ (NEGATIVE); URINE RBC 8 /uL (0-23.9); URINE UROBILINOGEN 0.2 mg/dL (0.2-1.0); URINE WBC 11 /uL (0-25.8)
[2022-05-03] MEDS: AMINO ACIDS/PROTEIN HYDROLYS 30 ML LIQUID.PKT PO SCH (21:27)
[2022-05-03] MEDS: ROSUVASTATIN CA 10 MG TABLET PO SCH (21:27)
[2022-05-03] MEDS: MELATONIN 5 MG TABLETS PO SCH (21:27)
[2022-05-03] MEDS ORDERED: ROSUVASTATIN CA 10 MG TABLET PO SCH (22:00)
[2022-05-04 08:44] LABS: BASO % 0.3 % (0-2.0); EOS % 0.5 % (0-4.5); HEMOGLOBIN 8.3 GM/dL (11.7-16.9); LYMPH % 9.4 % (8-40); MCH 29.3 pg (25.7-33.7); MCHC 33.1 g/dl (32.0-35.9); MEAN CELL VOLUME 88.6 fl (80-96); MEAN PLT VOLUME 9.4 fl (7.5-11.1); MONO % 8.4 % (3.8-10.2); NEUT % 81.4 % (42.8-82.8); PLATELET COUNT 149 10^3/uL (134-434); RBC 2.83 M/mm3 (4.00-5.60); RDW 17.9 % (11.9-15.9); WHITE BLOOD COUNT 5.5 K/mm3 (4.0-10.0)
[2022-05-04 09:11] LABS: ALBUMIN 2.9 g/dl (3.4-5.0); BLOOD UREA NITROGEN 52.4 mg/dL (7-18); CALCIUM 8.3 mg/dL (8.5-10.1)
[2022-05-04 09:15] LABS: CREATININE 1.5 mg/dL (0.55-1.3)
[2022-05-04 09:16] LABS: BILIRUBIN,TOTAL 0.4 mg/dL (0.2-1); TOT PROT 5.6 g/dl (6.4-8.2)
[2022-05-04] MEDS: amLODIPine BESYLATE 10 MG TABLET (FP) PO SCH (10:09)
[2022-05-04] MEDS: CLOPIDOGREL BISULFATE 75 MG TABLET (FP) PO SCH (10:09)
[2022-05-04] MEDS: AMINO ACIDS/PROTEIN HYDROLYS 30 ML LIQUID.PKT PO SCH ×2 (10:09→21:37)
[2022-05-04] MEDS: CEFTRIAXONE 1 GM in DEXTROSE 5%-WATER - 50 ML IVPB SCH (10:09)
[2022-05-04] MEDS: POLYETHYLENE GLYCOL (HEALTHYLAX) 3350 17 GM PACKET PO SCH (10:09)
[2022-05-04] MEDS: MULTIVITAMINS (DAILY MVI) TABLET (FP) PO SCH (10:09)
[2022-05-04] MEDS: AZITHROMYCIN IVPB 500 MG/250 ML BAG IVPB SCH (10:09)
[2022-05-04] MEDS: REMDESIVIR 100 MG in SODIUM CHLORIDE 250 ML IVPB SCH ×2 (10:11→10:12)
[2022-05-04] MEDS: DEXAMETHASONE SOD PHOSPHATE 10 MG/1 ML VIAL IVPUSH SCH (10:12)
[2022-05-04] MEDS: metoPROLOL SUCCINATE 25 MG TAB.SR.24H (FP) PO SCH (10:12)
[2022-05-04] MEDS: ASCORBIC ACID 250 MG TABLET (FP) PO SCH (14:57)
[2022-05-04] MEDS: MELATONIN 5 MG TABLETS PO SCH (21:36)
[2022-05-04] MEDS: ROSUVASTATIN CA 10 MG TABLET PO SCH (21:38)
[2022-05-04] MEDS: DONEPEZIL HCL 10 MG TABLET (FP) PO SCH (21:38)
[2022-05-05 07:35] LABS: BASO % 0.3 % (0-2.0); HEMATOCRIT 25.4 % (35.4-49); HEMOGLOBIN 8.5 GM/dL (11.7-16.9); LYMPH % 6.1 % (8-40); MCH 29.2 pg (25.7-33.7); MCHC 33.4 g/dl (32.0-35.9); MEAN CELL VOLUME 87.6 fl (80-96); MEAN PLT VOLUME 9.2 fl (7.5-11.1); MONO % 5.8 % (3.8-10.2); NEUT % 87.8 % (42.8-82.8); PLATELET COUNT 167 10^3/uL (134-434); RDW 17.9 % (11.9-15.9); WHITE BLOOD COUNT 4.2 K/mm3 (4.0-10.0)
[2022-05-05 07:55] LABS: CALCIUM 8.4 mg/dL (8.5-10.1)
[2022-05-05 07:57] LABS: BLOOD UREA NITROGEN 55.5 mg/dL (7-18)
[2022-05-05 07:58] LABS: CREATININE 1.4 mg/dL (0.55-1.3)
[2022-05-05 07:59] LABS: BILIRUBIN,TOTAL 0.4 mg/dL (0.2-1)
[2022-05-05] MEDS: AMINO ACIDS/PROTEIN HYDROLYS 30 ML LIQUID.PKT PO SCH ×2 (10:32→21:35)
[2022-05-05] MEDS: POLYETHYLENE GLYCOL (HEALTHYLAX) 3350 17 GM PACKET PO SCH (10:32)
[2022-05-05] MEDS: CLOPIDOGREL BISULFATE 75 MG TABLET (FP) PO SCH (10:32)
[2022-05-05] MEDS: amLODIPine BESYLATE 10 MG TABLET (FP) PO SCH (10:32)
[2022-05-05] MEDS: DEXAMETHASONE SOD PHOSPHATE 10 MG/1 ML VIAL IVPUSH SCH (10:32)
[2022-05-05] MEDS: metoPROLOL SUCCINATE 25 MG TAB.SR.24H (FP) PO SCH (10:33)
[2022-05-05] MEDS: ASCORBIC ACID 250 MG TABLET (FP) PO SCH (10:33)
[2022-05-05] MEDS: MULTIVITAMINS (DAILY MVI) TABLET (FP) PO SCH (10:33)
[2022-05-05] MEDS: REMDESIVIR 100 MG in SODIUM CHLORIDE 250 ML IVPB SCH (10:34)
[2022-05-05] MEDS: CEFTRIAXONE 1 GM in DEXTROSE 5%-WATER - 50 ML IVPB SCH (10:34)
[2022-05-05] MEDS: AZITHROMYCIN IVPB 500 MG/250 ML BAG IVPB SCH (10:34)
[2022-05-05] MEDS ORDERED: QUEtiapine FUMARATE 25 MG TABLET PO ONE (12:59)
[2022-05-05] MEDS: ROSUVASTATIN CA 10 MG TABLET PO SCH (21:33)
[2022-05-05] MEDS: DONEPEZIL HCL 10 MG TABLET (FP) PO SCH (21:33)
[2022-05-05] MEDS: MELATONIN 5 MG TABLETS PO SCH (21:35)
[2022-05-05] MEDS ORDERED: QUEtiapine FUMARATE 25 MG TABLET PO SCH (22:00)
[2022-05-06 08:00] LABS: BASO % 0.1 % (0-2.0); EOS % 0.5 % (0-4.5); HEMATOCRIT 24.4 % (35.4-49); HEMOGLOBIN 8.2 GM/dL (11.7-16.9); LYMPH % 9.9 % (8-40); MCH 29.1 pg (25.7-33.7); MCHC 33.5 g/dl (32.0-35.9); MEAN CELL VOLUME 87.1 fl (80-96); MEAN PLT VOLUME 9.2 fl (7.5-11.1); MONO % 8.1 % (3.8-10.2); NEUT % 81.4 % (42.8-82.8); PLATELET COUNT 181 10^3/uL (134-434); RDW 17.9 % (11.9-15.9); WHITE BLOOD COUNT 5.3 K/mm3 (4.0-10.0)
[2022-05-06 08:18] LABS: ALBUMIN 2.8 g/dl (3.4-5.0); BLOOD UREA NITROGEN 53.7 mg/dL (7-18); CALCIUM 8.3 mg/dL (8.5-10.1); MAGNESIUM 2.3 mg/dL (1.8-2.4)
[2022-05-06 08:21] LABS: CREATININE 1.2 mg/dL (0.55-1.3)
[2022-05-06 08:22] LABS: BILIRUBIN,TOTAL 0.4 mg/dL (0.2-1); TOT PROT 5.5 g/dl (6.4-8.2)
[2022-05-06] MEDS ORDERED: QUEtiapine FUMARATE 25 MG TABLET PO SCH ×2 (10:00→22:00)
[2022-05-06] MEDS: POLYETHYLENE GLYCOL (HEALTHYLAX) 3350 17 GM PACKET PO SCH (11:01)
[2022-05-06] MEDS: CLOPIDOGREL BISULFATE 75 MG TABLET (FP) PO SCH (11:01)
[2022-05-06] MEDS: ASCORBIC ACID 250 MG TABLET (FP) PO SCH (11:01)
[2022-05-06] MEDS: MULTIVITAMINS (DAILY MVI) TABLET (FP) PO SCH (11:01)
[2022-05-06] MEDS: amLODIPine BESYLATE 10 MG TABLET (FP) PO SCH (11:01)
[2022-05-06] MEDS: REMDESIVIR 100 MG in SODIUM CHLORIDE 250 ML IVPB SCH (11:02)
[2022-05-06] MEDS: CEFTRIAXONE 1 GM in DEXTROSE 5%-WATER - 50 ML IVPB SCH (11:02)
[2022-05-06] MEDS: AZITHROMYCIN IVPB 500 MG/250 ML BAG IVPB SCH (11:02)
[2022-05-06] MEDS: AMINO ACIDS/PROTEIN HYDROLYS 30 ML LIQUID.PKT PO SCH ×2 (11:02→22:08)
[2022-05-06] MEDS: metoPROLOL SUCCINATE 25 MG TAB.SR.24H (FP) PO SCH ×2 (11:03→21:38)
[2022-05-06] MEDS: DONEPEZIL HCL 10 MG TABLET (FP) PO SCH (21:39)
[2022-05-06] MEDS: ROSUVASTATIN CA 10 MG TABLET PO SCH (22:07)
[2022-05-06] MEDS: MELATONIN 5 MG TABLETS PO SCH (22:08)
[2022-05-07 07:49] LABS: BASO % 0.3 % (0-2.0); EOS % 1.7 % (0-4.5); HEMOGLOBIN 9.1 GM/dL (11.7-16.9); LYMPH % 12.3 % (8-40); MCH 28.7 pg (25.7-33.7); MCHC 32.6 g/dl (32.0-35.9); MEAN CELL VOLUME 88.1 fl (80-96); MEAN PLT VOLUME 9.1 fl (7.5-11.1); MONO % 7.3 % (3.8-10.2); NEUT % 78.4 % (42.8-82.8); PLATELET COUNT 201 10^3/uL (134-434); RBC 3.18 M/mm3 (4.00-5.60); RDW 18.1 % (11.9-15.9); WHITE BLOOD COUNT 5.6 K/mm3 (4.0-10.0)
[2022-05-07 08:33] LABS: ALBUMIN 2.8 g/dl (3.4-5.0); BLOOD UREA NITROGEN 51.3 mg/dL (7-18); CALCIUM 8.3 mg/dL (8.5-10.1); MAGNESIUM 2.3 mg/dL (1.8-2.4)
[2022-05-07 08:37] LABS: CREATININE 1.1 mg/dL (0.55-1.3)
[2022-05-07 08:38] LABS: BILIRUBIN,TOTAL 0.4 mg/dL (0.2-1); TOT PROT 5.5 g/dl (6.4-8.2)
[2022-05-07] MEDS: MULTIVITAMINS (DAILY MVI) TABLET (FP) PO SCH (11:12)
[2022-05-07] MEDS: amLODIPine BESYLATE 10 MG TABLET (FP) PO SCH (11:12)
[2022-05-07] MEDS: metoPROLOL SUCCINATE 25 MG TAB.SR.24H (FP) PO SCH (11:13)
[2022-05-07] MEDS: AMINO ACIDS/PROTEIN HYDROLYS 30 ML LIQUID.PKT PO SCH ×2 (11:13→22:58)
[2022-05-07] MEDS: CEFTRIAXONE 1 GM in DEXTROSE 5%-WATER - 50 ML IVPB SCH (11:13)
[2022-05-07] MEDS: ASCORBIC ACID 250 MG TABLET (FP) PO SCH (11:13)
[2022-05-07] MEDS: CLOPIDOGREL BISULFATE 75 MG TABLET (FP) PO SCH (11:13)
[2022-05-07] MEDS: POLYETHYLENE GLYCOL (HEALTHYLAX) 3350 17 GM PACKET PO SCH (11:13)
[2022-05-07] MEDS: AZITHROMYCIN IVPB 500 MG/250 ML BAG IVPB SCH (11:14)
[2022-05-07] MEDS: REMDESIVIR 100 MG in SODIUM CHLORIDE 250 ML IVPB SCH (13:00)
[2022-05-07] MEDS: AMOX TR/POT CLAV 875MG/125MG TABLETS (FP) PO SCH (18:06)
[2022-05-07] MEDS ORDERED: QUEtiapine FUMARATE 25 MG TABLET PO SCH (22:00)
[2022-05-07] MEDS: HEPARIN NA (PORCINE) 5,000 UNITS/ML 1ML VIAL SQ SCH (22:56)
[2022-05-07] MEDS: ROSUVASTATIN CA 10 MG TABLET PO SCH (22:57)
[2022-05-07] MEDS: MELATONIN 5 MG TABLETS PO SCH (22:58)
[2022-05-07] MEDS: DONEPEZIL HCL 10 MG TABLET (FP) PO SCH (22:58)
[2022-05-08 08:38] LABS: BASO % 0.5 % (0-2.0); HEMATOCRIT 25.4 % (35.4-49); HEMOGLOBIN 8.4 GM/dL (11.7-16.9); LYMPH % 15.6 % (8-40); MCHC 32.9 g/dl (32.0-35.9); MEAN CELL VOLUME 88.1 fl (80-96); MEAN PLT VOLUME 9.2 fl (7.5-11.1); MONO % 6.3 % (3.8-10.2); NEUT % 75.6 % (42.8-82.8); PLATELET COUNT 168 10^3/uL (134-434); RBC 2.88 M/mm3 (4.00-5.60); RDW 17.8 % (11.9-15.9); WHITE BLOOD COUNT 4.9 K/mm3 (4.0-10.0)
[2022-05-08 09:14] LABS: CALCIUM 8.5 mg/dL (8.5-10.1)
[2022-05-08 09:15] LABS: ALBUMIN 2.8 g/dl (3.4-5.0); BLOOD UREA NITROGEN 47.1 mg/dL (7-18); MAGNESIUM 2.3 mg/dL (1.8-2.4)
[2022-05-08 09:20] LABS: BILIRUBIN,TOTAL 0.3 mg/dL (0.2-1); TOT PROT 5.5 g/dl (6.4-8.2)
[2022-05-08] MEDS ORDERED: ASPIRIN COATED 81 MG TABLET.EC PO SCH (10:00)
[2022-05-08] MEDS ORDERED: metoPROLOL SUCCINATE 25 MG TAB.SR.24H (FP) PO SCH (10:00)
[2022-05-08 10:45] VITALS: RESP 18; TEMP 98.3
[2022-05-08 11:07] VITALS: BP 148/59; PULSE 52
[2022-05-08] MEDS: POLYETHYLENE GLYCOL (HEALTHYLAX) 3350 17 GM PACKET PO SCH (11:10)
[2022-05-08] MEDS: MULTIVITAMINS (DAILY MVI) TABLET (FP) PO SCH (11:12)
[2022-05-08] MEDS: AMOX TR/POT CLAV 875MG/125MG TABLETS (FP) PO SCH (11:12)
[2022-05-08] MEDS: HEPARIN NA (PORCINE) 5,000 UNITS/ML 1ML VIAL SQ SCH (11:12)
[2022-05-08] MEDS: amLODIPine BESYLATE 10 MG TABLET (FP) PO SCH (11:12)
[2022-05-08] MEDS: AMINO ACIDS/PROTEIN HYDROLYS 30 ML LIQUID.PKT PO SCH (11:12)
[2022-05-08] MEDS: CLOPIDOGREL BISULFATE 75 MG TABLET (FP) PO SCH (11:12)
[2022-05-08] MEDS: ASCORBIC ACID 250 MG TABLET (FP) PO SCH (11:12)
== END 2022-05-08 15:50 | DRG 177 ==
LOC: JER 20:56 → JERBED 23:58 → J4W 05-02 08:18
PROVIDERS: ADMIT Internal Medicine; ATTEND Nurse Practitioner Family
PROC: XW033E5 Introduction of Remdesivir Anti-infective into Peripheral Vein, Percutaneous Approach, New Technology Group 5 (ICD-10-PCS; principal; 2022-05-01)
PROC: 30233N1 Transfusion of Nonautologous Red Blood Cells into Peripheral Vein, Percutaneous Approach (ICD-10-PCS; 2022-05-01)
DX: U07.1 COVID-19 (principal); E43 Unspecified severe protein-calorie malnutrition; G93.41 Metabolic encephalopathy; J12.82 Pneumonia due to coronavirus disease 2019; I13.0 Hypertensive heart and chronic kidney disease with heart failure and stage 1 through stage 4 chronic kidney disease, or unspecified chronic kidney disease; I50.32 Chronic diastolic (congestive) heart failure; D64.9 Anemia, unspecified; N18.9 Chronic kidney disease, unspecified; G20 Parkinson's disease; E86.0 Dehydration; I25.10 Atherosclerotic heart disease of native coronary artery without angina pectoris; Z95.1 Presence of aortocoronary bypass graft; E78.5 Hyperlipidemia, unspecified; N40.0 Benign prostatic hyperplasia without lower urinary tract symptoms
CPT/HCPCS: 0241U-QW; 36415; 36430; 70450-TC; 71045-TC-FY; 72125-TC; 80048; 80053; 81003; 82272; 82306; 82728; 82962; 83010; 83540; 83550; 83735; 84100; 84484; 85025; 85045; 85379; 85610; 85730; 86140; 86850; 86900; 86901; 86922; 87040; 87086; 87186; 93005; 93010; 93306-TC; 97116-GP; 97162-GP; 99291; 99292; C9399; C9803-CS; J1100; J1644; P9058; U0003; U0005

== ENCOUNTER 2022-07-13 13:40 | Inpatient (IN) | payer OTHER ==
[2022-07-13 15:11] LABS: BASO % 0.6 % (0-2.0); EOS % 0.1 % (0-4.5); HEMATOCRIT 24.3 % (35.4-49); HEMOGLOBIN 7.8 GM/dL (11.7-16.9); LYMPH % 6.6 % (8-40); MCH 26.8 pg (25.7-33.7); MCHC 32.4 g/dl (32.0-35.9); MEAN CELL VOLUME 82.7 fl (80-96); MEAN PLT VOLUME 7.9 fl (7.5-11.1); MONO % 10.2 % (3.8-10.2); NEUT % 82.5 % (42.8-82.8); PLATELET COUNT 238 10^3/uL (134-434); RBC 2.93 M/mm3 (4.00-5.60); RDW 17.2 % (11.9-15.9); WHITE BLOOD COUNT 6.7 K/mm3 (4.0-10.0)
[2022-07-13 15:12] LABS: VENOUS BASE EXCESS -2.3 mmol/L (-2-2); VENOUS O2 SATURATION 32.4 % (70-80); VENOUS PCO2 50.9 mmHg (38-52); VENOUS PH 7.297 (7.310-7.410)
[2022-07-13 15:23] LABS: INR 1.67 (0.83-1.09); PROTHROMBIN TIME (PATIENT) 19.3 SEC (9.7-13.0)
[2022-07-13 15:26] LABS: ACTIVATED PTT 32.8 SECONDS (25.2-36.5)
[2022-07-13 15:36] LABS: CHLORIDE 106 mmol/L (98-107); SODIUM 139 mmol/L (136-145)
[2022-07-13 15:38] LABS: ALBUMIN 3.3 g/dl (3.4-5.0); ANION GAP 9 MMOL/L (8-16); CALCIUM 8.8 mg/dL (8.5-10.1); CO2 25 mmol/L (21-32); GLUCOSE,RANDOM 123 mg/dL (74-106)
[2022-07-13 15:39] LABS: BLOOD UREA NITROGEN 50.6 mg/dL (7-18); MAGNESIUM 2.7 mg/dL (1.8-2.4)
[2022-07-13 15:41] LABS: PHOSPHOROUS 5.1 mg/dL (2.5-4.9); SGPT/ALT 18 U/L (13-61)
[2022-07-13 15:42] LABS: CREATININE 1.8 mg/dL (0.55-1.3); SGOT/AST 144 U/L (15-37)
[2022-07-13 15:43] LABS: BILIRUBIN,TOTAL 0.8 mg/dL (0.2-1); TOT PROT 6.9 g/dl (6.4-8.2)
[2022-07-13 15:44] LABS: ALK PHOS 67 U/L (45-117)
[2022-07-13 15:58] LABS: LACTIC ACID 2.9 mmol/L (0.4-2.0); N-TERMINAL BNP 56815.1 pg/ml (5-450)
[2022-07-13] MEDS ORDERED: FUROSEMIDE 40 MG/4 ML INJECTABLE VIAL IVPUSH ONE (16:26)
[2022-07-13] MEDS ORDERED: FUROSEMIDE 40 MG/4 ML INJECTABLE VIAL ONE (16:51)
[2022-07-13] MEDS ORDERED: ASPIRIN 81 MG CHEWABLE TABLETS PO ONE (18:44)
[2022-07-13] MEDS ORDERED: CLOPIDOGREL BISULFATE 300 MG TABLET PO ONE (18:56)
[2022-07-13] MEDS ORDERED: ASPIRIN 81 MG CHEWABLE TABLETS ONE (19:51)
[2022-07-13] MEDS ORDERED: ENOXAPARIN NA (PORCINE) 40 MG/0.4 ML DISP.SYRIN SQ ONE (22:38)
[2022-07-13] MEDS: ENOXAPARIN NA (PORCINE) 40 MG/0.4 ML DISP.SYRIN SQ SCH (22:45)
[2022-07-14 00:32] LABS: EPI CELLS 8 /uL (0-25.1); HYALINE CASTS 2 /uL (0-3.1); URINE APPEARANCE CLEAR; URINE BACTERIA 26 /uL (0-1359); URINE BILIRUBIN NEGATIVE (NEGATIVE); URINE COLOR YELLOW; URINE GLUCOSE (UA) NEGATIVE (NEGATIVE); URINE KETONE NEGATIVE (NEGATIVE); URINE LEUK ESTERASE NEGATIVE (NEGATIVE); URINE NITRITE NEGATIVE (NEGATIVE); URINE PROTEIN 1+ (NEGATIVE); URINE RBC 7 /uL (0-23.9); URINE UROBILINOGEN 0.2 mg/dL (0.2-1.0); URINE WBC 4 /uL (0-25.8)
[2022-07-14 06:52] LABS: HEMATOCRIT 23.1 % (35.4-49); HEMOGLOBIN 7.6 GM/dL (11.7-16.9); MCH 27.4 pg (25.7-33.7); MCHC 32.9 g/dl (32.0-35.9); MEAN CELL VOLUME 83.2 fl (80-96); MEAN PLT VOLUME 7.8 fl (7.5-11.1); PLATELET COUNT 218 10^3/uL (134-434); RBC 2.78 M/mm3 (4.00-5.60); RDW 17.7 % (11.9-15.9)
[2022-07-14 07:11] LABS: CHLORIDE 107 mmol/L (98-107); SODIUM 141 mmol/L (136-145)
[2022-07-14 07:14] LABS: CALCIUM 8.7 mg/dL (8.5-10.1)
[2022-07-14 07:15] LABS: ANION GAP 7 MMOL/L (8-16); BLOOD UREA NITROGEN 54.9 mg/dL (7-18); CO2 27 mmol/L (21-32); GLUCOSE,RANDOM 90 mg/dL (74-106); MAGNESIUM 2.6 mg/dL (1.8-2.4)
[2022-07-14 07:18] LABS: CREATININE 1.6 mg/dL (0.55-1.3)
[2022-07-14] MEDS: CARBIDOPA/LEVODOPA 25/100 TABLET (FP) PO SCH ×3 (08:15→16:17)
[2022-07-14] MEDS ORDERED: CARBIDOPA/LEVODOPA 25/100 TABLET (FP) ONE (08:19)
[2022-07-14] MEDS ORDERED: ASPIRIN COATED 81 MG TABLET.EC ONE (09:13)
[2022-07-14] MEDS ORDERED: amLODIPine BESYLATE 10 MG TABLET (FP) ONE (09:13)
[2022-07-14] MEDS ORDERED: ENOXAPARIN NA (PORCINE) 40 MG/0.4 ML DISP.SYRIN SQ ONE (09:14)
[2022-07-14] MEDS ORDERED: metoPROLOL SUCCINATE 25 MG TAB.SR.24H (FP) PO ONE (09:14)
[2022-07-14] MEDS ORDERED: FUROSEMIDE 40 MG/4 ML INJECTABLE VIAL ONE (09:14)
[2022-07-14] MEDS ORDERED: DONEPEZIL HCL 5 MG TABLET (FP) ONE (09:14)
[2022-07-14] MEDS ORDERED: CLOPIDOGREL BISULFATE 75 MG TABLET (FP) ONE (09:14)
[2022-07-14] MEDS: CLOPIDOGREL BISULFATE 75 MG TABLET (FP) PO SCH (09:22)
[2022-07-14] MEDS: metoPROLOL SUCCINATE 25 MG TAB.SR.24H (FP) PO SCH (09:22)
[2022-07-14] MEDS: ASPIRIN COATED 81 MG TABLET.EC PO SCH (09:22)
[2022-07-14] MEDS: amLODIPine BESYLATE 10 MG TABLET (FP) PO SCH (09:22)
[2022-07-14] MEDS: ENOXAPARIN NA (PORCINE) 40 MG/0.4 ML DISP.SYRIN SQ SCH (09:22)
[2022-07-14] MEDS: DONEPEZIL HCL 10 MG TABLET (FP) PO SCH (09:22)
[2022-07-14] MEDS: FUROSEMIDE 40 MG/4 ML INJECTABLE VIAL IVPUSH SCH (09:22)
[2022-07-14] MEDS ORDERED: ALBUTEROL SO4 2.5/IPRATROPIUM 0.5 INH SOL 3 ML VIAL.NEB. NEB ONE ×2 (11:33→11:34)
[2022-07-14] MEDS ORDERED: IRON SUCROSE INJECTION 200 MG in SODIUM CHLORIDE 90 ML IVPB ONE (14:30)
[2022-07-14 16:16] VITALS: BMI 21.7
[2022-07-14] MEDS: ROSUVASTATIN CA 20 MG TABLET PO SCH (22:32)
[2022-07-15] MEDS: CARBIDOPA/LEVODOPA 25/100 TABLET (FP) PO SCH ×3 (06:26→17:20)
[2022-07-15 08:26] LABS: CALCIUM 8.8 mg/dL (8.5-10.1)
[2022-07-15 08:27] LABS: BLOOD UREA NITROGEN 44.7 mg/dL (7-18)
[2022-07-15 08:28] LABS: CREATININE 1.4 mg/dL (0.55-1.3)
[2022-07-15 08:30] LABS: BILIRUBIN,TOTAL 0.5 mg/dL (0.2-1); TOT PROT 6.4 g/dl (6.4-8.2)
[2022-07-15 08:46] LABS: BASO % 0.9 % (0-2.0); EOS % 1.7 % (0-4.5); HEMATOCRIT 21.9 % (35.4-49); HEMOGLOBIN 7.3 GM/dL (11.7-16.9); LYMPH % 6.3 % (8-40); MCH 27.3 pg (25.7-33.7); MCHC 33.1 g/dl (32.0-35.9); MEAN CELL VOLUME 82.4 fl (80-96); MEAN PLT VOLUME 8.3 fl (7.5-11.1); MONO % 8.9 % (3.8-10.2); NEUT % 82.2 % (42.8-82.8); PLATELET COUNT 205 10^3/uL (134-434); RBC 2.66 M/mm3 (4.00-5.60); RDW 17.8 % (11.9-15.9)
[2022-07-15] MEDS: metoPROLOL SUCCINATE 25 MG TAB.SR.24H (FP) PO SCH (09:48)
[2022-07-15] MEDS: CLOPIDOGREL BISULFATE 75 MG TABLET (FP) PO SCH (09:48)
[2022-07-15] MEDS: DONEPEZIL HCL 10 MG TABLET (FP) PO SCH (09:49)
[2022-07-15] MEDS: amLODIPine BESYLATE 10 MG TABLET (FP) PO SCH (09:49)
[2022-07-15] MEDS: ENOXAPARIN NA (PORCINE) 40 MG/0.4 ML DISP.SYRIN SQ SCH (09:49)
[2022-07-15] MEDS: FUROSEMIDE 40 MG/4 ML INJECTABLE VIAL IVPUSH SCH (09:49)
[2022-07-15] MEDS: ASPIRIN COATED 81 MG TABLET.EC PO SCH (09:50)
[2022-07-15] MEDS: ROSUVASTATIN CA 20 MG TABLET PO SCH (22:12)
[2022-07-16] MEDS: CARBIDOPA/LEVODOPA 25/100 TABLET (FP) PO SCH ×3 (06:47→17:07)
[2022-07-16] MEDS ORDERED: FUROSEMIDE 40 MG/4 ML INJECTABLE VIAL IVPUSH ONE (09:06)
[2022-07-16] MEDS ORDERED: PANTOPRAZOLE SODIUM 40 MG VIAL IVPUSH SCH (10:00)
[2022-07-16] MEDS: ENOXAPARIN NA (PORCINE) 40 MG/0.4 ML DISP.SYRIN SQ SCH (10:14)
[2022-07-16] MEDS: DONEPEZIL HCL 10 MG TABLET (FP) PO SCH (10:15)
[2022-07-16] MEDS: FUROSEMIDE 40 MG/4 ML INJECTABLE VIAL IVPUSH SCH (10:15)
[2022-07-16] MEDS: amLODIPine BESYLATE 10 MG TABLET (FP) PO SCH (10:15)
[2022-07-16] MEDS: CLOPIDOGREL BISULFATE 75 MG TABLET (FP) PO SCH (10:15)
[2022-07-16] MEDS: metoPROLOL SUCCINATE 25 MG TAB.SR.24H (FP) PO SCH (10:15)
[2022-07-16] MEDS: ASPIRIN COATED 81 MG TABLET.EC PO SCH (10:15)
[2022-07-16] MEDS: ROSUVASTATIN CA 20 MG TABLET PO SCH (21:22)
[2022-07-17] MEDS: CARBIDOPA/LEVODOPA 25/100 TABLET (FP) PO SCH ×3 (06:20→17:52)
[2022-07-17 07:44] LABS: CALCIUM 8.7 mg/dL (8.5-10.1)
[2022-07-17 07:45] LABS: BLOOD UREA NITROGEN 40.3 mg/dL (7-18)
[2022-07-17 07:48] LABS: CREATININE 1.4 mg/dL (0.55-1.3)
[2022-07-17 07:49] LABS: BILIRUBIN,TOTAL 0.8 mg/dL (0.2-1)
[2022-07-17 07:50] LABS: TOT PROT 6.4 g/dl (6.4-8.2)
[2022-07-17 08:25] LABS: BASO % 0.7 % (0-2.0); EOS % 1.3 % (0-4.5); HEMATOCRIT 26.1 % (35.4-49); HEMOGLOBIN 8.8 GM/dL (11.7-16.9); LYMPH % 6.9 % (8-40); MCH 28.1 pg (25.7-33.7); MCHC 33.6 g/dl (32.0-35.9); MEAN CELL VOLUME 83.6 fl (80-96); MEAN PLT VOLUME 8.6 fl (7.5-11.1); MONO % 9.5 % (3.8-10.2); NEUT % 81.6 % (42.8-82.8); PLATELET COUNT 200 10^3/uL (134-434); RBC 3.12 M/mm3 (4.00-5.60); WHITE BLOOD COUNT 5.1 K/mm3 (4.0-10.0)
[2022-07-17] MEDS: metoPROLOL SUCCINATE 25 MG TAB.SR.24H (FP) PO SCH (11:45)
[2022-07-17] MEDS: CLOPIDOGREL BISULFATE 75 MG TABLET (FP) PO SCH (11:45)
[2022-07-17] MEDS: DONEPEZIL HCL 10 MG TABLET (FP) PO SCH (11:46)
[2022-07-17] MEDS: amLODIPine BESYLATE 10 MG TABLET (FP) PO SCH (11:46)
[2022-07-17] MEDS: ASPIRIN COATED 81 MG TABLET.EC PO SCH (11:46)
[2022-07-17] MEDS: MULTIVITAMINS (DAILY MVI) TABLET (FP) PO SCH (11:47)
[2022-07-17] MEDS: FUROSEMIDE 40 MG/4 ML INJECTABLE VIAL IVPUSH SCH ×2 (11:47→13:24)
[2022-07-17] MEDS: PANTOPRAZOLE 40 MG TABLET PO SCH (11:47)
[2022-07-17] MEDS: ENOXAPARIN NA (PORCINE) 40 MG/0.4 ML DISP.SYRIN SQ SCH (13:23)
[2022-07-17] MEDS: ROSUVASTATIN CA 20 MG TABLET PO SCH (22:01)
[2022-07-18] MEDS: MELATONIN 5 MG TABLETS PO PRN ×2 (02:31→22:40)
[2022-07-18] MEDS: CARBIDOPA/LEVODOPA 25/100 TABLET (FP) PO SCH ×3 (06:45→16:50)
[2022-07-18] MEDS: FUROSEMIDE 40 MG/4 ML INJECTABLE VIAL IVPUSH SCH ×2 (06:45→14:29)
[2022-07-18 08:00] LABS: BASO % 0.7 % (0-2.0); EOS % 1.1 % (0-4.5); HEMATOCRIT 27.2 % (35.4-49); HEMOGLOBIN 9.1 GM/dL (11.7-16.9); LYMPH % 6.4 % (8-40); MCH 27.9 pg (25.7-33.7); MCHC 33.4 g/dl (32.0-35.9); MEAN CELL VOLUME 83.4 fl (80-96); MEAN PLT VOLUME 7.7 fl (7.5-11.1); MONO % 7.7 % (3.8-10.2); NEUT % 84.1 % (42.8-82.8); PLATELET COUNT 211 10^3/uL (134-434); RBC 3.26 M/mm3 (4.00-5.60); RDW 16.9 % (11.9-15.9)
[2022-07-18] MEDS: ASPIRIN COATED 81 MG TABLET.EC PO SCH (10:10)
[2022-07-18] MEDS: CLOPIDOGREL BISULFATE 75 MG TABLET (FP) PO SCH (10:10)
[2022-07-18] MEDS: metoPROLOL SUCCINATE 25 MG TAB.SR.24H (FP) PO SCH (10:10)
[2022-07-18] MEDS: MULTIVITAMINS (DAILY MVI) TABLET (FP) PO SCH (10:11)
[2022-07-18] MEDS: amLODIPine BESYLATE 10 MG TABLET (FP) PO SCH (10:11)
[2022-07-18] MEDS: DONEPEZIL HCL 10 MG TABLET (FP) PO SCH (10:11)
[2022-07-18] MEDS: PANTOPRAZOLE 40 MG TABLET PO SCH (10:11)
[2022-07-18] MEDS: ENOXAPARIN NA (PORCINE) 40 MG/0.4 ML DISP.SYRIN SQ SCH (11:52)
[2022-07-18] MEDS ORDERED: LIDOCAINE 5% TOPICAL PATCH TP ONE (18:52)
[2022-07-18] MEDS ORDERED: ACETAMINOPHEN 325 MG TABLET (FP) PO PRN (18:52)
[2022-07-18] MEDS: ROSUVASTATIN CA 20 MG TABLET PO SCH (22:40)
[2022-07-18] MEDS: LIDOCAINE PATCH REMOVAL MC SCH (23:09)
[2022-07-19] MEDS: FUROSEMIDE 40 MG/4 ML INJECTABLE VIAL IVPUSH SCH ×2 (06:58→13:23)
[2022-07-19] MEDS: CARBIDOPA/LEVODOPA 25/100 TABLET (FP) PO SCH ×3 (06:59→17:58)
[2022-07-19 08:45] LABS: CALCIUM 8.7 mg/dL (8.5-10.1)
[2022-07-19 08:46] LABS: ALBUMIN 2.9 g/dl (3.4-5.0); BLOOD UREA NITROGEN 32.6 mg/dL (7-18)
[2022-07-19 08:49] LABS: CREATININE 1.3 mg/dL (0.55-1.3)
[2022-07-19 08:50] LABS: BILIRUBIN,TOTAL 0.7 mg/dL (0.2-1)
[2022-07-19 08:51] LABS: TOT PROT 6.3 g/dl (6.4-8.2)
[2022-07-19] MEDS ORDERED: IRON SUCROSE INJECTION 200 MG in SODIUM CHLORIDE 90 ML IVPB ONE (09:00)
[2022-07-19] MEDS: ASPIRIN COATED 81 MG TABLET.EC PO SCH (10:32)
[2022-07-19] MEDS: PANTOPRAZOLE 40 MG TABLET PO SCH (10:33)
[2022-07-19] MEDS: metoPROLOL SUCCINATE 25 MG TAB.SR.24H (FP) PO SCH (10:33)
[2022-07-19] MEDS: DONEPEZIL HCL 10 MG TABLET (FP) PO SCH (10:33)
[2022-07-19] MEDS: MULTIVITAMINS (DAILY MVI) TABLET (FP) PO SCH (10:33)
[2022-07-19] MEDS: amLODIPine BESYLATE 10 MG TABLET (FP) PO SCH (10:33)
[2022-07-19] MEDS: CLOPIDOGREL BISULFATE 75 MG TABLET (FP) PO SCH (10:33)
[2022-07-19] MEDS: ENOXAPARIN NA (PORCINE) 40 MG/0.4 ML DISP.SYRIN SQ SCH (10:33)
[2022-07-19] MEDS: POTASSIUM CHLORIDE ORAL LIQUID 20 MEQ/15 ML PO SCH ×2 (13:23→21:16)
[2022-07-19] MEDS: LIDOCAINE PATCH REMOVAL MC SCH (21:16)
[2022-07-19] MEDS: MELATONIN 5 MG TABLETS PO PRN (21:16)
[2022-07-19] MEDS: ROSUVASTATIN CA 20 MG TABLET PO SCH (21:16)
[2022-07-20] MEDS: CARBIDOPA/LEVODOPA 25/100 TABLET (FP) PO SCH ×3 (06:30→17:06)
[2022-07-20 08:04] LABS: BLOOD UREA NITROGEN 26.4 mg/dL (7-18); CALCIUM 8.7 mg/dL (8.5-10.1); MAGNESIUM 2.1 mg/dL (1.8-2.4)
[2022-07-20 08:06] LABS: CREATININE 1.2 mg/dL (0.55-1.3)
[2022-07-20 09:19] VITALS: RESP 18
[2022-07-20] MEDS ORDERED: TORSEMIDE 20 MG TABLET (FP) PO SCH (10:00)
[2022-07-20] MEDS ORDERED: POTASSIUM CHLORIDE ORAL LIQUID 20 MEQ/15 ML PO ONE (10:30)
[2022-07-20] MEDS: metoPROLOL SUCCINATE 25 MG TAB.SR.24H (FP) PO SCH (10:46)
[2022-07-20] MEDS: ASPIRIN COATED 81 MG TABLET.EC PO SCH (10:46)
[2022-07-20] MEDS: DONEPEZIL HCL 10 MG TABLET (FP) PO SCH (10:46)
[2022-07-20] MEDS: PANTOPRAZOLE 40 MG TABLET PO SCH (10:47)
[2022-07-20] MEDS: amLODIPine BESYLATE 10 MG TABLET (FP) PO SCH (10:47)
[2022-07-20] MEDS: CLOPIDOGREL BISULFATE 75 MG TABLET (FP) PO SCH (10:47)
[2022-07-20] MEDS: ENOXAPARIN NA (PORCINE) 40 MG/0.4 ML DISP.SYRIN SQ SCH (10:48)
[2022-07-20] MEDS: KCL 10 MEQ IVPB 10 MEQ/100 ML INFUS.BAG IVPB SCH ×2 (10:48→12:01)
[2022-07-20] MEDS: MULTIVITAMINS (DAILY MVI) TABLET (FP) PO SCH (10:48)
[2022-07-20] MEDS ORDERED: CARBAMIDE PEROXIDE 6.5% OTIC 15 ML BOTTLE AU ONE (11:08)
[2022-07-20 13:52] VITALS: BP 135/45; PULSE 60; TEMP 98.1
== END 2022-07-20 18:14 | DRG 291 ==
LOC: JER 13:40 → JERBED 18:23 → OBSVTOIN 20:22 → J4W 07-14 15:41
PROVIDERS: ADMIT Internal Medicine; ATTEND Family Medicine
DX: I13.0 Hypertensive heart and chronic kidney disease with heart failure and stage 1 through stage 4 chronic kidney disease, or unspecified chronic kidney disease (principal); I50.23 Acute on chronic systolic (congestive) heart failure; J96.01 Acute respiratory failure with hypoxia; E87.20 Acidosis, unspecified; G20 Parkinson's disease; I25.5 Ischemic cardiomyopathy; N18.9 Chronic kidney disease, unspecified; I35.0 Nonrheumatic aortic (valve) stenosis; I25.10 Atherosclerotic heart disease of native coronary artery without angina pectoris; E78.5 Hyperlipidemia, unspecified; M54.50 Low back pain, unspecified; D64.9 Anemia, unspecified; N40.0 Benign prostatic hyperplasia without lower urinary tract symptoms; F41.9 Anxiety disorder, unspecified; M25.512 Pain in left shoulder; M10.9 Gout, unspecified; I25.2 Old myocardial infarction; I45.10 Unspecified right bundle-branch block; I73.9 Peripheral vascular disease, unspecified; N28.1 Cyst of kidney, acquired; G31.83 Neurocognitive disorder with Lewy bodies; E87.6 Hypokalemia; F02.80 Dementia in other diseases classified elsewhere, unspecified severity, without behavioral disturbance, psychotic disturbance, mood disturbance, and anxiety; Z95.1 Presence of aortocoronary bypass graft
CPT/HCPCS: 0241U-QW; 36415; 36430; 70450-TC; 70551-TC; 71045-TC-FY; 80048; 80053; 81003; 82272; 82550; 82728; 82803; 83540; 83550; 83605; 83735; 83880; 84100; 84484; 85025; 85027; 85610; 85730; 86038; 86704; 86803; 86850; 86900; 86901; 86922; 87040; 87086; 87186; 87340; 93005; 93010; 97116-GP; 97162-GP; 99285-25; C9803-CS; G0378; J1756; P9058; U0003; U0005

== ENCOUNTER 2022-12-16 05:29 | Inpatient (IN) | payer OTHER ==
[2022-12-16] MEDS: ALBUTEROL SO4 2.5/IPRATROPIUM 0.5 INH SOL 3 ML VIAL.NEB. NEB SCH ×4 (05:45→06:33)
[2022-12-16] MEDS ORDERED: PIPERACILLIN/TAZOB 4.5 GM 4.5 GM in DEXTROSE 5%-WATER 100 ML IVPB ONE (06:02)
[2022-12-16] MEDS ORDERED: VANCOMYCIN 1,000 MG in DEXTROSE 5%-WATER - 250 ML IVPB ONE (06:02)
[2022-12-16] MEDS ORDERED: VANCOMYCIN 1 GRAM (PRE-DOCKED) 1,000 MG/250 ML BAG IVPB ONE (06:05)
[2022-12-16] MEDS ORDERED: PIPERACILLIN/TAZOB 4.5 GM 4.5 GM/100 ML BAG IVPB ONE (06:05)
[2022-12-16 06:12] LABS: VENOUS BASE EXCESS -2.1 mmol/L (-2-2); VENOUS O2 SATURATION 84.6 % (70-80); VENOUS PCO2 39.9 mmHg (38-52); VENOUS PH 7.377 (7.310-7.410)
[2022-12-16 06:20] LABS: BASO % 0.2 % (0-2.0); EOS % 0.2 % (0-4.5); HEMATOCRIT 24.8 % (35.4-49); HEMOGLOBIN 8.2 GM/dL (11.7-16.9); LYMPH % 3.8 % (8-40); MCH 29.6 pg (25.7-33.7); MCHC 33.2 g/dl (32.0-35.9); MEAN CELL VOLUME 89.3 fl (80-96); MEAN PLT VOLUME 8.7 fl (7.5-11.1); MONO % 6.5 % (3.8-10.2); NEUT % 89.3 % (42.8-82.8); PLATELET COUNT 166 10^3/uL (134-434); RBC 2.78 M/mm3 (4.00-5.60); RDW 14.5 % (11.9-15.9); WHITE BLOOD COUNT 6.3 K/mm3 (4.0-10.0)
[2022-12-16 06:35] LABS: CHLORIDE 100 mmol/L (98-107); POTASSIUM 3.7 mmol/L (3.5-5.1); SODIUM 139 mmol/L (136-145)
[2022-12-16 06:36] LABS: INR 1.25 (0.83-1.09); MAGNESIUM 2.7 mg/dL (1.8-2.4); PROTHROMBIN TIME (PATIENT) 14.5 SEC (9.7-13.0)
[2022-12-16 06:37] LABS: BLOOD UREA NITROGEN 73.1 mg/dL (7-18); CALCIUM 8.6 mg/dL (8.5-10.1)
[2022-12-16 06:38] LABS: ALBUMIN 3.2 g/dl (3.4-5.0); ANION GAP 11 MMOL/L (8-16); CO2 28 mmol/L (21-32); GLUCOSE,RANDOM 104 mg/dL (74-106)
[2022-12-16 06:39] LABS: ACTIVATED PTT 29.9 SECONDS (25.2-36.5)
[2022-12-16 06:40] LABS: CREATININE 2.4 mg/dL (0.55-1.3); SGOT/AST 28 U/L (15-37)
[2022-12-16 06:41] LABS: SGPT/ALT 8 U/L (13-61)
[2022-12-16 06:42] LABS: BILIRUBIN,TOTAL 0.5 mg/dL (0.2-1); TOT PROT 7.1 g/dl (6.4-8.2)
[2022-12-16 06:43] LABS: ALK PHOS 56 U/L (45-117)
[2022-12-16 06:57] LABS: N-TERMINAL BNP 60372.8 pg/ml (5-450)
[2022-12-16] MEDS ORDERED: ASPIRIN 81 MG CHEWABLE TABLETS PO ONE (07:20)
[2022-12-16] MEDS ORDERED: REMDESIVIR 200 MG in SODIUM CHLORIDE 250 ML IVPB ONE (15:00)
[2022-12-16] MEDS ORDERED: DEXAMETHASONE SOD PHOSPHATE 10 MG/1 ML VIAL ONE (16:16)
[2022-12-16] MEDS: DEXAMETHASONE SOD PHOSPHATE 4 MG/1 ML VIAL IVPUSH SCH (16:35)
[2022-12-17 08:17] LABS: HEMATOCRIT 22.9 % (35.4-49); HEMOGLOBIN 7.8 GM/dL (11.7-16.9); MCH 29.6 pg (25.7-33.7); MEAN CELL VOLUME 87.2 fl (80-96); PLATELET COUNT 160 10^3/uL (134-434); RBC 2.63 M/mm3 (4.00-5.60); WHITE BLOOD COUNT 3.7 K/mm3 (4.0-10.0)
[2022-12-17 08:24] LABS: POTASSIUM 3.6 mmol/L (3.5-5.1)
[2022-12-17 08:36] LABS: CALCIUM 8.9 mg/dL (8.5-10.1)
[2022-12-17 08:37] LABS: ALBUMIN 3.1 g/dl (3.4-5.0); BLOOD UREA NITROGEN 69.8 mg/dL (7-18)
[2022-12-17 08:38] LABS: CREATININE 2.2 mg/dL (0.55-1.3)
[2022-12-17 08:40] LABS: BILIRUBIN,TOTAL 0.6 mg/dL (0.2-1)
[2022-12-17] MEDS: DEXAMETHASONE SOD PHOSPHATE 4 MG/1 ML VIAL IVPUSH SCH (09:46)
[2022-12-17 10:20] LABS: ANISOCYTOSIS 0; MACROCYTOSIS 0; OVALOCYTE 1+
[2022-12-17 16:32] LABS: HEMATOCRIT 24.8 % (35.4-49); MCH 28.7 pg (25.7-33.7); MCHC 32.1 g/dl (32.0-35.9); MEAN CELL VOLUME 89.4 fl (80-96); MEAN PLT VOLUME 8.8 fl (7.5-11.1); PLATELET COUNT 184 10^3/uL (134-434); RBC 2.77 M/mm3 (4.00-5.60); RDW 14.7 % (11.9-15.9); WHITE BLOOD COUNT 5.4 K/mm3 (4.0-10.0)
[2022-12-17] MEDS: REMDESIVIR 100 MG in SODIUM CHLORIDE 250 ML IVPB SCH (16:51)
[2022-12-17] MEDS ORDERED: ALBUTEROL SO4 0.083% IH SOL 2.5 MG/3 ML VIAL.NEB. NEB PRN (18:20)
[2022-12-18 07:57] LABS: POTASSIUM 3.5 mmol/L (3.5-5.1)
[2022-12-18 08:01] LABS: ALBUMIN 3.1 g/dl (3.4-5.0); BLOOD UREA NITROGEN 79.4 mg/dL (7-18)
[2022-12-18 08:07] LABS: BILIRUBIN,TOTAL 0.5 mg/dL (0.2-1); TOT PROT 6.7 g/dl (6.4-8.2)
[2022-12-18 08:18] LABS: BASO % 0.1 % (0-2.0); HEMATOCRIT 24.8 % (35.4-49); HEMOGLOBIN 8.2 GM/dL (11.7-16.9); LYMPH % 3.1 % (8-40); MCH 29.5 pg (25.7-33.7); MEAN CELL VOLUME 89.5 fl (80-96); MEAN PLT VOLUME 8.8 fl (7.5-11.1); MONO % 7.2 % (3.8-10.2); NEUT % 89.6 % (42.8-82.8); PLATELET COUNT 240 10^3/uL (134-434); RBC 2.77 M/mm3 (4.00-5.60); RDW 14.8 % (11.9-15.9); WHITE BLOOD COUNT 11.4 K/mm3 (4.0-10.0)
[2022-12-18] MEDS: DEXAMETHASONE SOD PHOSPHATE 4 MG/1 ML VIAL IVPUSH SCH (10:19)
[2022-12-18] MEDS: REMDESIVIR 100 MG in SODIUM CHLORIDE 250 ML IVPB SCH (15:15)
[2022-12-19 07:50] LABS: HEMATOCRIT 25.3 % (35.4-49); HEMOGLOBIN 8.2 GM/dL (11.7-16.9); MCH 29.3 pg (25.7-33.7); MCHC 32.3 g/dl (32.0-35.9); MEAN CELL VOLUME 90.7 fl (80-96); MEAN PLT VOLUME 8.9 fl (7.5-11.1); PLATELET COUNT 226 10^3/uL (134-434); RBC 2.79 M/mm3 (4.00-5.60); RDW 15.1 % (11.9-15.9); WHITE BLOOD COUNT 13.3 K/mm3 (4.0-10.0)
[2022-12-19 08:08] LABS: POTASSIUM 3.8 mmol/L (3.5-5.1)
[2022-12-19 08:10] LABS: CALCIUM 8.9 mg/dL (8.5-10.1)
[2022-12-19 08:12] LABS: ALBUMIN 2.9 g/dl (3.4-5.0); BLOOD UREA NITROGEN 76.7 mg/dL (7-18)
[2022-12-19 08:15] LABS: CREATININE 1.9 mg/dL (0.55-1.3)
[2022-12-19 08:17] LABS: BILIRUBIN,TOTAL 0.9 mg/dL (0.2-1); TOT PROT 6.5 g/dl (6.4-8.2)
[2022-12-19 09:08] LABS: ANISOCYTOSIS 1+; MACROCYTOSIS 0
[2022-12-19] MEDS: DEXAMETHASONE SOD PHOSPHATE 4 MG/1 ML VIAL IVPUSH SCH ×3 (09:49→10:51)
[2022-12-19] MEDS ORDERED: METOPROLOL TARTRATE 25 MG TABLET (FP) PO ONE (10:15)
[2022-12-19] MEDS ORDERED: METOPROLOL TARTRATE 25 MG TABLET (FP) PO SCH ×2 (11:15→14:00)
[2022-12-19] MEDS ORDERED: METOPROLOL TARTRATE 5 MG/5 ML VIAL IVPUSH ONE (11:15)
[2022-12-19] MEDS ORDERED: EPINEPHrine/PF 1 MG/1 ML (1:1,000) AMPULE ONE (13:10)
[2022-12-19] MEDS ORDERED: FENTANYL NS IVPB 500 MCG/100 ML BAG IVPB ONE (14:10)
[2022-12-19] MEDS ORDERED: FUROSEMIDE 40 MG/4 ML INJECTABLE VIAL IVPUSH ONE (14:27)
[2022-12-19] MEDS: FENTANYL NS IVPB 500 MCG/100 ML BAG IVPB SCH (16:00)
[2022-12-19] MEDS: REMDESIVIR 100 MG in SODIUM CHLORIDE 250 ML IVPB SCH (16:01)
[2022-12-19 16:11] LABS: ARTERIAL BLD GAS O2 SATURATION 97.3 % (95-98); ARTERIAL BLOOD GAS BASE EXCESS 1.7 mmol/L (-2-2); ARTERIAL BLOOD GAS PO2 96.6 mmHg (80-100); ARTERIAL BLOOD GAS pH 7.395 (7.350-7.450)
[2022-12-19 16:13] LABS: VENT MODE A/C; VENT RATE 8
[2022-12-19 18:12] LABS: HEMATOCRIT 26.3 % (35.4-49); HEMOGLOBIN 8.3 GM/dL (11.7-16.9); MCH 28.3 pg (25.7-33.7); MCHC 31.5 g/dl (32.0-35.9); MEAN CELL VOLUME 89.9 fl (80-96); MEAN PLT VOLUME 8.3 fl (7.5-11.1); PLATELET COUNT 234 10^3/uL (134-434); RBC 2.92 M/mm3 (4.00-5.60); RDW 15.1 % (11.9-15.9); WHITE BLOOD COUNT 14.4 K/mm3 (4.0-10.0)
[2022-12-19 18:27] LABS: POTASSIUM 3.7 mmol/L (3.5-5.1)
[2022-12-19 18:30] LABS: ALBUMIN 2.9 g/dl (3.4-5.0); BLOOD UREA NITROGEN 83.6 mg/dL (7-18); CALCIUM 9.7 mg/dL (8.5-10.1); MAGNESIUM 2.9 mg/dL (1.8-2.4)
[2022-12-19 18:34] LABS: BILIRUBIN,TOTAL 1.1 mg/dL (0.2-1); CREATININE 2.2 mg/dL (0.55-1.3); PHOSPHOROUS 4.9 mg/dL (2.5-4.9); TOT PROT 6.6 g/dl (6.4-8.2)
[2022-12-19] MEDS ORDERED: LORazepam 2 MG/ML SDV VIAL IVPUSH ONE (18:35)
[2022-12-19 20:06] LABS: ANISOCYTOSIS 0; HELMET CELLS 0; HOWELL-JOLLY BODIES 0; MACROCYTOSIS 0; OVALOCYTE 0; PLATELET ESTIMATE NORMAL; ROULEAU 0; SICKELED CELLS 0; TARGET CELLS 0; TEAR DROP CELLS 0; TOXIC GRANULATION 0
[2022-12-19] MEDS ORDERED: ALBUTEROL SO4 0.083% IH SOL 2.5 MG/3 ML VIAL.NEB. NEB PRN (20:11)
[2022-12-19] MEDS: POLYETHYLENE GLYCOL (HEALTHYLAX) 3350 17 GM PACKET PO SCH (21:16)
[2022-12-19] MEDS: MELATONIN 5 MG TABLETS PO SCH (21:16)
[2022-12-19] MEDS: CHLORHEXIDINE GLUCONATE 4% CLEANSER FOR DECOLONIZATION TP SCH (21:16)
[2022-12-19] MEDS: METOPROLOL TARTRATE 25 MG TABLET (FP) PO SCH (21:17)
[2022-12-19] MEDS: MUPIROCIN 2% TOPICAL OINTMENT FOR DECOLONIZATION NS SCH (21:17)
[2022-12-19] MEDS: APIXABAN 2.5 MG TABLET PO SCH (21:19)
[2022-12-19] MEDS ORDERED: PROPOFOL 1,000,000 MCG/100 ML VIAL ONE (21:36)
[2022-12-19] MEDS: PROPOFOL 1,000,000 MCG/100 ML VIAL IVPB SCH (21:50)
[2022-12-19] MEDS ORDERED: APIXABAN 2.5 MG TABLET PO SCH (22:00)
[2022-12-20] MEDS: METOPROLOL TARTRATE 25 MG TABLET (FP) PO SCH ×3 (06:24→21:37)
[2022-12-20 07:35] LABS: MEAN PLT VOLUME 8.4 fl (7.5-11.1); WHITE BLOOD COUNT 10.9 K/mm3 (4.0-10.0)
[2022-12-20 07:40] LABS: BASO % 0.3 % (0-2.0); EOS % 0.1 % (0-4.5); HEMATOCRIT 33.1 % (35.4-49); HEMOGLOBIN 10.7 GM/dL (11.7-16.9); MCH 28.9 pg (25.7-33.7); MCHC 32.2 g/dl (32.0-35.9); MEAN CELL VOLUME 89.7 fl (80-96); MONO % 7.3 % (3.8-10.2); NEUT % 88.3 % (42.8-82.8); PLATELET COUNT 239 10^3/uL (134-434); RBC 3.69 M/mm3 (4.00-5.60); RDW 15.7 % (11.9-15.9)
[2022-12-20] MEDS: PROPOFOL 1,000,000 MCG/100 ML VIAL IVPB SCH ×3 (07:49→21:52)
[2022-12-20 08:03] LABS: POTASSIUM 3.7 mmol/L (3.5-5.1)
[2022-12-20 08:05] LABS: ALBUMIN 3.1 g/dl (3.4-5.0); BLOOD UREA NITROGEN 93.8 mg/dL (7-18); CALCIUM 9.6 mg/dL (8.5-10.1); MAGNESIUM 2.9 mg/dL (1.8-2.4)
[2022-12-20 08:08] LABS: CREATININE 2.2 mg/dL (0.55-1.3); PHOSPHOROUS 4.9 mg/dL (2.5-4.9)
[2022-12-20 08:09] LABS: BILIRUBIN,TOTAL 0.6 mg/dL (0.2-1); TOT PROT 7.2 g/dl (6.4-8.2)
[2022-12-20] MEDS: PANTOPRAZOLE SODIUM 40 MG VIAL IVPUSH SCH (09:53)
[2022-12-20] MEDS: POLYETHYLENE GLYCOL (HEALTHYLAX) 3350 17 GM PACKET PO SCH ×2 (09:54→22:26)
[2022-12-20] MEDS: ASCORBIC ACID 250 MG TABLET (FP) PO SCH (09:54)
[2022-12-20] MEDS: APIXABAN 2.5 MG TABLET PO SCH ×3 (09:54→22:27)
[2022-12-20] MEDS: DEXAMETHASONE SOD PHOSPHATE 4 MG/1 ML VIAL IVPUSH SCH (09:54)
[2022-12-20] MEDS: MULTIVITAMINS (DAILY MVI) TABLET (FP) PO SCH (09:54)
[2022-12-20] MEDS ORDERED: FUROSEMIDE 40 MG/4 ML INJECTABLE VIAL IVPUSH ONE (11:05)
[2022-12-20] MEDS: MUPIROCIN 2% TOPICAL OINTMENT FOR DECOLONIZATION NS SCH ×2 (11:07→22:26)
[2022-12-20] MEDS: FENTANYL NS IVPB 500 MCG/100 ML BAG IVPB SCH ×3 (11:45→16:52)
[2022-12-20] MEDS ORDERED: REMDESIVIR 100 MG in SODIUM CHLORIDE 250 ML IVPB SCH (15:00)
[2022-12-20] MEDS: CHLORHEXIDINE GLUCONATE 4% CLEANSER FOR DECOLONIZATION TP SCH (21:37)
[2022-12-20] MEDS: ROSUVASTATIN CA 20 MG TABLET PO SCH ×2 (21:40→22:27)
[2022-12-20] MEDS: MELATONIN 5 MG TABLETS PO SCH (22:26)
[2022-12-21] MEDS: METOPROLOL TARTRATE 25 MG TABLET (FP) PO SCH ×3 (07:00→21:56)
[2022-12-21] MEDS ORDERED: levETIRAcetam 500 MG/5 ML INJECTION VIAL IVPB ONE (09:00)
[2022-12-21] MEDS: DEXAMETHASONE SOD PHOSPHATE 4 MG/1 ML VIAL IVPUSH SCH (09:13)
[2022-12-21] MEDS: POLYETHYLENE GLYCOL (HEALTHYLAX) 3350 17 GM PACKET PO SCH ×2 (09:13→21:56)
[2022-12-21] MEDS: APIXABAN 2.5 MG TABLET PO SCH ×2 (09:13→21:57)
[2022-12-21] MEDS: ASCORBIC ACID 250 MG TABLET (FP) PO SCH (09:13)
[2022-12-21] MEDS: PANTOPRAZOLE SODIUM 40 MG VIAL IVPUSH SCH (09:13)
[2022-12-21] MEDS: MULTIVITAMINS (DAILY MVI) TABLET (FP) PO SCH (09:13)
[2022-12-21] MEDS: MUPIROCIN 2% TOPICAL OINTMENT FOR DECOLONIZATION NS SCH ×2 (09:13→21:55)
[2022-12-21] MEDS: MORPHINE SULFATE/0.9% NACL/PF 100 MG/100 ML BAG IVPB SCH (11:49)
[2022-12-21] MEDS: LORazepam 40 MG in DEXTROSE 5%-WATER - 230 ML IVPB SCH (11:58)
[2022-12-21 12:16] VITALS: BMI 21.3
[2022-12-21] MEDS: PROPOFOL 1,000,000 MCG/100 ML VIAL IVPB SCH ×2 (16:58→21:55)
[2022-12-21] MEDS: ROSUVASTATIN CA 20 MG TABLET PO SCH (21:56)
[2022-12-21] MEDS: CHLORHEXIDINE GLUCONATE 4% CLEANSER FOR DECOLONIZATION TP SCH (21:56)
[2022-12-21] MEDS: MELATONIN 5 MG TABLETS PO SCH (21:57)
[2022-12-22] MEDS: PROPOFOL 1,000,000 MCG/100 ML VIAL IVPB SCH (05:27)
[2022-12-22] MEDS: METOPROLOL TARTRATE 25 MG TABLET (FP) PO SCH (05:28)
[2022-12-22 08:27] VITALS: TEMP 98.2
[2022-12-22] MEDS: POLYETHYLENE GLYCOL (HEALTHYLAX) 3350 17 GM PACKET PO SCH (09:19)
[2022-12-22] MEDS: MUPIROCIN 2% TOPICAL OINTMENT FOR DECOLONIZATION NS SCH (09:19)
[2022-12-22] MEDS ORDERED: levETIRAcetam 500 MG/5 ML INJECTION VIAL IVPB SCH (10:00)
[2022-12-22] MEDS: LORazepam 40 MG in DEXTROSE 5%-WATER - 230 ML IVPB SCH (10:31)
[2022-12-22] MEDS: MORPHINE SULFATE/0.9% NACL/PF 100 MG/100 ML BAG IVPB SCH (12:45)
[2022-12-22 16:22] VITALS: BP 128/55; PULSE 62; RESP 16
== END 2022-12-22 16:24 | disposition expired | DRG 208 ==
LOC: JER 05:29 → JERBED 05:41 → J4W 12-17 04:41 → JICU 12-19 13:59
PROVIDERS: ADMIT Internal Medicine; ATTEND Family Medicine
PROC: XW033E5 Introduction of Remdesivir Anti-infective into Peripheral Vein, Percutaneous Approach, New Technology Group 5 (ICD-10-PCS; 2022-12-16)
PROC: 3E0333Z Introduction of Anti-inflammatory into Peripheral Vein, Percutaneous Approach (ICD-10-PCS; 2022-12-16)
PROC: 5A12012 Performance of Cardiac Output, Single, Manual (ICD-10-PCS; principal; 2022-12-19)
PROC: 5A1945Z Respiratory Ventilation, 24-96 Consecutive Hours (ICD-10-PCS; 2022-12-19)
PROC: 0BH17EZ Insertion of Endotracheal Airway into Trachea, Via Natural or Artificial Opening (ICD-10-PCS; 2022-12-19)
DX: U07.1 COVID-19 (principal); J96.01 Acute respiratory failure with hypoxia; I21.4 Non-ST elevation (NSTEMI) myocardial infarction; J15.8 Pneumonia due to other specified bacteria; I50.33 Acute on chronic diastolic (congestive) heart failure; I13.0 Hypertensive heart and chronic kidney disease with heart failure and stage 1 through stage 4 chronic kidney disease, or unspecified chronic kidney disease; N17.9 Acute kidney failure, unspecified; I24.8 Other forms of acute ischemic heart disease; E46 Unspecified protein-calorie malnutrition; G93.1 Anoxic brain damage, not elsewhere classified; I45.2 Bifascicular block; E78.5 Hyperlipidemia, unspecified; I25.10 Atherosclerotic heart disease of native coronary artery without angina pectoris; Z95.5 Presence of coronary angioplasty implant and graft; N18.9 Chronic kidney disease, unspecified; G30.9 Alzheimer's disease, unspecified; F02.80 Dementia in other diseases classified elsewhere, unspecified severity, without behavioral disturbance, psychotic disturbance, mood disturbance, and anxiety; Z95.1 Presence of aortocoronary bypass graft; G20 Parkinson's disease; I35.0 Nonrheumatic aortic (valve) stenosis; N40.0 Benign prostatic hyperplasia without lower urinary tract symptoms; M54.50 Low back pain, unspecified; F41.9 Anxiety disorder, unspecified; I25.5 Ischemic cardiomyopathy; M10.9 Gout, unspecified; Z68.21 Body mass index [BMI] 21.0-21.9, adult; E03.9 Hypothyroidism, unspecified; I46.9 Cardiac arrest, cause unspecified; J44.9 Chronic obstructive pulmonary disease, unspecified; I73.9 Peripheral vascular disease, unspecified; I48.91 Unspecified atrial fibrillation; Z66 Do not resuscitate
CPT/HCPCS: 0241U-QW; 36415; 36600; 71045-TC-FY; 80053; 82550; 82803; 82962; 83605; 83735; 83880; 84100; 84484; 85025; 85027; 85610; 85730; 86140; 86850; 86900; 86901; 87040; 87070; 87205; 87899; 93005; 93010; 93306-TC; 94002; 94660; 99285-25; C9399